=== PATIENT | male | born 1955 | race Caucasian/White ===

== ENCOUNTER → 2019-02-17 11:14 | Outpatient (POV) | payer MEDICARE, SELFPAY | PROVIDERS: Visit Provider Dermatology | DX: Z00.00 Encounter for general adult medical examination without abnormal findings (principal) ==

== ENCOUNTER → 2019-03-04 14:08 | Outpatient (POV) | payer MEDICARE, MEDICAID, SELFPAY | DX: Z00.00 Encounter for general adult medical examination without abnormal findings (principal) ==

== ENCOUNTER → 2019-03-24 12:57 | Outpatient (POV) | payer MEDICARE, MEDICAID, SELFPAY | PROVIDERS: Visit Provider Dermatology | DX: L08.9 Local infection of the skin and subcutaneous tissue, unspecified (principal) | CPT/HCPCS: 87070; 87077; 87186; 87205 ==

== ENCOUNTER → 2019-04-28 09:47 | Outpatient (POV) | payer MEDICARE, MEDICAID, SELFPAY | PROVIDERS: Visit Provider Dermatology | DX: Z00.00 Encounter for general adult medical examination without abnormal findings (principal) ==

== ENCOUNTER 2019-05-01 10:00 | Outpatient (RCR) | payer MEDICARE, MEDICAID, SELFPAY | END 2019-05-01 10:05 | disposition home or self-care (01) | LOC: PT 10:00 | PROVIDERS: Visit Provider Dermatology | DX: L03.116 Cellulitis of left lower limb (principal) | CPT/HCPCS: 97162; 97597; 97598 ==

== ENCOUNTER → 2019-05-01 10:18 | Outpatient (CLI) | payer MEDICARE, MEDICAID, SELFPAY ==
[2019-05-01 10:44] LABS: Basophils % 0.4 % (0.1-2.0); Eosinophils # 0.1 K/mm3 (0.0-0.4); Eosinophils % 1.1 % (0.1-12.0); Hematocrit 47.5 % (42.0-52.0); Lymphocytes # 1.3 K/mm3 (0.7-4.5); Mean Corpuscular HGB Conc 31.5 g/dL (31.8-35.4); Mean Corpuscular Hemoglobin 30.9 pg (27.0-31.2); Mean Corpuscular Volume 98.3 fl (80-94); Mean Platelet Volume 6.9 fl (7.4-10.4); Monocytes # 0.5 K/mm3 (0.1-1.0); Monocytes % 5.2 % (1.7-9.3); Neutrophils # 7.5 K/mm3 (1.8-7.8); Neutrophils % 79.3 % (37.0-80.0); Platelet Count 198 K/mm3 (142-424); Red Blood Count 4.83 M/mm3 (4.60-6.20); Red Cell Distribution Width 13.2 % (11.5-17.5); White Blood Count 9.5 K/mm3 (4.8-10.8)
[2019-05-01 12:41] LABS: Alanine Aminotransferase 33 U/L (12-78); Albumin/Globulin Ratio 1.4 (1.1-1.8); Alkaline Phosphatase 104 U/L (46-116); Anion Gap 12.5 mEq/L (5-15); Aspartate Amino Transferase 18 U/L (15-37); Bilirubin,Total 0.3 mg/dL (0.2-1.0); Blood Urea Nitrogen 8 mg/dL (7-18); Calcium 9.1 mg/dL (8.5-10.1); Carbon Dioxide 30 mmol/L (21.0-32.0); Chloride 97 mmol/L (98-107); Cholesterol 177 mg/dL (140-200); Creatinine,Serum 1.04 mg/dL (0.70-1.30); Estimated Glomerular Filt Rate 73 ml/min (>60); GFR (African American) 88 ML/MIN (>60); Globulin 2.9 gm/dl (1.3-3.2); Glucose 118 mg/dL (74-106); HDL Cholesterol 89 mg/dL (27-67); LDL Cholesterol 81 mg/dL (0-130); Potassium 5.5 mmoL/L (3.5-5.1); Sodium 134 mmol/L (136-145); Thyroid Stimulating Hormone 0.88 uIU/ml (0.358-3.740); Total Protein,Serum 6.9 gm/dL (6.4-8.2); Triglycerides 36 mg/dL (30-200); VLDL Cholesterol 7 mg/dL (0-40)
== END ==
PROVIDERS: Visit Provider Nurse Practitioner Family
DX: I10 Essential (primary) hypertension (principal); J44.9 Chronic obstructive pulmonary disease, unspecified
CPT/HCPCS: 36415; 80053; 80061; 84443; 85025

== ENCOUNTER → 2019-06-09 13:14 | Outpatient (POV) | payer MEDICARE, MEDICAID, SELFPAY | PROVIDERS: Visit Provider Dermatology | DX: Z00.00 Encounter for general adult medical examination without abnormal findings (principal) ==

== ENCOUNTER → 2019-07-21 10:58 | Outpatient (POV) | payer MEDICARE, MEDICAID, SELFPAY | PROVIDERS: Visit Provider Dermatology | DX: Z00.00 Encounter for general adult medical examination without abnormal findings (principal) ==

== ENCOUNTER → 2019-07-29 13:49 | Outpatient (POV) | payer MEDICARE, MEDICAID, SELFPAY | DX: Z00.00 Encounter for general adult medical examination without abnormal findings (principal) ==

== ENCOUNTER → 2020-04-22 08:42 | Outpatient (CLI) | payer MEDICARE, MEDICAID, SELFPAY ==
--- NOTE | 2020-04-22 08:47 | CT_ITS ---
PROCEDURE: CT LUNG SCREENING CLINICAL INDICATION: H/O TOBACCO USE Eighty pack-year smoking history, asymptomatic for lung cancer COMPARISON: No exams were available for comparison TECHNIQUE: The exam was performed on a GE Light Speed [address] scanner using 2.90 mGy CTDI. A low dose helical CT CHEST was performed on a multi-detector scanner. All CT scans at the facility use one or more dose reduction, viz: automated exposure control, ma/kV adjustment per patient size (including targeted exams where dose is matched to indication, i.e. head), or iterative reconstruction technique. The LDCT was performed in a facility that meets the criteria for the screening program. Data regarding this exam was submitted to ACR which is an approved registry. The order for this exam indicates that it came as a result of a lung cancer screening counseling shard decision-making visit that included all the elements required of such a visit including smoking cessation. The radiologist interpreting this exam meets the CMS criteria for the LDCT lung cancer screening program. The exam is reported using the Lung-RADS classification scale and reported to the ACR registry. NOTE: This study was performed for the specific purposes of lung cancer screening and is not an alternative to diagnostic chest CT. RADIATION DOSE: CTDI vol(CT dose Index-volume) = 2.90mG DLP (Dose Length Product) = 123.50 mGcm Lung Rads Category: FINDINGS: Three nodular opacities are present in the right apex which are subpleural measuring up to 1.1 x 0.7 cm. This may be due to areas of scarring. Short-term follow-up suggested. Centrilobular emphysema is noted. There is mild diffuse bronchial thickening There is a small hiatal hernia. There are old right-sided rib fractures IMPRESSION: Lung rads category 3 probably benign. Recommend [address] without and with contrast regarding right apical nodules Dictated by: Jaylen Reyes MD 05/09/2020 10:01 Electronically signed by Jaylen Reyes MD in [place] 05/09/2020 10:01
== END ==
PROVIDERS: PCP Podiatrist; Visit Provider Nurse Practitioner Family
DX: Z87.891 Personal history of nicotine dependence (principal); Z12.2 Encounter for screening for malignant neoplasm of respiratory organs

== ENCOUNTER → 2020-05-03 11:03 | Outpatient (POV) | payer MEDICARE, MEDICAID, SELFPAY | PROVIDERS: PCP Nurse Practitioner Family; Visit Provider Physician Assistant | DX: Z00.00 Encounter for general adult medical examination without abnormal findings (principal) ==

== ENCOUNTER → 2020-06-21 15:16 | Outpatient (POV) | payer MEDICARE, MEDICAID, SELFPAY | PROVIDERS: PCP Nurse Practitioner Family; Visit Provider Dermatology | DX: Z00.00 Encounter for general adult medical examination without abnormal findings (principal) ==

== ENCOUNTER → 2020-08-01 09:44 | Outpatient (CLI) | payer MEDICARE, MEDICAID, SELFPAY ==
--- NOTE | 2020-08-01 09:50 | XR_ITS ---
PROCEDURE: XR CERVICAL SPINE 5V CLINICAL INDICATION: NECK PAIN COMPARISON: No exams were available for comparison FINDINGS: There has been prior cervical spine surgery with fusion of C5-C6 and C6-C7. There is normal alignment of these vertebral bodies. There is minimal anterolisthesis of C3 on C4 and C4 on C5 of 2-3 mm each. There is also mild anterolisthesis of C7 on T1 of 4 mm. There is mild degenerative disc disease at C7-T1 and C4-C5 and C5-C6 The joint spaces are well-preserved. No significant degenerative/arthritic changes. No erosive changes evident. No fracture or dislocation evident. Facet and uncovertebral hypertrophy is present and is causing mild narrowing on the left at C4-C5 and on the right at C4-C5. Carotid artery calcification is present on the left. Other findings:None. IMPRESSION: Postsurgical changes with cervical spondylosis as described above. Dictated by: Jaylen Reyes MD 08/01/2020 11:49 Jaylen Reyes MD in [place] 08/01/2020 11:49
== END ==
PROVIDERS: PCP Nurse Practitioner Family; Visit Provider Nurse Practitioner Family
DX: M54.2 Cervicalgia (principal)
CPT/HCPCS: 72050

== ENCOUNTER → 2020-08-11 10:41 | Outpatient (CLI) | payer MEDICARE, MEDICAID, SELFPAY ==
--- NOTE | 2020-08-11 10:56 | CT_ITS ---
PROCEDURE: CT CHEST WO/W CON CLINCAL INDICATION: RT LUNG NODULE follow up, right lung nodule soa COMPARISON: CT CT LUNG SCREENING from 04/22/2020 TECHNIQUE: IV Contrast: 75ml Optiray 350 Axial images obtained with sagittal and coronal reformats. All CT scans at the facility use one or more dose reduction, viz: automated exposure control, ma/kV adjustment per patient size (including targeted exams where dose is matched to indication, i.e. head), or iterative reconstruction technique. FINDINGS: No mediastinal or hilar mass or adenopathy is evident. There is normal heart size. There is a small hiatal hernia with mild nonspecific thickening of the distal esophagus. Small right apical nodules are once again noted and are unchanged. There is centrilobular emphysema with COPD and mild bronchial thickening. There is parenchymal opacity in the right lung base posterior laterally which has developed since the previous exam. This may only be due to an area of parenchymal scarring or atelectasis however, developing nodule is an additional consideration. This measures approximately 1 cm. Continued follow-up is suggested. No effusions or infiltrates. Upper abdominal images show multiple unopacified bowel loops which could obscure or mimic pathology. There is a small focus of gas in the region of the pancreatic head and may be due to a duodenal diverticulum posterior to the common bile duct. IMPRESSION: 1. Centrilobular emphysema with COPD. 2. Right apical nodular opacities are stable. 3. New parenchymal opacity in the right lung base posterior laterally and may be due to an area of atelectasis or fibrosis. Cannot exclude developing nodule. Recommend continued six-month follow-up. Dictated by: Jaylen Reyes MD 08/13/2020 09:33 Jaylen Reyes MD in [place] 08/13/2020 09:33
[2020-08-11 11:05] LABS: Blood Urea Nitrogen 10 mg/dl (9-20); Estimated Glomerular Filt Rate 86 ml/min (>60); GFR (African American) 103 ML/MIN (>60)
== END ==
PROVIDERS: PCP Nurse Practitioner Family; Visit Provider Nurse Practitioner Family
DX: R91.1 Solitary pulmonary nodule (principal)
CPT/HCPCS: 36415; 71270; 82565; 84520; Q9967

== ENCOUNTER → 2020-08-31 13:17 | Outpatient (POV) | payer MEDICARE, MEDICAID, SELFPAY | DX: Z00.00 Encounter for general adult medical examination without abnormal findings (principal) ==

== ENCOUNTER → 2020-11-28 11:10 | Outpatient (CLI) | payer MEDICARE, MEDICAID, SELFPAY ==
[2020-11-28 11:38] LABS: Basophils % 0.3 % (0.1-2.0); Eosinophils % 0.4 % (0.1-12.0); Hematocrit 49.7 % (42.0-52.0); Hemoglobin 16.3 g/dL (14.1-18.0); Lymphocytes # 1.3 K/mm3 (0.7-4.5); Lymphocytes % 14.3 % (10-50); Mean Corpuscular HGB Conc 32.9 g/dL (31.8-35.4); Mean Corpuscular Hemoglobin 32.7 pg (27.0-31.2); Mean Corpuscular Volume 99.3 fl (80-94); Mean Platelet Volume 7.3 fl (7.4-10.4); Monocytes # 0.5 K/mm3 (0.1-1.0); Monocytes % 5.4 % (1.7-9.3); Neutrophils # 7.3 K/mm3 (1.8-7.8); Neutrophils % 79.6 % (37.0-80.0); Platelet Count 173 K/mm3 (142-424); Red Cell Distribution Width 13.5 % (11.5-17.5); White Blood Count 9.2 K/mm3 (4.8-10.8)
[2020-11-28 12:37] LABS: Chloride 95 mmol/L (98-107); Potassium 4.5 mmoL/L (3.5-5.1); Sodium 136 mmol/L (136-145)
[2020-11-28 12:40] LABS: Alanine Aminotransferase 17 U/L (12-78); Albumin Level 4.6 g/dl (3.5-5.0); Albumin/Globulin Ratio 1.6 (1.1-1.8); Alkaline Phosphatase 125 U/L (38-126); Anion Gap 11.5 mEq/L (5-15); Aspartate Amino Transferase 24 U/L (17-59); Bilirubin,Total 0.5 mg/dl (0.2-1.3); Blood Urea Nitrogen 16 mg/dl (9-20); Carbon Dioxide 34 mmol/L (22.0-30.0); Cholesterol 152 mg/dl (140-200); Estimated Glomerular Filt Rate 75 ml/min (>60); GFR (African American) 91 ML/MIN (>60); Globulin 2.8 g/dL (1.3-3.2); Total Protein,Serum 7.4 g/dl (6.3-8.2); Triglycerides 44 mg/dl (30-150); VLDL Cholesterol 9 mg/dL (0-40)
[2020-11-28 12:41] LABS: Calcium 9.7 mg/dl (8.4-10.2); Glucose 130 mg/dl (74-100); HDL Cholesterol 75 mg/dl (40-60)
[2020-11-28 12:51] LABS: Direct LDL Cholesterol 52.57 mg/dL (100-129)
[2020-11-28 13:10] LABS: Thyroid Stimulating Hormone 0.47 uIU/mL (0.465-4.68)
== END ==
PROVIDERS: Visit Provider Internal Medicine Adolescent Medicine
DX: I10 Essential (primary) hypertension (principal)
CPT/HCPCS: 36415; 80053; 80061; 84443; 85025

== ENCOUNTER → 2021-01-12 10:03 | Outpatient (CLI) | payer MEDICARE, MEDICAID, SELFPAY ==
[2021-01-12 11:17] LABS: Blood Urea Nitrogen 14 mg/dl (9-20); Estimated Glomerular Filt Rate 85 ml/min (>60); GFR (African American) 103 ML/MIN (>60)
== END ==
PROVIDERS: Visit Provider Nurse Practitioner Family
DX: Z01.818 Encounter for other preprocedural examination (principal); R91.1 Solitary pulmonary nodule
CPT/HCPCS: 36415; 82565; 84520

== ENCOUNTER → 2021-01-17 12:59 | Outpatient (CLI) | payer MEDICARE, MEDICAID, SELFPAY ==
--- NOTE | 2021-01-17 13:06 | CT_ITS ---
PROCEDURE: CT CHEST W CON CLINCAL INDICATION: NODULE OF RT LUNG, COPD W/ CHRONIC EMPHYSEMA Vats smoker COMPARISON: CT CT CHEST WO/W CON from 08/11/2020 TECHNIQUE: IV Contrast: 75ml Isovue 370 Axial images obtained with sagittal and coronal reformats. All CT scans at the facility use one or more dose reduction, viz: automated exposure control, ma/kV adjustment per patient size (including targeted exams where dose is matched to indication, i.e. head), or iterative reconstruction technique. FINDINGS: HEART AND MEDIASTINAL STRUCTURES: No mediastinal or hilar mass or adenopathy. No evidence of aortic aneurysm or dissection. No central pulmonary embolus apparent. There is a small precarinal and subcarinal nodes. These are less than 1 cm in short axis and may be slightly more prominent compared to the previous exam LUNGS AND PLEURAL SPACES: COPD with centrilobular emphysema and scattered areas of scarring. Biapical fibronodular changes are present probably unchanged. In the right upper lobe centrally there is a new irregular parenchymal opacity at approximately 10 mm. In the right upper lobe anteriorly there is a new nodule measuring 17 by 10 mm. In the superior segment of the right lower lobe a pulmonary mass has developed measuring 4.5 by 2.4 cm. There is some bronchial wall thickening leading to this region. This was not present on the previous exam. The margins are spiculated highly suspicious for neoplasm. This is contiguous with a superior segmental bronchus. There is a stable nodular opacity in the right posterior lateral costophrenic sulcus the BONY STRUCTURES: No acute bony abnormalities apparent. UPPER ABDOMEN: There is mild generalized gastric wall thickening. This is nonspecific and may be related to nondistention ADDITIONAL FINDINGS: No other significant abnormalities. IMPRESSION: There has been interval development of a 4.5 cm mass in the superior segment of the right lower lobe. This is suspicious for neoplasm in represent primary bronchogenic neoplasm. There is some bronchial wall thickening leading to this area. Masslike consolidation/pneumonia is included in the differential diagnosis. Pulmonology consult may be of further value. There are 2 new areas of irregular parenchymal opacity in the right upper lobe which may represent metastatic foci. Previously noted parenchymal opacity in the right lung base laterally is not significantly changed. Dictated by: Jaylen Reyes MD 01/18/2021 12:08 Jaylen Reyes MD in [place] 01/18/2021 12:08
== END ==
PROVIDERS: PCP Nurse Practitioner Family; Visit Provider Nurse Practitioner Family
DX: R91.1 Solitary pulmonary nodule (principal); J44.9 Chronic obstructive pulmonary disease, unspecified; Z87.891 Personal history of nicotine dependence
CPT/HCPCS: 71260; Q9967

== ENCOUNTER → 2021-02-13 11:55 | Outpatient (CLI) | payer MEDICARE, MEDICAID, SELFPAY | PROVIDERS: PCP Nurse Practitioner Family; Visit Provider Internal Medicine Pulmonary Disease | DX: Z20.822 Contact with and (suspected) exposure to COVID-19 (principal) | CPT/HCPCS: U0003 ==

== ENCOUNTER 2021-02-15 07:46 | Day surgery (SDC) | payer MEDICARE, MEDICAID, SELFPAY ==
[2021-02-15] VITALS (11 sets, daily range): BP systolic 109–155; BP diastolic 63–79; PULSE 72–105; RESP 12–18; TEMP 36.4–36.9; O2SAT 91–99; BMI 18.5
--- NOTE | 2021-02-15 13:08 | HMH.BRONCH ---
- Procedure: Date: 02/15/21 Patient Date of :: 1955 Procedure Performed:: Bronchoscopy with endobronchial ultrasound FNA Bronchoscopy with BAL and transbronchial biopsy Indications:: Lung mass and lymphadenopathy Performing Provider:: Maame Lazaro MD Referring Provider:: Dr: Linda Muñoz APRN Sedation:: General anesthesia Procedure:: Clean EBUS bronchoscopy was advanced to the ET tube and if no surveillance was performed, patient found to have lymphadenopathy in stations 10 R, 7 and 10 L. EBUS FNA was performed 6 passes in each of the lymph node stations. Pathology at bedside found to have adequate lymphoid tissue on stations 10 L, 7 and scant lymphoid tissue on stations 10 R. Reported to have adequate lymphocytes with reactive cells in the background. No obvious evidence of malignancy noted on the preliminary examination. EBUS samples were also sent for cytopathology awaiting the final diagnosis. EBUS bronchoscopy was retracted on clean diagnostic bronchoscopy transferred airways were examined up to subsegmental bronchi mucous plugging or active bleeding noted. Main greg, right upper middle lower lobe and left lingular carinas appeared sharp. Transbronchial biopsies was performed in the right lower lobe superior segment along with BAL. Biopsy samples were sent for cytopathology along with bacterial fungal and AFB staining and culture. Bronchoalveolar lavage was also performed in the right lower lobe superior segment with a total of 60 cc of saline instilled with a return of 20 cc that was sent for BAL differential, Gram stain, fungal and AFB culture staining along with cytopathology. We will follow with the results in the clinic in a week. We will also follow the PET scan. Findings:: Please see the procedure note Recommendations:: Please see the procedure note Complications:: none Estimated blood obtained (mL): 15
--- NOTE | 2021-02-15 13:14 | P.PN_ITS ---
[facility] Anesthesia Checklist - Structural Data Admitted From: Home Planned Operative Procedure/s: Transbroch wit lavage Consent for Planned Operative Procedure(s) Verified: Yes Verified Documents: Surgical Consent, History and Physical - Additional verifications Anesthesia Reactions: No - Airway Assessment C-Spine Mobility Assessed: Yes TMJ Mobility Assessed: Yes Dentition: Edentulous - Neurological Assessment Level of Consciousness: Awake, Alert - Anesthesia Plan Anesthesia Risk discussed: Yes Anesthesia Plan: Verified ASA Class: III Anesthesia Type: General [facility] History Medical History: Reports:: Cancer (skin), Chronic Obstructive Pulmonary Disease (COPD), Gastroesophageal Reflux Disease(GERD), Hepatitis, Hypertension, Lung Disease, Seizures Denies:: Diabetes Mellitus Type 1, Diabetes Mellitus Type 2, Internal Pacemaker, MRSA *Have you ever received a pneumonia vaccine?: Yes *Have you received a flu vaccine this season?: Yes Anesthesia experience/problems:: None Laterality Cases: Bilateral: Tonsillectomy Other Surgeries: Yes: Appendectomy, Cancer Surgery, Other. No: Pacemaker Amputation: No Fractures: No - *Social History Last grade of school completed: High school graduate Smoking Status: Current every day smoker Tobacco Type: cigarettes # Packs/Day (cigarettes): 2 Alcohol Intake: never Substance Use Type: former substance user *Occupational Status:: disabled Housing: house *Travel in the last 8 weeks: None Family Hx:: No significant family history, Adopted
--- NOTE | 2021-02-15 13:16 | P.PN_ITS ---
[facility] Anesthesia Record Part I Intake, IV Amount: 1,000 Estimated blood loss (mL): 2 Urine output (mL): 0 Blood Pressure: 155/79 SaO2: 95 Pulse Rate: 103 Respiratory Rate: 12 Temperature: 97.5 F Patient is:: Awake, Stable Stable to PACU at:: 12:50
--- NOTE | 2021-02-15 13:57 | XR_ITS ---
PROCEDURE: XR CHEST AP CLINICAL HISTORY: BRONCHOSCOPY IN OR COMPARISON: CT CT CHEST W CON from 01/17/2021 FINDINGS: Fluoroscopy time: 1.9 minutes. A single images submitted with the bronchus scope in place. This is in the right mid lung area. IMPRESSION: S/p C-arm assisted bronchoscopy Dictated by: Jaylen Reyes MD 03/10/2021 17:27 Jaylen Reyes MD in [place] 03/10/2021 17:27
--- NOTE | 2021-02-16 13:14 | P.PN_ITS ---
[facility] Anesthesia Record Part II Discharge Time: 13:10 Destination: [facility] PACU nurse assessment reviewed?: Yes Patient Condition:: Good Anesthesia Complications:: None Swallowing reflex intact?: Yes Cyanosis?: No Blood Pressure: 136/75 Pulse Rate: 105 Temperature: 97.8 F Mental Status: Alert & Oriented Pain level:: 0 Nausea and/or vomitting:: None Intake, IV Amount: 1,000
[2021-02-16 13:16] VITALS: BP 136/75; PULSE 105; TEMP 36.6
== END 2021-02-15 13:41 | disposition home or self-care (01) ==
LOC: OR 07:48
PROVIDERS: PCP Nurse Practitioner Family; Visit Provider Internal Medicine Pulmonary Disease
DX: R91.8 Other nonspecific abnormal finding of lung field (principal); R59.1 Generalized enlarged lymph nodes; J44.9 Chronic obstructive pulmonary disease, unspecified; Z72.0 Tobacco use; I10 Essential (primary) hypertension
CPT/HCPCS: 31624; 31628; 31653; 71045; 76000; 87070; 87077; 87102; 87116; 87186; 87205; 87206; 87220; 88112; 88172; 88173; 88305; 89051; 94640; J2405; J2710

== ENCOUNTER → 2021-04-03 12:44 | Outpatient (CLI) | payer MEDICARE, MEDICAID, SELFPAY ==
[2021-04-03 14:00] VITALS: PULSE 82
--- NOTE | 2021-04-03 14:25 | CT_ITS ---
PROCEDURE: CT CHEST WO CON CLINICAL INDICATION: Rt nodule followup In rt lower lung and upper rt area COMPARISON: CT CT CHEST W CON from 01/17/2021 TECHNIQUE: Axial images obtained with sagittal and coronal reformats. All CT scans at the facility use one or more dose reduction, viz: automated exposure control, ma/kV adjustment per patient size (including targeted exams where dose is matched to indication, i.e. head), or iterative reconstruction technique. FINDINGS: HEART AND MEDIASTINAL STRUCTURES: There are scattered small mediastinal lymph nodes once again noted. There is mild prominence of the supravalvular portion of the ascending aorta at 4.1 cm not significantly changed. LUNGS AND PLEURAL SPACES: Centrilobular emphysema. In the right upper lobe there has been interval development of an area of consolidation with air bronchograms which extends from the central aspect of the right upper lobe peripherally to the pleural surface. There are a few irregular satellite nodular opacities in the right upper lobe is well. This area of consolidation measures at least 6.3 cm transverse and 7 cm AP with a thickness measuring up to 2 cm. This encompasses the previously described opacities in the right upper lobe. There are also a fuse perihilar opacities which have developed in the right upper lobe as well. The previously noted masslike area of consolidation in the superior segment of the right lower lobe has decreased in size. A new 1 cm opacity is present in the right lower lobe laterally. A new subpleural opacity is present in the right lower lobe posteriorly and laterally as well as a few small nodular opacities in the right lower lobe. There is diffuse bronchial thickening. No pleural effusions. BONY STRUCTURES: No acute bony abnormalities apparent. UPPER ABDOMEN: Unremarkable. ADDITIONAL FINDINGS: No other significant abnormalities. IMPRESSION: There has been a mixed response with masslike consolidation in the right upper lobe with satellite opacities but improvement in the masslike area of consolidation in the right lower lobe. These findings may represent cryptogenic organizing pneumonia. COPD with centrilobular emphysema and mild diffuse bronchial thickening noted. One cannot exclude the possibility of neoplasm therefore, follow-up is recommended. Dictated by: Jaylen Reyes MD 04/04/2021 06:25 Jaylen Reyes MD in [place] 04/04/2021 06:25
== END ==
PROVIDERS: PCP Nurse Practitioner Family; Visit Provider Internal Medicine Pulmonary Disease
DX: R91.8 Other nonspecific abnormal finding of lung field
CPT/HCPCS: 71250; 94060; 94640; 94726; 94729

== ENCOUNTER → 2021-07-07 07:52 | Outpatient (CLI) | payer MEDICARE, MEDICAID, SELFPAY ==
--- NOTE | 2021-07-07 07:53 | CT_ITS ---
PROCEDURE: CT CHEST WO CON CLINICAL INDICATION: 3-month follow-up Shortness of air, smoker COMPARISON: CT CT CHEST WO CON from 04/03/2021 TECHNIQUE: Axial images obtained with sagittal and coronal reformats. All CT scans at the facility use one or more dose reduction, viz: automated exposure control, ma/kV adjustment per patient size (including targeted exams where dose is matched to indication, i.e. head), or iterative reconstruction technique. FINDINGS: COPD with centrilobular emphysematous change and scattered areas of scarring. There has been further improvement in the area of masslike consolidation within the right upper lobe with mild residual consolidation/scarring. There has been mild improvement in the area consolidation in the superior segment of the right lower lobe. Mild residual persist small peripheral opacity noted in the right lower lobe posterior laterally in the subpleural region not significantly changed 5 mm opacity is present in the right lower lobe laterally at 5 mm previously 8 mm. No new nodules apparent. No mediastinal or hilar adenopathy. No effusions. IMPRESSION: Further improvement in the areas of consolidation in the right upper and right lower lobe. No new nodules or areas of consolidation evident COPD with centrilobular emphysema Dictated by: Jaylen Reyes MD 07/07/2021 08:48 Jaylen Reyes MD in [place] 07/07/2021 08:48
== END ==
PROVIDERS: PCP Nurse Practitioner Family; Visit Provider Internal Medicine Pulmonary Disease
DX: R91.8 Other nonspecific abnormal finding of lung field (principal)
CPT/HCPCS: 71250

== ENCOUNTER → 2021-09-09 10:09 | Outpatient (CLI) | payer MEDICARE, MEDICAID, SELFPAY ==
[2021-09-09 11:21] LABS: Basophils % 0.6 % (0.1-2.0); Eosinophils # 0.2 K/mm3 (0.0-0.4); Eosinophils % 2.4 % (0.1-12.0); Hematocrit 51.5 % (42.0-52.0); Lymphocytes # 1.7 K/mm3 (0.7-4.5); Lymphocytes % 23.8 % (10-50); Mean Corpuscular HGB Conc 30.9 g/dL (31.8-35.4); Mean Corpuscular Hemoglobin 32.2 pg (27.0-31.2); Mean Corpuscular Volume 103.9 fl (80-94); Mean Platelet Volume 7.8 fl (7.4-10.4); Monocytes # 0.5 K/mm3 (0.1-1.0); Monocytes % 7.1 % (1.7-9.3); Neutrophils # 4.7 K/mm3 (1.8-7.8); Platelet Count 132 K/mm3 (142-424); Red Blood Count 4.96 M/mm3 (4.60-6.20); Red Cell Distribution Width 13.7 % (11.5-17.5); White Blood Count 7.2 K/mm3 (4.8-10.8)
[2021-09-09 12:09] LABS: Chloride 98 mmol/L (98-107); Potassium 4.5 mmoL/L (3.5-5.1); Sodium 140 mmol/L (136-145)
[2021-09-09 12:11] LABS: Blood Urea Nitrogen 14 mg/dl (9-20); Estimated Glomerular Filt Rate 85 ml/min (>60); GFR (African American) 103 ML/MIN (>60)
[2021-09-09 12:12] LABS: Alanine Aminotransferase 13 U/L (12-78); Albumin Level 3.9 g/dl (3.5-5.0); Albumin/Globulin Ratio 1.6 (1.1-1.8); Alkaline Phosphatase 109 U/L (38-126); Anion Gap 11.5 mEq/L (5-15); Aspartate Amino Transferase 21 U/L (17-59); Bilirubin,Total 0.3 mg/dl (0.2-1.3); Calcium 9.2 mg/dl (8.4-10.2); Carbon Dioxide 35 mmol/L (22.0-30.0); Chol/HDL Ratio 2.3 (1-3.5); Cholesterol 142 mg/dl (140-200); Globulin 2.5 g/dL (1.3-3.2); Glucose 105 mg/dl (74-100); HDL Cholesterol 63 mg/dl (40-60); Total Protein,Serum 6.4 g/dl (6.3-8.2); Triglycerides 73 mg/dl (30-150); VLDL Cholesterol 15 mg/dL (0-40)
[2021-09-09 12:24] LABS: Direct LDL Cholesterol 54.74 mg/dL (100-129)
== END ==
PROVIDERS: PCP Nurse Practitioner Family; Visit Provider Nurse Practitioner Family
DX: I10 Essential (primary) hypertension (principal); Z79.899 Other long term (current) drug therapy
CPT/HCPCS: 80053; 80061; 85025

== ENCOUNTER → 2021-09-25 10:17 | Outpatient (CLI) | payer MEDICARE, MEDICAID, SELFPAY ==
--- NOTE | 2021-09-25 10:22 | CA_ITS ---
APPROVED REPORT Bilateral Lower Extremity Venous Study for DVT. Lip Of Shank Cutter: MAXWELL GuevaraT Indications Lower Extremity Edema: Bilateral Current Smoker EDEMA BLE'S Risk Factors Current Smoker Vein Imaging CFV (R): compressive, spontaneous, phasic, augmentation FEM (R): compressive, spontaneous, phasic, augmentation POP (R): compressive, spontaneous, phasic, augmentation PTV (R): Compressible GSV (R): Compressible Peroneals (R):Compressible GAS (R): Compressible CFV (L): compressive, spontaneous, phasic, augmentation FEM (L): compressive, spontaneous, phasic, augmentation POP (L): compressive, spontaneous, phasic, augmentation PTV (L): Compressible GSV (L): Compressible Peroneals (L):Compressible GAS (L): Compressible Findings Study suggests no evidence of DVT or SVT of the bilateral lower extremities. There is a 5.3 X 2.9 cm lymph node in the right groin. There is a 5.0 X 3.3 cm lymph node left groin. Conclusion Study suggests no evidence of DVT or SVT of the bilateral lower extremities. There is a 5.3 X 2.9 cm lymph node in the right groin. There is a 5.0 X 3.3 cm lymph node left groin. Electronically signed by : Jaylen Reyes MD 09/25/2021 17:40:38
== END ==
PROVIDERS: PCP Nurse Practitioner Family; Visit Provider Nurse Practitioner Family
DX: R60.0 Localized edema (principal)
CPT/HCPCS: 93970

== ENCOUNTER → 2021-09-28 10:13 | Outpatient (CLI) | payer MEDICARE, MEDICAID, SELFPAY ==
[2021-09-28 12:38] LABS: Chloride 99 mmol/L (98-107); Potassium 5.1 mmoL/L (3.5-5.1); Sodium 139 mmol/L (136-145)
[2021-09-28 12:41] LABS: Anion Gap 8.1 mEq/L (5-15); Blood Urea Nitrogen 15 mg/dl (9-20); Carbon Dioxide 37 mmol/L (22.0-30.0); Estimated Glomerular Filt Rate 98 ml/min (>60); GFR (African American) 118 ML/MIN (>60)
[2021-09-28 12:42] LABS: Calcium 9.1 mg/dl (8.4-10.2); Glucose 101 mg/dl (74-100)
== END ==
PROVIDERS: Visit Provider Nurse Practitioner Family
DX: R59.0 Localized enlarged lymph nodes (principal)
CPT/HCPCS: 36415; 80048

== ENCOUNTER → 2021-10-05 09:52 | Outpatient (CLI) | payer MEDICARE, MEDICAID, SELFPAY ==
--- NOTE | 2021-10-05 09:54 | CT_ITS ---
PROCEDURE INFORMATION: Exam: CT Abdomen And Pelvis Without And With Contrast Exam date and time: 10/05/2021 9:54 AM Age: 65 years old Clinical indication: Abdominal pain; Generalized; Patient HX: Inguinal lymphadenopathy TECHNIQUE: Imaging protocol: Computed tomography of the abdomen and pelvis without and with contrast. Radiation optimization: All CT scans at this facility use at least one of these dose optimization techniques: automated exposure control; mA and/or kV adjustment per patient size (includes targeted exams where dose is matched to clinical indication); or iterative reconstruction. Contrast material: ISOVUE 370; Contrast volume: 75 ml; Contrast route: INTRAVENOUS (IV); COMPARISON: CT CHEST WO CON 07/07/2021 8:02 AM FINDINGS: Lungs: No mass/infiltrate at either lung base. No pleural effusion. Emphysematous changes are noted. There are small areas of scarring or atelectasis at the lung bases. Liver: The liver appears enlarged. There is no evidence of intra hepatic mass. No evidence of intrahepatic biliary dilatation. Gallbladder and bile ducts: Normal. No calcified stones. No ductal dilation. Gallbladder wall thickness is normal. Pancreas: Normal. No ductal dilation. Spleen: Normal. No splenomegaly. Adrenal glands: Normal. No mass. Kidneys and ureters: Normal. No hydronephrosis. Stomach and bowel: There is diverticulosis within portions of the colon without evidence of diverticulitis. There is prominent fecal retention noted throughout the colon. Prominent distention of the rectum with air and fecal material. The nondistended stomach has a diffusely thickened wall. This could be on the basis of simple nondistention although the possibility of gastritis cannot be excluded. No obstruction. No mucosal thickening. Small bowel mesentery is normal. Appendix: The appendix is poorly visualized on this examination. There is no evidence of acute inflammatory process within the right lower quadrant. Intraperitoneal space: Small amount of ascites within the pelvis. No free air. Vasculature: Arterial atheromatous calcifications are noted. No abdominal aortic aneurysm. There are calcified phleboliths within the pelvis. Lymph nodes: Visible bilateral inguinal lymph nodes which do not appear enlarged. No enlarged lymph nodes. Urinary bladder: Unremarkable as visualized. Reproductive: Mild prostatic enlargement. There is central prostatic calcification identified. Bones/joints: There are degenerative changes noted within the lumbar spine.No acute fracture. Soft tissues: Unremarkable. IMPRESSION: 1. Small amount of ascites within the pelvis. Etiology for this finding is uncertain. There is no evidence of free air. 2. Mild hepatomegaly. 3. Prominent fecal retention noted within the colon. 4. Thickened wall of a nondistended stomach. This could be on the basis of simple nondistention although gastritis cannot be excluded.
== END ==
PROVIDERS: PCP Nurse Practitioner Family; Visit Provider Nurse Practitioner Family
DX: R59.0 Localized enlarged lymph nodes (principal)
CPT/HCPCS: 74178; Q9967

== ENCOUNTER → 2022-02-13 11:07 | Outpatient (CLI) | payer MEDICARE, MEDICAID, SELFPAY ==
[2022-02-13 11:36] LABS: Blood Urea Nitrogen 20 mg/dl (9-20); Estimated Glomerular Filt Rate 67 ml/min (>60); GFR (African American) 82 ML/MIN (>60)
== END ==
PROVIDERS: PCP Nurse Practitioner Family; Visit Provider Nurse Practitioner Family
DX: Z01.818 Encounter for other preprocedural examination (principal)
CPT/HCPCS: 36415; 82565; 84520

== ENCOUNTER → 2022-02-17 07:51 | Outpatient (CLI) | payer MEDICARE, MEDICAID, SELFPAY ==
--- NOTE | 2022-02-17 07:56 | MR_ITS ---
FINAL REPORT CLINICAL HISTORY: DDD, CERVICAL, HX OF SPINAL FUSION, CERVICAL RADICULOPATHY FINDINGS: Multiplanar MR imaging of the cervical spine was performed without and with contrast. The saturation band obscures most of the detail on the sagittal post contrast images. There is motion on many of the images which significantly decreases the sensitivity of the exam. There has been fusion at C5, C6, and C7. On the sagittal T2-weighted images, disc degeneration is seen at multiple levels. There is mild anterolisthesis of C7 on T1. There is no evidence of fracture. No bony mass is identified. The cervical spinal cord has an unremarkable appearance without evidence of mass, edema or syrinx. There is no evidence of significant canal stenosis. C2-3: An annular bulge is present. No significant canal stenosis or neural foraminal narrowing is identified. C3-4: There is an annular bulge present. There are uncovertebral osteophytes. There is a small central disc protrusion. There is severe bilateral neural foraminal narrowing. C4-5: There is an annular bulge present. There are uncovertebral osteophytes. There is a small central disc protrusion. There is severe right moderate left neural foraminal narrowing. C5-6: Fusion. There is moderate right and mild left neural foraminal narrowing. There is no significant canal stenosis. C6-7: Fusion. There is severe right and moderate left neural foraminal narrowing. There is no significant canal stenosis. C7-T1: An annular bulge is present. There is moderate bilateral neural foraminal narrowing. There is no significant canal stenosis. No abnormal contrast enhancement is seen on the postcontrast images. IMPRESSION: Postoperative changes from fusion from C5 through C7. Multilevel degenerative disc disease as described. Disc protrusions at C3-4 and C4-5. Reviewed, Interpreted and Dictated by Javan Villarreal III, MD Transcribed by Kavya Sousa Authenticated by Javan Villarreal III, MD on 02/18/2022 07:38:30 AM [facility]
== END ==
PROVIDERS: PCP Nurse Practitioner Family; Visit Provider Nurse Practitioner Family
DX: M54.12 Radiculopathy, cervical region (principal); M50.30 Other cervical disc degeneration, unspecified cervical region; Z98.1 Arthrodesis status
CPT/HCPCS: 72156; 76376; A9576

== ENCOUNTER → 2022-03-27 08:29 | Outpatient (POV) | payer MEDICARE, MEDICAID, SELFPAY | PROVIDERS: Visit Provider Dermatology | DX: Z00.00 Encounter for general adult medical examination without abnormal findings (principal) ==

== ENCOUNTER → 2022-04-17 12:55 | Outpatient (POV) | payer MEDICARE, MEDICAID, SELFPAY | PROVIDERS: Visit Provider Dermatology | DX: Z00.00 Encounter for general adult medical examination without abnormal findings (principal) ==

== ENCOUNTER → 2022-09-12 07:26 | Outpatient (CLI) | payer MEDICARE, MEDICAID, SELFPAY ==
--- NOTE | 2022-09-12 07:29 | CT_ITS ---
FINAL REPORT CLINICAL HISTORY: H/O NICOTINE DEPENDENCE CURRENT SMOKER 2.5PPD X40 YEARS COMPARISON: 01/17/2021 and 07/07/2021 FINDINGS: Low-Dose Chest CT Axial images were obtained from the lung apex to the mid abdomen by computed tomography. Low-dose protocol was utilized. CTDI vol (mGy): 2.90 DLP (mGy-cm): 121.42 There is no axillary adenopathy. There is no hilar adenopathy. There are small mediastinal lymph nodes. The heart is proper size. There is no pericardial or pleural effusion. Lung window images demonstrate moderate changes of emphysema with mild pulmonary scarring including stable small nodular opacities at the right lung apex favored to represent scar. There has been further interval improvement in the focal opacities involving the right upper lobe and superior segment of the right lower lobe which which were most likely inflammatory. There has been interval improvement in a nodular opacity in the right lateral costophrenic angle. No new mass or nodule is identified. There is diffuse bronchial wall thickening consistent with bronchitis. Limited images of the upper abdomen are unremarkable. IMPRESSION: Lung RADS category 2. Recommend 12 month follow-up low-dose chest CT. Reviewed, Interpreted and Dictated by Javan Villarreal III, MD Transcribed by Naomi Guerin Authenticated and [facility]
== END ==
PROVIDERS: PCP Nurse Practitioner Family; Visit Provider Internal Medicine Adolescent Medicine
DX: Z87.891 Personal history of nicotine dependence (principal); Z12.2 Encounter for screening for malignant neoplasm of respiratory organs
CPT/HCPCS: 71271

== ENCOUNTER → 2022-11-21 20:17 | Outpatient (CLI) | payer MEDICARE, MEDICAID, SELFPAY | PROVIDERS: PCP Nurse Practitioner Family; Visit Provider Nurse Practitioner Family | DX: B35.1 Tinea unguium (principal); L60.0 Ingrowing nail | CPT/HCPCS: 87102; 87206; 87220 ==

== ENCOUNTER 2024-01-24 14:22 | Outpatient (CLI) | payer MEDICARE, MEDICAID, SELFPAY ==
--- NOTE | 2024-01-24 14:27 | CT_ITS ---
FINAL REPORT CLINICAL HISTORY: H/O TOBACCO USE current smoker 2.5 ppd x 40 years COMPARISON: 09/12/2022 FINDINGS: Axial images were obtained from the lung apex to the mid abdomen by computed tomography. Low-dose protocol was utilized. CTDl vol(mGy): 2.90 DLP (mGy-cm): 120.63 FINDINGS: There is no axillary adenopathy. There is no hilar or mediastinal adenopathy. The heart size is normal. There is no pericardial effusion. There is mild emphysema. Mild biapical scarring is noted. There are multifocal right lung opacities, many of which are stable and favored to represent areas of scarring. There are new, anterior right upper lobe opacities favored to represent atelectasis or pneumonia. There is a new, lobular pleural-based nodule in the medial left lower lobe measuring 10 mm on image 82. Just superior to this, there is another nodule measuring 5 mm. There is a new, small left pleural effusion versus pleural thickening. Limited images of the upper abdomen are unremarkable. IMPRESSION: Lung RADS category 4B. PET/CT is recommended for initial further evaluation. Reviewed, Interpreted and Dictated by Javan Villarreal III, MD Transcribed by Kayva Sousa Authenticated and [facility]
== END 2024-01-24 23:59 ==
LOC: RAD 14:23
PROVIDERS: PCP Nurse Practitioner Family; Visit Provider Nurse Practitioner Family
DX: Z87.891 Personal history of nicotine dependence (principal)
CPT/HCPCS: 71271

== ENCOUNTER 2024-03-16 06:48 | Outpatient (CLI) | payer MEDICARE, MEDICAID, SELFPAY ==
--- NOTE | 2024-03-16 06:55 | CT_ITS ---
FINAL REPORT CLINICAL HISTORY: .RT ILIAC LESION BIOPSY FINDINGS: CT GUIDED BONE CORE BIOPSY. HISTORY: Hypermetabolic right iliac bone lesion ATTENDING PHYSICIAN: Dr. Maya PHYSICIAN BARMAN: Robe Pedersen PA-C PROCEDURE: After informed consent was obtained and a timeout was performed, the patient was prepped and draped in usual sterile fashion over the right iliac bone. Utilizing local anesthesia and sterile technique with a coaxial system, access to lesion was obtained under direct CT guidance. A large core was obtained with a drill core system. The patient received no procedural sedation. The patient tolerated the procedure well and left the department in good condition. IMPRESSION: Status post CT guided core biopsy of right iliac bone without immediate complication. Films reviewed , interpreted and dictated by Dr. Maya. Transcribed by Robe Pedersen PA-C. Reviewed, Interpreted and Dictated by Jamila Maya MD Transcribed by ROCKY Romano Authenticated and [facility]
[2024-03-16 07:12] VITALS: BP 122/81; PULSE 93; RESP 18; TEMP 36.2; O2SAT 94; BMI 21.2
[2024-03-16] MEDS: LIDOCAINE 1% 20ML MDV 20 ML (09:52)
== END 2024-03-16 23:59 | disposition home or self-care (01) ==
LOC: RAD 06:49
PROVIDERS: PCP Nurse Practitioner Family; Visit Provider Internal Medicine Pulmonary Disease
DX: R94.8 Abnormal results of function studies of other organs and systems (principal)
CPT/HCPCS: 38221; 77012; 88307; 88311; 88341; 88342; 88360; J1642

== ENCOUNTER 2024-04-02 11:13 | Outpatient (CLI) | payer MEDICARE, MEDICAID, SELFPAY ==
[2024-04-02 11:22] VITALS: BMI 20.6
[2024-04-02 11:44] LABS: Basophils # 0.1 K/mm3 (0-0.2); Basophils % 0.9 % (0.1-2.0); Eosinophils # 0.1 K/mm3 (0.0-0.4); Eosinophils % 1.1 % (0.1-12.0); Hematocrit 49.3 % (42.0-52.0); Hemoglobin 15.8 g/dL (14.1-18.0); Lymphocytes # 1.4 K/mm3 (0.7-4.5); Lymphocytes % 19.1 % (10-50); Mean Corpuscular Hemoglobin 31.9 pg (27.0-31.2); Mean Corpuscular Volume 99.7 fl (80-94); Mean Platelet Volume 7.5 fl (7.4-10.4); Monocytes # 0.5 K/mm3 (0.1-1.0); Monocytes % 7.2 % (1.7-9.3); Neutrophils # 5.2 K/mm3 (1.8-7.8); Neutrophils % 71.7 % (37.0-80.0); Platelet Count 176 K/mm3 (142-424); Red Blood Count 4.95 M/mm3 (4.60-6.20); White Blood Count 7.2 K/mm3 (4.8-10.8)
[2024-04-02 11:49] LABS: Chloride 104 mmol/L (98-107); Potassium 5.2 mmoL/L (3.5-5.1); Sodium 141 mmol/L (136-145)
[2024-04-02 11:51] LABS: Blood Urea Nitrogen 16 mg/dl (9-20); Creatinine Clearance Estimated 64 mL/min (50-200); Estimated Glomerular Filt Rate 61 ml/min (>60); GFR (African American) 73 ML/MIN (>60)
[2024-04-02 11:52] LABS: Alanine Aminotransferase 23 U/L (12-78); Albumin Level 4.4 g/dl (3.5-5.0); Albumin/Globulin Ratio 1.6 (1.1-1.8); Alkaline Phosphatase 110 U/L (38-126); Anion Gap 11.2 mEq/L (5-15); Aspartate Amino Transferase 29 U/L (17-59); Bilirubin,Total 0.5 mg/dl (0.2-1.3); Calcium 10.2 mg/dl (8.4-10.2); Carbon Dioxide 31 mmol/L (22.0-30.0); Globulin 2.8 g/dL (1.3-3.2); Glucose 121 mg/dl (74-100); Total Protein,Serum 7.2 g/dl (6.3-8.2)
--- NOTE | 2024-04-02 15:01 | PC.NURSE ---
04/02/2024 1140 pt presents today for venipuncture for labs/guardant as ordered per md. Venipuncture performed to pt's lt ac x 1 stick using a butterfly access needle. Blood drawn for labs and needle withdrawn, site secured with 2x2 gauze and coban.
== END 2024-04-02 11:45 | disposition home or self-care (01) ==
PROVIDERS: PCP Nurse Practitioner Family; Visit Provider Internal Medicine Medical Oncology
DX: C34.90 Malignant neoplasm of unspecified part of unspecified bronchus or lung (principal)
CPT/HCPCS: 36415; 80053; 85025; 88360

== ENCOUNTER 2024-04-11 11:34 | Outpatient (CLI) | payer MEDICARE, MEDICAID, SELFPAY ==
--- NOTE | 2024-04-11 11:39 | MR_ITS ---
FINAL REPORT TECHNIQUE: Multiplanar MR, without and with contrast administration CLINICAL HISTORY: LUNG CANCER FINDINGS: Diffusion sequences show no signal abnormalities to indicate acute infarct. There are lacunar infarcts in the basal ganglia bilaterally. There is mild age-appropriate atrophy and minimal small vessel ischemic disease. The brain parenchyma is homogeneous with normal signal pattern. Ventricles are normal. No edema or hemorrhage is seen. Major vessel flow-voids are intact. Following contrast administration, there is no mass or abnormal parenchymal enhancement. IMPRESSION: No acute intracranial abnormality. Chronic findings as above. Reviewed, Interpreted and Dictated by Sayra Espino MD Transcribed by Luiza Sanders Authenticated and [facility]
[2024-04-11] MEDS: GADOTERIDOL INJ 20ML SYRINGE 14 ML IV (13:02)
[2024-04-11] MEDS: SODIUM CHLORIDE 0.9% 10ML SYR (RAD ONLY) 10 ML IV (13:03)
== END 2024-04-11 23:59 | disposition home or self-care (01) ==
LOC: RAD 11:35
PROVIDERS: PCP Nurse Practitioner Family; Visit Provider Internal Medicine Medical Oncology
DX: C34.90 Malignant neoplasm of unspecified part of unspecified bronchus or lung (principal)
CPT/HCPCS: 70553; A9576

== ENCOUNTER 2024-04-23 11:45 | Outpatient (CLI) | payer MEDICARE, MEDICAID, SELFPAY ==
[2024-04-23 11:51] VITALS: BMI 20.5
[2024-04-23 12:11] LABS: Basophils # 0.1 K/mm3 (0-0.2); Eosinophils # 0.1 K/mm3 (0.0-0.4); Eosinophils % 0.9 % (0.1-12.0); Hematocrit 49.7 % (42.0-52.0); Hemoglobin 15.9 g/dL (14.1-18.0); Lymphocytes # 1.5 K/mm3 (0.7-4.5); Lymphocytes % 24.2 % (10-50); Mean Corpuscular HGB Conc 31.9 g/dL (31.8-35.4); Mean Corpuscular Hemoglobin 32.3 pg (27.0-31.2); Mean Corpuscular Volume 101.2 fl (80-94); Mean Platelet Volume 7.9 fl (7.4-10.4); Monocytes # 0.4 K/mm3 (0.1-1.0); Monocytes % 6.9 % (1.7-9.3); Neutrophils # 4.2 K/mm3 (1.8-7.8); Platelet Count 144 K/mm3 (142-424); Red Blood Count 4.91 M/mm3 (4.60-6.20); White Blood Count 6.3 K/mm3 (4.8-10.8)
[2024-04-23 12:20] LABS: Chloride 101 mmol/L (98-107); Potassium 5.1 mmoL/L (3.5-5.1); Sodium 140 mmol/L (136-145)
[2024-04-23 12:23] LABS: Alanine Aminotransferase 18 U/L (12-78); Albumin Level 4.4 g/dl (3.5-5.0); Albumin/Globulin Ratio 1.8 (1.1-1.8); Alkaline Phosphatase 93 U/L (38-126); Anion Gap 13.1 mEq/L (5-15); Aspartate Amino Transferase 24 U/L (17-59); Bilirubin,Total 0.4 mg/dl (0.2-1.3); Blood Urea Nitrogen 14 mg/dl (9-20); Calcium 9.7 mg/dl (8.4-10.2); Carbon Dioxide 31 mmol/L (22.0-30.0); Creatinine Clearance Estimated 70 mL/min (50-200); Estimated Glomerular Filt Rate 67 ml/min (>60); GFR (African American) 81 ML/MIN (>60); Globulin 2.5 g/dL (1.3-3.2); Glucose 114 mg/dl (74-100); Total Protein,Serum 6.9 g/dl (6.3-8.2)
--- NOTE | 2024-04-23 12:35 | PC.NURSE ---
04/23/24 1205 pt presents for labs as ordered per md post appt. Venipuncture performed to pt's lt ac x 1 stick using a butterfly access needle. Blood drawn for labs, needle withdrawn and site secured with 2x2 gauze and coban.
[2024-04-23 12:41] LABS: T4 (Thyroxine) 9.2 ug/dl (5.53-11.0)
[2024-04-23 12:55] LABS: Thyroid Stimulating Hormone 0.71 uIU/mL (0.465-4.68)
== END 2024-04-23 12:15 | disposition home or self-care (01) ==
LOC: INF 11:46
PROVIDERS: Visit Provider Internal Medicine Medical Oncology
DX: C34.90 Malignant neoplasm of unspecified part of unspecified bronchus or lung (principal); C79.51 Secondary malignant neoplasm of bone; Z79.899 Other long term (current) drug therapy; F17.210 Nicotine dependence, cigarettes, uncomplicated
CPT/HCPCS: 36415; 80050; 80053; 84436; 84443; 85025

== ENCOUNTER 2024-04-29 08:55 | Outpatient (CLI) | payer MEDICARE, MEDICAID, SELFPAY ==
--- NOTE | 2024-04-29 09:00 | NM_ITS ---
FINAL REPORT CLINICAL HISTORY: LUNG CANCER COMPARISON: None FINDINGS: EXISTING RELEVANT IMAGING STUDIES: AP view of the pelvis, 2 views lumbar spine TECHNIQUE: The patient was injected with 26.6 mCi of technetium 99-MDP. 3 hour delayed images were obtained. FINDINGS: There is increased tracer activity involving the right iliac crest, which corresponds to bony erosions seen on plain films from the same date, consistent with metastatic disease. Would correlate with CT or MRI for further evaluation. There is increased tracer uptake at the L4-5 level on the left side, and degenerative change at that level likely accounts for this uptake. There is increased uptake in the shoulders, knees, ankles, and feet, also likely degenerative. There is nonspecific increased activity in the lower cervical spine, also likely degenerative. No other abnormal tracer activity is identified to suggest occult fracture or metastatic disease. IMPRESSION: Increased tracer activity in the right iliac crest corresponds to a focus of bony erosion seen on plain film exam, consistent with metastatic disease. Would suggest CT or MRI for further evaluation of this area. Other focal areas of uptake identified correlate with areas of degenerative change in this patient. Reviewed, Interpreted and Dictated by Javan Villarreal III, MD Transcribed by Jeannette Olivares Authenticated and [facility]
[2024-04-29] MEDS: SODIUM CHLORIDE 0.9% 10ML SYR (RAD ONLY) 10 ML IV (09:05)
[2024-04-29] MEDS: ISOTOPE MDP (BONE);1 DOSE VIAL IV (11:19)
[2024-04-29 12:24] LABS: Microscopic, Urine URINE MICROSCOPIC (MICROSCOPIC)
[2024-04-29 13:21] LABS: Appearance,Urine CLEAR (Clear); Bilirubin,Urine Negative (Negative); Blood, Urine Negative (Negative); Color,Urine YELLOW (Yellow); Glucose,Urine (UA) Negative (Negative); Ketones,Urine Negative (Negative); Leukocyte Esterase,Urine Negative (Negative); Nitrate,Urine Negative (Negative); Protein,Urine Negative (Negative); Urobilinogen,Urine 0.2 EU/dl (0.2)
--- NOTE | 2024-04-29 13:24 | XR_ITS ---
FINAL REPORT CLINICAL HISTORY: POST BONE SCAN, LUNG CANCER COMPARISON: None FINDINGS: SINGLE VIEW PELVIS: A single view of the pelvis was obtained. There is no acute fracture or dislocation. There is erosion of the right iliac crest. Mild degenerative change is present in the hips and lower lumbar spine. Soft tissues are unremarkable. IMPRESSION: Erosion of the right iliac crest, also seen as increased uptake on the bone scan in this patient with a known history of lung carcinoma. Reviewed, Interpreted and Dictated by Javan Villarreal III, MD Transcribed by Jeannette Olivares Authenticated and [facility]
--- NOTE | 2024-04-29 13:26 | XR_ITS ---
FINAL REPORT CLINICAL HISTORY: post bone scan , of lung and bone cancer COMPARISON: None FINDINGS: AP and lateral views of the lumbar spine were obtained. There is no prior exam for comparison. There is no acute fracture or malalignment. Vertebral body height is preserved. Mild and moderate degenerative changes present, greater on the left than on the right particularly at the L4-5 level. Vascular calcifications are noted. IMPRESSION: Mild and moderate degenerative change greater on the left than on the right, particularly at the L4-5 level. No acute bony abnormality identified. Reviewed, Interpreted and Dictated by Javan Villarreal III, MD Transcribed by Jeannette Olivares Authenticated and [facility]
[2024-04-29 13:32] LABS: Bacteria,Urine Trace /lpf; Squamous Epithelial Cell,Urine Occasional #/hpf (0-5); WBC,Urine Occasional #/hpf (0-3)
== END 2024-04-29 23:59 | disposition home or self-care (01) ==
LOC: RAD 08:56
PROVIDERS: Surgery; PCP Nurse Practitioner Family; Visit Provider Internal Medicine Medical Oncology
DX: C34.90 Malignant neoplasm of unspecified part of unspecified bronchus or lung (principal); F17.210 Nicotine dependence, cigarettes, uncomplicated
CPT/HCPCS: 72100; 72170; 78306; 81001; A9503

== ENCOUNTER 2024-04-30 09:02 | Day surgery (SDC) | payer MEDICARE, MEDICAID, SELFPAY ==
[2024-04-30] VITALS (11 sets, daily range): BP systolic 106–155; BP diastolic 71–99; PULSE 80–99; RESP 14–18; TEMP 36.1–36.4; O2SAT 91–100; BMI 18.1; BMI 20.6
--- NOTE | 2024-04-30 | XR_ITS ---
FINAL REPORT CLINICAL HISTORY: PORT A CATH IN OR 0.8 MIN 5.46 MGY FINDINGS: FLUOROSCOPY LESS THAN 1 HOUR HISTORY: Fluoroscopy guidance. Fluoroscopic guidance was provided for Port-A-Cath placement. A single spot film was obtained. A total of 0.8 minutes of fluoroscopy time were used. Total DAP: 5.46 mGy IMPRESSION: As above. Reviewed, Interpreted and Dictated by Javan Villarreal III, MD Transcribed by Joana Rubio Authenticated and [facility]
[2024-04-30] MEDS: LACTATED RINGERS 1000ML 1,000 ML 25 ML IV (09:16)
--- NOTE | 2024-04-30 09:37 | EXP.ANES.CKL ---
[facility] Disclaimer: The information contained in this section may have been updated after the patient was seen, as this information can be updated by other users. Medical History Procedure indicated History of smoking 30 or more pack years Lung nodule seen on imaging study COPD mixed type Total avulsion of nail plate Onychomycosis Surgical History History of appendectomy Family History Other No significant family history Social History Smoking Status: Current every day smoker tobacco type: cigarettes packs per day: 2 alcohol intake: never substance use type: former substance user current occupational status: retired and disabled Travel in the last 8 weeks: None housing: house current occupational exposures/hazards: No caffeine: Yes [facility] Anesthesia Checklist Patient Identification Patient Identification: Arm Band and Verbal (Name & ) Structural Data Admitted From: Home Planned Operative Procedure/s: PAC placement Consent for Planned Operative Procedure(s) Verified: Yes Verified Documents: Surgical Consent and History and Physical NPO Status Verified Time NPO: 00:00 Additional verifications Anesthesia Reactions: No Hx Blood Transfusions: No Blood Transfusion Reaction: No Airway Assessment Mallampati Score:: Class III C-Spine Mobility Assessed: Yes TMJ Mobility Assessed: Yes Dentition: Dentures-good fit (Removed) Neurological Assessment Level of Consciousness: Awake Hx Seizures: Yes (5 years ago) Numbness or tingling in extremities: No Anesthesia Plan Anesthesia Risk discussed: Yes Anesthesia Plan: Verified ASA Class: III Anesthesia Type: General
[2024-04-30] MEDS: CEFAZOLIN SODIUM 1GM ADV 1 GM IV (10:11)
[2024-04-30] MEDS: SODIUM CHLORIDE 0.9% 20ML VIAL 40 ML IV (10:11)
--- NOTE | 2024-04-30 10:50 | XR_ITS ---
FINAL REPORT CLINICAL HISTORY: port placement FINDINGS: SINGLE-VIEW CHEST The heart size is normal. The mediastinum is normal. Right subclavian port terminates in the lower SVC. There is mild linear atelectasis or scar in the right upper lobe. There is no pneumothorax. IMPRESSION: Right subclavian port in the lower SVC. Right upper lobe atelectasis versus scar. Reviewed, Interpreted and Dictated by Javan Villarreal III, MD Transcribed by Tammy De La O Authenticated and [facility]
--- NOTE | 2024-04-30 10:51 | P.OP_ITS ---
Date of procedure: 04/30/24 Pre-op Diagnosis:: Lung cancer Post-op Diagnosis:: Same Procedure performed:: Port-A-Cath placement Surgeon:: Ramakrishna Vo MD PET COUNSELOR:: Yazan Ly Anesthesia: LMA Estimated blood loss (mL): 10 Operative findings:: Port flushed with heparinized saline Operative note:: After informed consent was obtained the patient was taken to the operating room and placed in the supine position. General anesthesia with laryngeal mask airway was achieved. His right chest was prepped and draped in a sterile fashion. After infiltration with local anesthetic a large bore needle was utilized to access the right subclavian vein. A guidewire was placed in position and confirmed fluoroscopically. A transverse incision was made at the guidewire exit site. The deep subcutaneous tissue was dissected with electrocautery in order to create a pocket for the port hub. Utilizing a modified Seldinger technique the port catheter was placed in position and confirmed fluoroscopically. The catheter was secured to the hub and the hub was then secured to the underlying fascia with interrupted Prolene. The deep subcutaneous tissue was reapproximated with interrupted Vicryl suture. Skin was then closed with 3-0 Monocryl STRATAFIX. The port was flushed with heparinized saline. Dressings were applied and the patient was transferred to recovery in stable condition after removal of his laryngeal mask airway. Condition: stable Disposition: PACU Specimens:: None Complications:: No immediate. Chest x-ray pending.
--- NOTE | 2024-04-30 10:55 | EXP.ANES.I ---
[facility] Anesthesia Record Part I Anesthesia Record I Intake, IV Amount: 300 Hydration: Adequate Estimated blood loss (mL): 5 Urine output (mL): 0 Blood Pressure: 113/76 SaO2: 100 Pulse Rate: 80 Airway Patency: Patent Respiratory Rate: 14 Temperature: 97 F Patient is:: Drowsy Stable to PACU at:: 10:54
--- NOTE | 2024-05-01 13:13 | EXP.ANES.II ---
[facility] Anesthesia Record Part II Anesthesia Record Part II Discharge Time: 11:20 Destination: Surgical Day Care (OP Surgery) PACU nurse assessment reviewed?: Yes Patient Condition:: Good Anesthesia Complications:: None Swallowing reflex intact?: Yes Airway Patency: Patent Cyanosis?: No Blood Pressure: 119/73 SaO2: 94 Respiratory Rate: 14 Pulse Rate: 85 Temperature: 97.5 F Mental Status: Alert & Oriented Pain level:: 0 Nausea and/or vomitting:: None Intake, IV Amount: 0 Hydration: Adequate
[2024-05-01 13:14] VITALS: BP 119/73; PULSE 85; RESP 14; TEMP 36.4; O2SAT 94
== END 2024-04-30 12:55 | disposition home or self-care (01) ==
PROVIDERS: PCP Nurse Practitioner Family; Visit Provider Surgery
PROC: (CPT 36561; principal; 2024-04-30 10:00)
DX: C34.92 Malignant neoplasm of unspecified part of left bronchus or lung (principal)
CPT/HCPCS: 36561; 71045; 76000; 96374; C1788; J0690; J1100; J1642; J2250; J2405; J3010; J7120

== ENCOUNTER 2024-05-05 09:45 | Outpatient (CLI) | payer MEDICARE, MEDICAID, SELFPAY ==
[2024-05-05] VITALS (12 sets, daily range): BP systolic 113–151; BP diastolic 71–84; PULSE 64–81; RESP 18; TEMP 36.6; O2SAT 97–98; BMI 20.5
[2024-05-05] MEDS: FAMOTIDINE 20MG TABLET 20 MG PO (10:24)
[2024-05-05] MEDS: SODIUM CHLORIDE 0.9% 100ML BAG 100 ML IV (10:24)
[2024-05-05] MEDS: SODIUM CHLORIDE 0.9% 10ML FLUSH SYRINGE 10 ML IV (10:24)
[2024-05-05] MEDS: ONDANSETRON 4MG ODT 16 MG SL (10:24)
[2024-05-05] MEDS: DEXAMETHASONE 4MG TABLET 12 MG PO (10:24)
[2024-05-05] MEDS: LORATADINE 10MG TABLET 10 MG PO (10:24)
[2024-05-05] MEDS: WATER IV (11:00)
[2024-05-05] MEDS: PACLITAXEL IV (11:00)
[2024-05-05] MEDS: DEXTROSE 5% IV (11:00)
[2024-05-05] MEDS: CARBOPLATIN IV (14:13)
[2024-05-05] MEDS: SODIUM CHLORIDE 0.9% IV (14:13)
[2024-05-05] MEDS: PEMBROLIZUMAB 200 MG in 0.9 % SODIUM CHLORIDE 50 ML 116 MG IV (14:48)
[2024-05-06 14:38] LABS: Adrenocorticotropic Hormone 16.5 pg/mL (7.2-63.3)
== END 2024-05-05 15:30 | disposition home or self-care (01) ==
PROVIDERS: PCP Nurse Practitioner Family; Visit Provider Internal Medicine Medical Oncology
DX: C34.92 Malignant neoplasm of unspecified part of left bronchus or lung (principal); Z79.899 Other long term (current) drug therapy; C79.51 Secondary malignant neoplasm of bone
CPT/HCPCS: 82024; 82533; 96413; 96415; 96417; J7060; J9045; J9267; J9271

== ENCOUNTER 2024-05-26 08:49 | Outpatient (CLI) | payer MEDICARE, MEDICAID, SELFPAY ==
[2024-05-26] VITALS (11 sets, daily range): BP systolic 133–164; BP diastolic 77–99; PULSE 61–87; RESP 18; TEMP 36.9; O2SAT 95; BMI 20.6
[2024-05-26 09:18] LABS: Basophils # 0.1 K/mm3 (0-0.2); Eosinophils # 0.1 K/mm3 (0.0-0.4); Eosinophils % 1.4 % (0.1-12.0); Hematocrit 43.5 % (42.0-52.0); Hemoglobin 14.3 g/dL (14.1-18.0); Lymphocytes # 1.7 K/mm3 (0.7-4.5); Lymphocytes % 30.2 % (10-50); Mean Corpuscular HGB Conc 32.8 g/dL (31.8-35.4); Mean Corpuscular Hemoglobin 32.7 pg (27.0-31.2); Mean Corpuscular Volume 99.8 fl (80-94); Monocytes # 0.4 K/mm3 (0.1-1.0); Monocytes % 6.9 % (1.7-9.3); Neutrophils # 3.4 K/mm3 (1.8-7.8); Neutrophils % 60.5 % (37.0-80.0); Platelet Count 128 K/mm3 (142-424); Red Blood Count 4.36 M/mm3 (4.60-6.20); Red Cell Distribution Width 13.3 % (11.5-17.5); White Blood Count 5.7 K/mm3 (4.8-10.8)
[2024-05-26 09:21] LABS: Chloride 104 mmol/L (98-107); Potassium 4.3 mmoL/L (3.5-5.1); Sodium 136 mmol/L (136-145)
[2024-05-26 09:24] LABS: Alanine Aminotransferase 17 U/L (12-78); Albumin Level 3.7 g/dl (3.5-5.0); Albumin/Globulin Ratio 1.4 (1.1-1.8); Alkaline Phosphatase 111 U/L (38-126); Anion Gap 4.3 mEq/L (5-15); Aspartate Amino Transferase 24 U/L (17-59); Blood Urea Nitrogen 24 mg/dl (9-20); Calcium 8.7 mg/dl (8.4-10.2); Carbon Dioxide 32 mmol/L (22.0-30.0); Creatinine Clearance Estimated 77 mL/min (50-200); Estimated Glomerular Filt Rate 75 ml/min (>60); GFR (African American) 90 ML/MIN (>60); Globulin 2.7 g/dL (1.3-3.2); Glucose 115 mg/dl (74-100); Total Protein,Serum 6.4 g/dl (6.3-8.2)
[2024-05-26 09:27] LABS: Bilirubin,Total < 0.1 mg/dl (0.2-1.3)
[2024-05-26 09:55] LABS: Thyroid Stimulating Hormone 0.91 uIU/mL (0.465-4.68)
[2024-05-26] MEDS: 0.9 % SODIUM CHLORIDE 100 ML IV (10:20)
[2024-05-26] MEDS: LORATADINE 10MG TABLET 10 MG PO (10:21)
[2024-05-26] MEDS: FAMOTIDINE 20MG TABLET 20 MG (10:21)
[2024-05-26] MEDS: ONDANSETRON 4MG ODT 16 MG (10:21)
[2024-05-26] MEDS: DEXAMETHASONE 4MG TABLET 12 MG (10:21)
[2024-05-26] MEDS: WATER IV (10:51)
[2024-05-26] MEDS: DEXTROSE 5% IV (10:51)
[2024-05-26] MEDS: PACLITAXEL IV (10:51)
[2024-05-26] MEDS: CARBOPLATIN IV (14:00)
[2024-05-26] MEDS: SODIUM CHLORIDE 0.9% IV (14:00)
[2024-05-26] MEDS: PEMBROLIZUMAB 200 MG in 0.9 % SODIUM CHLORIDE 50 ML 116 MG IV (14:37)
[2024-05-26] MEDS: SODIUM CHLORIDE 0.9% 10ML FLUSH SYRINGE 10 ML IV (15:16)
[2024-05-27 19:13] LABS: Adrenocorticotropic Hormone 23.7 pg/mL (7.2-63.3)
== END 2024-05-26 15:19 | disposition home or self-care (01) ==
LOC: INF 08:51
PROVIDERS: PCP Nurse Practitioner Family; Visit Provider Internal Medicine Medical Oncology
DX: C34.90 Malignant neoplasm of unspecified part of unspecified bronchus or lung (principal); Z79.899 Other long term (current) drug therapy; Z51.11 Encounter for antineoplastic chemotherapy; C79.51 Secondary malignant neoplasm of bone; F17.210 Nicotine dependence, cigarettes, uncomplicated
CPT/HCPCS: 80053; 82024; 82533; 84443; 85025; 96413; 96415; 96417; J1642; J7060; J9045; J9267; J9271

== ENCOUNTER 2024-06-15 16:02 | Outpatient (CLI) | payer MEDICARE, MEDICAID, SELFPAY | END 2024-06-15 23:59 | disposition home or self-care (01) | LOC: LAB.DROPOF 06-16 16:02 | PROVIDERS: PCP Nurse Practitioner; Visit Provider Nurse Practitioner | DX: B35.1 Tinea unguium (principal) | CPT/HCPCS: 87102; 87206; 87220 ==

== ENCOUNTER 2024-06-16 08:51 | Outpatient (CLI) | payer MEDICARE, MEDICAID, SELFPAY ==
[2024-06-16] VITALS (12 sets, daily range): BP systolic 133–178; BP diastolic 78–102; PULSE 68–89; RESP 18; TEMP 36.6–36.8; O2SAT 95–96; BMI 20.6
[2024-06-16 09:18] LABS: Basophils # 0.1 K/mm3 (0-0.2); Basophils % 0.9 % (0.1-2.0); Eosinophils # 0.1 K/mm3 (0.0-0.4); Eosinophils % 1.1 % (0.1-12.0); Hematocrit 37.2 % (42.0-52.0); Hemoglobin 13.8 g/dL (14.1-18.0); Lymphocytes # 1.6 K/mm3 (0.7-4.5); Lymphocytes % 24.7 % (10-50); Mean Corpuscular HGB Conc 37.1 g/dL (31.8-35.4); Mean Corpuscular Hemoglobin 36.1 pg (27.0-31.2); Mean Corpuscular Volume 97.4 fl (80-94); Monocytes # 0.5 K/mm3 (0.1-1.0); Monocytes % 8.1 % (1.7-9.3); Neutrophils # 4.2 K/mm3 (1.8-7.8); Neutrophils % 65.1 % (37.0-80.0); Platelet Count 126 K/mm3 (142-424); Red Blood Count 3.82 M/mm3 (4.60-6.20); Red Cell Distribution Width 13.7 % (11.5-17.5); White Blood Count 6.5 K/mm3 (4.8-10.8)
[2024-06-16 09:24] LABS: Alanine Aminotransferase 17 U/L (12-78); Albumin Level 3.6 g/dl (3.5-5.0); Albumin/Globulin Ratio 1.2 (1.1-1.8); Alkaline Phosphatase 121 U/L (38-126); Anion Gap 6.1 mEq/L (5-15); Aspartate Amino Transferase 23 U/L (17-59); Bilirubin,Total 0.2 mg/dl (0.2-1.3); Blood Urea Nitrogen 16 mg/dl (9-20); Calcium 9.2 mg/dl (8.4-10.2); Carbon Dioxide 32 mmol/L (22.0-30.0); Chloride 104 mmol/L (98-107); Creatinine Clearance Estimated 77 mL/min (50-200); Estimated Glomerular Filt Rate 84 ml/min (>60); GFR (African American) 102 ML/MIN (>60); Globulin 2.9 g/dL (1.3-3.2); Glucose 115 mg/dl (74-100); Potassium 4.1 mmoL/L (3.5-5.1); Sodium 138 mmol/L (136-145); Total Protein,Serum 6.5 g/dl (6.3-8.2)
[2024-06-16 09:41] LABS: T4 (Thyroxine) 10.1 ug/dl (5.53-11.0)
[2024-06-16 09:55] LABS: Thyroid Stimulating Hormone 1.16 uIU/mL (0.465-4.68)
== END 2024-06-16 15:20 | disposition home or self-care (01) ==
LOC: INF 08:52
PROVIDERS: PCP Nurse Practitioner Family; Visit Provider Internal Medicine Medical Oncology
DX: Z51.11 Encounter for antineoplastic chemotherapy; C34.92 Malignant neoplasm of unspecified part of left bronchus or lung; C79.51 Secondary malignant neoplasm of bone; F17.210 Nicotine dependence, cigarettes, uncomplicated; Z79.633 Long term (current) use of mitotic inhibitor; Z79.620 Long term (current) use of immunosuppressive biologic; Z79.899 Other long term (current) drug therapy
CPT/HCPCS: 36591; 80050; 80053; 84436; 84443; 85025; 96413; 96415; 96417; J1642; J7060; J8540; J9045; J9267; J9271; Q0162

== ENCOUNTER 2024-07-07 08:29 | Outpatient (CLI) | payer MEDICARE, MEDICAID, SELFPAY ==
[2024-07-07] VITALS (16 sets, daily range): BP systolic 148–184; BP diastolic 61–109; PULSE 75–91; BMI 20.3
[2024-07-07 08:55] LABS: Basophils # 0.1 K/mm3 (0-0.2); Basophils % 1.2 % (0.1-2.0); Eosinophils # 0.1 K/mm3 (0.0-0.4); Eosinophils % 1.6 % (0.1-12.0); Hematocrit 42.1 % (42.0-52.0); Hemoglobin 13.7 g/dL (14.1-18.0); Lymphocytes # 1.8 K/mm3 (0.7-4.5); Lymphocytes % 28.5 % (10-50); Mean Corpuscular HGB Conc 32.4 g/dL (31.8-35.4); Mean Corpuscular Hemoglobin 31.8 pg (27.0-31.2); Mean Corpuscular Volume 97.9 fl (80-94); Mean Platelet Volume 8.1 fl (7.4-10.4); Monocytes # 0.5 K/mm3 (0.1-1.0); Monocytes % 8.6 % (1.7-9.3); Neutrophils # 3.7 K/mm3 (1.8-7.8); Neutrophils % 60.1 % (37.0-80.0); Platelet Count 142 K/mm3 (142-424); Red Cell Distribution Width 14.3 % (11.5-17.5); White Blood Count 6.2 K/mm3 (4.8-10.8)
[2024-07-07 09:04] LABS: Albumin Level 3.8 g/dl (3.5-5.0); Chloride 104 mmol/L (98-107)
[2024-07-07 09:05] LABS: Potassium 4.1 mmoL/L (3.5-5.1); Sodium 137 mmol/L (136-145)
[2024-07-07 09:07] LABS: Alanine Aminotransferase 17 U/L (12-78); Anion Gap 6.1 mEq/L (5-15); Aspartate Amino Transferase 22 U/L (17-59); Blood Urea Nitrogen 17 mg/dl (9-20); Carbon Dioxide 31 mmol/L (22.0-30.0); Creatinine Clearance Estimated 76 mL/min (50-200); Estimated Glomerular Filt Rate 75 ml/min (>60); GFR (African American) 90 ML/MIN (>60)
[2024-07-07 09:08] LABS: Albumin/Globulin Ratio 1.4 (1.1-1.8); Alkaline Phosphatase 140 U/L (38-126); Bilirubin,Total 0.4 mg/dl (0.2-1.3); Globulin 2.7 g/dL (1.3-3.2); Glucose 119 mg/dl (74-100); Total Protein,Serum 6.5 g/dl (6.3-8.2)
== END 2024-07-07 16:34 | disposition home or self-care (01) ==
LOC: INF 08:29
PROVIDERS: PCP Nurse Practitioner Family; Visit Provider Internal Medicine Medical Oncology
DX: Z51.11 Encounter for antineoplastic chemotherapy (principal); C34.92 Malignant neoplasm of unspecified part of left bronchus or lung; C79.51 Secondary malignant neoplasm of bone; F17.210 Nicotine dependence, cigarettes, uncomplicated; Z79.633 Long term (current) use of mitotic inhibitor; Z79.620 Long term (current) use of immunosuppressive biologic; Z79.899 Other long term (current) drug therapy
CPT/HCPCS: 80053; 85025; 96413; 96415; 96417; J1642; J7060; J8540; J9045; J9267; J9271; Q0162

== ENCOUNTER 2024-07-31 09:07 | Outpatient (CLI) | payer MEDICARE, MEDICAID, SELFPAY ==
--- NOTE | 2024-07-31 09:15 | NM_ITS ---
FINAL REPORT CLINICAL HISTORY: LUNG CANCER COMPARISON: 04/29/2024 FINDINGS: EXISTING RELEVANT IMAGING STUDIES: AP pelvis, left ribs TECHNIQUE: The patient was injected with 23.8 mCi of technetium 99-MDP. 3 hour delayed images were obtained. FINDINGS: There is worsening tracer activity in the left second posterior rib and in the right iliac wing. There is also worsening tracer activity in the upper thoracic spine at approximately the T2-3 level. These likely are consistent with worsening metastatic disease in this patient with known lung cancer. There is increased activity in the lower lumbar spine as well, that may be degenerative or neoplastic. There is worsening tracer activity in the lateral malleolus of the left ankle, which would be an unusual location for metastatic disease. This may represent posttraumatic change. There is mild worsening activity in the bilateral shoulders and bilateral knees, that may also represent degenerative change. IMPRESSION: Worsening tracer activity in multiple sites as described above, consistent with worsening metastatic disease. Reviewed, Interpreted and Dictated by Javan Villarreal III, MD Transcribed by Jeannette Olivares Authenticated and . [facility]
[2024-07-31] MEDS: SODIUM CHLORIDE 0.9% 10ML SYR (RAD ONLY) 10 ML IV (10:59)
[2024-07-31] MEDS: ISOTOPE TC MAA;1 DOE (UP TO 45 MCI) 1 DOSE IV (10:59)
--- NOTE | 2024-07-31 13:30 | XR_ITS ---
FINAL REPORT CLINICAL HISTORY: POST BONE SCAN COMPARISON: None FINDINGS: A single view of the chest with 4 views of the left ribs were obtained. There is no acute cardiopulmonary process. No pneumothorax is identified. No displaced rib fracture identified. There is an expansile lesion in the proximal left second rib, worrisome for a mass. A right subclavian chest port is present. Mild scarring is present in the left lung. IMPRESSION: Expansile lesion in the proximal left second rib, worrisome for an underlying mass in this patient with known lung carcinoma. No fracture or pneumothorax is identified. Reviewed, Interpreted and Dictated by Javan Villarreal III, MD Transcribed by Jeannette Olivares Authenticated and [facility]
--- NOTE | 2024-07-31 13:30 | XR_ITS ---
FINAL REPORT CLINICAL HISTORY: POST BONE SCAN COMPARISON: None FINDINGS: LEFT HIP: 4 views of the left hip including the pelvis demonstrate no acute fracture or dislocation. There is erosion of the superior right iliac wing with a mixed lytic and sclerotic area, not significantly changed since the prior exam of 04/29/2024. The joint spaces appear normal. The visualized bony structures are well aligned. No soft tissue abnormality is seen. IMPRESSION: Erosion of the superior right iliac wing with mixed lytic and sclerotic areas, not significantly changed since the prior exam. Reviewed, Interpreted and Dictated by Javan Villarreal III, MD Transcribed by Jeannette Olivares Authenticated and [facility]
== END 2024-07-31 23:59 | disposition home or self-care (01) ==
LOC: RAD 09:09
PROVIDERS: PCP Nurse Practitioner Family; Visit Provider Internal Medicine Medical Oncology
DX: C34.90 Malignant neoplasm of unspecified part of unspecified bronchus or lung (principal)
CPT/HCPCS: 71101; 73502; 78306; A9540

== ENCOUNTER 2024-08-05 06:46 | Outpatient (CLI) | payer MEDICARE, MEDICAID, SELFPAY ==
--- NOTE | 2024-08-05 06:51 | CT_ITS ---
FINAL REPORT TECHNIQUE: After the administration of oral and intravenous contrast, axial images were obtained through the abdomen and pelvis by computed tomography. The study was performed with techniques to keep radiation dose as low as reasonably achievable, (ALARA). Individual dose reduction techniques using automated exposure control or adjustment of mA and/or kV according to the patient's size were employed. CLINICAL HISTORY: LUNG CA COMPARISON: 10/05/2021 FINDINGS: Abdomen: The lung bases are clear. A small hiatal hernia is once again identified. The liver parenchyma is homogeneous. The gallbladder is present. The spleen, pancreas, adrenals and kidneys appear unremarkable. The aorta is normal in caliber. There is no free fluid or adenopathy. Pelvis: The appendix is not identified. A moderate amount of stool is seen throughout the colon. The bladder is incompletely distended, but has a thickened wall measuring up to 11 mm in size, likely inflammatory. Moderate advanced degenerative change of degenerative disc disease is present at the L4-5 and L5-S1 levels. There is irregularity and heterogeneous appearance of the right iliac wing, worrisome for osseous metastases. There is no free fluid or adenopathy. IMPRESSION: The bladder is incompletely distended with a thickened wall, likely inflammatory. Heterogeneous and irregular appearance of the right iliac wing, osseous metastases are not excluded. PET scan might be helpful for further evaluation. Reviewed, Interpreted and Dictated by Demian Coello MD Transcribed by Jeannette Olivares Authenticated and [facility]
--- NOTE | 2024-08-05 06:52 | CT_ITS ---
FINAL REPORT TECHNIQUE: After the administration of intravenous contrast, axial images through the chest were performed by computed tomography. This study was performed with techniques to keep radiation doses as low as reasonably achievable, (ALARA). Individualized dose reduction techniques using automated exposure control or adjustment of mA and/or kV according to the patient's size were employed. CLINICAL HISTORY: LUNG CA COMPARISON: 01/24/2024 FINDINGS: There is no axillary adenopathy. There is no hilar or mediastinal adenopathy. The heart size is normal. Moderate changes of centrilobular emphysema are present. There is linear scarring in the right upper lobe unchanged since the prior CT of January. There is no pericardial or pleural effusion. A small hiatal hernia is once again identified. The previously noted pleural-based nodule in the medial left lower lobe is no longer seen. IMPRESSION: Previously noted pleural-based nodule in the medial left lower lobe is no longer visualized. Moderate centrilobular emphysema and linear scarring in the right upper lobe are stable since the prior CT. Small hiatal hernia once again identified. Reviewed, Interpreted and Dictated by Demian Coello MD Transcribed by Jeannette Olivares Authenticated and [facility]
[2024-08-05] MEDS: SODIUM CHLORIDE 0.9% 10ML SYR (RAD ONLY) 10 ML IV (07:13)
[2024-08-05] MEDS: IOPAMIDOL-370 (76%);100ML BOTTLE 75 ML IV (07:14)
[2024-08-05 09:49] VITALS: BMI 19.3
[2024-08-05 10:13] LABS: Basophils % 0.6 % (0.1-2.0); Eosinophils # 0.2 K/mm3 (0.0-0.4); Eosinophils % 3.5 % (0.1-12.0); Hematocrit 39.5 % (42.0-52.0); Hemoglobin 12.7 g/dL (14.1-18.0); Lymphocytes # 1.5 K/mm3 (0.7-4.5); Lymphocytes % 25.7 % (10-50); Mean Corpuscular HGB Conc 32.1 g/dL (31.8-35.4); Mean Corpuscular Hemoglobin 33.1 pg (27.0-31.2); Mean Corpuscular Volume 103.4 fl (80-94); Mean Platelet Volume 7.7 fl (7.4-10.4); Monocytes # 0.4 K/mm3 (0.1-1.0); Monocytes % 6.3 % (1.7-9.3); Neutrophils # 3.8 K/mm3 (1.8-7.8); Platelet Count 154 K/mm3 (142-424); Red Blood Count 3.82 M/mm3 (4.60-6.20); Red Cell Distribution Width 15.3 % (11.5-17.5); White Blood Count 5.9 K/mm3 (4.8-10.8)
[2024-08-05 10:16] LABS: Chloride 102 mmol/L (98-107)
[2024-08-05 10:17] LABS: Albumin Level 4.1 g/dl (3.5-5.0); Potassium 3.7 mmoL/L (3.5-5.1); Sodium 134 mmol/L (136-145)
[2024-08-05 10:20] LABS: Alanine Aminotransferase 23 U/L (12-78); Albumin/Globulin Ratio 1.6 (1.1-1.8); Alkaline Phosphatase 104 U/L (38-126); Aspartate Amino Transferase 30 U/L (17-59); Bilirubin,Total 0.5 mg/dl (0.2-1.3); Blood Urea Nitrogen 8 mg/dl (9-20); Calcium 8.9 mg/dl (8.4-10.2); Creatinine Clearance Estimated 72 mL/min (50-200); Estimated Glomerular Filt Rate 84 ml/min (>60); GFR (African American) 102 ML/MIN (>60); Globulin 2.5 g/dL (1.3-3.2); Glucose 138 mg/dl (74-100); Total Protein,Serum 6.6 g/dl (6.3-8.2)
[2024-08-05 10:37] LABS: T4 (Thyroxine) 10.6 ug/dl (5.53-11.0)
[2024-08-05 10:51] LABS: Thyroid Stimulating Hormone 0.49 uIU/mL (0.465-4.68)
[2024-08-05 11:58] LABS: Anion Gap 6.7 mEq/L (5-15); Carbon Dioxide 29 mmol/L (22.0-30.0)
== END 2024-08-05 10:03 | disposition home or self-care (01) ==
PROVIDERS: PCP Nurse Practitioner Family; Visit Provider Internal Medicine Medical Oncology
DX: C34.90 Malignant neoplasm of unspecified part of unspecified bronchus or lung (principal); Z79.899 Other long term (current) drug therapy
CPT/HCPCS: 36591; 71260; 74177; 80053; 84436; 84443; 85025; J1642; Q9967

== ENCOUNTER 2024-08-12 10:05 | Outpatient (CLI) | payer MEDICARE, MEDICAID, SELFPAY ==
[2024-08-12] MEDS: LORATADINE 10MG TABLET 10 MG PO (10:22)
[2024-08-12] MEDS: DEXAMETHASONE 4MG TABLET 12 MG (10:22)
[2024-08-12] MEDS: SODIUM CHLORIDE 0.9% 50ML BAG 50 ML IV (10:30)
[2024-08-12 10:33] VITALS: BP 150/89; PULSE 85; RESP 18; TEMP 36.7; O2SAT 100
[2024-08-12] MEDS: ZOLEDRONIC ACID 4 MG in 0.9 % SODIUM CHLORIDE 100 ML 420 MG IV (10:33)
[2024-08-12] MEDS: DEXTROSE 5% IV (11:00)
[2024-08-12] MEDS: DOCETAXEL IV (11:00)
[2024-08-12] MEDS: WATER IV (11:00)
[2024-08-12 11:07] VITALS: BP 164/95; PULSE 84; RESP 18; O2SAT 98
[2024-08-12 11:25] VITALS: BP 171/70; PULSE 96; RESP 18; O2SAT 98
[2024-08-12 11:45] VITALS: BP 169/87; PULSE 96; RESP 18; O2SAT 98
[2024-08-12 12:15] VITALS: BP 145/96; PULSE 98; RESP 18; TEMP 36.7; O2SAT 98
[2024-08-12] MEDS: SODIUM CHLORIDE 0.9% 10ML FLUSH SYRINGE 10 ML IV (12:15)
== END 2024-08-12 12:15 | disposition home or self-care (01) ==
LOC: INF 10:06
PROVIDERS: PCP Nurse Practitioner Family; Visit Provider Internal Medicine Medical Oncology
DX: C34.00 Malignant neoplasm of unspecified main bronchus (principal)
CPT/HCPCS: 96374; 96375; 96413; 96417; J1642; J3489; J7060; J8540; J9171

== ENCOUNTER 2024-08-18 18:26 | Inpatient (IN) | payer MEDICARE, OTHER, MEDICAID, SELFPAY ==
[2024-08-18] VITALS (18 sets, daily range): BP systolic 70–112; BP diastolic 36–70; PULSE 72–175; RESP 24–30; TEMP 36.5–39.4; O2SAT 90–97; BMI 18.6; BMI 19.8
--- NOTE | 2024-08-18 18:05 | ECG_ITS ---
APPROVED REPORT Exam: Resting ECG HR:171 bpm ECG Measurements Heart Rate 171 AXES QRSd 134 QRS 81 QT 226 T 0 QTc 319 Conclusion Supraventricular tachycardia. P waves present. ST depressions lateral and inferior leads Electronically signed by : ROLLY MYLES, 08/18/2024 21:37:46
--- NOTE | 2024-08-18 18:08 | XR_ITS ---
PROCEDURE INFORMATION: Exam: XR Chest Exam date and time: 08/18/2024 8:35 PM Age: 68 years old Clinical indication: Condition or disease; Lung condition and disease; Cancer of the lung and other: Hypotension, weakness; Right; Unspecified; Additional info: Syncope, hypotension and weakness TECHNIQUE: Imaging protocol: Radiologic exam of the chest. Views: 1 view. COMPARISON: CT CHEST W CON 08/05/2024 6:58 AM FINDINGS: Tubes, catheters and devices: Right IJ approach chest port is in appropriate position. Lungs: Persistent hyperexpansion of the lungs without infiltrate Pleural spaces: No pleural effusions or pneumothorax identified Heart/Mediastinum: Unremarkable. No cardiomegaly. Bones/joints: Unremarkable. IMPRESSION: Chronic lung disease. No visible acute abnormality.
[2024-08-18] MEDS: ASPIRIN 81MG CHEWABLE TABLET 324 MG PO (18:34)
[2024-08-18] MEDS: SODIUM CHLORIDE 1020 ML IV (18:35)
[2024-08-18] MEDS: METHYLPREDNISOLONE SOD SUCC 125MG VIAL 125 MG IV (18:35)
[2024-08-18] MEDS: METRONIDAZ/SOD CHL 500 MG/100 ML PIGGYBACK 100 MG IV (18:35)
[2024-08-18] MEDS: MAGNESIUM SULFATE IN WATER 2 GM/50 ML PIGGYBACK IV (18:37)
--- NOTE | 2024-08-18 18:37 | HMH.EDCP ---
Discharge Plan Disposition Patient Disposition: Admitted Clinical Impressions Clinical Impression: Acute on chronic respiratory failure with hypoxemia, Acute renal failure, Syncope, Atrial flutter Discharge ED Provider: Juan Rosas HPI General Chief Complaint: Syncope Stated Complaint: AMS Time Seen by Provider: 08/18/24 18:36 History of Present Illness HPI narrative: Please note that above description of symptoms, in this electronic medical record under categorization of recalled from ER triage doctor by RN are reflective of an initial nursing assessment, however, is not reflective of my full history and physical exam that was personally taken and clarified. Consequentially, this preceding description of symptoms, which may include the patient's categorized chief complaint in the EMR, do not reflect my personal clinical impression, and the ultimate description of history of present illness and patient stated complaints should be deferred to this section of the note. Unless stated otherwise or congruent with this section of the note, additional signs, symptoms, or incongruence should be interpreted as inaccurate with my clinical impression. Related Data Home Medications ?Medication ?Instructions ?Recorded ?Confirmed budesonide-formoterol HFA 160 1 inh inhalation DAILY 08/18/24 08/18/24 mcg-4.5 mcg/actuation aerosol inhaler (Symbicort) fluvoxamine 100 mg tablet 100 mg PO BID 08/18/24 08/18/24 loperamide 2 mg capsule 2 mg PO DAILYP PRN Diarrhea 08/18/24 08/18/24 lorazepam 0.5 mg tablet 0.5 mg PO BIDP PRN Anxiety 08/18/24 08/18/24 omeprazole 20 mg capsule,delayed 20 mg PO DAILY 08/18/24 08/18/24 release trazodone 150 mg tablet 150 mg PO HS 08/18/24 08/18/24 valsartan 40 mg tablet 40 mg PO DAILY 08/18/24 08/18/24 Allergies Allergy/AdvReac Type Severity Reaction Status Date / Time No Known Allergies Allergy Verified 08/05/24 09:34 [facility] Disclaimer: The information contained in this section may have been updated after the patient was seen, as this information can be updated by other users. Medical History Port-A-Cath in place Lung cancer Procedure indicated History of smoking 30 or more pack years Lung nodule seen on imaging study COPD mixed type Total avulsion of nail plate Onychomycosis Surgical History History of appendectomy Family History Other Alcoholism and drug addiction in family Social History Smoking Status: Former smoker tobacco type: cigarettes packs per day: 2 alcohol intake: former substance use type: former substance user current occupational status: retired and disabled Travel in the last 8 weeks: None housing: house current occupational exposures/hazards: No caffeine: Yes Other Medical History Have you received the Flu Vaccine for this season: No Have you received the Pneumonia Vaccine: No ROS Obtained: Yes All systems reviewed & no additional complaints except as documented Physical Exam General General appearance: alert and in distress (Respiratory distress, pale, listless) Eye Eye exam: Present PERRL, EOMI and other (Conjunctival pallor) ENT ENT exam: Present mucous membranes dry Neck Neck exam: Present normal inspection and trachea midline Chest Chest inspection: Present normal inspection and symmetric chest wall rise Respiratory Respiratory exam: Present respiratory distress (Tachypneic), wheezes and prolonged expiratory phase; Absent stridor or accessory muscle use Cardiovascular Cardiovascular exam: Present normal rhythm, tachycardia and other (Pulses equal and symmetric in upper and lower extremities); Absent systolic murmur Extremities Exam Extremities exam: Absent edema Neurological Exam Neurological exam: Present alert, oriented X3 and CN II-XII intact; Absent motor sensory deficit Skin Skin exam: Present dry and pallor; Absent warm (Cool), cyanosis or diaphoresis HEART Score HEART Score HEART Score assessment performed?: Yes HEART Score: 9 Critical Care Critical Care Time Critical Care Time: Yes (cardiovascular, renal) Attestation: On 08/18/24, the high probability of a clinically significant, sudden or life threatening deterioration of the following system(s) required my full and direct attention, intervention and personal management. The time I documented below is in addition to time spent performing reported procedures but includes the following listed in this critical care notation. Total Time Total Critical Care Time: 120 Medical Decision Making Medical Records Medical records reviewed: Yes I reviewed the patient's medical records. Aniceto Inquiry Pt receiving controlled substance: No Aniceto was queried for this patient: No Vital Signs Vital Signs: 08/18/24 18:21 08/18/24 18:26 08/18/24 18:31 Temperature 102.9 F H Temperature Source Rectal Pulse Rate 72 Pulse Rate [Right Radial] 175 H Respiratory Rate 30 H 26 H Blood Pressure 85/68 L 99/63 L Blood Pressure [Right Arm] 85/50 L Blood Pressure Mean 72 Blood Pressure Mean [Right Arm] 61 02 Sat by Pulse Oximetry 93 L Oxygen Delivery Method Nasal Cannula Oxygen Flow Rate (LPM) 2 08/18/24 21:03 08/18/24 21:06 08/18/24 21:06 Temperature 97.7 F Temperature Source Oral Pulse Rate 130 H 150 H Pulse Rate [Right Radial] Respiratory Rate 24 Blood Pressure 105/70 L Blood Pressure [Right Arm] Blood Pressure Mean Blood Pressure Mean [Right Arm] 02 Sat by Pulse Oximetry 94 L Oxygen Delivery Method Room Air Room Air Oxygen Flow Rate (LPM) 08/18/24 21:06 Temperature Temperature Source Pulse Rate 145 H Pulse Rate [Right Radial] Respiratory Rate Blood Pressure Blood Pressure [Right Arm] Blood Pressure Mean Blood Pressure Mean [Right Arm] 02 Sat by Pulse Oximetry Oxygen Delivery Method Oxygen Flow Rate (LPM) Lab Data Labs: Lab Results 08/18/24 18:08: WBC 1.2 L*, RBC 3.82 L, Hgb 13.2 L, Hct 39.1 L, MCV 102.3 H, MCH 34.6 H, MCHC 33.8, RDW 15.0, Plt Count 88 L, MPV 9.4, Neut % (Auto) 49.4, Lymph % (Auto) 30.8, Camp % (Auto) 18.7 H, Eos % (Auto) 0.0 L, Baso % (Auto) 1.2, Neut # (Auto) 0.6 L*, Lymph # (Auto) 0.4 L, Camp # (Auto) 0.2, Eos # (Auto) 0.0, Baso # (Auto) 0.0, PT 11.9, INR 1.07, APTT 39.5 H 08/18/24 18:08: APTT 39.2 L, Sodium 116 L, Potassium 5.1, Chloride 83 L, Carbon Dioxide 21 L, Anion Gap 17.1 H, BUN 59 H, Creatinine 3.80 H, Estimated Creat Clear 18, Estimated GFR 16 L*, Est GFR ( Amer) 19 L*, Glucose 128 H, Hemoglobin A1c 5.5, Lactate 2.9 H, Calcium 7.9 L, Magnesium 1.6, Total Bilirubin 2.4 H, AST 31, ALT 30, Alkaline Phosphatase 66, Troponin I 0.07 H, NT-Pro-B Natriuret Pep 3450 H, Total Protein 6.6, Albumin 3.7, Globulin 2.9, Albumin/Globulin Ratio 1.3, Lipase 16 L, Procalcitonin 28.6 H, TSH 1.03, Thyroxine (T4) 9.1 08/18/24 18:09: VBG pH 7.41, VBG pCO2 34.6 L, VBG pO2 22.3 L, VBG HCO3 21.2 L, VBG Total CO2 22.3 L, VBG O2 Saturation 36.6 L, VBG Base Excess -3.5 L, VBG Lactic Acid 4.1 H 08/18/24 18:38: Blood Type O Negative, Antibody Screen Negative 08/18/24 18:08 08/18/24 18:08 Response Orders (Tests/Meds): ED MEDICATIONS Generic Name Dose Route Start Last Admin Trade Name Freq PRN Reason Stop Dose Admin Hydrocodone Bitart/Acetaminophen 1 tab 08/18/24 20:43 Hydrocodone/Apap 5/325 Mg Tablet PO 09/17/24 20:42 Q4HP PRN Mild to Moderate Pain (1-6) Heparin Sodium (Porcine) 5,000 unit 08/18/24 20:35 08/18/24 21:29 Heparin Sodium 5,000 Unit/Ml Vial IV 08/18/24 20:36 5,000 unit ONCE ONE Administration Diltiazem HCl 100 mg/ Sodium 100 mls @ 5 mls/hr 08/18/24 19:07 08/18/24 20:00 Chloride IV 09/17/24 19:06 15 mg/hr .Q20H LITZY 15 mls/hr Titration Protocol 5 MG/HR Norepinephrine/Dextrose 8 mg in 250 mls @ 15 mls/hr 08/18/24 19:42 08/18/24 19:47 Norepinephrine 8mg/250ml-D5w Premix IV 09/17/24 19:41 8 mcg/min .[id number] LITZY 15 mls/hr Administration Protocol 8 MCG/MIN Sodium Chloride 1,000 mls @ 50 mls/hr 08/18/24 20:45 08/18/24 21:16 Sod Chlor 0.9% 1000ml Bag IV 09/17/24 20:44 50 mls/hr .Q20H LITZY Administration Heparin Sodium/Dextrose 500 mls @ 20 mls/hr 08/18/24 22:30 Heparin 25,000 Units In D5w 500ml Premix IV 09/17/24 22:29 .Q25H LITZY 1,000 UNITS/HR Levalbuterol HCl 3.75 mg 08/18/24 21:12 08/18/24 21:15 Levalbuterol 1.25mg/3ml Neb IH 08/18/24 21:13 3.75 mg ONCE ONE Administration Miscellaneous 1 each 08/18/24 18:15 08/18/24 19:16 Vancomycin Consult Request NOTAPPLIC 09/17/24 18:14 1 each [facility]ULT [facility] Administration Miscellaneous 1 each 08/18/24 22:30 Heparin Drip Consult NOTAPPLIC 09/17/24 22:29 CONSULT [facility]Y [facility] Morphine Sulfate 2 mg 08/18/24 20:43 Morphine 2mg/Ml Syringe IV 09/17/24 20:42 Q2HP PRN Severe Pain (7-10) Ondansetron HCl 4 mg 08/18/24 20:43 Ondansetron 4mg/2ml Vial IV 09/17/24 20:42 Q8HP PRN Nausea Pantoprazole Sodium 40 mg 08/18/24 21:00 08/18/24 21:16 Pantoprazole 40mg Tablet PO 09/17/24 20:59 Not Given HS [facility] Trazodone HCl 300 mg 08/18/24 21:00 08/18/24 21:48 Trazodone 50mg Tablet PO 09/17/24 20:59 300 mg HS [facility] Administration Discontinued Medications Generic Name Dose Route Start Last Admin Trade Name Freq PRN Reason Stop Dose Admin Acetaminophen 1,000 mg 08/18/24 18:46 08/18/24 18:47 Acetaminophen 1,000mg/100ml Vial IV 08/18/24 18:47 1,000 mg ONCE ONE Administration Albuterol/Ipratropium 9 ml 08/18/24 18:10 08/18/24 21:11 Ipratropium/Albuterol 3 Ml Neb IH 08/18/24 18:11 Not Given ONCE ONE Aspirin 324 mg 08/18/24 18:10 08/18/24 18:34 Aspirin 81mg Chewable Tablet PO 08/18/24 18:11 324 mg ONCE ONE Administration Diltiazem HCl 15 mg 08/18/24 19:25 08/18/24 19:26 Diltiazem 25mg/5ml Vial IV 08/18/24 19:26 15 mg ONCE ONE Administration Cefepime HCl 2 gm/ Sodium 100 mls @ 200 mls/hr 08/18/24 18:07 08/18/24 19:19 Chloride IV 08/18/24 18:36 200 mls/hr ONCE ONE Administration Metronidazole 500 mg in 100 mls @ 100 mls/hr 08/18/24 18:07 08/18/24 18:35 Flagyl 500mg/100ml Ivpb IV 08/18/24 19:06 100 mls/hr ONCE ONE Administration Magnesium Sulfate 2 gm in 50 mls @ 50 mls/hr 08/18/24 18:10 08/18/24 18:37 Magnesium Sulfate 2gm/50ml Premix IV 08/18/24 19:09 50 mls/hr ONCE ONE Administration Sodium Chloride 2,040 mls @ 1,020 mls/hr 08/18/24 18:11 08/18/24 18:35 Sod Chlor 0.9% 1000ml Bag 30 ml/kg infuse over 2 hr (2040 ml) 08/18/24 20:10 1,020 mls/hr IV Administration .Q2H ONE Vancomycin/PEG/NADA/Lysine/Water 1.5 gm in 300 mls @ 150 mls/hr 08/18/24 19:15 08/18/24 21:16 Vancomycin 1.5gm/300ml (Peg) Premix IV 08/18/24 21:14 150 mls/hr ONCE ONE Administration Methylprednisolone Sodium Succinate 125 mg 08/18/24 18:10 08/18/24 18:35 Methylprednisolone Sod Succ 125mg Vial IV 08/18/24 18:11 125 mg ONCE ONE Administration Miscellaneous 1 each 08/18/24 18:15 08/18/24 18:48 Pha To Nursing Instruction NOTAPPLIC 08/18/24 18:16 1 each ONCE ONE Administration ORDERS Category Date Time Status Type and Screen Stat BBK 08/18/24 18:38 Completed Consult to Cardiology [CONS] Routine Cons 08/18/24 20:47 Active Consult to Oncology [CONS] Routine Cons 08/18/24 20:47 Active POCUS Point of Care (ER Only) Stat Exams 08/18/24 19:31 Completed XR chest portable Stat Exams 08/18/24 18:08 Completed Basic Metabolic Panel AMLAB Lab 08/19/24 06:00 Ordered Complete Blood Count Auto Diff AMLAB Lab 08/19/24 06:00 Ordered Complete Blood Count Auto Diff AMLAB Lab 08/20/24 06:00 Ordered Complete Blood Count Auto Diff AMLAB Lab 08/21/24 06:00 Ordered Complete Blood Count Auto Diff Stat Lab 08/18/24 18:08 Completed Comprehensive Metabolic Panel AMLAB Lab 08/19/24 06:00 Ordered Comprehensive Metabolic Panel AMLAB Lab 08/20/24 06:00 Ordered Comprehensive Metabolic Panel AMLAB Lab 08/21/24 06:00 Ordered Comprehensive Metabolic Panel Stat Lab 08/18/24 18:08 Completed Drug Screen,Urine Stat Lab 08/18/24 18:08 Ordered Hemoglobin A1C Stat Lab 08/18/24 18:08 Completed Heparin drip PTT [PTT Heparin (inpatient only)] Stat Lab 08/18/24 18:08 Completed Lactic Acid Stat Lab 08/18/24 18:08 Completed Lipase Stat Lab 08/18/24 18:08 Completed Magnesium AMLAB Lab 08/19/24 06:00 Ordered Magnesium AMLAB Lab 08/20/24 06:00 Ordered Magnesium AMLAB Lab 08/21/24 06:00 Ordered Magnesium Stat Lab 08/18/24 18:08 Completed NT Pro Brain Natriuretic Pep. Stat Lab 08/18/24 18:08 Completed PT INR [Prothrombin Time INR] Stat Lab 08/18/24 18:08 Completed PTT [Activated Partial Thrombo Time] Stat Lab 08/18/24 18:08 Completed Procalcitonin Stat Lab 08/18/24 18:08 Completed T4 (Thyroxine) Stat Lab 08/18/24 18:08 Completed TSH [Thyroid Stimulating Hormone] Stat Lab 08/18/24 18:08 Completed Troponin I Q3H Lab 08/18/24 21:30 Completed Troponin I Q3H Lab 08/19/24 00:15 Ordered Troponin I Stat Lab 08/18/24 18:08 Completed Urinalysis and Microscopic Stat Lab 08/18/24 18:08 Ordered Blood Culture Stat Micro 08/18/24 18:08 Ordered Venous Blood Gas Stat RT 08/18/24 18:09 Completed MDM Narrative Medical Decision Narrative: This is a 68-year-old male with widely 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 Patient was seen by his apartment complex about 20 minutes prior to being found down. Was found down in his apartment minimally responsive. EMS was contacted. On arrival, patient tachycardic, hypotensive, glucose 140. Patient brought to the emergency department. Patient states that before passing out, he had tunnel vision, palpitations, but no chest pain. Not currently having any complaints other than shortness of breath. He appears acutely ill. Tachycardic, hypotensive 80s over 40s, febrile, tachypneic and hypoxemic. Patient placed on 4 L nasal cannula. Initial EKG appears to be SVT versus sinus tachycardia around [address] depressions in lateral and inferior leads. No reciprocal elevations. QRS 134, QTc 319. Normal axis. 1 L normal saline was initiated. On physical exam, patient pale. Skin is cool and dry. Patient is covered in stool. Dry mucous membranes nearly preventing patient from speaking. Cardiac exam with significant tachycardia, no obvious murmurs gallops or rubs. No lower extremity edema. Pulses equal and symmetric in upper and lower extremities. Patient's lungs with diffuse expiratory wheezes through out expiratory phase. No focal breath sounds. He is tachypneic around 30 breaths/min and prolonged expiratory phase, no evidence of retractions. Abdomen is soft, nontender, nondistended. History obtained with patient and EMS. Differential includes ACS, IL, cardiogenic shock, sepsis, distributive shock, obstructive shock, metabolic abnormality, endocrinologic abnormality, among others. Patient was given empiric sepsis bolus, cefepime, metronidazole, vancomycin. With sepsis bolus, patient's blood pressure improved to systolic 1 30-140. Heart rate 1 20-1 30. Shortly thereafter, patient's pressure began to drop with systolic in the 80s to 90s as heart rate increased 170s to 180s. Patient was started on diltiazem after diltiazem bolus x 2. After second bolus, atrial flutter on the monitor. Interval improvement in rate and blood pressure, however patient rate 170s to 180s, so diltiazem drip was started. Hemodynamic compromise with this, patient started on norepinephrine for blood pressure. Independent interpretation of workup demonstrates pancytopenia with leukopenia and relative neutropenia, ANC 600. Patient's platelets around 80,000. Chemistry concerning for acute hyponatremia 116, acute renal failure. Lactate elevated and BNP/troponin elevated as well. Heart score 9. given multisystem organ failure in the setting of sepsis and neutropenia, [facility] was contacted and case was discussed at length, recommended first having discussion with patient regarding goals of care. I contacted patient's oncologist who stated that patient's prognosis is grim, especially given his current clinical status. Conversation had with patient regarding goals of care, patient opting for nonescalation of care. States he wants to be DNR, DNI, does not want dialysis if his kidneys fail. Agreeable to current management with blood pressure support, antibiotics, aggressive medical care, does not want escalation. We also started patient on heparin bolus and drip given new atrial flutter and risk of cancer, high risk for DVT and PE. This was clarified with witnesses in the room. Patient states that he wants to pursue hospice and comfort care should his clinical situation worsen. This decision was made after a thorough discussion of the risks of doing so, including a discussion of potential alternative plans. 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 The patient appears capable of making this decision. contacted again. [facility] medicine here at [facility] contacted and case was discussed at length, graciously accepted admission. Because patient high risk for clinical decompensation, deemed appropriate for inpatient admission. Results were relayed to patient who voiced understanding and patient was agreeable to inpatient admission and management. Patient was admitted to the hospital for further definitive management. Environmental Intern disclaimer Much of this encounter note is an electronic manager of merchandising spoken language to printed text. Electronic manager of merchandising of the spoken language may permit errors. Although I have reviewed the note, some errors may still exist.
[2024-08-18 18:43] LABS: Basophils % 1.2 % (0.1-2.0); Hematocrit 39.1 % (42.0-52.0); Hemoglobin 13.2 g/dL (14.1-18.0); Lymphocytes # 0.4 K/mm3 (0.7-4.5); Lymphocytes % 30.8 % (10-50); Mean Corpuscular HGB Conc 33.8 g/dL (31.8-35.4); Mean Corpuscular Hemoglobin 34.6 pg (27.0-31.2); Mean Corpuscular Volume 102.3 fl (80-94); Mean Platelet Volume 9.4 fl (7.4-10.4); Monocytes # 0.2 K/mm3 (0.1-1.0); Monocytes % 18.7 % (1.7-9.3); Neutrophils # 0.6 K/mm3 (1.8-7.8); Neutrophils % 49.4 % (37.0-80.0); Platelet Count 88 K/mm3 (142-424); Red Blood Count 3.82 M/mm3 (4.60-6.20); White Blood Count 1.2 K/mm3 (4.8-10.8)
[2024-08-18 18:46] LABS: Albumin Level 3.7 g/dl (3.5-5.0); Chloride 83 mmol/L (98-107); Sodium 116 mmol/L (136-145)
[2024-08-18 18:47] LABS: Potassium 5.1 mmoL/L (3.5-5.1)
[2024-08-18] MEDS: ACETAMINOPHEN 1,000MG/100ML VIAL 1000 MG IV (18:47)
[2024-08-18] MEDS: PHA TO NURSING INSTRUCTION 1 EACH NOTAPPLIC (18:48)
[2024-08-18 18:49] LABS: Alanine Aminotransferase 30 U/L (12-78); Albumin/Globulin Ratio 1.3 (1.1-1.8); Alkaline Phosphatase 66 U/L (38-126); Anion Gap 17.1 mEq/L (5-15); Aspartate Amino Transferase 31 U/L (17-59); Bilirubin,Total 2.4 mg/dl (0.2-1.3); Blood Urea Nitrogen 59 mg/dl (9-20); Calcium 7.9 mg/dl (8.4-10.2); Carbon Dioxide 21 mmol/L (22.0-30.0); Creatinine Clearance Estimated 18 mL/min (50-200); Estimated Glomerular Filt Rate 16 ml/min (>60); GFR (African American) 19 ML/MIN (>60); Globulin 2.9 g/dL (1.3-3.2); Glucose 128 mg/dl (74-100); Lipase 16 U/L (23-300); Total Protein,Serum 6.6 g/dl (6.3-8.2)
[2024-08-18 18:50] LABS: Magnesium 1.6 mg/dl (1.6-2.3)
[2024-08-18 18:51] LABS: Activated Partial Thrombo Time 39.5 seconds (22.8-30.6); INR 1.07 (0.9-1.1); Prothrombin Time 11.9 seconds (10.1-12.5)
--- NOTE | 2024-08-18 18:53 | HMH.ITSTN ---
ER to call when pt is ready for scans
[2024-08-18 18:59] LABS: NT Pro Brain Natriuretic Pep. 3450 pg/mL (0-125)
[2024-08-18 19:02] LABS: Troponin I 0.07 ng/ml (0.00-0.034)
[2024-08-18 19:06] LABS: Lactate Venous 4.1 mmol/L (0.4-2.0); VBG Base Excess -3.5 mmol/L (-2.4-2.3); VBG HCO3 21.2 mmol/L (23-30); VBG Oxygen Saturation 36.6 % (50-70); VBG PCO2 34.6 mmol/L (35-51); VBG PH 7.41 mmol/L (7.31-7.41); VBG PO2 22.3 mmol/L (28-40); VBG Total CO2 22.3 mmol/L (23-27)
[2024-08-18 19:07] LABS: T4 (Thyroxine) 9.1 ug/dl (5.53-11.0)
[2024-08-18 19:12] LABS: Lactic Acid 2.9 mmol/L (0.7-2.1)
[2024-08-18] MEDS: dilTIAZem HCL 100 MG in 0.9 % SODIUM CHLORIDE 100 ML IV (19:14)
[2024-08-18] MEDS: VANCOMYCIN CONSULT REQUEST 1 EACH NOTAPPLIC (19:16)
[2024-08-18] MEDS: CEFEPIME HCL 2 GM in 0.9 % SODIUM CHLORIDE 100 ML IV (19:19)
[2024-08-18] MEDS: dilTIAZem 25MG/5ML VIAL 15 MG IV (19:26)
[2024-08-18 19:33] LABS: Hemoglobin A1C 5.5 % (4.0-6.0)
--- NOTE | 2024-08-18 19:46 | PC.NURSE ---
[facility] may notified for re transfer
[2024-08-18] MEDS: NOREPINEPHRINE BITARTRATE/D5W 8 MG/250 ML PLAST..BAG 15 MG IV (19:47)
--- NOTE | 2024-08-18 19:52 | HMH.ITSTN ---
scans still on hold per md
[2024-08-18 19:54] LABS: Procalcitonin 28.6 ng/mL (0.0-2.0)
[2024-08-18 20:15] LABS: Thyroid Stimulating Hormone 1.03 uIU/mL (0.465-4.68)
--- NOTE | 2024-08-18 20:39 | PC.NURSE ---
[facility] called for pt being kept at [facility]
[2024-08-18 20:56] LABS: PTT Heparin (inpatient only) 39.2 Seconds (50-75)
--- NOTE | 2024-08-18 21:02 | PC.NURSE ---
Patient arrived to floor via stretcher from ED at 20:59.
[2024-08-18] MEDS: LEVALBUTEROL 1.25MG/3ML NEB 3.75 MG IH (21:15)
[2024-08-18] MEDS: 0.9 % SODIUM CHLORIDE 1000ML 1,000 ML 50 ML IV (21:16)
[2024-08-18] MEDS: VANCOMYCIN/WATER FOR INJ (PEG) 1.5 GM/300 ML PIGGYBACK IV (21:16)
[2024-08-18] MEDS: HEPARIN SODIUM 5,000 UNIT/ML VIAL 5000 UNIT IV (21:29)
[2024-08-18] MEDS: TRAZODONE 50MG TABLET 300 MG PO (21:48)
--- NOTE | 2024-08-18 21:49 | PC.NURSE ---
Spoke to Dr. Verdin to get verbal order to give patient his nighttime Trazodone
--- NOTE | 2024-08-18 22:04 | EXP.HP ---
History of Present Illness *Admission Date: 08/19/24 *Reason for visit:: Syncope *History of present illness: Patient is a 68-year-old male with past medical history of COPD CAD, cancer metastasis with unknown primary who presents to the hospital due to an episode of loss of consciousness. Patient does not remember very well at exactly, reportedly he was down on the ground for about 20 minutes. Patient was noted to be hypotensive in the emergency department and was started on IV pressors, patient also found to have NO, patient was recommended to be transferred to however patient does not want to be transferred. He wishes to be DNR and do not intubated. Patient otherwise denied fevers. On further evaluation he was found to have new onset atrial flutter/fibrillation. [facility] Disclaimer: The information contained in this section may have been updated after the patient was seen, as this information can be updated by other users. Medical History Port-A-Cath in place Lung cancer Procedure indicated History of smoking 30 or more pack years Lung nodule seen on imaging study COPD mixed type Total avulsion of nail plate Onychomycosis Surgical History History of appendectomy Family History Other Alcoholism and drug addiction in family Social History Smoking Status: Former smoker tobacco type: cigarettes packs per day: 2 alcohol intake: former substance use type: former substance user current occupational status: retired and disabled Travel in the last 8 weeks: None housing: house current occupational exposures/hazards: No caffeine: Yes Other Medical History Have you received the Flu Vaccine for this season: No Have you received the Pneumonia Vaccine: No Review of Systems Review of Systems Review of systems (narrative): as per HPI Meds Home Medications and Allergies Home Medications ?Medication ?Instructions ?Recorded ?Confirmed ?Type budesonide-formoterol HFA 160 1 inh inhalation DAILY 08/18/24 08/18/24 History mcg-4.5 mcg/actuation aerosol inhaler (Symbicort) fluvoxamine 100 mg tablet 100 mg PO BID 08/18/24 08/18/24 History loperamide 2 mg capsule 2 mg PO DAILYP PRN Diarrhea 08/18/24 08/18/24 History lorazepam 0.5 mg tablet 0.5 mg PO BIDP PRN Anxiety 08/18/24 08/18/24 History omeprazole 20 mg capsule,delayed 20 mg PO DAILY 08/18/24 08/18/24 History release trazodone 150 mg tablet 150 mg PO HS 08/18/24 08/18/24 History valsartan 40 mg tablet 40 mg PO DAILY 08/18/24 08/18/24 History New Prescriptions to Start Prescriptions: Allergies Allergy/AdvReac Type Severity Reaction Status Date / Time No Known Allergies Allergy Verified 08/05/24 09:34 Exam Data for Last 24 hours Vital signs and Labs for Last 24 Hours: Temp Pulse Resp BP Pulse Ox O2 Del Method O2 Flow Rate 97.7 F 145 H 24 105/70 L 94 L Room Air 2 08/18/24 21:03 08/18/24 21:06 08/18/24 21:03 08/18/24 21:03 08/18/24 21:06 08/18/24 21:06 08/18/24 18:26 Laboratory Results - last 24 hr 08/18/24 18:08: WBC 1.2 L*, RBC 3.82 L, Hgb 13.2 L, Hct 39.1 L, MCV 102.3 H, MCH 34.6 H, MCHC 33.8, RDW 15.0, Plt Count 88 L, MPV 9.4, Neut % (Auto) 49.4, Lymph % (Auto) 30.8, [place] % (Auto) 18.7 H, Eos % (Auto) 0.0 L, Baso % (Auto) 1.2, Neut # (Auto) 0.6 L*, Lymph # (Auto) 0.4 L, [place] # (Auto) 0.2, Eos # (Auto) 0.0, Baso # (Auto) 0.0, PT 11.9, INR 1.07, APTT 39.5 H 08/18/24 18:08: APTT 39.2 L, Sodium 116 L, Potassium 5.1, Chloride 83 L, Carbon Dioxide 21 L, Anion Gap 17.1 H, BUN 59 H, Creatinine 3.80 H, Estimated Creat Clear 18, Estimated GFR 16 L*, Est GFR ( Amer) 19 L*, Glucose 128 H, Hemoglobin A1c 5.5, Lactate 2.9 H, Calcium 7.9 L, Magnesium 1.6, Total Bilirubin 2.4 H, AST 31, ALT 30, Alkaline Phosphatase 66, Troponin I 0.07 H, NT-Pro-B Natriuret Pep 3450 H, Total Protein 6.6, Albumin 3.7, Globulin 2.9, Albumin/Globulin Ratio 1.3, Lipase 16 L, Procalcitonin 28.6 H, TSH 1.03, Thyroxine (T4) 9.1 08/18/24 18:09: VBG pH 7.41, VBG pCO2 34.6 L, VBG pO2 22.3 L, VBG HCO3 21.2 L, VBG Total CO2 22.3 L, VBG O2 Saturation 36.6 L, VBG Base Excess -3.5 L, VBG Lactic Acid 4.1 H 08/18/24 18:38: Blood Type O Negative, Antibody Screen Negative I & O for Last 24 hours: Intake & Output 08/15/24 08/16/24 08/17/24 08/18/24 23:59 23:59 23:59 23:59 Intake Total 5.500 / 5.500 Balance 5.500 / 5.500 Weight 65.771 kg Constitutional Constitutional: no acute distress Comments: Dry mucous membranes *Routine HEENT Exam Head: Present normocephalic Eye: Present EOMI and PERRL ENT: Present mucous membranes moist *Routine Neck Exam Neck: Present supple; Absent lymphadenopathy *Routine Respiratory Exam Respiratory: Present CTA bilaterally *Routine Cardiovascular Exam Cardiovascular: Present RRR *Routine Abdominal Exam Abdominal: Present soft and normoactive bowel sounds; Absent tenderness *Routine Rectal Exam Rectal:: deferred *Routine Genitalia Exam Genitalia:: deferred *Routine Extremities Exam Extremities: Absent cyanosis, clubbing or edema *Routine Skin Exam Skin: Present warm; Absent rash *Routine Neurological Exam Neurological: Present alert and oriented X3 Assessment and Plan *Assessment and plan (1) Atrial flutter: Status: Acute Category: Medical Code(s): I48.92 - Unspecified atrial flutter (2) Syncope: Status: Acute Category: Medical Code(s): R55 - Syncope and collapse (3) Acute renal failure: Status: Acute Category: Medical Code(s): N17.9 - Acute kidney failure, unspecified (4) Acute on chronic respiratory failure with hypoxemia: Status: Acute Category: Medical Code(s): J96.21 - Acute and chronic respiratory failure with hypoxia (5) Lung cancer: Status: Acute Qualifiers: Laterality: left Lung location: unspecified part of lung Qualified Code(s): C34.92 - Malignant neoplasm of unspecified part of left bronchus or lung Category: Medical Code(s): C34.90 - Malignant neoplasm of unspecified part of unspecified bronchus or lung Plan Patient is a 68-year-old male with past medical history of COPD CAD, cancer metastasis with unknown primary but likely lung care who presents to the hospital due to an episode of loss of consciousness. Patient does not remember very well at exactly, reportedly he was down on the ground for about 20 minutes. Patient was noted to be hypotensive in the emergency department and was started on IV pressors, patient also found to have NO, patient was recommended to be transferred to however patient does not want to be transferred. He wishes to be DNR and do not intubated. Patient otherwise denied fevers. On further evaluation he was found to have new onset atrial flutter/fibrillation. Assessment and plan Shock suspect septic shock, in the setting of leukopenia Start IV vancomycin, Zosyn IV fluids Patient is requiring vasopressor, currently is on Levophed Check blood cultures, UA, check lactic acid Check echocardiogram New onset atrial flutter/fibrillation Started on IV heparin IV Cardizem, in case of hypotension we will switch to amiodarone Cardiology has been consulted Hyponatremia suspect SIADH related to possible lung cancer Monitor sodium level Check plasma osmolality Check urine sodium Acute kidney injury Continue IV fluids Continue to monitor creatinine Pancytopenia likely secondary to chemotherapy induced Consult oncology Monitor CBC DVT prophylaxis-on IV heparin
[2024-08-18 22:19] LABS: Troponin I 0.11 ng/ml (0.00-0.034)
[2024-08-18] MEDS: HEPARIN DRIP CONSULT 1 EACH NOTAPPLIC (22:50)
[2024-08-18] MEDS: HEPARIN SODIUM,PORCINE/D5W 500 ML 21 UNIT IV (22:51)
[2024-08-18 23:06] LABS: Reflex Lactic Add Lactic Reflex
[2024-08-18] MEDS: dilTIAZem HCL 100 MG in 0.9 % SODIUM CHLORIDE 100 ML 15 MG IV (23:10)
[2024-08-18 23:37] LABS: Lactic Acid Follow Up (RFLX 1) 2.1 mmol/L (0.7-2.1)
[2024-08-19] VITALS (65 sets, daily range): BP systolic 52–179; BP diastolic 27–87; PULSE 90–160; RESP 18–28; TEMP 36.7–37.2; O2SAT 87–100; BMI 19.8
--- NOTE | 2024-08-19 00:12 | PC.NURSE ---
Dr. Verdin made aware of current trending vitals critical and non-critical. No new orders. ICU care continued
[2024-08-19] MEDS: PIPERACILLIN/TAZO 3.375 GM in 0.9 % SODIUM CHLORIDE 50 ML IV ×5 (00:26→23:18)
[2024-08-19 01:02] LABS: Troponin I 0.09 ng/ml (0.00-0.034)
--- NOTE | 2024-08-19 01:14 | PC.NURSE ---
Dr. Verdin made aware of critically low BP's after verbal order to place Norepi on max dose per order. 500mL NS bolus ordered for now. Will reassess patient after and may need to begin 2nd line pressor.
[2024-08-19] MEDS: SODIUM CHLORIDE 0.9% 500ML BAG 500 ML IV (01:16)
[2024-08-19 01:20] LABS: Reflex Lactic (2 hrs) Add Lactic Reflex
[2024-08-19 01:24] LABS: Microscopic, Urine URINE MICROSCOPIC (MICROSCOPIC)
[2024-08-19 01:25] LABS: Appearance,Urine CLEAR (Clear); Blood, Urine 2+ (Negative); Color,Urine YELLOW (Yellow); Glucose,Urine (UA) Negative (Negative); Ketones,Urine TRACE (Negative); Leukocyte Esterase,Urine Negative (Negative); Nitrate,Urine Negative (Negative); PH,Urine 5.5 (5.0-8.5); Protein,Urine 1+ (Negative); Specific Gravity, Urine 1.025 (1.005-1.030); Urobilinogen,Urine 0.2 EU/dl (0.2)
[2024-08-19 01:38] LABS: Bilirubin,Urine 1+ (Negative)
[2024-08-19 01:44] LABS: Bacteria,Urine 3+ /lpf; Squamous Epithelial Cell,Urine 20-50 #/hpf (0-5)
--- NOTE | 2024-08-19 02:10 | PC.NURSE ---
Patient continues to be hypotensive, but systolic is <90/MAP<65. Per MD will hold 2nd line pressor at this time unless patient begins to drop again. Patient has remained hypoxic with saturations atleast <88%. Patient declines wanting to wear O2
[2024-08-19 02:13] LABS: Lactic Acid Follow up (RFLX 2) 2.8 mmol/L (0.7-2.1)
[2024-08-19] MEDS: VASOPRESSIN 40 UNIT in 0.9 % SODIUM CHLORIDE 100 ML IV (02:40)
[2024-08-19] MEDS: NOREPINEPHRINE BITARTRATE/D5W 8 MG/250 ML PLAST..BAG 56.25 MG IV ×2 (03:26→08:10)
[2024-08-19] MEDS: AMIODARONE HCL 150 MG in DEXTROSE 5 % IN WATER 100 ML 618 MG IV (03:48)
[2024-08-19] MEDS: AMIODARONE HCL 900 MG in DEXTROSE 5 % IN WATER 500 ML 34.53 MG IV (03:58)
--- NOTE | 2024-08-19 04:41 | PC.NURSE ---
Patient agreeable to wear NC. Placing on 3L/NC. Resp notified
--- NOTE | 2024-08-19 04:46 | PC.NURSE ---
Patient was admitted from ER on Cardizem and Norepi gtt. Patient's BP became hypotensive despite titration of Norepi per JAN. Vaso gtt added per Dr Verdin. Patient is now on Cardizem, Norep, Vaso, NS 0.9%, Heparin gtt, and scheduled antibiotic therapy per JAN. GCS 15. Lung matos are diminished in the bases, +rhonchi that is cleared with coughing, and hypoxia on room air. Placed patient on 3L/NC. Below average urinary output noted at <30mL/hr-- Patient has <50mL in bladder with bladder scanner, and he does not feel the need to urinate currently. No bladder distention or discomfort. Otherwise, patient has rested well without distress. He has voiced he is tired and just ready to go to sleep and not wake up. Comfort provided. NAD, ICU care continued.
[2024-08-19 04:51] LABS: Basophils % 0.8 % (0.1-2.0); Eosinophils % 0.7 % (0.1-12.0); Hematocrit 34.7 % (42.0-52.0); Lymphocytes # 0.2 K/mm3 (0.7-4.5); Lymphocytes % 13.7 % (10-50); Mean Corpuscular HGB Conc 33.8 g/dL (31.8-35.4); Mean Corpuscular Hemoglobin 34.1 pg (27.0-31.2); Mean Platelet Volume 10.1 fl (7.4-10.4); Monocytes # 0.1 K/mm3 (0.1-1.0); Neutrophils % 74.8 % (37.0-80.0); Platelet Count 56 K/mm3 (142-424); Red Blood Count 3.44 M/mm3 (4.60-6.20); Red Cell Distribution Width 15.3 % (11.5-17.5); White Blood Count 1.3 K/mm3 (4.8-10.8)
[2024-08-19 04:52] LABS: Hemoglobin 11.7 g/dL (14.1-18.0)
[2024-08-19 04:59] LABS: Alanine Aminotransferase 28 U/L (12-78); Albumin Level 2.8 g/dl (3.5-5.0); Albumin/Globulin Ratio 1.1 (1.1-1.8); Alkaline Phosphatase 46 U/L (38-126); Anion Gap 11.9 mEq/L (5-15); Aspartate Amino Transferase 30 U/L (17-59); Blood Urea Nitrogen 59 mg/dl (9-20); Calcium 6.5 mg/dl (8.4-10.2); Carbon Dioxide 18 mmol/L (22.0-30.0); Chloride 89 mmol/L (98-107); Creatinine Clearance Estimated 21 mL/min (50-200); Estimated Glomerular Filt Rate 18 ml/min (>60); GFR (African American) 21 ML/MIN (>60); Globulin 2.5 g/dL (1.3-3.2); Glucose 200 mg/dl (74-100); Magnesium 2.1 mg/dl (1.6-2.3); Potassium 3.9 mmoL/L (3.5-5.1); Total Protein,Serum 5.3 g/dl (6.3-8.2)
[2024-08-19 05:03] LABS: PTT Heparin (inpatient only) 48.5 Seconds (50-75)
[2024-08-19 05:05] LABS: Sodium 115 mmol/L (136-145)
--- NOTE | 2024-08-19 05:17 | PC.NURSE ---
Attending notified of Na 115-- no new orders
--- NOTE | 2024-08-19 05:18 | PC.NURSE ---
Spoke to Ad[facility] with [facility]-- Heparin gtt increased to 1200u/hr and repeat at 6 hour gina
[2024-08-19] MEDS: HEPARIN SODIUM,PORCINE/D5W 500 ML 24 UNIT IV (05:21)
--- NOTE | 2024-08-19 05:33 | PC.NURSE ---
Dr. Verdin notified of HR staying >130 A.flutter
[2024-08-19 06:19] LABS: Amphetamine/Metha Screen,Urine Negative ng/ml (<1000)
[2024-08-19 06:20] LABS: Barbiturates Screen,Urine Negative ng/ml (<200); Benzodiazepines Screen,Urine Negative ng/ml (<200)
[2024-08-19 06:21] LABS: Cannabinoid Screen,Urine Negative ng/ml (<50)
[2024-08-19 06:22] LABS: Cocaine Screen,Urine Negative ng/ml (<300); Methadone Screen,Urine Negative ng/ml (<300)
[2024-08-19 06:23] LABS: Opiate Screen,Urine Negative ng/ml (<300)
[2024-08-19 06:24] LABS: Phencyclidine Screen,Urine Negative ng/ml (<25)
[2024-08-19] MEDS: LEVALBUTEROL 1.25MG/3ML NEB 1.25 MG IH (06:49)
[2024-08-19] MEDS: IPRATROPIUM BROMIDE 0.5 MG/2.5ML SOLUTION IH (06:49)
--- NOTE | 2024-08-19 08:57 | HMH.PHAINT1 ---
Pharmacy Intervention Comments: Home medications verified using list from pharmacy.
[2024-08-19] MEDS: SODIUM CHLORIDE 3 % 500 ML 40 ML IV (09:32)
--- NOTE | 2024-08-19 11:50 | SW/DCPLANNER ---
Addendum entered by [facility] 08/26/24 14:46: Patient will discharge to [facility] today w/ Hospice services. I have updated Radha dinero/ [facility], Dr Finn and Berna w/ Hospice is at bedside. Addendum entered by [facility] 08/25/24 12:43: Patient admitted inpatient Hospice as of 12PM 08/25/24. I have updated Radha w/ [facility]. Addendum entered by [facility] 08/21/24 12:26: Per Payal dinero/ [facility] since being a new admit [facility] can not accept over the weekend. I have updated MD and Hospice. Addendum entered by [facility] 08/20/24 11:19: Per Payal dinero/ [facility] patient is accepted once medically stable for discharge. I will continue to update patient, [facility] and Hospice regarding discharge date. Patient is not medically stable for discharge today. Addendum entered by [facility] 08/20/24 09:20: Ashley [facility]/ [facility] stated she does not currently have any LTC beds available at this time. Patient is agreeable for information to be faxed to [facility] for LTC. Ramona dinero/ [facility] did evaluate patient at bedside yesterday and stated that patient is appropriate for their services once medically stable for discharge. Addendum entered by [facility] 08/19/24 13:49: I spoke w/ patient again this afternoon and he has requested that information be faxed to [facility]. Patient stated that he is not interested in pursuing any further treatment at this time. I will speak w/ Ashley at [facility] regarding bed availability for LTC (currently resides in apartments downstairs). I did offer to contact family members/friends for the patient and he refused at this time. I will continue to follow up w/ gaby, [facility] and Hospice. Original Note: and I spoke w/ patient this AM regarding goals of care. Patient stated that at this time he would like to continue treatment. I will follow up w/ patient again this afternoon.
--- NOTE | 2024-08-19 12:29 | EXP.CARD.CON ---
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 Patient was reportedly found down in his apartment complex minimally responsive covered in stool and very dehydrated. In the emergency room he was hypotensive and NO with transaminitis, lactic acidosis and cyst, severe hyponatremia at 116, A-fib RVR heart rate 170s, renal failure with creatinine 3.5. Patient was started on pressors. Attempts were made to transfer the patient to for advanced level of care but patient declined and states he wanted comfort measures only. He is DNR/DNI. He was admitted overnight here for medical management, we are consulted for A-fib. Patient was started on amiodarone and heparin drip overnight. This morning his platelets are down from 80,000-50,000. He remains in A-fib with rate of 130s. On exam patient appears chronically ill and weak. His mucous membranes are very dry. Patient is currently being rehydrated. [facility] Disclaimer: The information contained in this section may have been updated after the patient was seen, as this information can be updated by other users. Medical History Port-A-Cath in place Lung cancer Procedure indicated History of smoking 30 or more pack years Lung nodule seen on imaging study COPD mixed type Total avulsion of nail plate Onychomycosis Surgical History History of appendectomy Family History Other Alcoholism and drug addiction in family Social History Smoking Status: Former smoker tobacco type: cigarettes packs per day: 2 alcohol intake: former substance use type: former substance user current occupational status: retired and disabled Travel in the last 8 weeks: None housing: house current occupational exposures/hazards: No caffeine: Yes Review of Systems Review of Systems Review of systems:: unable to obtain Exam Data for Last 24 hours Vital signs and Labs for Last 24 Hours: Temp Pulse Resp BP Pulse Ox O2 Del Method O2 Flow Rate 98.1 F 133 H 24 120/78 98 Nasal Cannula 3 08/19/24 08:00 08/19/24 11:00 08/19/24 11:00 08/19/24 11:00 08/19/24 11:00 08/19/24 11:00 08/19/24 11:00 FiO2 3 08/19/24 07:30 Laboratory Results - last 24 hr 08/18/24 18:08: WBC 1.2 L*, RBC 3.82 L, Hgb 13.2 L, Hct 39.1 L, MCV 102.3 H, MCH 34.6 H, MCHC 33.8, RDW 15.0, Plt Count 88 L, MPV 9.4, Neut % (Auto) 49.4, Lymph % (Auto) 30.8, [place] % (Auto) 18.7 H, Eos % (Auto) 0.0 L, Baso % (Auto) 1.2, Neut # (Auto) 0.6 L*, Lymph # (Auto) 0.4 L, [place] # (Auto) 0.2, Eos # (Auto) 0.0, Baso # (Auto) 0.0, PT 11.9, INR 1.07, APTT 39.5 H 08/18/24 18:08: APTT 39.2 L, Sodium 116 L, Potassium 5.1, Chloride 83 L, Carbon Dioxide 21 L, Anion Gap 17.1 H, BUN 59 H, Creatinine 3.80 H, Estimated Creat Clear 18, Estimated GFR 16 L*, Est GFR ( Amer) 19 L*, Glucose 128 H, Hemoglobin A1c 5.5, Lactate 2.9 H, Calcium 7.9 L, Magnesium 1.6, Total Bilirubin 2.4 H, AST 31, ALT 30, Alkaline Phosphatase 66, Troponin I 0.07 H, NT-Pro-B Natriuret Pep 3450 H, Total Protein 6.6, Albumin 3.7, Globulin 2.9, Albumin/Globulin Ratio 1.3, Lipase 16 L, Procalcitonin 28.6 H, TSH 1.03, Thyroxine (T4) 9.1 08/18/24 18:09: VBG pH 7.41, VBG pCO2 34.6 L, VBG pO2 22.3 L, VBG HCO3 21.2 L, VBG Total CO2 22.3 L, VBG O2 Saturation 36.6 L, VBG Base Excess -3.5 L, VBG Lactic Acid 4.1 H 08/18/24 18:38: Blood Type O Negative, Antibody Screen Negative 08/18/24 21:30: Lactate 2.1, Troponin I 0.11 H 08/19/24 00:20: Troponin I 0.09 H 08/19/24 01:17: Urine Color Yellow, Urine Appearance Clear, Urine pH 5.5, Ur Specific [place] 1.025, Urine Protein 1+ A, Urine Glucose (UA) Negative, Urine Ketones Trace, Urine Blood 2+ A, Urine Nitrate Negative, Urine Bilirubin 1+ A, Urine Urobilinogen 0.2, Ur Leukocyte Esterase Negative, Urine RBC 3-5, Urine WBC 10-20, Ur Squamous Epith Cells 20-50, Urine Bacteria 3+, Urine Opiates Screen Negative, Urine Methadone Screen Negative, Ur Barbituates Screen Negative, Ur Phencyclidine Scrn Negative, Ur Amphetamines Screen Negative, U Benzodiazepines Scrn Negative, Urine Cocaine Screen Negative, U Marijuana (THC) Screen Negative 08/19/24 01:20: Lactate 2.8 H 08/19/24 04:40: WBC 1.3 L*, RBC 3.44 L, Hgb 11.7 L D, Hct 34.7 L, MCV 101.0 H, MCH 34.1 H, MCHC 33.8, RDW 15.3, Plt Count 56 L D, MPV 10.1, Neut % (Auto) 74.8, Lymph % (Auto) 13.7, [place] % (Auto) 10.0 H, Eos % (Auto) 0.7, Baso % (Auto) 0.8, Neut # (Auto) 1.0 L, Lymph # (Auto) 0.2 L, [place] # (Auto) 0.1, Eos # (Auto) 0.0, Baso # (Auto) 0.0, APTT 48.5 L, Sodium 115 L, Potassium 3.9 D, Chloride 89 L, Carbon Dioxide 18 L, Anion Gap 11.9, BUN 59 H, Creatinine 3.50 H, Estimated Creat Clear 21, Estimated GFR 18 L*, Est GFR ( Amer) 21 L, Glucose 200 H D, Calcium 6.5 L, Magnesium 2.1 D, Total Bilirubin 2.0 H, AST 30, ALT 28, Alkaline Phosphatase 46, Total Protein 5.3 L, Albumin 2.8 L D, Globulin 2.5, Albumin/Globulin Ratio 1.1 I & O for Last 24 hours: Intake & Output 08/16/24 08/17/24 08/18/24 08/19/24 23:59 23:59 23:59 23:59 Intake Total 3089.407 / 3160.407 3770.478 / 3770.478 Output Total 0 / 0 50 / 50 Balance 3089.407 / 3160.407 3720.478 / 3720.478 Weight 154 lb 12.232 oz 154 lb 12.232 oz Constitutional Constitutional: no acute distress, thin, cachectic, chronically ill appearing and cooperative *Routine HEENT Exam Eye: Present PERRL *Routine Respiratory Exam Respiratory: Present CTA bilaterally; Absent accessory muscle use, wheezes or crackles *Routine Cardiovascular Exam Cardiovascular: Present murmur, tachycardia and irregularly irregular; Absent gallop or rubs *Routine Abdominal Exam Abdominal: Present soft; Absent tenderness *Routine Extremities Exam Extremities: Present pulses intact; Absent cyanosis or edema *Routine Skin Exam Skin: Present intact and dry; Absent erythema or wounds *Routine Neurological Exam Neurological: Present alert and oriented X3 Routine Psychiatric Exam Psychiatric: Present cooperative Meds Home Medications and Allergies Home Medications ?Medication ?Instructions ?Recorded ?Confirmed ?Type budesonide-formoterol HFA 160 1 inh inhalation DAILY 08/18/24 08/18/24 History mcg-4.5 mcg/actuation aerosol inhaler (Symbicort) fluvoxamine 100 mg tablet 100 mg PO BID 08/18/24 08/18/24 History loperamide 2 mg capsule 2 mg PO DAILYP PRN Diarrhea 08/18/24 08/18/24 History lorazepam 0.5 mg tablet 0.5 mg PO BIDP PRN Anxiety 08/18/24 08/18/24 History omeprazole 20 mg capsule,delayed 20 mg PO DAILY 08/18/24 08/18/24 History release trazodone 150 mg tablet 150 mg PO HS 08/18/24 08/18/24 History valsartan 40 mg tablet 40 mg PO DAILY 08/18/24 08/18/24 History New Prescriptions to Start Prescriptions: Allergies Allergy/AdvReac Type Severity Reaction Status Date / Time No Known Allergies Allergy Verified 08/05/24 09:34 Assessment and Plan *Assessment and plan (1) Atrial flutter: Status: Acute Category: Medical Code(s): I48.92 - Unspecified atrial flutter (2) Acute renal failure: Status: Acute Category: Medical Code(s): N17.9 - Acute kidney failure, unspecified (3) Acute on chronic respiratory failure with hypoxemia: Status: Acute Category: Medical Code(s): J96.21 - Acute and chronic respiratory failure with hypoxia (4) Lung cancer: Status: Acute Qualifiers: Laterality: left Lung location: unspecified part of lung Qualified Code(s): C34.92 - Malignant neoplasm of unspecified part of left bronchus or lung Category: Medical Code(s): C34.90 - Malignant neoplasm of unspecified part of unspecified bronchus or lung (5) Multiorgan failure: Status: Acute Category: Medical (6) Hyponatremia: Status: Acute Category: Medical Code(s): E87.1 - Hypo-osmolality and hyponatremia (7) Thrombocytopenia: Status: Acute Category: Medical Code(s): D69.6 - Thrombocytopenia, unspecified Plan A-fib RVR - new dx in setting of MOF - pt expresses desire for DNR/DNI/Comfort care - Cont Amio for rate control due to hypotension on pressors - DC Heparin due to severe thrombocytopenia - Cont hydration efforts - ECHO - cannot obtain currently due to HR >130 Hypovolemic Shock - MOF in setting of severely dry mucous memranes and diarrhea - continue hydration and pressors support Hypovolemic Hyonatremia - NS in process Hx of CAD? - history unclear - CCS = 0 - EKG A-fib - Cannot obtain ECHO yet due to tachycardia - No DAPT due to Plt 56 - No BB, ARB due to hypotension - No statin due to transaminitis Acute Renal Failure - Baseline Cr 0.9, now 3.5 - Hydrate - Pressor support Thrombocytopenia - plt 154 2 weeks on, 88 on arrival, 56 today - DC Heparin, monitor for bleeding and clotting Severe metastatic lung dz with mets to hips, spine, ribs - pt of Dr. Buckley - on chemo Severe Leukopenia - WBC 1.2 - pt is afebrile but high risk of infection - on broad spectrum antibiotics Complex case. Goals of care discussion pending with Hospitalist.
[2024-08-19 12:32] LABS: Chloride 87 mmol/L (98-107)
[2024-08-19 12:33] LABS: Potassium 3.9 mmoL/L (3.5-5.1); Sodium 115 mmol/L (136-145)
[2024-08-19 12:36] LABS: Anion Gap 13.9 mEq/L (5-15); Blood Urea Nitrogen 61 mg/dl (9-20); Calcium 6.2 mg/dl (8.4-10.2); Carbon Dioxide 18 mmol/L (22.0-30.0); Creatinine Clearance Estimated 24 mL/min (50-200); Estimated Glomerular Filt Rate 21 ml/min (>60); GFR (African American) 25 ML/MIN (>60); Glucose 203 mg/dl (74-100)
[2024-08-19] MEDS: NOREPINEPHRINE BITARTRATE/D5W 8 MG/250 ML PLAST..BAG 52.5 MG IV (12:42)
[2024-08-19] MEDS: 0.9 % SODIUM CHLORIDE 1000ML 500 ML IV (12:46)
--- NOTE | 2024-08-19 13:02 | P.CONPHA_ITS ---
[facility] Heparin Dosing Demographic Data Admission date:: 08/19/24 Date: 08/19/24 Time: 13:02 Allergies Allergy/AdvReac Type Severity Reaction Status Date / Time No Known Allergies Allergy Verified 08/05/24 09:34 Height: 1.88 m Weight: 70.2 kg Indication Medication therapy:: Heparin Current Active Problems (Updated 08/19/24 @ 12:35 by ROCKY Robledo) Multiorgan failure (Acute) Atrial flutter (Acute) Syncope (Acute) Acute renal failure (Acute) Acute on chronic respiratory failure with hypoxemia (Acute) Lung cancer (Acute) CVA?: No Bleeding problem?: No Kidney disease?: No [place]?: No Additional History:: AFIB Desired PTT range:: 50-75 seconds Labs Anticoagulation Lab Results:: 08/18/24 08/19/24 18:08 04:40 Hgb 13.2 L 11.7 L D Hct 39.1 L 34.7 L Plt Count 88 L 56 L D Monitoring Dose Monitor 1: Date: 08/18/24 Time: 20:35 PTT Result:: 39.5 Infusion Rate:: 5000 unit bolus, then 21 ml/hr Dose Monitor 2: Date: 08/19/24 Time: 04:40 PTT Result:: 48.5 Infusion Rate:: HEPARIN INCREASED TO 24 ML/HR Comment:: HEPARIN STOPPED BY MD Core Measures Is INR > or = 2 at discharge?: No Most Recent Labs:: Laboratory Results - last 24 hr 08/18/24 18:08: WBC 1.2 L*, RBC 3.82 L, Hgb 13.2 L, Hct 39.1 L, MCV 102.3 H, MCH 34.6 H, MCHC 33.8, RDW 15.0, Plt Count 88 L, MPV 9.4, Neut % (Auto) 49.4, Lymph % (Auto) 30.8, [place] % (Auto) 18.7 H, Eos % (Auto) 0.0 L, Baso % (Auto) 1.2, Neut # (Auto) 0.6 L*, Lymph # (Auto) 0.4 L, [place] # (Auto) 0.2, Eos # (Auto) 0.0, Baso # (Auto) 0.0, PT 11.9, INR 1.07, APTT 39.5 H 08/18/24 18:08: APTT 39.2 L, Sodium 116 L, Potassium 5.1, Chloride 83 L, Carbon Dioxide 21 L, Anion Gap 17.1 H, BUN 59 H, Creatinine 3.80 H, Estimated Creat Clear 18, Estimated GFR 16 L*, Est GFR ( Amer) 19 L*, Glucose 128 H, Hemoglobin A1c 5.5, Lactate 2.9 H, Calcium 7.9 L, Magnesium 1.6, Total Bilirubin 2.4 H, AST 31, ALT 30, Alkaline Phosphatase 66, Troponin I 0.07 H, NT-Pro-B Natriuret Pep 3450 H, Total Protein 6.6, Albumin 3.7, Globulin 2.9, Albumin/Globulin Ratio 1.3, Lipase 16 L, Procalcitonin 28.6 H, TSH 1.03, Thyroxine (T4) 9.1 08/18/24 18:09: VBG pH 7.41, VBG pCO2 34.6 L, VBG pO2 22.3 L, VBG HCO3 21.2 L, VBG Total CO2 22.3 L, VBG O2 Saturation 36.6 L, VBG Base Excess -3.5 L, VBG Lactic Acid 4.1 H 08/18/24 18:38: Blood Type O Negative, Antibody Screen Negative 08/18/24 21:30: Lactate 2.1, Troponin I 0.11 H 08/19/24 00:20: Troponin I 0.09 H 08/19/24 01:17: Urine Color Yellow, Urine Appearance Clear, Urine pH 5.5, Ur Specific [place] 1.025, Urine Protein 1+ A, Urine Glucose (UA) Negative, Urine Ketones Trace, Urine Blood 2+ A, Urine Nitrate Negative, Urine Bilirubin 1+ A, Urine Urobilinogen 0.2, Ur Leukocyte Esterase Negative, Urine RBC 3-5, Urine WBC 10-20, Ur Squamous Epith Cells 20-50, Urine Bacteria 3+, Urine Opiates Screen Negative, Urine Methadone Screen Negative, Ur Barbituates Screen Negative, Ur Phencyclidine Scrn Negative, Ur Amphetamines Screen Negative, U Benzodiazepines Scrn Negative, Urine Cocaine Screen Negative, U Marijuana (THC) Screen Negative 08/19/24 01:20: Lactate 2.8 H 08/19/24 04:40: WBC 1.3 L*, RBC 3.44 L, Hgb 11.7 L D, Hct 34.7 L, MCV 101.0 H, MCH 34.1 H, MCHC 33.8, RDW 15.3, Plt Count 56 L D, MPV 10.1, Neut % (Auto) 74.8, Lymph % (Auto) 13.7, [place] % (Auto) 10.0 H, Eos % (Auto) 0.7, Baso % (Auto) 0.8, Neut # (Auto) 1.0 L, Lymph # (Auto) 0.2 L, [place] # (Auto) 0.1, Eos # (Auto) 0.0, Baso # (Auto) 0.0, APTT 48.5 L, Sodium 115 L, Potassium 3.9 D, Chloride 89 L, Carbon Dioxide 18 L, Anion Gap 11.9, BUN 59 H, Creatinine 3.50 H, Estimated Creat Clear 21, Estimated GFR 18 L*, Est GFR ( Amer) 21 L, Glucose 200 H D, Calcium 6.5 L, Magnesium 2.1 D, Total Bilirubin 2.0 H, AST 30, ALT 28, Alkaline Phosphatase 46, Total Protein 5.3 L, Albumin 2.8 L D, Globulin 2.5, Albumin/Globulin Ratio 1.1 08/19/24 12:21: Sodium 115 L, Potassium 3.9, Chloride 87 L, Carbon Dioxide 18 L, Anion Gap 13.9, BUN 61 H, Creatinine 3.00 H, Estimated Creat Clear 24, Estimated GFR 21 L, Est GFR ( Amer) 25 L, Glucose 203 H, Calcium 6.2 L If INR was < than 2.0 why was therapy stopped?: HEPARIN STOPPED Were Heparin and Warfarin started on the same day?: No If not, why?: HEPARIN STOPPED
[2024-08-19] MEDS: MORPHINE 2MG/ML SYRINGE 2 MG IV (13:22)
[2024-08-19 13:35] LABS: PTT Heparin (inpatient only) 35.9 Seconds (50-75)
--- NOTE | 2024-08-19 15:54 | PC.NURSE ---
[address] Rodney face to face that pt has bladder scanned for urinary retention. bladder noted to have between 599-620 ml of urine. pt attempted to void per urinal. only able to have 100ml out. also notified md that pt was beginning to have audible crackles, and pt has just had ordered entered for ivf @ 75ml/hr. Per MD perform i/o for uop. also per md hold off on admin of ivf at this time r/t crackles.
[2024-08-19] MEDS: FAMOTIDINE 20MG TABLET 40 MG PO (16:18)
[2024-08-19] MEDS: BELLADONNA ALKALOIDS 60 ML ML PO (16:22)
--- NOTE | 2024-08-19 17:10 | EXP.PN ---
Subjective *Date: 08/19/24 *Time: 17:10 Interval history: Patient is more conversational later this morning, responding to all questions appropriately. Denies chest pain, shortness of breath. States he has been having diarrhea for the past week, not eating well. Exam Data for Last 24 hours Vital signs and Labs for Last 24 Hours: Temp Pulse Resp BP Pulse Ox O2 Del Method O2 Flow Rate 98.1 F 130 H 22 142/75 H 93 L Nasal Cannula 3 08/19/24 08:00 08/19/24 17:00 08/19/24 17:00 08/19/24 17:00 08/19/24 17:00 08/19/24 17:00 08/19/24 17:00 FiO2 3 08/19/24 07:30 Laboratory Results - last 24 hr 08/18/24 18:08: WBC 1.2 L*, RBC 3.82 L, Hgb 13.2 L, Hct 39.1 L, MCV 102.3 H, MCH 34.6 H, MCHC 33.8, RDW 15.0, Plt Count 88 L, MPV 9.4, Neut % (Auto) 49.4, Lymph % (Auto) 30.8, [place] % (Auto) 18.7 H, Eos % (Auto) 0.0 L, Baso % (Auto) 1.2, Neut # (Auto) 0.6 L*, Lymph # (Auto) 0.4 L, [place] # (Auto) 0.2, Eos # (Auto) 0.0, Baso # (Auto) 0.0, PT 11.9, INR 1.07, APTT 39.5 H 08/18/24 18:08: APTT 39.2 L, Sodium 116 L, Potassium 5.1, Chloride 83 L, Carbon Dioxide 21 L, Anion Gap 17.1 H, BUN 59 H, Creatinine 3.80 H, Estimated Creat Clear 18, Estimated GFR 16 L*, Est GFR ( Amer) 19 L*, Glucose 128 H, Hemoglobin A1c 5.5, Lactate 2.9 H, Calcium 7.9 L, Magnesium 1.6, Total Bilirubin 2.4 H, AST 31, ALT 30, Alkaline Phosphatase 66, Troponin I 0.07 H, NT-Pro-B Natriuret Pep 3450 H, Total Protein 6.6, Albumin 3.7, Globulin 2.9, Albumin/Globulin Ratio 1.3, Lipase 16 L, Procalcitonin 28.6 H, TSH 1.03, Thyroxine (T4) 9.1 08/18/24 18:09: VBG pH 7.41, VBG pCO2 34.6 L, VBG pO2 22.3 L, VBG HCO3 21.2 L, VBG Total CO2 22.3 L, VBG O2 Saturation 36.6 L, VBG Base Excess -3.5 L, VBG Lactic Acid 4.1 H 08/18/24 18:38: Blood Type O Negative, Antibody Screen Negative 08/18/24 21:30: Lactate 2.1, Troponin I 0.11 H 08/19/24 00:20: Troponin I 0.09 H 08/19/24 01:17: Urine Color Yellow, Urine Appearance Clear, Urine pH 5.5, Ur Specific [place] 1.025, Urine Protein 1+ A, Urine Glucose (UA) Negative, Urine Ketones Trace, Urine Blood 2+ A, Urine Nitrate Negative, Urine Bilirubin 1+ A, Urine Urobilinogen 0.2, Ur Leukocyte Esterase Negative, Urine RBC 3-5, Urine WBC 10-20, Ur Squamous Epith Cells 20-50, Urine Bacteria 3+, Urine Opiates Screen Negative, Urine Methadone Screen Negative, Ur Barbituates Screen Negative, Ur Phencyclidine Scrn Negative, Ur Amphetamines Screen Negative, U Benzodiazepines Scrn Negative, Urine Cocaine Screen Negative, U Marijuana (THC) Screen Negative 08/19/24 01:20: Lactate 2.8 H 08/19/24 04:40: WBC 1.3 L*, RBC 3.44 L, Hgb 11.7 L D, Hct 34.7 L, MCV 101.0 H, MCH 34.1 H, MCHC 33.8, RDW 15.3, Plt Count 56 L D, MPV 10.1, Neut % (Auto) 74.8, Lymph % (Auto) 13.7, [place] % (Auto) 10.0 H, Eos % (Auto) 0.7, Baso % (Auto) 0.8, Neut # (Auto) 1.0 L, Lymph # (Auto) 0.2 L, [place] # (Auto) 0.1, Eos # (Auto) 0.0, Baso # (Auto) 0.0, APTT 48.5 L, Sodium 115 L, Potassium 3.9 D, Chloride 89 L, Carbon Dioxide 18 L, Anion Gap 11.9, BUN 59 H, Creatinine 3.50 H, Estimated Creat Clear 21, Estimated GFR 18 L*, Est GFR ( Amer) 21 L, Glucose 200 H D, Calcium 6.5 L, Magnesium 2.1 D, Total Bilirubin 2.0 H, AST 30, ALT 28, Alkaline Phosphatase 46, Total Protein 5.3 L, Albumin 2.8 L D, Globulin 2.5, Albumin/Globulin Ratio 1.1 08/19/24 11:11: APTT 35.9 L 08/19/24 12:21: Sodium 115 L, Potassium 3.9, Chloride 87 L, Carbon Dioxide 18 L, Anion Gap 13.9, BUN 61 H, Creatinine 3.00 H, Estimated Creat Clear 24, Estimated GFR 21 L, Est GFR ( Amer) 25 L, Glucose 203 H, Calcium 6.2 L I & O for Last 24 hours: Intake & Output 08/16/24 08/17/24 08/18/24 08/19/24 23:59 23:59 23:59 23:59 Intake Total 3089.407 / 3160.407 4803.639 / 4803.639 Output Total 0 / 0 725 / 725 Balance 3089.407 / 3160.407 4078.639 / 4078.639 Weight 70.2 kg 70.2 kg Assessment and Plan *Assessment and plan (1) Multiorgan failure: Status: Acute Category: Medical (2) Acute renal failure: Status: Acute Category: Medical Code(s): N17.9 - Acute kidney failure, unspecified Plan Patient is a 68-year-old male with past medical history of COPD CAD, cancer metastasis with unknown primary but likely lung care who presents to the hospital due to an episode of loss of consciousness. Patient does not remember very well at exactly, reportedly he was down on the ground for about 20 minutes. Patient was noted to be hypotensive in the emergency department and was started on IV pressors, patient also found to have NO, patient was recommended to be transferred to however patient does not want to be transferred. He wishes to be DNR and do not intubated. Patient otherwise denied fevers. On further evaluation he was found to have new onset atrial flutter/fibrillation. Assessment and plan #Septic versus hypovolemic shock #? Gastroenteritis #Hyponatremia ? Patient reports significant diarrhea for more than a week, minimal oral intake in the setting of this. ? WBC initially 1.2?1.3 today. Possibly from viral gastroenteritis versus current lung cancer to bones. ? UA mildly suggestive UTI. CXR unremarkable. ? Patient is improving with IV fluids and antibiotics today. Continues to require Levophed, vasopressin. ? Continue IV vancomycin, Zosyn. ? Continue IV normal saline, being mindful of hyponatremia not over correcting. Sodium currently 115. ? Follow-up BMP at 530p. ? Follow-up blood, urine cultures, lactic acid. #New onset A-fib with RVR ? IV amiodarone drip, Cardizem discontinued given hypotension. ? [id number] score 2. ? Eliquis 5 mg twice daily, discontinued heparin. ? Cardiology consulted, appreciate recommendations. Discontinued heparin in the setting of thrombocytopenia. ? 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 Patient recently stopped chemo himself given side effects. Today, patient told us he is think about hospice care for his cancer. ? Case management following, hospice care nurse recommends home with hospice if patient improves. #NO ? Creatinine improving to 3.0 today, 3.5 yesterday. ? Continue IV fluids. DVT prophylaxis-on IV heparin
--- NOTE | 2024-08-19 17:12 | CT_ITS ---
PROCEDURE INFORMATION: Exam: CT Abdomen And Pelvis Without Contrast Exam date and time: 08/19/2024 6:50 PM Age: 68 years old Clinical indication: Abdominal pain; Additional info: Diarrhea, abdominal pain, sepsis TECHNIQUE: Imaging protocol: Computed tomography of the abdomen and pelvis without contrast. Radiation optimization: All CT scans at this facility use at least one of these dose optimization techniques: automated exposure control; mA and/or kV adjustment per patient size (includes targeted exams where dose is matched to clinical indication); or iterative reconstruction. COMPARISON: 1. CT ABDOMEN PELVIS W CON 08/05/2024 6:[address] ABDOMEN PELVIS WO/W CON 10/05/2021 10:09 AM FINDINGS: Lungs: Interval development of small to moderate-sized area of airspace opacification suggesting pneumonia in the posteroinferior lingula incompletely included in the field of view. Esophagus: Small to moderate-sized hiatal hernia with fluid distended distal esophagus compatible with reflux or dysmotility. Liver: Normal. No mass. Gallbladder and biliary ducts: Normal. No calcified stones. No ductal dilation. Pancreas: Normal. No ductal dilation. Spleen: Normal. No splenomegaly. Adrenal glands: Normal. No mass. Kidneys and ureters: Normal. No hydronephrosis. Stomach and bowel: Interval development of diffuse mild colonic wall thickening throughout the colon with associated fluid and air distension suggesting colitis with associated diarrhea. Interval development of diffuse fluid distended small bowel loops throughout the abdomen and pelvis and associated [id number] fluid distended stomach. Appendix: No evidence of appendicitis. Intraperitoneal space: Unremarkable. No free air. No significant fluid collection. Vasculature: Unremarkable. No abdominal aortic aneurysm. Lymph nodes: Developing left para-aortic adenopathy measuring up to 15 mm in short axis centered on axial image 39. Urinary bladder: Unremarkable as visualized. Reproductive: Unremarkable as visualized. Bones/joints: Heterogeneous appearance of the right iliac bone redemonstrated suggesting possible developing bone Mets in this patient with history of lung cancer. Soft tissues: Unremarkable. IMPRESSION: 1. Fluid distended stomach and small bowel suggesting ileus related to enteritis. Diffuse fluid distended colon with mild wall thickening suggesting a pancolitis with associated diarrhea. 2. Interval development of small to moderate-sized area of airspace opacification suggesting pneumonia in the posteroinferior lingula incompletely included in the field of view. 3. Hiatal hernia with fluid distended esophagus suggesting reflux or dysmotility. 4. Heterogeneous appearance of the right iliac bone redemonstrated suggesting possible developing bone Mets in this patient with history of lung cancer. 5. Developing left para-aortic adenopathy may be reactive but developing metastatic disease not excluded.
[2024-08-19 18:04] LABS: Chloride 88 mmol/L (98-107); Sodium 116 mmol/L (136-145)
[2024-08-19 18:05] LABS: Potassium 3.6 mmoL/L (3.5-5.1)
[2024-08-19 18:07] LABS: Blood Urea Nitrogen 62 mg/dl (9-20); Creatinine Clearance Estimated 26 mL/min (50-200); Estimated Glomerular Filt Rate 23 ml/min (>60); GFR (African American) 28 ML/MIN (>60)
[2024-08-19 18:08] LABS: Anion Gap 14.6 mEq/L (5-15); Carbon Dioxide 17 mmol/L (22.0-30.0); Glucose 182 mg/dl (74-100)
[2024-08-19] MEDS: NOREPINEPHRINE BITARTRATE/D5W 8 MG/250 ML PLAST..BAG 20 MG IV (18:30)
[2024-08-19 19:14] LABS: Adenovirus F 40/41, stool Not Detected (NotDetected); Astrovirus Not Detected (NotDetected); Clostridium Difficile A/B, PCR Not Detected (NotDetected); Cryptosporidium Not Detected (NotDetected); Cyclospora Cayetanesis Not Detected (NotDetected); Entamoeba histolytica Not Detected (NotDetected); Enteroaggregative E coli Not Detected (NotDetected); Enteropathogenic E coli Not Detected (NotDetected); Enterotoxigenic E coli Not Detected (NotDetected); Giardia lamblia Not Detected (NotDetected); Norovirus Not Detected (NotDetected); Plesimonas Shigalloides, PCR Not Detected (NotDetected); Rotavirus A Not Detected (NotDetected); Salmonella, PCR Not Detected (NotDetected); Sapovirus Not Detected (NotDetected); Shiga-like toxin E coli Not Detected (NotDetected); Shigella Enterovasive E coli Not Detected (NotDetected); Vibrio Cholerae Not Detected (NotDetected); Vibrio, PCR Not Detected (NotDetected); Yersinia Entercolitica, PCR Not Detected (NotDetected)
--- NOTE | 2024-08-19 19:20 | PC.NURSE ---
1820 called and spoke with shannan in [facility] pharmacy once labs were completed. shannan ordered vanc trough to be completed at 2100 then she will assess ordering dose of vanc.
[2024-08-19] MEDS: PANTOPRAZOLE 40MG TABLET 40 MG PO (21:23)
[2024-08-19] MEDS: TRAZODONE 50MG TABLET 300 MG PO (21:23)
[2024-08-19] MEDS: VANCOMYCIN CONSULT REQUEST 1 EACH NOTAPPLIC (21:24)
[2024-08-19] MEDS: 0.9 % SODIUM CHLORIDE 1000ML 1,000 ML 100 ML IV (21:24)
[2024-08-19 21:46] LABS: Chloride 89 mmol/L (98-107); Sodium 116 mmol/L (136-145)
[2024-08-19 21:47] LABS: Potassium 3.6 mmoL/L (3.5-5.1)
[2024-08-19 21:49] LABS: Blood Urea Nitrogen 60 mg/dl (9-20); Creatinine Clearance Estimated 25 mL/min (50-200); Estimated Glomerular Filt Rate 22 ml/min (>60); GFR (African American) 26 ML/MIN (>60)
[2024-08-19 21:50] LABS: Anion Gap 13.6 mEq/L (5-15); Calcium 5.8 mg/dl (8.4-10.2); Carbon Dioxide 17 mmol/L (22.0-30.0); Glucose 164 mg/dl (74-100)
[2024-08-19 22:51] LABS: Vancomycin,Trough 10.6 ug/mL (5.0-10.0)
--- NOTE | 2024-08-19 23:14 | PC.NURSE ---
Spoke to Adelso with [facility] to report Vanc trough results. Adelso will be placing a 1g dose of Vanc to be given now
[2024-08-19 23:16] LABS: Campylobacter Detected (NotDetected)
[2024-08-20] VITALS (51 sets, daily range): BP systolic 45–151; BP diastolic 27–63; PULSE 79–112; RESP 15–26; TEMP 36.5–37; O2SAT 91–100; BMI 19.5
--- NOTE | 2024-08-20 00:11 | PC.NURSE ---
Patient changed of stool incontinence. He attempted to void, but without success. Bladder scan shows <90mL in bladder.
[2024-08-20] MEDS: VANCOMYCIN HCL 1,000 MG in 0.9 % SODIUM CHLORIDE 250 ML 125 MG IV (00:28)
[2024-08-20] MEDS: NOREPINEPHRINE BITARTRATE/D5W 8 MG/250 ML PLAST..BAG IV (03:00)
--- NOTE | 2024-08-20 03:49 | PC.NURSE ---
Checked patient for incontinence. Noted to be clean. Asked patient to try to urinate since he had not urinated this shift. He attempted, but was unable. Bladder scan complete which shows >500mL present in bladder. Patient reports feeling like he has to urinate, but is unable to void on his own. Will place urinary catheter per policy and notify present Attending.
[2024-08-20 04:32] LABS: Microscopic, Urine URINE MICROSCOPIC (MICROSCOPIC)
[2024-08-20 04:33] LABS: Appearance,Urine CLEAR (Clear); Blood, Urine 1+ (Negative); Color,Urine YELLOW (Yellow); Glucose,Urine (UA) Negative (Negative); Ketones,Urine Negative (Negative); Leukocyte Esterase,Urine Negative (Negative); Nitrate,Urine Negative (Negative); PH,Urine 5.5 (5.0-8.5); Protein,Urine 1+ (Negative); Urobilinogen,Urine 0.2 EU/dl (0.2)
[2024-08-20 04:37] LABS: Bilirubin,Urine 1+ (Negative)
[2024-08-20 04:37] LABS: Sodium,Urine Random < 5.0 mmol/L (30-90)
[2024-08-20 04:45] LABS: Bacteria,Urine Trace /lpf
[2024-08-20 05:36] LABS: Basophils % 0.3 % (0.1-2.0); Hematocrit 29.7 % (42.0-52.0); Hemoglobin 10.1 g/dL (14.1-18.0); Lymphocytes # 0.3 K/mm3 (0.7-4.5); Mean Corpuscular HGB Conc 33.9 g/dL (31.8-35.4); Mean Corpuscular Hemoglobin 32.1 pg (27.0-31.2); Mean Corpuscular Volume 94.7 fl (80-94); Mean Platelet Volume 11.5 fl (7.4-10.4); Monocytes # 0.4 K/mm3 (0.1-1.0); Monocytes % 5.6 % (1.7-9.3); Neutrophils # 6.1 K/mm3 (1.8-7.8); Neutrophils % 90.2 % (37.0-80.0); Red Blood Count 3.14 M/mm3 (4.60-6.20); Red Cell Distribution Width 15.4 % (11.5-17.5); White Blood Count 6.7 K/mm3 (4.8-10.8)
[2024-08-20 05:40] LABS: Albumin Level 2.5 g/dl (3.5-5.0); Chloride 91 mmol/L (98-107); MANUAL DIFFERENTIAL MANUAL DIFFERENTIAL (MANUAL DIFF); Platelet Count 31 K/mm3 (142-424); Sodium 117 mmol/L (136-145)
--- NOTE | 2024-08-20 05:40 | PC.NURSE ---
Dr. Verdin notified of critical platelets. No new orders
[2024-08-20 05:41] LABS: Potassium 3.8 mmoL/L (3.5-5.1)
[2024-08-20 05:42] LABS: Lactic Acid 0.9 mmol/L (0.7-2.1)
[2024-08-20 05:43] LABS: Alanine Aminotransferase 18 U/L (12-78); Albumin/Globulin Ratio 1.1 (1.1-1.8); Alkaline Phosphatase 41 U/L (38-126); Anion Gap 12.8 mEq/L (5-15); Aspartate Amino Transferase 26 U/L (17-59); Bilirubin,Total 1.6 mg/dl (0.2-1.3); Blood Urea Nitrogen 63 mg/dl (9-20); Carbon Dioxide 17 mmol/L (22.0-30.0); Creatinine Clearance Estimated 25 mL/min (50-200); Estimated Glomerular Filt Rate 23 ml/min (>60); GFR (African American) 28 ML/MIN (>60); Globulin 2.3 g/dL (1.3-3.2); Total Protein,Serum 4.8 g/dl (6.3-8.2)
[2024-08-20 05:44] LABS: Glucose 115 mg/dl (74-100); Magnesium 2.6 mg/dl (1.6-2.3)
[2024-08-20 05:50] LABS: Calcium 5.4 mg/dl (8.4-10.2)
--- NOTE | 2024-08-20 05:53 | PC.NURSE ---
Dr. Verdin notified of critical Ca 5.4-- Awaiting new orders
[2024-08-20] MEDS: PIPERACILLIN/TAZO 3.375 GM in 0.9 % SODIUM CHLORIDE 50 ML IV (05:56)
--- NOTE | 2024-08-20 06:07 | PC.NURSE ---
Patient did fairly well throughout the night. He was able to wean from Vasopressin and titrate down on his Norepi per JAN. Patient had been requiring 3L/NC, but is now tolerating 2L/NC. Patient noted to have acute urinary retention with inability to void, but bermudez catheter placed and is now draining adequate hourly urine >30mL/hr of dark alverto urine. Tele rhythm has gone from Afib to Sinus/Sinus Tach with occasional PVCs seen. Otherwise, patient is stable. All critical values have been reported to Dr. Verdin this AM-- awaiting new orders
[2024-08-20] MEDS: CALCIUM GLUC IN NACL, ISO-OSM 2 GM/100 ML BAG IV (06:15)
[2024-08-20 06:23] LABS: Lymphocytes % 10 % (10-50); Monocytes % 2 % (2-9); Neutrophils % 88 % (42-76); Total Cells Counted 50
[2024-08-20 06:24] LABS: Anisocytosis 2+; Burr Cells 1+; RBC Morphology Normal
--- NOTE | 2024-08-20 07:46 | P.CONPHA_ITS ---
Pharmacy Consult Date: 08/20/24 Time: 07:46 Referring provider: DR. CUEVAS Reason for Consult:: VANCOMYCIN DOSING Allergies Allergy/AdvReac Type Severity Reaction Status Date / Time No Known Allergies Allergy Verified 08/05/24 09:34 Home Medications ?Medication ?Instructions ?Recorded ?Confirmed ?Type budesonide-formoterol HFA 160 1 inh inhalation DAILY 08/18/24 08/18/24 History mcg-4.5 mcg/actuation aerosol inhaler (Symbicort) fluvoxamine 100 mg tablet 100 mg PO BID 08/18/24 08/18/24 History loperamide 2 mg capsule 2 mg PO DAILYP PRN Diarrhea 08/18/24 08/18/24 History lorazepam 0.5 mg tablet 0.5 mg PO BIDP PRN Anxiety 08/18/24 08/18/24 History omeprazole 20 mg capsule,delayed 20 mg PO DAILY 08/18/24 08/18/24 History release trazodone 150 mg tablet 150 mg PO HS 08/18/24 08/18/24 History valsartan 40 mg tablet 40 mg PO DAILY 08/18/24 08/18/24 History New Prescriptions to Start Prescriptions: Height: 1.88 m Weight: 68.9 kg Laboratory Results:: Laboratory Results - last 24 hr 08/19/24 11:11: APTT 35.9 L 08/19/24 12:21: Sodium 115 L, Potassium 3.9, Chloride 87 L, Carbon Dioxide 18 L, Anion Gap 13.9, BUN 61 H, Creatinine 3.00 H, Estimated Creat Clear 24, Estimated GFR 21 L, Est GFR ( Amer) 25 L, Glucose 203 H, Calcium 6.2 L 08/19/24 17:34: Sodium 116 L, Potassium 3.6, Chloride 88 L, Carbon Dioxide 17 L, Anion Gap 14.6, BUN 62 H, Creatinine 2.80 H, Estimated Creat Clear 26, Estimated GFR 23 L, Est GFR ( Amer) 28 L, Glucose 182 H, Calcium 6.0 L 08/19/24 19:06: Stl Aeromonas (PCR) Not detected, Stl C. cayetanensis PCR Not detected, Stool Rotavirus (PCR) Not detected, Stl Adenov F 40/41 PCR Not detected, Stool Astrovirus (PCR) Not detected, Stool Campylobacter PCR Detected A, Stl C.difficile Tox PCR Not detected, Stool Cryptosporidium PCR Not detected, Stl E.coli Shiga Tox PCR Not detected, Stool E coli O157 PCR Not detected, Stl Enterotoxigenic E PCR Not detected, Stool EPEC (PCR) Not detected, Stool EAEC (PCR) Not detected, Stl E. histolytica PCR Not detected, Stool Giardia Lamblia PCR Not detected, Stool Salmonella PCR Not detected, Stool Sapovirus (PCR) Not detected, Stl P. shigelloides PCR Not detected, Stl Shigella/EIEC PCR Not detected, St Y.enterocolitica PCR Not detected, Stool Vibrio (PCR) Not detected, Stl Vibrio cholerae PCR Not detected, Stl Norovirus GI/GII PCR Not detected 08/19/24 21:26: Sodium 116 L, Potassium 3.6, Chloride 89 L, Carbon Dioxide 17 L, Anion Gap 13.6, BUN 60 H, Creatinine 2.90 H, Estimated Creat Clear 25, Estimated GFR 22 L, Est GFR ( Amer) 26 L, Glucose 164 H, Calcium 5.8 L, Vancomycin Trough 10.6 H 08/20/24 04:20: Urine Sodium < 5.0 L 08/20/24 04:22: Urine Color Yellow, Urine Appearance Clear, Urine pH 5.5, Ur Specific [place] 1.020, Urine Protein 1+ A, Urine Glucose (UA) Negative, Urine Ketones Negative, Urine Blood 1+ A, Urine Nitrate Negative, Urine Bilirubin 1+ A , Urine Urobilinogen 0.2, Ur Leukocyte Esterase Negative, Urine RBC 3-5, Urine WBC None, Ur Squamous Epith Cells None, Urine Bacteria Trace 08/20/24 05:25: WBC 6.7 D, RBC 3.14 L, Hgb 10.1 L, Hct 29.7 L, MCV 94.7 H, MCH 32.1 H, MCHC 33.9, RDW 15.4, Plt Count 31 L* D, MPV 11.5 H, Neut % (Auto) 90.2 H , Lymph % (Auto) 4.0 L, [place] % (Auto) 5.6, Eos % (Auto) 0.0 L, Baso % (Auto) 0.3, Neut # (Auto) 6.1, Lymph # (Auto) 0.3 L, [place] # (Auto) 0.4, Eos # (Auto) 0.0, Baso # (Auto) 0.0, Total Counted 50, Neutrophils % (Manual) 88 H, Lymphocytes % (Manual) 10, Monocytes % (Manual) 2, RBC Morphology Normal, Anisocytosis 2+, Brent Cells 1+, Sodium 117 L, Potassium 3.8, Chloride 91 L, Carbon Dioxide 17 L, Anion Gap 12.8, BUN 63 H, Creatinine 2.80 H, Estimated Creat Clear 25, Estimated GFR 23 L, Est GFR ( Amer) 28 L, Glucose 115 H D , Lactate 0.9, Calcium 5.4 L, Magnesium 2.6 H D, Total Bilirubin 1.6 H, AST 26, ALT 18 D, Alkaline Phosphatase 41, Total Protein 4.8 L, Albumin 2.5 L D, Globulin 2.3, Albumin/Globulin Ratio 1.1 Medical History: Medical History (Updated 08/19/24 @ 12:35 by ROCKY Robledo) Port-A-Cath in place Lung cancer Procedure indicated History of smoking 30 or more pack years Lung nodule seen on imaging study COPD mixed type Total avulsion of nail plate Onychomycosis Assessment and Plan Assessment and plan all Dx Assessment and Plan for all problems:: Pharmacokinetic dosing service Objective: Patient: Floor: Age: 68 yo Serum creatinine: 2.80 mg/dL Height: 74.0 Inches Weight (kg): 69 Assessment: IBW (kg): 82.20 Dosing wt(kg): 69 Estimated Creatinine clearance (ml/min): 25.3 CRCL method: Cockcroft and Gault using ibw(default). Drug selected: Vancomycin Loading dose (mg): Vd (liters): 55.2 (factor used: 0.8 L/kg) Christiano (hr-1): 0.025 Half life (hrs): 27.73 CLvanco=?? 1.380 L/hr Recommended dose: 1000 mg Interval: 36 hrs Infusion time (hrs): 2.0 Predicted peak (mcg/mL): 29.8 Predicted trough (mcg/mL): 12.74 Total body weight is being used for vancomycin dosing. Recommendations: Give Vancomycin 1000 mg q 36 hrs with an expected Cpeak of 29.8 mcg/ml and an expected Ctrough of 12.74 mcg/ml AUC 0-24 /BLAKE Data: BLAKE 0.5 mcg/mL:?? AUC/BLAKE:? 966.2 BLAKE 1.0 mcg/mL:?? AUC/BLAKE:? 483.1 --------- BLAKE 1.5 mcg/mL:?? AUC/BLAKE:? 322.1 BLAKE 2.0 mcg/mL:?? AUC/BLAKE:? 241.5 Thank you for the consult, will continue to follow. -STEPHANIE FLORES, CHARLOTTED
--- NOTE | 2024-08-20 08:00 | CA_ITS ---
APPROVED REPORT EXAM: Comprehensive 2D, Doppler, and color-flow Echocardiogram Spud Sorter: Paige Nunn CRT Ht: 6 ft 2 in Wt: 154lbs BSA: 1.95 BP: 105/70 mmHg Indications: COPD, Atrial Fibrillation, Syncope, CAD, smoker, sepsis, NO, AFIB, Cancer mets lung, DNR/DNI 2D Dimensions LA Volume 33.20 mL LA Volume Index 16.70 mL/m2 (M/F) 16-34 M-Mode Dimensions RVDd 2.75 cm (0.9-2.6) LA Diam 2.55 cm (1.9-4.0) LVDd 4.69 cm (3.5-5.7) LVDs 2.78 cm (3.5-5.7) IVSd 1.09 cm (0.6-1.1) PWd 0.91 cm (0.6-1.1) EF (Teich) 71.50% FS 40.70% EDV (Teich) 101.90 mL TAPSE 2.68 (<1.7) ESV (Teich) 29.00 mL LV Diastology E Decel Time 280 (160-240 msec) E/A Ratio 0.95 MED A' 14.40 cm/s LAT A' 9.40 cm/s Aortic Valve AO Peak GR. 7.00 mmHg Mitral Valve MV E Max Jer. 65.0 (40-130 cm/s) MV A Velocity 68.0 (40-130 cm/s) E/A Ratio 0.95 MV PHT 82.0 ms Tricuspid Valve TR P. Velocity 252.00 cm/s RAP Estimate 10.00 mmHg RVSP 35.40 mmHg Left Ventricle The left ventricle is normal size. The left ventricular systolic function is normal. The left ventricular ejection fraction is within the normal range. There is increased LV wall thickness. There is normal LV segmental wall motion. Transmitral Doppler flow pattern suggests impaired LV relaxation. LVEF is 60%. Right Ventricle The right ventricle is normal size. The right ventricular systolic function is normal. Atria The left atrium size is normal. The right atrium size is normal. There is no Doppler evidence of interatrial shunt. Aortic Valve The aortic valve is mildly thickened. There is no aortic valvular stenosis. No aortic regurgitation is present. Mitral Valve The mitral valve is normal in structure. No evidence of mitral valve stenosis. Trace mitral valve regurgitation noted. Tricuspid Valve Tricuspid valve is grossly normal in structure and function. Trace tricuspid regurgitation. There is insufficient TR jet to estimate RVSP. Pulmonic Valve The pulmonary valve is normal in structure. Trace pulmonic regurgitation. Great Vessels The aortic root is normal in size. The ascending aorta is not well visualized. IVC is normal in size and collapses >50% with inspiration. Pericardium There is a small-sized, anterior pericardial effusion present. The largest pocket measures up to 0.4 cm in diastole. No echo indications of tamponade. Other Information Study Quality: Fair Conclusion Normal biventricular systolic function. No significant valvular stenosis or regurgitation. Small-sized, anterior pericardial effusion present. The largest pocket measures up to 0.4 cm in diastole. No echo indications of tamponade. Electronically signed by : Sofi Han MD 08/21/2024 17:03:13
[2024-08-20] MEDS: 0.9 % SODIUM CHLORIDE 1000ML 1,000 ML 100 ML IV (08:04)
[2024-08-20] MEDS: AZITHROMYCIN 500 MG in 0.9 % SODIUM CHLORIDE 250 ML 250 MG IV (08:47)
[2024-08-20] MEDS: BUDESONIDE 0.5MG/2ML NEB 0.5 MG IH ×2 (09:18→18:12)
[2024-08-20] MEDS: 0.9 % SODIUM CHLORIDE 1000ML 500 ML IV (10:15)
[2024-08-20] MEDS: LEVALBUTEROL 1.25MG/3ML NEB 1.25 MG IH ×3 (11:10→23:23)
[2024-08-20] MEDS: IPRATROPIUM BROMIDE 0.5 MG/2.5ML SOLUTION IH ×3 (11:10→23:23)
--- NOTE | 2024-08-20 11:56 | P.PN_ITS ---
Subjective Subjective Date: 08/20/24 Time: 10:00 Interval history: Improving overnight with hydration. Back in SR. Off pressors and Amio drip but platelets down to 31k. Pt able to speak to me today. Denies any prior cardiac history. Exam Data for Last 24 hours Vital signs and Labs for Last 24 Hours: Temp Pulse Resp BP Pulse Ox O2 Del Method O2 Flow Rate 97.7 F 90 26 H 125/43 L 95 Nasal Cannula 2 08/20/24 11:35 08/20/24 11:11 08/20/24 11:00 08/20/24 11:00 08/20/24 11:11 08/20/24 11:11 08/20/24 11:11 FiO2 3 08/19/24 07:30 Laboratory Results - last 24 hr 08/19/24 11:11: APTT 35.9 L 08/19/24 12:21: Sodium 115 L, Potassium 3.9, Chloride 87 L, Carbon Dioxide 18 L, Anion Gap 13.9, BUN 61 H, Creatinine 3.00 H, Estimated Creat Clear 24, Estimated GFR 21 L, Est GFR ( Amer) 25 L, Glucose 203 H, Calcium 6.2 L 08/19/24 17:34: Sodium 116 L, Potassium 3.6, Chloride 88 L, Carbon Dioxide 17 L, Anion Gap 14.6, BUN 62 H, Creatinine 2.80 H, Estimated Creat Clear 26, Estimated GFR 23 L, Est GFR ( Amer) 28 L, Glucose 182 H, Calcium 6.0 L 08/19/24 19:06: Stl Aeromonas (PCR) Not detected, Stl C. cayetanensis PCR Not detected, Stool Rotavirus (PCR) Not detected, Stl Adenov F 40/41 PCR Not detected, Stool Astrovirus (PCR) Not detected, Stool Campylobacter PCR Detected A, Stl C.difficile Tox PCR Not detected, Stool Cryptosporidium PCR Not detected, Stl E.coli Shiga Tox PCR Not detected, Stool E coli O157 PCR Not detected, Stl Enterotoxigenic E PCR Not detected, Stool EPEC (PCR) Not detected, Stool EAEC (PCR) Not detected, Stl E. histolytica PCR Not detected, Stool Giardia Lamblia PCR Not detected, Stool Salmonella PCR Not detected, Stool Sapovirus (PCR) Not detected, Stl P. shigelloides PCR Not detected, Stl Shigella/EIEC PCR Not detected, St Y.enterocolitica PCR Not detected, Stool Vibrio (PCR) Not detected, Stl Vibrio cholerae PCR Not detected, Stl Norovirus GI/GII PCR Not detected 08/19/24 21:26: Sodium 116 L, Potassium 3.6, Chloride 89 L, Carbon Dioxide 17 L, Anion Gap 13.6, BUN 60 H, Creatinine 2.90 H, Estimated Creat Clear 25, Estimated GFR 22 L, Est GFR ( Amer) 26 L, Glucose 164 H, Calcium 5.8 L, Vancomycin Trough 10.6 H 08/20/24 04:20: Urine Sodium < 5.0 L 08/20/24 04:22: Urine Color Yellow, Urine Appearance Clear, Urine pH 5.5, Ur Specific [place] 1.020, Urine Protein 1+ A, Urine Glucose (UA) Negative, Urine Ketones Negative, Urine Blood 1+ A, Urine Nitrate Negative, Urine Bilirubin 1+ A , Urine Urobilinogen 0.2, Ur Leukocyte Esterase Negative, Urine RBC 3-5, Urine WBC None, Ur Squamous Epith Cells None, Urine Bacteria Trace 08/20/24 05:25: WBC 6.7 D, RBC 3.14 L, Hgb 10.1 L, Hct 29.7 L, MCV 94.7 H, MCH 32.1 H, MCHC 33.9, RDW 15.4, Plt Count 31 L* D, MPV 11.5 H, Neut % (Auto) 90.2 H , Lymph % (Auto) 4.0 L, [place] % (Auto) 5.6, Eos % (Auto) 0.0 L, Baso % (Auto) 0.3, Neut # (Auto) 6.1, Lymph # (Auto) 0.3 L, [place] # (Auto) 0.4, Eos # (Auto) 0.0, Baso # (Auto) 0.0, Total Counted 50, Neutrophils % (Manual) 88 H, Lymphocytes % (Manual) 10, Monocytes % (Manual) 2, RBC Morphology Normal, Anisocytosis 2+, [place] Cells 1+, Sodium 117 L, Potassium 3.8, Chloride 91 L, Carbon Dioxide 17 L, Anion Gap 12.8, BUN 63 H, Creatinine 2.80 H, Estimated Creat Clear 25, Estimated GFR 23 L, Est GFR ( Amer) 28 L, Glucose 115 H D , Lactate 0.9, Calcium 5.4 L, Magnesium 2.6 H D, Total Bilirubin 1.6 H, AST 26, ALT 18 D, Alkaline Phosphatase 41, Total Protein 4.8 L, Albumin 2.5 L D, Globulin 2.3, Albumin/Globulin Ratio 1.1 I & O for Last 24 hours: Intake & Output 08/17/24 08/18/24 08/19/24 08/20/24 23:59 23:59 23:59 23:59 Intake Total 3089.407 / 3160.407 5480.021 / 5632.021 1976.217 / 217 Output Total 0 / 0 725 / 725 1730 / 1730 Balance 3089.407 / 3160.407 4755.021 / 4907.021 247.217 / 247.217 Weight 154 lb 12.232 oz 154 lb 12.232 oz 151 lb 14.376 oz Microbiology Reports for the Last 24 Hours: Microbiology 08/18/24 11:11 Blood Blood Culture - Preliminary NO GROWTH AFTER 24 HOURS 08/18/24 18:08 Blood Blood Culture - Preliminary NO GROWTH AFTER 24 HOURS Constitutional Constitutional: no acute distress, thin, cachectic, chronically ill appearing and cooperative *Routine HEENT Exam Eye: Present PERRL *Routine Respiratory Exam Respiratory: Present CTA bilaterally; Absent accessory muscle use, wheezes or crackles *Routine Cardiovascular Exam Cardiovascular: Present murmur, tachycardia and irregularly irregular; Absent gallop or rubs *Routine Abdominal Exam Abdominal: Present soft; Absent tenderness *Routine Extremities Exam Extremities: Present pulses intact; Absent cyanosis or edema *Routine Skin Exam Skin: Present intact and dry; Absent erythema or wounds *Routine Neurological Exam Neurological: Present alert and oriented X3 Routine Psychiatric Exam Psychiatric: Present cooperative Progress Note: A&P Assessment and plan (1) Atrial flutter: Status: Acute (2) Acute renal failure: Status: Acute (3) Acute on chronic respiratory failure with hypoxemia: Status: Acute (4) Lung cancer: Status: Acute (5) Multiorgan failure: Status: Acute (6) Hyponatremia: Status: Acute (7) Thrombocytopenia: Status: Acute Assessment and Plan Assessment and Plan for All Diagnoses:: A-fib RVR - new dx in setting of MOF - pt expresses desire for DNR/DNI - Cont Amio for rate control due to hypotension on pressors - DC Heparin due to severe thrombocytopenia - Cont hydration efforts - ECHO - cannot obtain currently due to HR >130 08/20: Pt much improved following hydration. Back in SR. Will transition to PO Amio and retry ECHO. Remain off Heparin with critically low Plt. Hypovolemic Shock - MOF in setting of severely dry mucous memranes and diarrhea - continue hydration and pressors support 08/20: Improving Hypovolemic Hyonatremia - NS in process 08/20: Labs largely unchanged due to repeat diarrhea last night. Hydration efforts continue. Campylobacter Diarrhea - present on arrival and ongoing - on Azithromycin Acute Renal Failure - Baseline Cr 0.9, now 3.5 - Hydrate - Pressor support PRN Critical Thrombocytopenia - plt 154 2 weeks ago 88 on arrival, 56 0n 08/19, now 31 today. - likely secondary to metastatic cancer with bony involvement but pt having rapid decline >50% since admission. Heparin DC'd 08/19. 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 Buckley - on chemo Severe Leukopenia - WBC 1.2 - pt is afebrile but high risk of infection - on broad spectrum antibiotics - Impproving
[2024-08-20] MEDS: AMIODARONE 200MG TABLET 400 MG PO ×2 (13:04→20:48)
--- NOTE | 2024-08-20 13:06 | P.PN_ITS ---
Subjective *Date: 08/20/24 *Time: 13:06 Interval history: Patient states he feels a little bit better today compared to yesterday. Continues to have loose diarrhea. Denies chest pain, shortness of breath. Exam Data for Last 24 hours Vital signs and Labs for Last 24 Hours: Temp Pulse Resp BP Pulse Ox O2 Del Method O2 Flow Rate 97.7 F 94 H 24 111/55 L 97 Nasal Cannula 2 08/20/24 11:35 08/20/24 12:00 08/20/24 12:00 08/20/24 12:00 08/20/24 12:00 08/20/24 12:00 08/20/24 12:00 FiO2 3 08/19/24 07:30 Laboratory Results - last 24 hr 08/19/24 11:11: APTT 35.9 L 08/19/24 17:34: Sodium 116 L, Potassium 3.6, Chloride 88 L, Carbon Dioxide 17 L, Anion Gap 14.6, BUN 62 H, Creatinine 2.80 H, Estimated Creat Clear 26, Estimated GFR 23 L, Est GFR ( Amer) 28 L, Glucose 182 H, Calcium 6.0 L 08/19/24 19:06: Stl Aeromonas (PCR) Not detected, Stl C. cayetanensis PCR Not detected, Stool Rotavirus (PCR) Not detected, Stl Adenov F 40/41 PCR Not detected, Stool Astrovirus (PCR) Not detected, Stool Campylobacter PCR Detected A, Stl C.difficile Tox PCR Not detected, Stool Cryptosporidium PCR Not detected, Stl E.coli Shiga Tox PCR Not detected, Stool E coli O157 PCR Not detected, Stl Enterotoxigenic E PCR Not detected, Stool EPEC (PCR) Not detected, Stool EAEC (PCR) Not detected, Stl E. histolytica PCR Not detected, Stool Giardia Lamblia PCR Not detected, Stool Salmonella PCR Not detected, Stool Sapovirus (PCR) Not detected, Stl P. shigelloides PCR Not detected, Stl Shigella/EIEC PCR Not detected, St Y.enterocolitica PCR Not detected, Stool Vibrio (PCR) Not detected, Stl Vibrio cholerae PCR Not detected, Stl Norovirus GI/GII PCR Not detected 08/19/24 21:26: Sodium 116 L, Potassium 3.6, Chloride 89 L, Carbon Dioxide 17 L, Anion Gap 13.6, BUN 60 H, Creatinine 2.90 H, Estimated Creat Clear 25, Estimated GFR 22 L, Est GFR ( Amer) 26 L, Glucose 164 H, Calcium 5.8 L, Vancomycin Trough 10.6 H 08/20/24 04:20: Urine Sodium < 5.0 L 08/20/24 04:22: Urine Color Yellow, Urine Appearance Clear, Urine pH 5.5, Ur Specific [place] 1.020, Urine Protein 1+ A, Urine Glucose (UA) Negative, Urine Ketones Negative, Urine Blood 1+ A, Urine Nitrate Negative, Urine Bilirubin 1+ A , Urine Urobilinogen 0.2, Ur Leukocyte Esterase Negative, Urine RBC 3-5, Urine WBC None, Ur Squamous Epith Cells None, Urine Bacteria Trace 08/20/24 05:25: WBC 6.7 D, RBC 3.14 L, Hgb 10.1 L, Hct 29.7 L, MCV 94.7 H, MCH 32.1 H, MCHC 33.9, RDW 15.4, Plt Count 31 L* D, MPV 11.5 H, Neut % (Auto) 90.2 H , Lymph % (Auto) 4.0 L, [place] % (Auto) 5.6, Eos % (Auto) 0.0 L, Baso % (Auto) 0.3, Neut # (Auto) 6.1, Lymph # (Auto) 0.3 L, [place] # (Auto) 0.4, Eos # (Auto) 0.0, Baso # (Auto) 0.0, Total Counted 50, Neutrophils % (Manual) 88 H, Lymphocytes % (Manual) 10, Monocytes % (Manual) 2, RBC Morphology Normal, Anisocytosis 2+, [place] Cells 1+, Sodium 117 L, Potassium 3.8, Chloride 91 L, Carbon Dioxide 17 L, Anion Gap 12.8, BUN 63 H, Creatinine 2.80 H, Estimated Creat Clear 25, Estimated GFR 23 L, Est GFR ( Amer) 28 L, Glucose 115 H D , Lactate 0.9, Calcium 5.4 L, Magnesium 2.6 H D, Total Bilirubin 1.6 H, AST 26, ALT 18 D, Alkaline Phosphatase 41, Total Protein 4.8 L, Albumin 2.5 L D, Globulin 2.3, Albumin/Globulin Ratio 1.1 I & O for Last 24 hours: Intake & Output 08/17/24 08/18/24 08/19/24 08/20/24 23:59 23:59 23:59 23:59 Intake Total 3089.407 / 3160.407 5480.021 / 5632.021 59 / 592 Output Total 0 / 0 725 / 725 1730 / 1730 Balance 3089.407 / 3160.407 4755.021 / 4907.021 274.592 / 274.592 Weight 70.2 kg 70.2 kg 68.9 kg Microbiology Reports for the Last 24 Hours: Microbiology 08/18/24 11:11 Blood Blood Culture - Preliminary NO GROWTH AFTER 24 HOURS 08/18/24 18:08 Blood Blood Culture - Preliminary NO GROWTH AFTER 24 HOURS Constitutional Constitutional: no acute distress and cachectic *Routine HEENT Exam Head: Present normocephalic Eye: Present EOMI and PERRL ENT: Present mucous membranes moist *Routine Neck Exam Neck: Present supple; Absent lymphadenopathy *Routine Respiratory Exam Respiratory: Present CTA bilaterally *Routine Cardiovascular Exam Cardiovascular: Present RRR *Routine Abdominal Exam Abdominal: Present soft and normoactive bowel sounds; Absent tenderness Comments: Diffuse mild tenderness to palpation. No peritoneal signs. *Routine Extremities Exam Extremities: Absent cyanosis, clubbing or edema *Routine Skin Exam Skin: Present warm; Absent rash *Routine Neurological Exam Neurological: Present alert and oriented X3 Assessment and Plan *Assessment and plan (1) Multiorgan failure: Status: Acute Category: Medical (2) Acute renal failure: Status: Acute Category: Medical Code(s): N17.9 - Acute kidney failure, unspecified Plan Patient is a 68-year-old male with past medical history of COPD CAD, cancer metastasis with unknown primary but likely lung care who presents to the hospital due to an episode of loss of consciousness. Patient does not remember very well at exactly, reportedly he was down on the ground for about 20 minutes. Patient was noted to be hypotensive in the emergency department and was started on IV pressors, patient also found to have NO, patient was recommended to be transferred to however patient does not want to be transferred. He wishes to be DNR and do not intubated. Patient otherwise denied fevers. On further ev aluation he was found to have new onset atrial flutter/fibrillation. Assessment and plan #Septic versus hypovolemic shock #Campylobacter infection enteritis #UTI #Hyponatremia ? Patient reports significant diarrhea for more than 2 weeks prior to admission, minimal oral intake in the setting of this likely leading to severe hypokalemia. ? Patient states he feels a little bit better than yesterday, continues to have loose diarrhea. ? WBC improved to 6.7 today from 1.3. Lactic acid normal today. ? UA mildly suggestive UTI. CXR unremarkable. ? CT abdomen/pelvis shows of distended stomach and colon with fluid-filled loops without obstruction suggesting enteritis. ? Patient is continues to improve with IV fluids and antibiotics. Continues to require Levophed, weaned off vasopressin. ? Transitioned to IV azithromycin for Campylobacter and ceftriaxone for UTI, discontinued vancomycin and Zosyn. ? Continue IV normal saline, being mindful of hyponatremia not over correcting. Sodium currently 117, improving. Max sodium correction 8 mEq/day. ? IV normal saline 500 mL bolus given. Recheck BMP at 1 PM today. Consider increasing normal saline maintenance fluids right if sodium is uptrending. ? Follow-up blood, urine cultures. Blood cultures NGTD 24 hours. ? Follow-up urine, serum osmolality. Urine sodium less than 20. #New onset A-fib #RVR resolved ? Weaned off IV amiodarone drip, currently rate controlled. Cardiology deciding on p.o. transition. ? [id number] score 2. ? Eliquis 5 mg twice daily, discontinued heparin. ? Cardiology consulted, appreciate recommendations. Discontinued heparin in the setting of thrombocytopenia. ? Follow-up ECHO as heart rate was too high yesterday. 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 Patient recently stopped chemo himself given side effects. Today, patient told us he is think about hospice care for his cancer. ? Case management following, hospice care nurse recommends home with hospice if patient improves. #NO ? Creatinine improving to 2.9 today, improving. ? Continue IV fluids. DVT prophylaxis-Eliquis
[2024-08-20 13:29] LABS: Chloride 92 mmol/L (98-107); Potassium 3.7 mmoL/L (3.5-5.1); Sodium 118 mmol/L (136-145)
[2024-08-20 13:32] LABS: Anion Gap 11.7 mEq/L (5-15); Blood Urea Nitrogen 63 mg/dl (9-20); Carbon Dioxide 18 mmol/L (22.0-30.0); Creatinine Clearance Estimated 24 mL/min (50-200); Estimated Glomerular Filt Rate 21 ml/min (>60); GFR (African American) 25 ML/MIN (>60); Glucose 124 mg/dl (74-100)
--- NOTE | 2024-08-20 16:13 | PC.NURSE ---
pt has appeared to rest in bed this shift. pt appears to be tired and has slept frequently throughout the shift. pt has had numerous liquid bowel movements that have required a bed change. pt stool specimen has tested positive for campylobacter. pt lung sounds contain expiratory wheezes and rhonchi. bowel sounds are hyperactive in all quads. pt is able to turns in bed without assistance. no skin breakdown noted to by hips/coccyx
[2024-08-20] MEDS: MORPHINE 2MG/ML SYRINGE 2 MG IV (17:34)
[2024-08-20] MEDS: NOREPINEPHRINE BITARTRATE/D5W 8 MG/250 ML PLAST..BAG 18.75 MG IV (18:08)
[2024-08-20] MEDS: 0.9 % SODIUM CHLORIDE 1000ML 1,000 ML 125 ML IV (20:47)
[2024-08-20] MEDS: TRAZODONE 50MG TABLET 150 MG PO (20:48)
[2024-08-20] MEDS: PANTOPRAZOLE 40MG TABLET 40 MG PO (20:48)
--- NOTE | 2024-08-20 20:59 | XR_ITS ---
PROCEDURE INFORMATION: Exam: XR Chest Exam date and time: 08/20/2024 9:18 PM Age: 68 years old Clinical indication: Dyspnea; Additional info: SOA TECHNIQUE: Imaging protocol: Radiologic exam of the chest. Views: 1 view. COMPARISON: CR XR CHEST PORTABLE 08/18/2024 8:35 PM FINDINGS: Tubes, catheters and devices: Central venous catheter tip projected over superior vena cava. Lungs: Poorly defined dense consolidation of left mid to upper lung zones. Pleural spaces: Unremarkable. No pleural effusion. No pneumothorax. Heart/Mediastinum: Unremarkable. No cardiomegaly. Bones/joints: Unremarkable. IMPRESSION: Infectious/inflammatory consolidation of left mid to upper lung zone. Recommend follow-up to document resolution on treatment.
[2024-08-20] MEDS: 0.9 % SODIUM CHLORIDE 1000ML 1,000 ML 75 ML IV (22:38)
[2024-08-21] VITALS (26 sets, daily range): BP systolic 80–124; BP diastolic 42–72; PULSE 92–115; RESP 13–27; TEMP 36.4–37.1; O2SAT 92–100; BMI 20.7
[2024-08-21] MEDS: IPRATROPIUM BROMIDE 0.5 MG/2.5ML SOLUTION IH ×4 (06:31→23:25)
[2024-08-21] MEDS: LEVALBUTEROL 1.25MG/3ML NEB 1.25 MG IH ×4 (06:31→23:25)
[2024-08-21] MEDS: BUDESONIDE 0.5MG/2ML NEB 0.5 MG IH ×2 (06:31→18:36)
[2024-08-21 07:08] LABS: Albumin Level 2.5 g/dl (3.5-5.0); Basophils % 0.1 % (0.1-2.0); Chloride 95 mmol/L (98-107); Hematocrit 30.7 % (42.0-52.0); Hemoglobin 9.9 g/dL (14.1-18.0); Lymphocytes # 0.2 K/mm3 (0.7-4.5); Lymphocytes % 2.3 % (10-50); Mean Corpuscular HGB Conc 32.3 g/dL (31.8-35.4); Mean Corpuscular Volume 102.4 fl (80-94); Mean Platelet Volume 11.8 fl (7.4-10.4); Monocytes # 0.3 K/mm3 (0.1-1.0); Monocytes % 2.7 % (1.7-9.3); Neutrophils # 9.9 K/mm3 (1.8-7.8); Potassium 3.6 mmoL/L (3.5-5.1); Red Cell Distribution Width 15.8 % (11.5-17.5); Sodium 121 mmol/L (136-145); White Blood Count 10.4 K/mm3 (4.8-10.8)
[2024-08-21 07:10] LABS: Blood Urea Nitrogen 67 mg/dl (9-20)
[2024-08-21 07:11] LABS: Alanine Aminotransferase 21 U/L (12-78); Alkaline Phosphatase 56 U/L (38-126); Anion Gap 12.6 mEq/L (5-15); Aspartate Amino Transferase 27 U/L (17-59); Bilirubin,Total 1.2 mg/dl (0.2-1.3); Calcium 5.8 mg/dl (8.4-10.2); Carbon Dioxide 17 mmol/L (22.0-30.0); Creatinine Clearance Estimated 28 mL/min (50-200); Estimated Glomerular Filt Rate 24 ml/min (>60); GFR (African American) 29 ML/MIN (>60); Globulin 2.4 g/dL (1.3-3.2); Glucose 121 mg/dl (74-100); Magnesium 2.7 mg/dl (1.6-2.3); Total Protein,Serum 4.9 g/dl (6.3-8.2)
[2024-08-21 07:54] LABS: MANUAL DIFFERENTIAL MANUAL DIFFERENTIAL (MANUAL DIFF); Platelet Count 24 K/mm3 (142-424)
[2024-08-21 08:29] LABS: Procalcitonin 51.7 ng/mL (0.0-2.0)
[2024-08-21 08:32] LABS: Lymphocytes % 8 % (10-50); Macrocytosis 1+; Neutrophils % 92 % (42-76); Platelet Estimate Marked Decrease; Total Cells Counted 100
[2024-08-21] MEDS: 0.9 % SODIUM CHLORIDE 1000ML 1,000 ML 75 ML IV (08:40)
[2024-08-21] MEDS: NOREPINEPHRINE BITARTRATE/D5W 8 MG/250 ML PLAST..BAG 18.75 MG IV (08:40)
[2024-08-21] MEDS: CEFTRIAXONE 1 GM 1 GM in 0.9 % SODIUM CHLORIDE 50 ML IV (08:42)
[2024-08-21] MEDS: AMIODARONE 200MG TABLET 400 MG PO ×2 (08:43→20:46)
[2024-08-21] MEDS: AZITHROMYCIN 250MG TABLET 500 MG PO (08:43)
--- NOTE | 2024-08-21 10:38 | P.PN_ITS ---
Subjective Subjective Date: 08/21/24 Time: 09:00 Interval history: Na improved to 121 Plt down further to 24. No signs of bleeding or clotting. Hit Ab labs pending. Remains in SR Repeat ECHO results pending. Exam Data for Last 24 hours Vital signs and Labs for Last 24 Hours: Temp Pulse Resp BP Pulse Ox O2 Del Method O2 Flow Rate 98.2 F 96 H 18 105/51 L 96 Nasal Cannula 2 08/21/24 08:00 08/21/24 10:00 08/21/24 10:00 08/21/24 10:00 08/21/24 10:00 08/21/24 10:00 08/21/24 10:00 FiO2 2 08/21/24 07:00 Laboratory Results - last 24 hr 08/20/24 13:13: Sodium 118 L, Potassium 3.7, Chloride 92 L, Carbon Dioxide 18 L, Anion Gap 11.7, BUN 63 H, Creatinine 3.00 H, Estimated Creat Clear 24, Estimated GFR 21 L, Est GFR ( Amer) 25 L, Glucose 124 H, Calcium 6.0 L 08/21/24 06:32: WBC 10.4 D, RBC 3.00 L, Hgb 9.9 L, Hct 30.7 L, MCV 102.4 H, MCH 33.0 H, MCHC 32.3, RDW 15.8, Plt Count 24 L*, MPV 11.8 H, Neut % (Auto) 95.0 H, Lymph % (Auto) 2.3 L, [place] % (Auto) 2.7, Eos % (Auto) 0.0 L, Baso % (Auto) 0.1, Neut # (Auto) 9.9 H, Lymph # (Auto) 0.2 L, [place] # (Auto) 0.3, Eos # (Auto) 0.0, Baso # (Auto) 0.0, Total Counted 100, Neutrophils % (Manual) 92 H, Lymphocytes % (Manual) 8 L, Platelet Estimate Marked decrease, Macrocytosis 1+, Sodium 121 L, Potassium 3.6, Chloride 95 L, Carbon Dioxide 17 L, Anion Gap 12.6, BUN 67 H, Creatinine 2.70 H, Estimated Creat Clear 28, Estimated GFR 24 L, Est GFR ( Amer) 29 L, Glucose 121 H, Calcium 5.8 L, Magnesium 2.7 H, Total Bilirubin 1.2, AST 27, ALT 21, Alkaline Phosphatase 56, Total Protein 4.9 L, Albumin 2.5 L, Globulin 2.4, Albumin/Globulin Ratio 1.0 L, Procalcitonin 51.7 H I & O for Last 24 hours: Intake & Output 08/18/24 08/19/24 08/20/24 08/21/24 23:59 23:59 23:59 23:59 Intake Total 3089.407 / 3160.407 5480.021 / 5632.021 4072.492 / 4072.492 1474.376 / 1474.376 Output Total 0 / 0 725 / 725 2805 / 2805 925 / 925 Balance 3089.407 / 3160.407 4755.021 / 4907.021 1267.492 / 1267.492 549.376 / 549.376 Weight 154 lb 12.232 oz 154 lb 12.232 oz 151 lb 14.376 oz 161 lb 8 oz Microbiology Reports for the Last 24 Hours: Microbiology 08/19/24 04:30 Anus CRE Surveillance Culture - Final Negative 08/19/24 01:17 Urine,Clean Catch Urine Culture - Final No growth. 08/18/24 18:08 Blood Blood Culture - Preliminary NO GROWTH AFTER 48 HOURS 08/18/24 11:11 Blood Blood Culture - Preliminary NO GROWTH AFTER 24 HOURS Constitutional Constitutional: no acute distress, thin, cachectic, chronically ill appearing and cooperative *Routine HEENT Exam Eye: Present PERRL *Routine Respiratory Exam Respiratory: Present CTA bilaterally; Absent accessory muscle use, wheezes or crackles *Routine Cardiovascular Exam Cardiovascular: Present murmur, tachycardia and irregularly irregular; Absent gallop or rubs *Routine Abdominal Exam Abdominal: Present soft; Absent tenderness *Routine Extremities Exam Extremities: Present pulses intact; Absent cyanosis or edema *Routine Skin Exam Skin: Present intact and dry; Absent erythema or wounds *Routine Neurological Exam Neurological: Present alert and oriented X3 Routine Psychiatric Exam Psychiatric: Present cooperative Progress Note: A&P Assessment and plan (1) Multiorgan failure: Status: Acute (2) Acute renal failure: Status: Acute (3) Atrial flutter: Status: Acute (4) Acute on chronic respiratory failure with hypoxemia: Status: Acute (5) Lung cancer: Status: Acute (6) Hyponatremia: Status: Acute (7) Thrombocytopenia: Status: Acute Assessment and Plan Assessment and Plan for All Diagnoses:: A-fib RVR - new dx in setting of MOF - pt expresses desire for DNR/DNI - Cont Amio for rate control due to hypotension on pressors - DC Heparin due to severe thrombocytopenia - Cont hydration efforts - ECHO - cannot obtain currently due to HR >130 08/20: Pt much improved following hydration. Back in SR. Will transition to PO Amio and retry ECHO. Remain off Heparin with critically low Plt. 104: Stable on po Amio Hypovolemic Shock - MOF in setting of severely dry mucous memranes and diarrhea - continue hydration and pressors support 08/20: Improving 08/21: stable Hypovolemic Hyonatremia - NS in process 08/20: Labs largely unchanged due to repeat diarrhea last night. Hydration efforts continue. 08/21: improving to 121 Campylobacter Diarrhea - present on arrival and ongoing - on Azithromycin 08/21: ongoing diarrhea Acute Renal Failure - Baseline Cr 0.9, now 3.5 - Hydrate - Pressor support PRN - 08/21: marginally improved, Cr 2.7 Critical Thrombocytopenia - plt 154 2 weeks ago 88 on arrival, 56 0n 08/19, now 31 today. - likely secondary to metastatic cancer with bony involvement but pt having rapid decline >50% since admission. Heparin DC'd 08/19. HIT antibody test ordered (expect results 08/21) will monitor for bleeding/clotting 08/21: Worsening. Cont monitor for bleeding/clotting. Hospitalist managing. HIT- Ab labs pending. 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 Buckley - on chemo Severe Leukopenia - WBC 1.2 - pt is afebrile but high risk of infection - on broad spectrum antibiotics - Improving Complex pt,awaiting Hospice care placement.
--- NOTE | 2024-08-21 11:35 | PC.NURSE ---
per pts request: called [facility] about his wallet, phone, and keys; the nurse stated she will ask someone from management bring his belongings. pt would like to remove christi littlejohn from his contacts. contacted martina galvez to give update on pt. martina stated he will be here to see pt tomorrow afternoon.
--- NOTE | 2024-08-21 17:46 | EXP.PN ---
Subjective *Date: 08/21/24 *Time: 17:46 Interval history: Patient states he feels little better today. States his diarrhea is also improved. Exam Data for Last 24 hours Vital signs and Labs for Last 24 Hours: Temp Pulse Resp BP Pulse Ox O2 Del Method O2 Flow Rate 98.1 F 110 H 22 99/59 L 95 Nasal Cannula 2.5 08/21/24 16:00 08/21/24 17:00 08/21/24 17:00 08/21/24 17:00 08/21/24 17:00 08/21/24 17:00 08/21/24 17:00 FiO2 2 08/21/24 07:00 Laboratory Results - last 24 hr 08/21/24 06:32: WBC 10.4 D, RBC 3.00 L, Hgb 9.9 L, Hct 30.7 L, MCV 102.4 H, MCH 33.0 H, MCHC 32.3, RDW 15.8, Plt Count 24 L*, MPV 11.8 H, Neut % (Auto) 95.0 H, Lymph % (Auto) 2.3 L, [place] % (Auto) 2.7, Eos % (Auto) 0.0 L, Baso % (Auto) 0.1, Neut # (Auto) 9.9 H, Lymph # (Auto) 0.2 L, [place] # (Auto) 0.3, Eos # (Auto) 0.0, Baso # (Auto) 0.0, Total Counted 100, Neutrophils % (Manual) 92 H, Lymphocytes % (Manual) 8 L, Platelet Estimate Marked decrease, Macrocytosis 1+, Sodium 121 L, Potassium 3.6, Chloride 95 L, Carbon Dioxide 17 L, Anion Gap 12.6, BUN 67 H, Creatinine 2.70 H, Estimated Creat Clear 28, Estimated GFR 24 L, Est GFR ( Amer) 29 L, Glucose 121 H, Calcium 5.8 L, Magnesium 2.7 H, Total Bilirubin 1.2, AST 27, ALT 21, Alkaline Phosphatase 56, Total Protein 4.9 L, Albumin 2.5 L, Globulin 2.4, Albumin/Globulin Ratio 1.0 L, Procalcitonin 51.7 H I & O for Last 24 hours: Intake & Output 08/18/24 08/19/24 08/20/24 08/21/24 23:59 23:59 23:59 23:59 Intake Total 3089.407 / 3160.407 5480.021 / 5632.021 4072.492 / 4072.492 2966.501 / 2966.501 Output Total 0 / 0 725 / 725 2805 / 2805 1324 / 1324 Balance 3089.407 / 3160.407 4755.021 / 4907.021 1267.492 / 3997.179 9246.501 / 1642.501 Weight 70.2 kg 70.2 kg 68.9 kg 73.255 kg Microbiology Reports for the Last 24 Hours: Microbiology 08/18/24 11:11 Blood Blood Culture - Preliminary NO GROWTH AFTER 48 HOURS 08/19/24 04:30 Anus CRE Surveillance Culture - Final Negative 08/19/24 01:17 Urine,Clean Catch Urine Culture - Final No growth. 08/18/24 18:08 Blood Blood Culture - Preliminary NO GROWTH AFTER 48 HOURS Constitutional Constitutional: no acute distress and cachectic *Routine HEENT Exam Head: Present normocephalic Eye: Present EOMI and PERRL ENT: Present mucous membranes moist *Routine Neck Exam Neck: Present supple; Absent lymphadenopathy *Routine Respiratory Exam Respiratory: Present CTA bilaterally *Routine Cardiovascular Exam Cardiovascular: Present RRR *Routine Abdominal Exam Abdominal: Present soft and normoactive bowel sounds; Absent tenderness Comments: Diffuse mild tenderness to palpation. No peritoneal signs. *Routine Extremities Exam Extremities: Absent cyanosis, clubbing or edema *Routine Skin Exam Skin: Present warm; Absent rash *Routine Neurological Exam Neurological: Present alert and oriented X3 Assessment and Plan *Assessment and plan (1) Multiorgan failure: Status: Acute Category: Medical (2) Acute renal failure: Status: Acute Category: Medical Code(s): N17.9 - Acute kidney failure, unspecified Plan Patient is a 68-year-old male with past medical history of COPD CAD, cancer metastasis with unknown primary but likely lung care who presents to the hospital due to an episode of loss of consciousness. Patient does not remember very well at exactly, reportedly he was down on the ground for about 20 minutes. Patient was noted to be hypotensive in the emergency department and was started on IV pressors, patient also found to have NO, patient was recommended to be transferred to however patient does not want to be transferred. He wishes to be DNR and do not intubated. Patient otherwise denied fevers. On further evaluation he was found to have new onset atrial flutter/fibrillation. Assessment and plan #Septic versus hypovolemic shock #Campylobacter enteritis #UTI #Suspected pneumonia #Hyponatremia ? Patient reports significant diarrhea for more than 2 weeks prior to admission, minimal oral intake in the setting of this likely leading to severe hypokalemia. ? Patient states his diarrhea has improved today, feels a little better than yesterday. ? WBC improved to 6.7 today from 1.3. Lactic acid normal today. ? UA mildly suggestive UTI. CXR unremarkable. ? CT abdomen/pelvis shows of distended stomach and colon with fluid-filled loops without obstruction suggesting enteritis. ? Patient is continues to improve with IV fluids and antibiotics. Continues to require Levophed, weaned off vasopressin. ? IV azithromycin for Campylobacter and ceftriaxone for UTI, discontinued vancomycin and Zosyn. ? Independent review of CXR reveals worsening left upper lobe opacity. Restarted IV vancomycin. ? Started IV vancomycin, cefepime for pneumonia. ? Increased IV normal saline to 125 mL/h, being mindful of hyponatremia not over correcting. Sodium currently 121, improving from initial 116 with fluid resuscitation. Max sodium correction 8 mEq/day. ? Follow-up blood, urine cultures. Blood cultures NGTD 24 hours. ? Follow-up urine, serum osmolality. Urine sodium less than 20. #New onset A-fib #RVR resolved ? Weaned off IV amiodarone drip, currently rate controlled. Cardiology deciding on p.o. transition. ? [id number] score 2. ? Eliquis 5 mg twice daily, discontinued heparin. ? Cardiology consulted, appreciate recommendations. Discontinued heparin in the setting of thrombocytopenia. ? Follow-up ECHO as heart rate was too high yesterday. 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 Patient recently stopped chemo himself given side effects and feels that his disease is too severe for chemotherapy. ? Had lengthy conversation about goals of care today. Patient does not want hospice for his lung cancer, but wants to continue to treat his current condition at this time. See above. ? Case management following, hospice care nurse recommends home with hospice if patient improves. #NO ? Creatinine improving to 2.7 from 3 today. ? Continue IV fluids. DVT prophylaxis-Eliquis
--- NOTE | 2024-08-21 17:49 | PC.NURSE ---
pt has done well today, alert x4. clear lung sounds with adequate air moment and now on room air with o2 sats 95%. . levo gtt titrated from 8mcg to 4mcg. pt sat in the chair for a couple hrs, tolerated well. nsr and at times sinus tach in the 90s-100. pts wallet and keys locked in rod drawer room. x2 loose bm.cb within reach, no needs at this time. pt currently resting comfortably in bed.
[2024-08-21] MEDS: CEFEPIME HCL 2 GM in 0.9 % SODIUM CHLORIDE 100 ML IV (18:29)
[2024-08-21] MEDS: VANCOMYCIN CONSULT REQUEST 1 EACH NOTAPPLIC (18:52)
[2024-08-21] MEDS: MORPHINE 2MG/ML SYRINGE 2 MG IV ×2 (18:54→23:39)
[2024-08-21 20:10] LABS: Albumin Level 2.3 g/dl (3.5-5.0); Chloride 100 mmol/L (98-107); Potassium 3.5 mmoL/L (3.5-5.1); Sodium 124 mmol/L (136-145)
[2024-08-21 20:13] LABS: Alanine Aminotransferase 19 U/L (12-78); Alkaline Phosphatase 76 U/L (38-126); Anion Gap 10.5 mEq/L (5-15); Aspartate Amino Transferase 27 U/L (17-59); Blood Urea Nitrogen 65 mg/dl (9-20); Carbon Dioxide 17 mmol/L (22.0-30.0); Creatinine Clearance Estimated 26 mL/min (50-200); Estimated Glomerular Filt Rate 22 ml/min (>60); GFR (African American) 26 ML/MIN (>60); Globulin 2.3 g/dL (1.3-3.2); Total Protein,Serum 4.6 g/dl (6.3-8.2)
[2024-08-21 20:14] LABS: Calcium 5.9 mg/dl (8.4-10.2); Glucose 110 mg/dl (74-100)
[2024-08-21] MEDS: 0.9 % SODIUM CHLORIDE 1000ML 1,000 ML 125 ML IV (20:44)
[2024-08-21] MEDS: PANTOPRAZOLE 40MG TABLET 40 MG PO (20:45)
[2024-08-21] MEDS: VANCOMYCIN HCL 1,000 MG in 0.9 % SODIUM CHLORIDE 250 ML 125 MG IV (20:45)
[2024-08-21] MEDS: TRAZODONE 50MG TABLET 150 MG PO (20:47)
[2024-08-21] MEDS: HYDROCODONE/APAP 5/325 MG TABLET 1 TAB PO (20:56)
[2024-08-21] MEDS: CALCIUM GLUC IN NACL, ISO-OSM 2 GM/100 ML BAG IV (21:20)
[2024-08-21] MEDS: BELLADONNA ALKALOIDS 60 ML ML PO (22:15)
--- NOTE | 2024-08-21 23:10 | PC.NURSE ---
TRN called to bedside for patient becoming SOA all at once. Upon assessment patient is sitting on side of bed naked, with all leads, and cords ripped off and thrown to the side. Patient is in tripod position on bedside table, and using all accessory muscles to facilitate breathing. Respiratory called and asked to administer breathing treatment early due to adventitious lung sounds, and increased SOA. 2312 Dr. Finn called and reports of patient SOA. New orders placed. see MAR, and states that he is headed to bedside at this time. 2315 Dr. Finn and respiratory at bedside. Patient is unable to get comfortable. Moving all around bed, unable to capture full breath, unable to find comfortable breathing position. Tachypneic in 40s. Stat chest xray performed. Dr. Finn states that new treatment regimen is necessesary. See new orders for plan of care. 2340 After all medications ordered and administered, see MAR, patient is now resting in high fowlers position with eyes closed, and respirations are even and unlabored. During event, patient has become hypotensive, Levo titrated to maintain map >65.
--- NOTE | 2024-08-21 23:14 | XR_ITS ---
PROCEDURE INFORMATION: Exam: XR Chest Exam date and time: 08/21/2024 11:16 PM Age: 68 years old Clinical indication: Dyspnea TECHNIQUE: Imaging protocol: Radiologic exam of the chest. Views: 1 view. COMPARISON: CR XR CHEST PORTABLE 08/20/2024 9:18 PM FINDINGS: Tubes, catheters and devices: Port tubing tip in the SVC. Lungs: Pulmonary vessels are normal. Patchy opacification left upper lobe slightly improved compared with 08/20/2024 Pleural spaces: Unremarkable. No pleural effusion. No pneumothorax. Heart/Mediastinum: Cardiac silhouette is normal. Bones/joints: Unremarkable. IMPRESSION: Patchy opacification left upper lobe slightly improved compared with 08/20/2024
[2024-08-21] MEDS: FUROSEMIDE 40MG/4ML VIAL 40 MG IV (23:20)
--- NOTE | 2024-08-21 23:36 | P.EN_ITS ---
Patient became very anxious and dyspneic at approximately 11 PM. Found to be more rhonchorous on exam with respiratory distress. Administered neb containing Xopenex and ipratropium. Additionally administered 2 mg morphine for air hunger. Necessitated increase in his supplemental oxygen more for distress rather than hypoxia. Chest imaging obtained, per my personal review, shows inc reased pulmonary vascular congestion. IV fluids discontinued. Administered 40 mg Lasix x 1. Given his volume administered IV today, concern for component of pulmonary edema. Will transition to volume restrictive approach for his hyponatremia. Concern for component of SIADH given his lung cancer. Discussed administering 0.5 of Ativan if anxiety continues after breathing treatment and pain medications.
[2024-08-21] MEDS: LORazepam 2MG/ML VIAL 1 MG IV (23:42)
[2024-08-22] VITALS (30 sets, daily range): BP systolic 69–135; BP diastolic 39–79; PULSE 100–150; RESP 12–40; TEMP 35.8–36.8; O2SAT 86–134
[2024-08-22] MEDS: MORPHINE 2MG/ML SYRINGE 2 MG IV ×4 (01:45→15:33)
--- NOTE | 2024-08-22 01:45 | PC.NURSE ---
TRN heard patient moaning in room and entered room to assess. Patient is sitting on the side of the bed, pulling on tubing and wires, removing gown. Patient is easily to direct back into bed and placed in high fowlers. Patient with increased work of breathing, with audible secretions noted. Dr. Finn notified and informed of patient condition and that TRN is administering morphine at this time for air hunger. New orders placed for one time dose of lorazepam. This is also administered per 020 Patient is resting on right lateral side with eyes closed, RR 13-17, even and unlabored. Patient states that he believes this is the end and voices that he is scared of not being able to breathe. MARY KAY Thao, and TRN at bedside providing comfort, and reassurance to patient care. Previous to this episode, approx 20 min prior, Dr. Finn making rounds and informed that patient is now in AFIB RVR with heart rate ranging from 120's to 150's. MD aware. No new orders at this time.
[2024-08-22] MEDS: LORazepam 2MG/ML VIAL 0.5 MG IV ×2 (01:55→07:28)
[2024-08-22] MEDS: NOREPINEPHRINE BITARTRATE/D5W 8 MG/250 ML PLAST..BAG 33.75 MG IV (02:41)
[2024-08-22] MEDS: CEFEPIME HCL 2 GM in 0.9 % SODIUM CHLORIDE 100 ML IV (02:41)
[2024-08-22] MEDS: IPRATROPIUM BROMIDE 0.5 MG/2.5ML SOLUTION IH ×5 (05:03→21:42)
[2024-08-22] MEDS: LEVALBUTEROL 1.25MG/3ML NEB 1.25 MG IH ×5 (05:03→21:42)
[2024-08-22] MEDS: BUDESONIDE 0.5MG/2ML NEB 0.5 MG IH ×2 (05:03→18:09)
[2024-08-22 05:22] LABS: Basophils # 0.1 K/mm3 (0-0.2); Basophils % 0.4 % (0.1-2.0); Eosinophils % 0.1 % (0.1-12.0); Hematocrit 32.4 % (42.0-52.0); Hemoglobin 10.7 g/dL (14.1-18.0); Lymphocytes # 0.7 K/mm3 (0.7-4.5); Lymphocytes % 4.6 % (10-50); Mean Corpuscular HGB Conc 33.2 g/dL (31.8-35.4); Mean Corpuscular Volume 102.5 fl (80-94); Mean Platelet Volume 11.6 fl (7.4-10.4); Monocytes # 0.6 K/mm3 (0.1-1.0); Monocytes % 3.9 % (1.7-9.3); Neutrophils # 13.6 K/mm3 (1.8-7.8); Red Blood Count 3.16 M/mm3 (4.60-6.20); Red Cell Distribution Width 16.1 % (11.5-17.5); White Blood Count 14.9 K/mm3 (4.8-10.8)
[2024-08-22] MEDS: VASOPRESSIN 40 UNIT in 0.9 % SODIUM CHLORIDE 100 ML IV (05:23)
[2024-08-22 05:28] LABS: MANUAL DIFFERENTIAL MANUAL DIFFERENTIAL (MANUAL DIFF); Platelet Count 33 K/mm3 (142-424)
[2024-08-22] MEDS: CALCIUM GLUC IN NACL, ISO-OSM 2 GM/100 ML BAG IV (05:30)
[2024-08-22 05:33] LABS: Alanine Aminotransferase 25 U/L (12-78); Albumin Level 2.6 g/dl (3.5-5.0); Albumin/Globulin Ratio 1.1 (1.1-1.8); Alkaline Phosphatase 65 U/L (38-126); Anion Gap 10.7 mEq/L (5-15); Aspartate Amino Transferase 28 U/L (17-59); Bilirubin,Total 0.9 mg/dl (0.2-1.3); Blood Urea Nitrogen 64 mg/dl (9-20); Calcium 6.5 mg/dl (8.4-10.2); Carbon Dioxide 17 mmol/L (22.0-30.0); Chloride 101 mmol/L (98-107); Creatinine Clearance Estimated 24 mL/min (50-200); Estimated Glomerular Filt Rate 20 ml/min (>60); GFR (African American) 24 ML/MIN (>60); Globulin 2.4 g/dL (1.3-3.2); Glucose 112 mg/dl (74-100); Phosphorous 3.8 mg/dl (2.5-4.5); Potassium 3.7 mmoL/L (3.5-5.1); Sodium 125 mmol/L (136-145)
[2024-08-22 05:45] LABS: Magnesium 2.5 mg/dl (1.6-2.3)
[2024-08-22] MEDS: ACETYLCYSTEINE 20% 4ML VIAL 2 ML IH ×2 (05:53→05:55)
[2024-08-22] MEDS: LACTATED RINGERS 1000ML 1,000 ML 250 ML IV (06:03)
[2024-08-22 06:17] LABS: Lymphocytes % 4 % (10-50); Monocytes % 5 % (2-9); Neutrophils % 91 % (42-76); Total Cells Counted 100
[2024-08-22 06:19] LABS: Burr Cells 1+
[2024-08-22 06:20] LABS: Macrocytosis 1+
[2024-08-22 06:26] LABS: Platelet Estimate Marked Decrease
[2024-08-22] MEDS: METOPROLOL TARTRATE 5MG/5ML VIAL 5 MG IV (06:31)
--- NOTE | 2024-08-22 06:56 | PC.NURSE ---
Patient placed in mittens at this time due to terminal restlessness, and patient pulling off leads consistently, and trying to rip catheter out.
[2024-08-22] MEDS: AZITHROMYCIN 250MG TABLET 500 MG PO (07:34)
[2024-08-22] MEDS: AMIODARONE 200MG TABLET 400 MG PO ×2 (07:34→20:21)
[2024-08-22] MEDS: FLUOXETINE 20MG CAPSULE 20 MG PO (07:36)
--- NOTE | 2024-08-22 07:41 | P.CONPHA_ITS ---
Pharmacy Consult Date: 08/22/24 Time: 07:42 Referring provider: DR. CUEVAS Reason for Consult:: VANCOMYCIN DOSING Allergies Allergy/AdvReac Type Severity Reaction Status Date / Time No Known Allergies Allergy Verified 08/05/24 09:34 Home Medications ?Medication ?Instructions ?Recorded ?Confirmed ?Type budesonide-formoterol HFA 160 1 inh inhalation DAILY 08/18/24 08/18/24 History mcg-4.5 mcg/actuation aerosol inhaler (Symbicort) fluvoxamine 100 mg tablet 100 mg PO BID 08/18/24 08/18/24 History loperamide 2 mg capsule 2 mg PO DAILYP PRN Diarrhea 08/18/24 08/18/24 History lorazepam 0.5 mg tablet 0.5 mg PO BIDP PRN Anxiety 08/18/24 08/18/24 History omeprazole 20 mg capsule,delayed 20 mg PO DAILY 08/18/24 08/18/24 History release trazodone 150 mg tablet 150 mg PO HS 08/18/24 08/18/24 History valsartan 40 mg tablet 40 mg PO DAILY 08/18/24 08/18/24 History New Prescriptions to Start Prescriptions: Height: 1.88 m Weight: 70.874 kg Laboratory Results:: Laboratory Results - last 24 hr 08/19/24 : Serum Osmolality 267 L 08/21/24 06:32: WBC 10.4 D, RBC 3.00 L, Hgb 9.9 L, Hct 30.7 L, MCV 102.4 H, MCH 33.0 H, MCHC 32.3, RDW 15.8, Plt Count 24 L*, MPV 11.8 H, Neut % (Auto) 95.0 H, Lymph % (Auto) 2.3 L, [place] % (Auto) 2.7, Eos % (Auto) 0.0 L, Baso % (Auto) 0.1, Neut # (Auto) 9.9 H, Lymph # (Auto) 0.2 L, [place] # (Auto) 0.3, Eos # (Auto) 0.0, Baso # (Auto) 0.0, Total Counted 100, Neutrophils % (Manual) 92 H, Lymphocytes % (Manual) 8 L, Platelet Estimate Marked decrease, Macrocytosis 1+, Procalcitonin 51.7 H 08/21/24 19:55: Sodium 124 L, Potassium 3.5, Chloride 100, Carbon Dioxide 17 L, Anion Gap 10.5, BUN 65 H, Creatinine 2.90 H, Estimated Creat Clear 26, Estimated GFR 22 L, Est GFR ( Amer) 26 L, Glucose 110 H, Calcium 5.9 L, Total Bilirubin 1.0, AST 27, ALT 19, Alkaline Phosphatase 76, Total Protein 4.6 L, Albumin 2.3 L, Globulin 2.3, Albumin/Globulin Ratio 1.0 L 08/22/24 05:10: WBC 14.9 H D, RBC 3.16 L, Hgb 10.7 L, Hct 32.4 L, MCV 102.5 H, MCH 34.0 H, MCHC 33.2, RDW 16.1, Plt Count 33 L* D, MPV 11.6 H, Neut % (Auto) 91.0 H, Lymph % (Auto) 4.6 L, [place] % (Auto) 3.9, Eos % (Auto) 0.1, Baso % (Auto) 0.4, Neut # (Auto) 13.6 H, Lymph # (Auto) 0.7, [place] # (Auto) 0.6, Eos # (Auto) 0.0, Baso # (Auto) 0.1, Total Counted 100, Neutrophils % (Manual) 91 H, Lymphocytes % (Manual) 4 L, Monocytes % (Manual) 5, Platelet Estimate Marked decrease, Macrocytosis 1+, Reeder Cells 1+, Sodium 125 L, Potassium 3.7, Chloride 101, Carbon Dioxide 17 L, Anion Gap 10.7, BUN 64 H, Creatinine 3.20 H, Estimated Creat Clear 24, Estimated GFR 20 L, Est GFR ( Amer) 24 L, Glucose 112 H, Calcium 6.5 L, Phosphorus 3.8, Magnesium 2.5 H, Total Bilirubin 0.9, AST 28, ALT 25 D, Alkaline Phosphatase 65, Total Protein 5.0 L, Albumin 2.6 L D, Globulin 2.4, Albumin/Globulin Ratio 1.1, Procalcitonin 33.0 H Medical History: Medical History (Updated 08/20/24 @ 09:39 by ROCKY Robledo) Port-A-Cath in place Lung cancer Procedure indicated History of smoking 30 or more pack years Lung nodule seen on imaging study COPD mixed type Total avulsion of nail plate Onychomycosis Assessment and Plan Assessment and plan all Dx Assessment and Plan for all problems:: Pharmacokinetic dosing service Objective: Patient: Floor: Age: 68 yo Serum creatinine: 3.2 mg/dL Height: 74.0 Inches Weight (kg): 70.87 Assessment: IBW (kg): 82.20 Dosing wt(kg): 70.87 Estimated Creatinine clearance (ml/min): 22.8 CRCL method: Cockcroft and Gault using ibw(default). Drug selected: Vancomycin Loading dose (mg): 0 Vd (liters): 56.7 (factor used: 0.8 L/kg) Christiano (hr-1): 0.023 Half life (hrs): 30.14 Recommended dose: 1000 mg Interval: 36 hrs Infusion time (hrs): 2.0 Predicted peak (mcg/mL): 30.6 Predicted trough (mcg/mL): 14.00 Total body weight is being used for vancomycin dosing. Recommendations: Give Vancomycin 1000 mg q 36 hrs with an expected Cpeak of 30.6 mcg/ml and an expected Ctrough of 14.00 mcg/ml ----Vanco only - ignore for aminoglycosides----- CLvanco= 1.30 L/hr AUC 0-24 /BLAKE Data: BLAKE 0.5 mcg/mL: AUC/BLAKE: 1025.6 BLAKE 1.0 mcg/mL: AUC/BLAKE: 512.8 --------- BLAKE 1.5 mcg/mL: AUC/BLAKE: 341.9 BLAKE 2.0 mcg/mL: AUC/BLAKE: 256.4
[2024-08-22] MEDS: NOREPINEPHRINE BITARTRATE/D5W 8 MG/250 ML PLAST..BAG 52.5 MG IV (08:26)
[2024-08-22] MEDS: HYDROCORTISONE SOD SUCCINATE 100MG VIAL 200 MG IV (12:26)
[2024-08-22] MEDS: 0.9 % SODIUM CHLORIDE 1000ML 1,000 ML 100 ML IV ×2 (12:27→23:47)
[2024-08-22] MEDS: MEROPENEM 0.5 GM in 0.9 % SODIUM CHLORIDE 100 ML IV ×2 (12:28→20:20)
--- NOTE | 2024-08-22 13:24 | XR_ITS ---
PROCEDURE INFORMATION: Exam: XR Chest Exam date and time: 08/22/2024 1:23 PM Age: 68 years old Clinical indication: Wheezing; Additional info: Change in respiratory status TECHNIQUE: Imaging protocol: Radiologic exam of the chest. Views: 1 view. COMPARISON: CR XR CHEST PORTABLE 08/21/2024 11:16 PM FINDINGS: Tubes, catheters and devices: There is a right-sided chest port tip terminates in the cavoatrial junction unchanged. Lungs: There are patchy multifocal alveolar opacities most pronounced within the left upper lobe as well as within the right upper lobe and right lower lobe that have progressed from most recent exam concerning for either multifocal pneumonia or aspiration pneumonitis. Pleural spaces: Unremarkable. No pleural effusion. No pneumothorax. Heart/Mediastinum: Unremarkable. No cardiomegaly. Bones/joints: No acute bony abnormalities detected. IMPRESSION: Patchy alveolar opacities both lung matos mildly progressed from prior study concerning for either multifocal pneumonia or aspiration pneumonitis. Frandy
[2024-08-22] MEDS: EPINEPHrine 1 MG/ML AMPUL 0.3 MG IM ×2 (13:26→13:43)
--- NOTE | 2024-08-22 13:31 | XR_ITS ---
PROCEDURE INFORMATION: Exam: XR Soft Tissue Neck Exam date and time: 08/22/2024 1:26 PM Age: 68 years old Clinical indication: Other: Change in respiratory status; Additional info: Change in respiratory status, stridor TECHNIQUE: Imaging protocol: Radiologic exam of the soft tissues of the neck. COMPARISON: NM BONE SCAN WHOLE BODY 07/31/2024 1:01 PM FINDINGS: Airway: Normal. No abnormal narrowing. Soft tissues: Normal. Normal epiglottis. No prevertebra soft tissue swelling. Bones/joints: Moderate degenerative changes mid-lower cervical spine with mild degenerative spondylolisthesis C3-C4 and C4-C5. IMPRESSION: No acute abnormalities.
[2024-08-22] MEDS: EPINEPHrine 1 MG/ML AMPUL 0.5 MG IM (14:10)
[2024-08-22 14:15] LABS: ABG HCO3 15.1 mmhg (22.0-26.0); ABG Oxygen Saturation 99 % (90-100); ABG PCO2 29.8 mmhg (35.0-45.0); ABG PH 7.32 mmol/L (7.35-7.45)
[2024-08-22 14:16] LABS: Allen's Test Patient Unable; Oxygen 3LPM NC %; Source Right Radial
[2024-08-22] MEDS: FUROSEMIDE 20 MG/2 ML VIAL IV (14:25)
[2024-08-22] MEDS: OLANZapine 10 MG VIAL 5 MG IM (14:47)
--- NOTE | 2024-08-22 15:50 | P.PN_ITS ---
Subjective *Date: 08/22/24 *Time: 15:50 Interval history: This morning, patient began to have somewhat stridor sounding inspiration. Patient stated that he was not having trouble breathing, but did exhibit increased work of breathing with accessory muscle use. He was saturating nearly 100% on 3 L nasal cannula. ABG also did not suggest hypoxia. Exam Data for Last 24 hours Vital signs and Labs for Last 24 Hours: Temp Pulse Resp BP Pulse Ox O2 Del Method O2 Flow Rate 96.5 F L 121 H 26 H 86/55 L 100 BiPAP 3 08/22/24 11:29 08/22/24 15:00 08/22/24 15:00 08/22/24 15:00 08/22/24 15:00 08/22/24 15:00 08/22/24 14:00 FiO2 35 08/22/24 14:00 Laboratory Results - last 24 hr 08/19/24 : Serum Osmolality 267 L 08/21/24 19:55: Sodium 124 L, Potassium 3.5, Chloride 100, Carbon Dioxide 17 L, Anion Gap 10.5, BUN 65 H, Creatinine 2.90 H, Estimated Creat Clear 26, Estimated GFR 22 L, Est GFR ( Amer) 26 L, Glucose 110 H, Calcium 5.9 L, Total Bilirubin 1.0, AST 27, ALT 19, Alkaline Phosphatase 76, Total Protein 4.6 L, Albumin 2.3 L, Globulin 2.3, Albumin/Globulin Ratio 1.0 L 08/22/24 05:10: WBC 14.9 H D, RBC 3.16 L, Hgb 10.7 L, Hct 32.4 L, MCV 102.5 H, MCH 34.0 H, MCHC 33.2, RDW 16.1, Plt Count 33 L* D, MPV 11.6 H, Neut % (Auto) 91.0 H, Lymph % (Auto) 4.6 L, [place] % (Auto) 3.9, Eos % (Auto) 0.1, Baso % (Auto) 0.4, Neut # (Auto) 13.6 H, Lymph # (Auto) 0.7, [place] # (Auto) 0.6, Eos # (Auto) 0.0, Baso # (Auto) 0.1, Total Counted 100, Neutrophils % (Manual) 91 H, Lymphocytes % (Manual) 4 L, Monocytes % (Manual) 5, Platelet Estimate Marked decrease, Macrocytosis 1+, Asher Cells 1+, Sodium 125 L, Potassium 3.7, Chloride 101, Carbon Dioxide 17 L, Anion Gap 10.7, BUN 64 H, Creatinine 3.20 H, Estimated Creat Clear 24, Estimated GFR 20 L, Est GFR ( Amer) 24 L, Glucose 112 H, Calcium 6.5 L, Phosphorus 3.8, Magnesium 2.5 H, Total Bilirubin 0.9, AST 28, ALT 25 D, Alkaline Phosphatase 65, Total Protein 5.0 L, Albumin 2.6 L D, Globulin 2.4, Albumin/Globulin Ratio 1.1, Procalcitonin 33.0 H 08/22/24 14:10: Specimen Source Right radial, O2 % 3lpm nc, ABG pH 7.32 L, ABG pCO2 29.8 L, ABG pO2 179.0 H, ABG HCO3 15.1 L, ABG Total CO2 16.0 L, ABG O2 Saturation 99, ABG Base Excess -11.0 L, Jaylen Test Patient unable I & O for Last 24 hours: Intake & Output 08/19/24 08/20/24 08/21/24 08/22/24 23:59 23:59 23:59 23:59 Intake Total 5480.021 / 5632.021 4072.492 / 4072.492 4607.688 / 4612.688 1893.348 / 1893.348 Output Total 725 / 725 2805 / 2805 1774 / 1974 950 / 950 Balance 4755.021 / 4907.021 1267.492 / 6761.588 7036.688 / 2638.688 943.348 / 943.348 Weight 70.2 kg 68.9 kg 73.255 kg 70.874 kg Constitutional Constitutional: no acute distress and cachectic *Routine HEENT Exam Head: Present normocephalic Eye: Present EOMI and PERRL ENT: Present mucous membranes moist *Routine Neck Exam Neck: Present supple; Absent lymphadenopathy *Routine Respiratory Exam Respiratory: Present rhonchi and wheezes; Absent CTA bilaterally Comments: Stridorous sounding inspiratory noise without evidence of obstruction. *Routine Cardiovascular Exam Cardiovascular: Present tachycardia and irregular rhythm *Routine Abdominal Exam Abdominal: Present soft and normoactive bowel sounds; Absent tenderness Comments: Diffuse mild tenderness to palpation. No peritoneal signs. *Routine Extremities Exam Extremities: Absent cyanosis, clubbing or edema *Routine Skin Exam Skin: Present warm; Absent rash *Routine Neurological Exam Neurological: Present alert and oriented X3 Assessment and Plan *Assessment and plan (1) Multiorgan failure: Status: Acute Category: Medical (2) Acute renal failure: Status: Acute Category: Medical Code(s): N17.9 - Acute kidney failure, unspecified Plan Patient is a 68-year-old male with past medical history of COPD CAD, cancer metastasis with unknown primary but likely lung care who presents to the [facility] due to an episode of loss of consciousness. Patient does not remember very well at exactly, reportedly he was down on the ground for about 20 minutes. Patient was noted to be hypotensive in the emergency department and was started on IV pressors, patient also found to have NO, patient was recommended to be transferred to however patient does not want to be transferred. He wishes to be DNR and do not intubated. Patient otherwise denied fevers. On further evaluation he was found to have new onset atrial flutter/fibrillation. 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 Patient reports significant diarrhea for more than 2 weeks prior to admission, minimal oral intake in the setting of this likely leading to severe hyponatremia. ? Patient's diarrhea has improved. ? UA mildly suggestive UTI. CXR unremarkable. ? CT abdomen/pelvis shows of distended stomach and colon with fluid-filled loops without obstruction suggesting enteritis. ? Patient is continues to improve with IV fluids and antibiotics. Continues to require Levophed, weaned off vasopressin. ? IV azithromycin for Campylobacter. ? Continue IV normal saline to 100 mL/h, being mindful of hyponatremia not over correcting. Sodium currently 125, improving from initial 116 with fluid resuscitation. Max sodium correction 8 mEq/day. ? Started salt tabs 5 mg twice daily given suspected SIADH. ? Blood and urine cultures are unremarkable. ? Follow-up urine, serum osmolality. Urine sodium less than 20. #Community-acquired pneumonia ? Worsening consolidation of the left upper lobe on CXR on 08/20/2024, after which vancomycin and cefepime were restarted. ? Continue vancomycin. ? Started meropenem, discontinued cefepime. 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 This morning, patient began to have somewhat stridor sounding inspiration. Patient stated that he was not having trouble breathing, but did exhibit increased work of breathing with accessory muscle use. ? He was saturating nearly 100% on 3 L nasal cannula. ABG also did not suggest hypoxia. ? Patient was given IM epinephrine 0.3 mg x 2, and 0.5 mg x 1 without improvement in respiratory noise. Lungs had mild rhonchi but appropriate air movement, even after given Mucomyst and albuterol breathing treatment. ? CXR did not suggest volume overload, but did suggest aspiration pne umonia/pneumonitis in addition to multifocal pneumonia. ? IV morphine 2 mg as needed for air hunger. ? Patient recently stopped chemo himself given side effects and feels that his disease is too severe for chemotherapy. ? Had lengthy conversation about goals of care. Patient does want hospice for his lung cancer upon discharge, but wants to continue to treat his current condition at this time. See above. #New onset A-fib #RVR resolved ? Weaned off IV amiodarone drip, currently rate controlled. Cardiology deciding on p.o. transition. ? [id number] score 2. ? Eliquis 5 mg twice daily, discontinued heparin. ? Cardiology consulted, appreciate recommendations. Discontinued heparin in the setting of thrombocytopenia. ? Follow-up ECHO as heart rate was too high yesterday. #NO ? Creatinine 3.2 today, from 2.9 yesterday. IV Lasix was given overnight for presumed pulmonary edema. ? Continue IV fluids. DVT prophylaxis-Eliquis
--- NOTE | 2024-08-22 16:28 | PC.NURSE ---
Patient presented with stridor around 1330 after administration of hydrocortisone and meropenem IV. Dr. Rodney at bedside. EPI given IM twice for possible allergic reaction. No swelling noted by MD. Chest xray and soft tissue neck x ray obtained. Possible aspiration pneumonia on chest x ray. CPAP ordered for work of breathing as well as abg. O2 sats in high 90's on 3LNC during shift, prior to event. Advised to hold on giving any ativan due to possible paradoxal effect, zyprexa given and tolerated well by pt. Patient confused, alert to self only. Patient pulling at telemetry lines, bermudez catheter, and portacath lines, sitter at bedside due to restlessness and pulling at lines. Levo weaned to 8 mcg, vaso weaned off. Lung sounds rhonchi.
[2024-08-22] MEDS: NOREPINEPHRINE BITARTRATE/D5W 8 MG/250 ML PLAST..BAG 18.75 MG IV (17:08)
[2024-08-22 20:07] LABS: Phosphorous 3.6 mg/dl (2.5-4.5)
[2024-08-22] MEDS: SODIUM CHLORIDE 1,000MG TABLET 500 MG PO (20:21)
[2024-08-22] MEDS: TRAZODONE 50MG TABLET 150 MG PO (20:21)
[2024-08-22] MEDS: PANTOPRAZOLE 40MG TABLET 40 MG PO (20:21)
[2024-08-23] VITALS (33 sets, daily range): BP systolic 74–129; BP diastolic 44–82; PULSE 89–127; RESP 12–29; TEMP 36.2–37.3; O2SAT 91–100; BMI 21.2
[2024-08-23] MEDS: SODIUM CHLORIDE 0.9% 10ML VIAL 10 ML IV (01:34)
[2024-08-23] MEDS: OLANZapine 10 MG VIAL 5 MG IM (01:34)
[2024-08-23] MEDS: IPRATROPIUM BROMIDE 0.5 MG/2.5ML SOLUTION IH ×5 (01:48→23:34)
[2024-08-23] MEDS: LEVALBUTEROL 1.25MG/3ML NEB 1.25 MG IH ×5 (01:48→23:34)
[2024-08-23] MEDS: BUDESONIDE 0.5MG/2ML NEB 0.5 MG IH ×2 (06:13→18:22)
[2024-08-23] MEDS: MORPHINE 2MG/ML SYRINGE 2 MG IV ×4 (06:25→23:52)
--- NOTE | 2024-08-23 06:42 | PC.NURSE ---
patient received breathing treatment around 0615, afterward he became agitated, uncomfortable, and short of breath. patient stated he is not in pain but is uncomfortable, morphine was given per jan for air hunger and pain. patient is now resting in bed and reports feeling better .
[2024-08-23] MEDS: NOREPINEPHRINE BITARTRATE/D5W 8 MG/250 ML PLAST..BAG 15 MG IV (07:11)
[2024-08-23 07:43] LABS: Basophils % 0.1 % (0.1-2.0); Eosinophils % 0.1 % (0.1-12.0); Hematocrit 27.4 % (42.0-52.0); Hemoglobin 9.3 g/dL (14.1-18.0); Lymphocytes # 0.4 K/mm3 (0.7-4.5); Lymphocytes % 4.9 % (10-50); Mean Corpuscular HGB Conc 33.9 g/dL (31.8-35.4); Mean Corpuscular Hemoglobin 34.1 pg (27.0-31.2); Mean Corpuscular Volume 100.7 fl (80-94); Mean Platelet Volume 13.1 fl (7.4-10.4); Monocytes # 0.4 K/mm3 (0.1-1.0); Monocytes % 4.4 % (1.7-9.3); Neutrophils # 7.3 K/mm3 (1.8-7.8); Neutrophils % 90.5 % (37.0-80.0); Red Blood Count 2.73 M/mm3 (4.60-6.20); Red Cell Distribution Width 16.1 % (11.5-17.5); White Blood Count 8.1 K/mm3 (4.8-10.8)
[2024-08-23] MEDS: AMIODARONE 200MG TABLET 400 MG PO ×2 (07:44→20:15)
[2024-08-23] MEDS: FLUOXETINE 20MG CAPSULE 20 MG PO (07:44)
[2024-08-23] MEDS: SODIUM CHLORIDE 1,000MG TABLET 500 MG PO ×2 (07:44→20:15)
[2024-08-23] MEDS: HYDROCORTISONE SOD SUCCINATE 100MG VIAL 200 MG IV (07:44)
[2024-08-23] MEDS: VANCOMYCIN HCL 1,000 MG in 0.9 % SODIUM CHLORIDE 250 ML 125 MG IV (07:45)
[2024-08-23 08:01] LABS: Platelet Count 26 K/mm3 (142-424)
[2024-08-23 08:02] LABS: MANUAL DIFFERENTIAL MANUAL DIFFERENTIAL (MANUAL DIFF)
[2024-08-23 08:10] LABS: Albumin Level 2.4 g/dl (3.5-5.0); Chloride 103 mmol/L (98-107); Potassium 3.7 mmoL/L (3.5-5.1); Sodium 128 mmol/L (136-145)
[2024-08-23 08:12] LABS: Alanine Aminotransferase 24 U/L (12-78); Alkaline Phosphatase 70 U/L (38-126); Anion Gap 10.7 mEq/L (5-15); Aspartate Amino Transferase 45 U/L (17-59); Bilirubin,Total 0.9 mg/dl (0.2-1.3); Blood Urea Nitrogen 68 mg/dl (9-20); Carbon Dioxide 18 mmol/L (22.0-30.0); Creatinine Clearance Estimated 28 mL/min (50-200); Estimated Glomerular Filt Rate 23 ml/min (>60); GFR (African American) 28 ML/MIN (>60)
[2024-08-23 08:13] LABS: Calcium 6.8 mg/dl (8.4-10.2); Globulin 2.4 g/dL (1.3-3.2); Glucose 74 mg/dl (74-100); Phosphorous 3.1 mg/dl (2.5-4.5); Total Protein,Serum 4.8 g/dl (6.3-8.2)
[2024-08-23 08:53] LABS: Lymphocytes % 7 % (10-50); Macrocytosis 1+; Neutrophils % 93 % (42-76); Platelet Estimate Marked Decrease; Poikilocytosis 1+; Total Cells Counted 100
[2024-08-23] MEDS: 0.9 % SODIUM CHLORIDE 1000ML 1,000 ML 100 ML IV ×2 (10:04→20:18)
[2024-08-23] MEDS: MEROPENEM 0.5 GM in 0.9 % SODIUM CHLORIDE 100 ML IV ×2 (10:04→20:19)
[2024-08-23] MEDS: AZITHROMYCIN 500 MG in 0.9 % SODIUM CHLORIDE 250 ML 250 MG IV (10:07)
--- NOTE | 2024-08-23 12:55 | XR_ITS ---
PROCEDURE INFORMATION: Exam: XR Chest Exam date and time: 08/23/2024 1:00 PM Age: 68 years old Clinical indication: Shortness of breath; Additional info: SOA TECHNIQUE: Imaging protocol: Radiologic exam of the chest. Views: 1 view. COMPARISON: CR XR CHEST PORTABLE 08/22/2024 1:23 PM FINDINGS: Tubes, catheters and devices: Right chest wall port tip projects over the mid SVC, unchanged. Lungs: Patchy opacities in the left upper lobe are mildly less prominent from the comparison. Patchy opacities in the peripheral right mid lung are mildly more prominent. Previous right lower lung patchy opacity is significantly less prominent on this study. Pleural spaces: No pneumothorax or pleural effusion. Heart/Mediastinum: Cardiomediastinal silhouette is unremarkable. Bones/joints: No acute osseous or soft tissue abnormality. IMPRESSION: Evolving patchy opacities in the bilateral lungs.
--- NOTE | 2024-08-23 13:02 | CT_ITS ---
PROCEDURE INFORMATION: Exam: CT Chest Without Contrast; Diagnostic Exam date and time: 08/23/2024 1:49 PM Age: 68 years old Clinical indication: Dyspnea; Additional info: SOB, lung cancer TECHNIQUE: Imaging protocol: Diagnostic computed tomography of the chest without contrast. Radiation optimization: All CT scans at this facility use at least one of these dose optimization techniques: automated exposure control; mA and/or kV adjustment per patient size (includes targeted exams where dose is matched to clinical indication); or iterative reconstruction. COMPARISON: CT CHEST WO CON 08/23/2024 1:49 PM FINDINGS: Tubes, catheters and devices: Tip of the right chest wall port terminates at the cavoatrial junction. Lungs: Moderate apical predominant centrilobular emphysema. Previously described reticulonodular opacities in the right upper lobe have progressed from the comparison. There are new patchy ground-glass opacities throughout the right lung, most prominently anterior middle lobe.New moderate consolidation in the left upper and mid lungs, most prominently perihilar. Few patchy ground-glass foci in the left lower lobe. These may be infectious/inflammatory. However, malignancy with lymphangitic spread is not excluded. Recommend correlation. Pleural spaces: Trace left pleural effusion. May be parapneumonic if infection is present. No pneumothorax. Heart: Low-density cardiac and aortic blood pool consistent with anemia. Lymph nodes: AP window node measures 10 mm in short axis. Precarinal lymph node with preserved fatty hilum measures 12 mm in short axis. Several mildly prominent mediastinal nodes are present. No distinct hilar adenopathy. Vasculature: See Heart finding. Diaphragm: Small to moderate hiatal hernia. Stomach: The stomach is decompressed. Intestine: Distal transverse and proximal descending colon appear mildly dilated and featureless. Nonspecific finding. Can be seen with colitis. Intraperitoneal space: Mild mesenteric edema. Upper abdomen otherwise unremarkable. Bones/joints: Unremarkable. No acute fracture. Soft tissues: Unremarkable. IMPRESSION: 1. Previously described reticulonodular opacities in the right upper lobe have progressed from the comparison. There are new patchy ground-glass opacities throughout the right lung, most prominently anterior middle lobe.New moderate consolidation in the left upper and mid lungs, most prominently perihilar. Few patchy ground-glass foci in the left lower lobe. These may be infectious/inflammatory. However, malignancy with lymphangitic spread is not excluded. Recommend correlation. 2. Trace left pleural effusion. May be parapneumonic if infection is present. 3. Low-density cardiac and aortic blood pool consistent with anemia. 4. Distal transverse and proximal descending colon appear mildly dilated and featureless. Nonspecific finding. Can be seen with colitis. According to clinical discretion, CT abdomen and pelvis can be considered for complete evaluation.
--- NOTE | 2024-08-23 13:02 | CT_ITS ---
PROCEDURE INFORMATION: Exam: CT Neck Without Contrast Exam date and time: 08/23/2024 1:36 PM Age: 68 years old Clinical indication: Dyspnea / difficulty breathing; Additional info: SOB, mild stridor, lung cancer TECHNIQUE: Imaging protocol: Computed tomography of the neck without contrast. Radiation optimization: All CT scans at this facility use at least one of these dose optimization techniques: automated exposure control; mA and/or kV adjustment per patient size (includes targeted exams where dose is matched to clinical indication); or iterative reconstruction. COMPARISON: CT SOFT TISSUE NECK WO CON 08/23/2024 1:36 PM FINDINGS: Limitations: Motion artifact does moderately limit the sensitivity of this examination. The absence of intravenous contrast limits the assessment of vascular structures, lesions and lymphadenopathy. Salivary glands: Normal. Glands are normal in size. Pharynx: Unremarkable. No significant tonsillar enlargement. Prevertebral and retropharyngeal spaces: Unremarkable. Larynx: Unremarkable. Epiglottis is normal. Thyroid: Normal. No enlarged or calcified nodules. Trachea: Main airways are patent. Lungs: Centrilobular emphysema noted there is a patchy and consolidative in left upper lobe. Lymph nodes: Unremarkable. No lymphadenopathy. Bones/joints: Multilevel degenerative changes of the included spine. Sclerotic appearance of T3 vertebra is suspicious for osseous metastases. Soft tissues: Unremarkable. No significant soft tissue swelling. IMPRESSION: 1. Major airways are patent 2. Sclerotic appearance of T3 vertebra is suspicious for osseous metastases. 3. There is a patchy and consolidative opacities upper lobe.
[2024-08-23] MEDS: ACETYLCYSTEINE 20% 4ML VIAL 2 ML IH (13:06)
[2024-08-23] MEDS: PANTOPRAZOLE 40MG TABLET 40 MG PO (20:15)
[2024-08-23] MEDS: TRAZODONE 50MG TABLET 150 MG PO (20:15)
--- NOTE | 2024-08-23 20:31 | PC.NURSE ---
Documenting RN took over care at shift change. Norepi gtt was still infusing at 4mcg/min (7.5mL/hr) MAR was made up-to-date to reflect what pump was currently infusing.
[2024-08-24] VITALS (27 sets, daily range): BP systolic 87–127; BP diastolic 46–61; PULSE 89–119; RESP 12–28; TEMP 36.8–37.1; O2SAT 89–106; BMI 21.3
[2024-08-24] MEDS: SODIUM CHLORIDE 0.9% 10ML VIAL 10 ML IV ×2 (00:17→20:41)
[2024-08-24] MEDS: OLANZapine 10 MG VIAL 5 MG IM (00:17)
--- NOTE | 2024-08-24 00:41 | PC.NURSE ---
Patient became agitated and restless around midnight. Attempted to medicate per MAR for pain; however, patient still restless and c/o pain. Documenting RN assessed patient and noted patient to have large liquid BM. Patient medicated per MAR for increased agitation and restlessness. Another RN helped to change/bathe patient and his bed sheets. Patient is now resting, VSS, NAD. ICU care continued.
[2024-08-24] MEDS: MORPHINE 2MG/ML SYRINGE 2 MG IV ×3 (03:22→20:35)
--- NOTE | 2024-08-24 03:46 | PC.NURSE ---
Around 0315 patient pulled off cardiac leads. Documenting RN went to bedside and patient appeared to be restless, agitated, and in respiratory distress-- he was diaphoretic, tacycardic, and tachypenic. Patient had soiled the bed with liquid stool, so staff cleaned patient up while this RN assessed breathing status. Patient was taken off of NC and placed on his BiPAP at bedside. Patient medicated per JAN. Patient is now tolerating his BiPAP, resting, and appears to be much more comfortable. Will CODING SPECIALIST notified that patient was placed on his BiPAP. Settings kept at 10/5, RR16. FiO2 30%. ICU care continued
[2024-08-24] MEDS: 0.9 % SODIUM CHLORIDE 1000ML 1,000 ML 100 ML IV ×2 (04:23→14:45)
--- NOTE | 2024-08-24 05:03 | PC.NURSE ---
Patient remained stable with a mostly uneventful night. Patient had two episodes where he appeared to be agitated, restless, and overall distressed. See previous notes-- Medicated per JAN. Norepi has been titrated down to 2mcg and patient seems to be holding well with his BP's. Adequate urinary output via bermudez. At current time, patient is on BiPAP and tolerating well. ICU care continued.
[2024-08-24 05:20] LABS: Miscellaneous Test SEE COMMENTS
[2024-08-24] MEDS: BUDESONIDE 0.5MG/2ML NEB 0.5 MG IH ×2 (06:11→18:22)
[2024-08-24] MEDS: IPRATROPIUM BROMIDE 0.5 MG/2.5ML SOLUTION IH ×4 (06:11→23:07)
[2024-08-24] MEDS: LEVALBUTEROL 1.25MG/3ML NEB 1.25 MG IH ×4 (06:11→23:07)
[2024-08-24] MEDS: NOREPINEPHRINE BITARTRATE/D5W 8 MG/250 ML PLAST..BAG 3.75 MG IV (06:15)
[2024-08-24 06:56] LABS: Basophils % 0.2 % (0.1-2.0); Eosinophils % 0.1 % (0.1-12.0); Hematocrit 22.9 % (42.0-52.0); Lymphocytes # 0.4 K/mm3 (0.7-4.5); Mean Corpuscular Hemoglobin 33.9 pg (27.0-31.2); Mean Corpuscular Volume 99.6 fl (80-94); Mean Platelet Volume 13.7 fl (7.4-10.4); Monocytes # 0.4 K/mm3 (0.1-1.0); Monocytes % 5.6 % (1.7-9.3); Neutrophils # 6.6 K/mm3 (1.8-7.8); Neutrophils % 89.2 % (37.0-80.0); Red Cell Distribution Width 16.1 % (11.5-17.5); White Blood Count 7.4 K/mm3 (4.8-10.8)
[2024-08-24 07:29] LABS: Chloride 108 mmol/L (98-107)
[2024-08-24 07:30] LABS: Potassium 3.4 mmoL/L (3.5-5.1); Sodium 132 mmol/L (136-145)
[2024-08-24 07:32] LABS: Blood Urea Nitrogen 63 mg/dl (9-20); Creatinine Clearance Estimated 30 mL/min (50-200); Estimated Glomerular Filt Rate 25 ml/min (>60); GFR (African American) 30 ML/MIN (>60); Platelet Count 29 K/mm3 (142-424)
[2024-08-24 07:33] LABS: Alanine Aminotransferase 19 U/L (12-78); Albumin/Globulin Ratio 0.9 (1.1-1.8); Alkaline Phosphatase 58 U/L (38-126); Anion Gap 10.4 mEq/L (5-15); Aspartate Amino Transferase 30 U/L (17-59); Bilirubin,Total 0.7 mg/dl (0.2-1.3); Calcium 6.5 mg/dl (8.4-10.2); Carbon Dioxide 17 mmol/L (22.0-30.0); Globulin 2.3 g/dL (1.3-3.2); Glucose 85 mg/dl (74-100); Total Protein,Serum 4.3 g/dl (6.3-8.2)
[2024-08-24 07:34] LABS: MANUAL DIFFERENTIAL MANUAL DIFFERENTIAL (MANUAL DIFF)
[2024-08-24] MEDS: AZITHROMYCIN 500 MG in 0.9 % SODIUM CHLORIDE 250 ML 250 MG IV (07:42)
[2024-08-24] MEDS: MEROPENEM 0.5 GM in 0.9 % SODIUM CHLORIDE 100 ML IV ×2 (07:43→20:42)
[2024-08-24] MEDS: AMIODARONE 200MG TABLET 400 MG PO ×2 (07:46→20:41)
[2024-08-24] MEDS: HYDROCORTISONE SOD SUCCINATE 100MG VIAL 200 MG IV (07:46)
[2024-08-24] MEDS: FLUOXETINE 20MG CAPSULE 20 MG PO (07:47)
[2024-08-24] MEDS: SODIUM CHLORIDE 1,000MG TABLET 500 MG PO ×2 (08:13→20:41)
[2024-08-24 08:14] LABS: Hemoglobin 7.7 g/dL (14.1-18.0)
[2024-08-24 08:50] LABS: Lymphocytes % 9 % (10-50); Monocytes % 1 % (2-9); Neutrophils % 90 % (42-76); Platelet Estimate Marked Decrease; RBC Morphology Normal; Total Cells Counted 100
--- NOTE | 2024-08-24 11:38 | EXP.CARD.PN ---
Subjective Subjective Date: 08/24/24 Time: 11:38 Principal diagnosis: A. fib with RVR Interval history: 68-year-old morning male resting in bed in no acute distress. Relates that he does have some significant shortness of breath with any movement in the room. Telemetry continues to show sinus rhythm with rate around 100 bpm. Currently off of pressor support since earlier this morning with blood pressure around 100 mm Hg Exam Data for Last 24 hours Vital signs and Labs for Last 24 Hours: Temp Pulse Resp BP Pulse Ox O2 Del Method O2 Flow Rate 98.6 F 92 H 21 92/47 L 97 Nasal Cannula 3 08/24/24 08:36 08/24/24 11:28 08/24/24 09:00 08/24/24 09:00 08/24/24 11:28 08/24/24 11:28 08/24/24 11:28 FiO2 30 08/24/24 07:00 Laboratory Results - last 24 hr 08/20/24 05:18: Serum Osmolality 263 L 08/20/24 09:59: Miscellaneous Test See comments 08/24/24 05:25: WBC 7.4, RBC 2.30 L, Hgb 7.7 L D, Hct 22.9 L, MCV 99.6 H, MCH 33.9 H, MCHC 34.0, RDW 16.1, Plt Count 29 L*, MPV 13.7 H, Neut % (Auto) 89.2 H, Lymph % (Auto) 5.0 L, Zavala % (Auto) 5.6, Eos % (Auto) 0.1, Baso % (Auto) 0.2, Neut # (Auto) 6.6, Lymph # (Auto) 0.4 L, Zavala # (Auto) 0.4, Eos # (Auto) 0.0, Baso # (Auto) 0.0, Total Counted 100, Neutrophils % (Manual) 90 H, Lymphocytes % (Manual) 9 L, Monocytes % (Manual) 1 L, Platelet Estimate Marked decrease, RBC Morphology Normal, Sodium 132 L, Potassium 3.4 L, Chloride 108 H, Carbon Dioxide 17 L, Anion Gap 10.4, BUN 63 H, Creatinine 2.60 H, Estimated Creat Clear 30, Estimated GFR 25 L, Est GFR ( Amer) 30 L, Glucose 85, Calcium 6.5 L, Total Bilirubin 0.7, AST 30 D, ALT 19, Alkaline Phosphatase 58, Total Protein 4.3 L, Albumin 2.0 L D, Globulin 2.3, Albumin/Globulin Ratio 0.9 L I & O for Last 24 hours: Intake & Output 08/21/24 08/22/24 08/23/24 08/24/24 11:59 11:59 11:59 11:59 Intake Total 3569.651 / 3569.651 4962.535 / 4962.535 3176.812 / 3176.812 1842.314 / 1842.314 Output Total 2279 / 2309 1570 / 1620 1560 / 1660 1540 / 1540 Balance 1290.651 / 6672.293 2153.535 / 3342.535 1616.812 / 1516.812 302.314 / 302.314 Weight 161 lb 8 oz 156 lb 4 oz 166 lb 165 lb 15.776 oz Microbiology Reports for the Last 24 Hours: Microbiology 08/18/24 11:11 Blood Blood Culture - Final NO GROWTH AFTER 5 DAYS 08/18/24 18:08 Blood Blood Culture - Final NO GROWTH AFTER 5 DAYS Constitutional Constitutional: mild distress and cachectic *Routine Respiratory Exam Respiratory: Present rhonchi *Routine Cardiovascular Exam Cardiovascular: Present tachycardia Progress Note: A&P Assessment and plan (1) Multiorgan failure: Status: Acute (2) Acute renal failure: Status: Acute Assessment and Plan Assessment and Plan for All Diagnoses:: A-fib RVR - new dx in setting of Multi-Organ Failure - pt expresses desire for DNR/DNI - Cont oral Amio for rate control - DC Heparin due to severe thrombocytopenia. HIT ab normal - ECHO - 08/20 shows normal LVEF with small pericardial effusion without tamponade Hypovolemic Shock - Improved with hydration Hypovolemic Hyonatremia - Na up to 132 today Campylobacter Diarrhea - present on arrival and ongoing - on Azithromycin 08/21: ongoing diarrhea Acute Renal Failure - Baseline Cr 0.9, now improved to 2.6 - Hydrate - Pressor support PRN Critical Thrombocytopenia - plt 154 2 weeks ago 88 on arrival, 56 0n 08/19, now 29 today. - likely secondary to metastatic cancer with bony involvement but pt having rapid decline >50% since admission. Heparin DC'd 08/19. 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 Buckley - on chemo Severe Leukopenia - WBC 1.2 now up to 7.4 - pt is afebrile but high risk of infection - on broad spectrum antibiotics - Improving Anemia - Hgb down to 7.7 this AM Continue amiodarone for rhythm control Pt considering Hospice Limited echo today shows only a trivial anterior pericardial effusion with no evidence of chamber collapse. This is improved when compared to images from last week.
--- NOTE | 2024-08-24 11:47 | CA_ITS ---
APPROVED REPORT EXAM: Limited 2D Echocardiogram Room Attendant: Crystal Edmond RVT Ht: 6 ft 2 in Wt: 165lbs BSA: 2.00 BP: 92/47 mmHg Indications: PERICARDIAL EFFUSION CHECK,METASTATIC CANCER,CAD,COPD,SMOKER M-Mode Dimensions TAPSE 2.59 (<1.7) Other Information Study Quality: Technically Difficult Conclusion This is a limited TTE to evaluate for pericardial effusion. Limited windows were obtained. Technically difficult study due to poor acoustic windows. There is a trivial, anterior pericardial effusion present. No evidence of chamber collapse. The IVC is normal in size and collapsibility. No echo indications of tamponade. When directly compared to prior study from 08/20/2024, the pericardial effusion appears to be improved in the available images. Electronically signed by : Sofi Han MD 08/24/2024 12:21:42
--- NOTE | 2024-08-24 11:47 | P.PN_ITS ---
Subjective *Date: 08/24/24 *Time: 08:00 Interval history: FOR 08/24/24 Patient was lying in bed comfortably this morning without acute distress. Exam Data for Last 24 hours Vital signs and Labs for Last 24 Hours: Temp Pulse Resp BP Pulse Ox O2 Del Method O2 Flow Rate 98.6 F 92 H 21 92/47 L 97 Nasal Cannula 3 08/24/24 08:36 08/24/24 11:28 08/24/24 09:00 08/24/24 09:00 08/24/24 11:28 08/24/24 11:28 08/24/24 11:28 FiO2 30 08/24/24 07:00 Laboratory Results - last 24 hr 08/20/24 05:18: Serum Osmolality 263 L 08/20/24 09:59: Miscellaneous Test See comments 08/24/24 05:25: WBC 7.4, RBC 2.30 L, Hgb 7.7 L D, Hct 22.9 L, MCV 99.6 H, MCH 33.9 H, MCHC 34.0, RDW 16.1, Plt Count 29 L*, MPV 13.7 H, Neut % (Auto) 89.2 H, Lymph % (Auto) 5.0 L, Christian % (Auto) 5.6, Eos % (Auto) 0.1, Baso % (Auto) 0.2, Neut # (Auto) 6.6, Lymph # (Auto) 0.4 L, Christian # (Auto) 0.4, Eos # (Auto) 0.0, Baso # (Auto) 0.0, Total Counted 100, Neutrophils % (Manual) 90 H, Lymphocytes % (Manual) 9 L, Monocytes % (Manual) 1 L, Platelet Estimate Marked decrease, RBC Morphology Normal, Sodium 132 L, Potassium 3.4 L, Chloride 108 H, Carbon Dioxide 17 L, Anion Gap 10.4, BUN 63 H, Creatinine 2.60 H, Estimated Creat Clear 30, Estimated GFR 25 L, Est GFR ( Amer) 30 L, Glucose 85, Calcium 6.5 L, Total Bilirubin 0.7, AST 30 D, ALT 19, Alkaline Phosphatase 58, Total Protein 4.3 L, Albumin 2.0 L D, Globulin 2.3, Albumin/Globulin Ratio 0.9 L I & O for Last 24 hours: Intake & Output 08/21/24 08/22/24 08/23/24 08/24/24 23:59 23:59 23:59 23:59 Intake Total 4607.688 / 4612.688 3167.348 / 3287.348 2800.687 / 2900.687 880.314 / 880.314 Output Total 1773 1365 / 1465 750 / 750 Balance 2833.688 / 2638.688 1182.348 / 1508.325 9382.687 / 1435.687 130.314 / 13 0.314 Weight 73.255 kg 70.874 kg 75.296 kg 75.29 kg Microbiology Reports for the Last 24 Hours: Microbiology 08/18/24 11:11 Blood Blood Culture - Final NO GROWTH AFTER 5 DAYS 08/18/24 18:08 Blood Blood Culture - Final NO GROWTH AFTER 5 DAYS Constitutional Constitutional: no acute distress and cachectic *Routine HEENT Exam Head: Present normocephalic Eye: Present EOMI and PERRL ENT: Present mucous membranes moist *Routine Neck Exam Neck: Present supple; Absent lymphadenopathy *Routine Respiratory Exam Respiratory: Present rhonchi and wheezes; Absent CTA bilaterally Comments: Stridorous sounding inspiratory noise without evidence of obstruction. *Routine Cardiovascular Exam Cardiovascular: Present tachycardia and irregular rhythm *Routine Abdominal Exam Abdominal: Present soft and normoactive bowel sounds; Absent tenderness Comments: Diffuse mild tenderness to palpation. No peritoneal signs. *Routine Extremities Exam Extremities: Absent cyanosis, clubbing or edema *Routine Skin Exam Skin: Present warm; Absent rash *Routine Neurological Exam Neurological: Present alert and oriented X3 Assessment and Plan *Assessment and plan (1) Multiorgan failure: Status: Acute Category: Medical (2) Acute renal failure: Status: Acute Category: Medical Code(s): N17.9 - Acute kidney failure, unspecified Plan Patient is a 68-year-old male with past medical history of COPD CAD, cancer metastasis with unknown primary but likely lung care who presents to the hospital due to an episode of loss of consciousness. Patient does not remember very well at exactly, reportedly he was down on the ground for about 20 minutes. Patient was noted to be hypotensive in the emergency department and was started on IV pressors, patient also found to have NO, patient was recommended to be transferred to however patient does not want to be transferred. He wishes to be DNR and do not intubated. Patient otherwise denied fevers. On further evaluation he was found to have new onset atrial flutter/fibrillation. 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 Patient reports significant diarrhea for more than 2 weeks prior to admission, minimal oral intake in the setting of this likely leading to severe hyponatremia. ? Patient's diarrhea has improved. ? UA mildly suggestive UTI. CXR unremarkable. ? CT abdomen/pelvis shows of distended stomach and colon with fluid-filled loops without obstruction suggesting enteritis. ? Patient is continues to improve with IV fluids and antibiotics. Continues to require Levophed, weaned off vasopressin. ? IV azithromycin for Campylobacter. ? Continue IV normal saline to 100 mL/h, being mindful of hyponatremia not over correcting. Sodium currently 132, improving from initial 116 with fluid resuscitation. Max sodium correction 8 mEq/day. ? Started salt tabs 5 mg twice daily given suspected SIADH. ? Blood and urine cultures are unremarkable. #Community-acquired pneumonia ? Worsening consolidation of the left upper lobe on CXR on 08/20/2024, after which vancomycin and cefepime were restarted. ? Continue vancomycin. ? Started meropenem, discontinued cefepime. - WBC resolved since starting vanco, meropenem. #Aspiration - Patient has had multiple episodes of stridor shortly after eating. CT corroborates aspiration events into right lungs with new opacities. - Speech evaluated patient, will proceed with modified barium swallow study tomorrow. 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 This morning, patient began to have somewhat stridor sounding inspiration. Patient stated that he was not having trouble breathing, but did exhibit increased work of breathing with accessory muscle use. ? He was saturating nearly 100% on 3 L nasal cannula. ABG also did not suggest hypoxia. ? Patient was given IM epinephrine 0.3 mg x 2, and 0.5 mg x 1 without improvement in respiratory noise. Lungs had mild rhonchi but appropriate air movement, even after given Mucomyst and albuterol breathing treatment. ? CXR did not suggest volume overload, but did suggest aspiration pneumonia/pneumonitis in addition to multifocal pneumonia. ? IV morphine 2 mg as needed for air hunger. ? Patient recently stopped chemo himself given side effects and feels that his disease is too severe for chemotherapy. ? Had lengthy conversation about goals of care. Patient does want hospice for his lung cancer upon discharge, but wants to continue to treat his current condition at this time. See above. #New onset A-fib #RVR resolved ? Weaned off IV amiodarone drip, currently rate controlled. Cardiology deciding on p.o. transition. ? [id number] score 2. ? Eliquis 5 mg twice daily, discontinued heparin. ? Cardiology consulted, appreciate recommendations. Discontinued heparin in the setting of thrombocytopenia. ? Follow-up ECHO #NO ? Creatinine 2.8, improving. ? Continue IV fluids. DVT prophylaxis-Eliquis
--- NOTE | 2024-08-24 13:47 | DIET.NUTRFU ---
FONDANT COOKER saw patient this AM and scheduled Barium for tomorrow. Currently ordered MSOFT with thin liquids
--- NOTE | 2024-08-24 14:53 | PC.NURSE ---
pt assisted to bedside commode per pt request. pt was allowed privacy and advised to call out when ready to go back to bed. checked on pt 2 minutes later and pt had placed himself back in bed. pt was increasingly aggitated and was pulling at gown, cords, and nc. also was gasping with each breath. placed back on bipap per pt request. vss. bed alarm in place for pt safety.
--- NOTE | 2024-08-24 15:25 | HMH.SLDYSPHA ---
Speech & Language Evaluation Speech/Language Dysphagia Evaluation Start: 08/24/24 15:04 Freq: ONCE Status: Active Protocol: Document 08/24/24 15:04 BILLY (Rec: 08/24/24 15:24 BILLY [id number]) Dysphagia Assess/Goals/Plan Assessment Date of Evaluation: 08/24/24 Evaluation Type Initial Certification Assessment/Problems aspiration concerns Does Patient Qualify for Service Yes Qualify/Failure Comment Based on clinical observations made at the bedside, pt would benefit from further instrumental assessment study to further evaluate the swallow. MBSS scheduled for . Recommendations PHYSICIAN CERTIFICATION: The specified therapy services are required, authorized, and reviewed every 30 days. Diet Recommendations Mechanical Soft Liquid Type Recommendations Normal/Thin SL Swallow Guidelines Alt bite w/sip thru meal,High aspiration risk,Eat at slow rate,Reflux precautions Dysphagia Swallow Precautions/Strategies Sitting Upright (90 deg),No Straw,Small Bites and Sips, Alternate Liquids/Solids Plan Pt/Guardian verbally ack understanding Yes of dx/prognosis/goals G -code Required No Education Instructions provided Discussed CSE results, aspiration risks and precautions, and need for further instrumental assessment (MBSS) to pt, nursing, and care management all of which expressed understanding. Pt/Caregiver able to recall information Able to recall/restate Reinforcement needed No Speech & Language HPI History Present Illness Description of Patient Problem Patient is a 68-year-old male with past medical history of COPD CAD, cancer metastasis with unknown primary who presents to the hospital due to an episode of loss of consciousness. Patient does not remember very well at exactly, reportedly he was down on the ground for about 20 minutes. Patient was noted to be hypotensive in the emergency department and was started on IV pressors, patient also found to have NO , patient was recommended to be transferred to however patient does not want to be transferred. He wishes to be DNR and do not intubated. Patient otherwise denied fevers. On further evaluation he was found to have new onset atrial flutter/ fibrillation. CXR reports show concerns for aspiration pna vs multifocal pna 2' opacities within PRANAV and RLL/RUL of lung. Rehab Services Assessed Speech therapy Language Primary Language Icelandic General Information General Current Food Consistancy NPO Dentition Upper Only,Poor Dentition Oxygen Status Nasal Cannula Patient Orientation Person Ability to Follow Directions Good Dysphagia:Food Presentation Evaluation Food Type Pureed,Mechanical Soft,Liquid, Pudding Dysphagia Evaluation Summary Pt was seen sitting upright in bed for CSE. He was A&Ox4 and was given extensive oral care prior to administering trials . Pt was given the following bolus consistencies: thin liquids (ice chip, spoonful of water, open cup/straw sip, two consecutive sips from straw/open cup), pudding, puree (applesauce), and mechanical soft (nutrigrian bar.) Regular solids not trialed 2' lack of dentition and observed fatigue. No overt s/sxs of aspiration were noted throughout the CSE, however, following ending of trials O2 sats appeared to drop and given results on recent CXR, POWER SHOVEL ENGINEER provided education on silent aspiration , aspiration risks, and aspiration pna. Pt expressed understanding and wished to pursue MBSS to r/o silent aspiration. He also expressed understanding that being placed on diet prior to MBSS placed him at risk for aspiration and he expressed understanding and stated he would wish to pursue PO diet of mechanical soft and thin liquids until MBSS can be completed. POWER SHOVEL ENGINEER f/u tomorrow for MBSS. Stroke Dysphagia Assessment PHYSICIAN CERTIFICATION: I certify the specified therapy services for Michael Pedersen are required, authorized, and reviewed every 30 days.
[2024-08-24] MEDS: POTASSIUM CHLORIDE 20MEQ TAB 40 MEQ PO ×2 (16:48→20:42)
--- NOTE | 2024-08-24 18:58 | PC.NURSE ---
i assumed care of this pt around 1300. pt is currently lying supine in bed with 2LNC applied with sata >95%. pt has had 3 tarry bms this shift. pt is restless at times, but does not wish to receive any medications for this. has been a fib on tele . NS @ 100 through portacath. vss. po potassium given per electrolyte protocol. no vte at this time due to low platelets. pt has been able to answer all questions. call light in reach and bed alarm on for pt safety.
[2024-08-24] MEDS: PANTOPRAZOLE 40MG VIAL 40 MG IV (20:41)
[2024-08-24] MEDS: TRAZODONE 50MG TABLET 150 MG PO (20:41)
[2024-08-24] MEDS: VANCOMYCIN HCL 1,250 MG in 0.9 % SODIUM CHLORIDE 250 ML 125 MG IV (20:42)
--- NOTE | 2024-08-24 23:42 | EXP.PN ---
Subjective *Date: 08/24/24 *Time: 08:00 Interval history: Patient is in good spirits today, no acute concerns. Though he states he does feel scared and is happy he is getting better. Exam Data for Last 24 hours Vital signs and Labs for Last 24 Hours: Temp Pulse Resp BP Pulse Ox O2 Del Method O2 Flow Rate 98.5 F 92 H 17 124/56 L 97 Nasal Cannula 2 08/24/24 20:00 08/24/24 23:08 08/24/24 20:00 08/24/24 20:00 08/24/24 20:00 08/24/24 21:00 08/24/24 21:00 FiO2 30 08/24/24 07:00 Laboratory Results - last 24 hr 08/20/24 05:18: Serum Osmolality 263 L 08/20/24 09:59: Miscellaneous Test See comments 08/24/24 05:25: WBC 7.4, RBC 2.30 L, Hgb 7.7 L D, Hct 22.9 L, MCV 99.6 H, MCH 33.9 H, MCHC 34.0, RDW 16.1, Plt Count 29 L*, MPV 13.7 H, Neut % (Auto) 89.2 H, Lymph % (Auto) 5.0 L, [place] % (Auto) 5.6, Eos % (Auto) 0.1, Baso % (Auto) 0.2, Neut # (Auto) 6.6, Lymph # (Auto) 0.4 L, [place] # (Auto) 0.4, Eos # (Auto) 0.0, Baso # (Auto) 0.0, Total Counted 100, Neutrophils % (Manual) 90 H, Lymphocytes % (Manual) 9 L, Monocytes % (Manual) 1 L, Platelet Estimate Marked decrease, RBC Morphology Normal, Sodium 132 L, Potassium 3.4 L, Chloride 108 H, Carbon Dioxide 17 L, Anion Gap 10.4, BUN 63 H, Creatinine 2.60 H, Estimated Creat Clear 30, Estimated GFR 25 L, Est GFR ( Amer) 30 L, Glucose 85, Calcium 6.5 L, Total Bilirubin 0.7, AST 30 D, ALT 19, Alkaline Phosphatase 58, Total Protein 4.3 L, Albumin 2.0 L D, Globulin 2.3, Albumin/Globulin Ratio 0.9 L I & O for Last 24 hours: Intake & Output 08/21/24 08/22/24 08/23/24 08/24/24 23:59 23:59 23:59 23:59 Intake Total 4607.688 / 4612.688 3167.348 / 3287.348 2800.687 / 2900.687 2588.314 / 2588.314 Output Total 1773 / 1984 1365 / 1465 1530 / 1530 Balance 2833.688 / 2638.688 1182.348 / 0762.620 6266.687 / 1553.811 8351.314 / 1058.314 Weight 73.255 kg 70.874 kg 75.296 kg 75.29 kg Microbiology Reports for the Last 24 Hours: Microbiology 08/18/24 11:11 Blood Blood Culture - Final NO GROWTH AFTER 5 DAYS Constitutional Constitutional: no acute distress and cachectic *Routine HEENT Exam Head: Present normocephalic Eye: Present EOMI and PERRL ENT: Present mucous membranes moist *Routine Neck Exam Neck: Present supple; Absent lymphadenopathy *Routine Respiratory Exam Respiratory: Present rhonchi and wheezes; Absent CTA bilaterally *Routine Cardiovascular Exam Cardiovascular: Present tachycardia and irregular rhythm *Routine Abdominal Exam Abdominal: Present soft and normoactive bowel sounds; Absent tenderness Comments: Diffuse mild tenderness to palpation. No peritoneal signs. *Routine Extremities Exam Extremities: Absent cyanosis, clubbing or edema *Routine Skin Exam Skin: Present warm; Absent rash *Routine Neurological Exam Neurological: Present alert and oriented X3 Assessment and Plan *Assessment and plan (1) Multiorgan failure: Status: Acute Category: Medical (2) Acute renal failure: Status: Acute Category: Medical Code(s): N17.9 - Acute kidney failure, unspecified Plan Patient is a 68-year-old male with past medical history of COPD CAD, cancer metastasis with unknown primary but likely lung care who presents to the hospital due to an episode of loss of consciousness. Patient does not remember very well at exactly, reportedly he was down on the ground for about 20 minutes. Patient was noted to be hypotensive in the emergency department and was started on IV pressors, patient also found to have NO, patient was recommended to be transferred to however patient does not want to be transferred. He wishes to be DNR and do not intubated. Patient otherwise denied fevers. On further evaluation he was found to have new onset atrial flutter/fibrillation. 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 Patient reports significant diarrhea for more than 2 weeks prior to admission, minimal oral intake in the setting of this likely leading to severe hyponatremia. ? Patient's diarrhea has improved. ? UA mildly suggestive UTI. CXR unremarkable. ? CT abdomen/pelvis shows of distended stomach and colon with fluid-filled loops without obstruction suggesting enteritis. ? Patient is continues to improve with IV fluids and antibiotics. ? IV azithromycin for Campylobacter. ? Continue IV normal saline to 100 mL/h, being mindful of hyponatremia not over correcting. Sodium currently 132 from 128 yesterday, improving from initial 116 with IV fluids. ? Continue salt tabs 5 mg twice daily given suspected SIADH. ? Blood and urine cultures are unremarkable. - Downgraded to med/surg status today. Off Levophed. #Community-acquired pneumonia ? Worsening consolidation of the left upper lobe on CXR on 08/20/2024, after which vancomycin and cefepime were restarted. ? Continue vancomycin. ? Started meropenem, discontinued cefepime. - WBC resolved since starting vanco, meropenem. WBC currently 7.4. #Aspiration - Patient has had multiple episodes of stridor shortly after eating. CT corroborates aspiration events into right lungs with new opacities. - Speech evaluated patient, will proceed with modified barium swallow study tomorrow. 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 This morning, patient began to have somewhat stridor sounding inspiration. Patient stated that he was not having trouble breathing, but did exhibit increased work of breathing with accessory muscle use. ? He was saturating nearly 100% on 3 L nasal cannula. ABG also did not suggest hypoxia. ? Patient was given IM epinephrine 0.3 mg x 2, and 0.5 mg x 1 without improvement in respiratory noise. Lungs had mild rhonchi but appropriate air movement, even after given Mucomyst and albuterol breathing treatment. ? CXR did not suggest volume overload, but did suggest aspiration pneumonia/pneumonitis in addition to multifocal pneumonia. ? IV morphine 2 mg as needed for air hunger. ? Patient recently stopped chemo himself given side effects and feels that his disease is too severe for chemotherapy. ? Had lengthy conversation about goals of care. Patient does want hospice for his lung cancer upon discharge, but wants to continue to treat his current condition at this time. See above. #New onset A-fib #RVR resolved ? Weaned off IV amiodarone drip, currently rate controlled. Cardiology deciding on p.o. transition. ? [id number] score 2. ? Eliquis 5 mg twice daily, discontinued heparin. ? Cardiology consulted, appreciate recommendations. Discontinued heparin in the setting of thrombocytopenia. ? Follow-up ECHO #NO ? Creatinine 2.8, improving. ? Continue IV fluids. DVT prophylaxis-Eliquis
[2024-08-25] VITALS (13 sets, daily range): BP systolic 97–152; BP diastolic 59–72; PULSE 89–110; RESP 15–24; TEMP 36.3–37.1; O2SAT 75–100; BMI 21.8
[2024-08-25] MEDS: MORPHINE 2MG/ML SYRINGE 2 MG IV ×4 (03:40→17:14)
[2024-08-25] MEDS: 0.9 % SODIUM CHLORIDE 1000ML 1,000 ML 100 ML IV (03:40)
[2024-08-25] MEDS: ACETYLCYSTEINE 20% 4ML VIAL 2 ML IH (03:58)
[2024-08-25] MEDS: MIDAZOLAM 2MG/2ML VIAL 1 MG IV ×5 (04:13→12:05)
--- NOTE | 2024-08-25 04:13 | PC.NURSE ---
Documenting RN went to bedside with primary RN after patient became severely tachypenic, pursed lip breathing, and appeared restless. Patient was given breathing trx per MAR by Gavi WYATT. No improvement, so GINETTE Jeronimo called to bedside. Verbal orders per MAR
--- NOTE | 2024-08-25 04:24 | P.PN_ITS ---
Subjective *Date: 08/25/24 *Time: 17:48 Interval history: Called by nursing that patient was having difficulty breathing, had received IV morphine with no effect, came and spoke with the patient who was alert respiratory rate greater than 30 and struggling, Also some retraction to chest wall and neck. Also having a look of anxiety upon his face and eyes. Exam Data for Last 24 hours Vital signs and Labs for Last 24 Hours: Temp Pulse Resp BP Pulse Ox O2 Del Method O2 Flow Rate 98.8 F 106 H 16 131/59 L 98 Nasal Cannula 2 08/25/24 00:00 08/25/24 03:59 08/25/24 00:00 08/25/24 00:00 08/25/24 00:00 08/25/24 01:00 08/25/24 01:00 FiO2 30 08/24/24 07:00 Laboratory Results - last 24 hr 08/20/24 05:18: Serum Osmolality 263 L 08/20/24 09:59: Miscellaneous Test See comments 08/24/24 05:25: WBC 7.4, RBC 2.30 L, Hgb 7.7 L D, Hct 22.9 L, MCV 99.6 H, MCH 33.9 H, MCHC 34.0, RDW 16.1, Plt Count 29 L*, MPV 13.7 H, Neut % (Auto) 89.2 H, Lymph % (Auto) 5.0 L, [place] % (Auto) 5.6, Eos % (Auto) 0.1, Baso % (Auto) 0.2, Neut # (Auto) 6.6, Lymph # (Auto) 0.4 L, [place] # (Auto) 0.4, Eos # (Auto) 0.0, Baso # (Auto) 0.0, Total Counted 100, Neutrophils % (Manual) 90 H, Lymphocytes % (Manual) 9 L, Monocytes % (Manual) 1 L, Platelet Estimate Marked decrease, RBC Morphology Normal, Sodium 132 L, Potassium 3.4 L, Chloride 108 H, Carbon Dioxide 17 L, Anion Gap 10.4, BUN 63 H, Creatinine 2.60 H, Estimated Creat Clear 30, Estimated GFR 25 L, Est GFR ( Amer) 30 L, Glucose 85, Calcium 6.5 L, Total Bilirubin 0.7, AST 30 D, ALT 19, Alkaline Phosphatase 58, Total Protein 4.3 L, Albumin 2.0 L D, Globulin 2.3, Albumin/Globulin Ratio 0.9 L I & O for Last 24 hours: Intake & Output 08/22/24 08/23/24 08/24/24 08/25/24 23:59 23:59 23:59 23:59 Intake Total 3167.348 / 3287.348 2800.687 / 2900.687 2588.314 / 2938.314 350 / 350 Output Total 1984 1365 / 1465 1530 / 1530 Balance 1182.348 / 2546.644 5022.687 / 1051.477 2674.314 / 1408.314 350 / 350 Weight 70.874 kg 75.296 kg 75.29 kg Microbiology Reports for the Last 24 Hours: Microbiology 08/18/24 11:11 Blood Blood Culture - Final NO GROWTH AFTER 5 DAYS *Routine Respiratory Exam Respiratory: Present accessory muscle use, diminished air movement and symmetric chest movement Comments: Patient in some respiratory distress is able to speak in a few words., Appears to be severely air hunger and at this time using all muscle to be able to pull in enough air and XL at a respiratory rate of 30 or slightly greater. *Routine Neurological Exam Neurological: Present alert and oriented X3 Comments: Patient was able to talk with me, told me it was not the pain he just needed something to help him breathe better. Patient was able to make very good eye contact, and communicate well his needs Assessment and Plan *Assessment and plan (1) Air hunger: Status: Acute Category: Medical Code(s): R09.89 - Other specified symptoms and signs involving the circulatory and respiratory systems (2) Acute respiratory distress: Status: Acute Category: Medical Code(s): R06.03 - Acute respiratory distress (3) Anxiety: Status: Acute Category: Medical Code(s): F41.9 - Anxiety disorder, unspecified Plan 1. Anxiety with air hunger: Spoke with the patient and nursing staff.. Have given Versed 1 mg IV, improved results of respiratory and anxiety within 10 minutes. Reassurance given to the patient that he would be cared for by me, and that his needs were my priority. Nursing staff also at bedside with respiratory, giving not only physical but mental/psychological comfort 2. Will add Versed 1 mg IV push every 30 minutes as needed for symptoms of respiratory hunger and are anxiety
[2024-08-25] MEDS: IPRATROPIUM BROMIDE 0.5 MG/2.5ML SOLUTION IH ×4 (05:46→23:23)
[2024-08-25] MEDS: LEVALBUTEROL 1.25MG/3ML NEB 1.25 MG IH ×4 (05:46→23:23)
[2024-08-25] MEDS: BUDESONIDE 0.5MG/2ML NEB 0.5 MG IH ×2 (05:46→18:10)
[2024-08-25 06:52] LABS: Basophils % 0.1 % (0.1-2.0); Eosinophils % 0.1 % (0.1-12.0); Hematocrit 24.6 % (42.0-52.0); Lymphocytes # 0.5 K/mm3 (0.7-4.5); Lymphocytes % 5.1 % (10-50); Mean Corpuscular HGB Conc 32.5 g/dL (31.8-35.4); Mean Corpuscular Hemoglobin 33.2 pg (27.0-31.2); Mean Corpuscular Volume 102.1 fl (80-94); Mean Platelet Volume 12.3 fl (7.4-10.4); Monocytes # 0.5 K/mm3 (0.1-1.0); Monocytes % 5.7 % (1.7-9.3); Neutrophils # 8.3 K/mm3 (1.8-7.8); Red Blood Count 2.41 M/mm3 (4.60-6.20); Red Cell Distribution Width 15.8 % (11.5-17.5); White Blood Count 9.3 K/mm3 (4.8-10.8)
[2024-08-25 07:05] LABS: Albumin Level 2.2 g/dl (3.5-5.0); Chloride 110 mmol/L (98-107); Sodium 134 mmol/L (136-145)
[2024-08-25 07:08] LABS: Alanine Aminotransferase 20 U/L (12-78); Albumin/Globulin Ratio 0.9 (1.1-1.8); Alkaline Phosphatase 86 U/L (38-126); Aspartate Amino Transferase 29 U/L (17-59); Bilirubin,Total 0.7 mg/dl (0.2-1.3); Blood Urea Nitrogen 56 mg/dl (9-20); Carbon Dioxide 17 mmol/L (22.0-30.0); Creatinine Clearance Estimated 35 mL/min (50-200); Estimated Glomerular Filt Rate 29 ml/min (>60); GFR (African American) 35 ML/MIN (>60); Globulin 2.5 g/dL (1.3-3.2); Glucose 103 mg/dl (74-100); Total Protein,Serum 4.7 g/dl (6.3-8.2)
[2024-08-25 07:40] LABS: MANUAL DIFFERENTIAL MANUAL DIFFERENTIAL (MANUAL DIFF); Platelet Count 45 K/mm3 (142-424)
[2024-08-25 07:55] LABS: Procalcitonin 3.74 ng/mL (0.0-2.0)
--- NOTE | 2024-08-25 08:18 | PC.NURSE ---
PT HAS REFUSED TO BE PLACED ON BIPAP. O2 SATURATIONS AT THIS TIME 88% ON NON-REBREATHER. PATIENT IS ALERT AND ABLE TO ANSWER QUESTIONS APPROPRIATELY AND FOLLOW COMMANDS.
--- NOTE | 2024-08-25 08:27 | P.PN_ITS ---
Subjective Subjective Date: 08/25/24 Time: 08:28 Principal diagnosis: [place] with RVR, metastatic cancer Interval history: 68-year-old white male in bed appears weak and pale. Nursing relates air hunger overnight that did improve with Versed. Respiratory placing the patient back on BiPAP this morning. Exam Data for Last 24 hours Vital signs and Labs for Last 24 Hours: Temp Pulse Resp BP Pulse Ox O2 Del Method O2 Flow Rate 98.0 F 97 H 24 152/66 H 94 L Nasal Cannula 5 08/25/24 04:00 08/25/24 05:46 08/25/24 04:00 08/25/24 04:00 08/25/24 04:00 08/25/24 06:28 08/25/24 06:28 FiO2 30 08/24/24 07:00 Laboratory Results - last 24 hr 08/24/24 05:25: Total Counted 100, Neutrophils % (Manual) 90 H, Lymphocytes % (Manual) 9 L, Monocytes % (Manual) 1 L, Platelet Estimate Marked decrease, RBC Morphology Normal 08/25/24 05:25: WBC 9.3 D, RBC 2.41 L, Hgb 8.0 L, Hct 24.6 L, MCV 102.1 H, MCH 33.2 H, MCHC 32.5, RDW 15.8, Plt Count 45 L* D, MPV 12.3 H, Neut % (Auto) 89.0 H , Lymph % (Auto) 5.1 L, [place] % (Auto) 5.7, Eos % (Auto) 0.1, Baso % (Auto) 0.1, Neut # (Auto) 8.3 H, Lymph # (Auto) 0.5 L, [place] # (Auto) 0.5, Eos # (Auto) 0.0, Baso # (Auto) 0.0, Sodium 134 L, Potassium 4.0, Chloride 110 H, Carbon Dioxide 17 L, Anion Gap 11.0, BUN 56 H, Creatinine 2.30 H, Estimated Creat Clear 35, Estimated GFR 29 L, Est GFR ( Amer) 35 L, Glucose 103 H D, Calcium 7.0 L, Total Bilirubin 0.7, AST 29, ALT 20, Alkaline Phosphatase 86, Total Protein 4.7 L, Albumin 2.2 L, Globulin 2.5, Albumin/Globulin Ratio 0.9 L, Procalcitonin 3.74 H I & O for Last 24 hours: Intake & Output 08/22/24 08/23/24 08/24/24 08/25/24 11:59 11:59 11:59 11:59 Intake Total 4962.535 / 4962.535 3176.812 / 3176.812 1842.314 / 8275.906 2460 / 2058 Output Total 1570 / 1620 1560 / 1660 1540 / 1790 1730 / 1730 Balance 3392.535 / 3342.535 1616.812 / 1516.812 302.314 / 52.314 328 / 328 Weight 156 lb 4 oz 166 lb 165 lb 15.776 oz 170 lb 4.8 oz Microbiology Reports for the Last 24 Hours: Microbiology 08/18/24 11:11 Blood Blood Culture - Final NO GROWTH AFTER 5 DAYS Constitutional Constitutional: moderate distress *Routine Respiratory Exam Respiratory: Present rhonchi and diminished air movement *Routine Cardiovascular Exam Cardiovascular: Present tachycardia and irregularly irregular Progress Note: A&P Assessment and plan (1) Air hunger: Status: Acute (2) Acute respiratory distress: Status: Acute (3) Anxiety: Status: Acute (4) Lung cancer: Status: Acute (5) Atrial fibrillation with RVR: Status: Acute (6) Multiorgan failure: Status: Acute (7) Acute renal failure: Status: Acute Assessment and Plan Assessment and Plan for All Diagnoses:: A-fib RVR - new dx in setting of Multi-Organ Failure - pt expresses desire for DNR/DNI - Cont oral Amio for rate control - DC Heparin due to severe thrombocytopenia. HIT ab normal - ECHO - 08/24 normal LVEF with small pericardial effusion without tamponade Hypovolemic Shock - Improved with hydration Hypovolemic Hyonatremia - Na up to 132 today Campylobacter Diarrhea - present on arrival and ongoing - on Azithromycin 08/21: ongoing diarrhea Acute Renal Failure - Baseline Cr 0.9, now improved to 2.3 - Net positive 15 liters of fluid this admission - Pressor support PRN Critical Thrombocytopenia - plt 154 2 weeks ago 88 on arrival, 56 0n 08/19, now 45 today. - likely secondary to metastatic cancer with bony involvement but pt having rapid decline >50% since admission. Heparin DC'd 08/19. 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 Buckley - on chemo Severe Leukopenia - WBC 1.2 now up to 9.3 - pt is afebrile but high risk of infection - on broad spectrum antibiotics - Improving Anemia - Hgb 8.0 this AM Nothing further to add. Please call if needed.
[2024-08-25] MEDS: OLANZapine 10 MG VIAL 5 MG IM (08:31)
[2024-08-25] MEDS: FUROSEMIDE 40MG/4ML VIAL 40 MG IV (08:33)
[2024-08-25] MEDS: AZITHROMYCIN 500 MG in 0.9 % SODIUM CHLORIDE 250 ML 250 MG IV (08:47)
[2024-08-25] MEDS: SODIUM CHLORIDE 1,000MG TABLET 500 MG PO ×2 (08:55→21:22)
[2024-08-25] MEDS: FLUOXETINE 20MG CAPSULE 20 MG PO (08:55)
[2024-08-25] MEDS: HYDROCORTISONE SOD SUCCINATE 100MG VIAL 200 MG IV (08:55)
[2024-08-25] MEDS: AMIODARONE 200MG TABLET 400 MG PO ×2 (08:55→20:36)
--- NOTE | 2024-08-25 09:47 | P.PN_ITS ---
Subjective *Date: 08/25/24 *Time: 09:47 Medical Exam Vital signs and Labs for Last 24 Hours: Vital Signs Temp Pulse Pulse Resp BP Pulse Ox O2 Del Method 08/25/24 09:07 91 L Non-Rebreather 08/25/24 09:00 Non-Rebreather 08/25/24 08:00 97.6 F 103 H 22 137/59 L 75 L Nasal Cannula 08/25/24 08:00 Non-Rebreather 08/25/24 06:28 Nasal Cannula 08/25/24 05:46 97 H 08/25/24 05:46 98 H 08/25/24 04:29 Nasal Cannula 08/25/24 04:00 110 H 08/25/24 04:00 98.0 F 103 H 24 152/66 H 94 L Nasal Cannula 08/25/24 03:59 106 H 08/25/24 03:59 105 H 08/25/24 03:00 Nasal Cannula 08/25/24 01:00 Nasal Cannula 08/25/24 00:00 90 08/25/24 00:00 98.8 F 93 H 16 131/59 L 98 Nasal Cannula 08/24/24 23:08 92 H 08/24/24 23:08 89 08/24/24 23:00 Nasal Cannula 08/24/24 21:00 Nasal Cannula 08/24/24 20:00 Nasal Cannula 08/24/24 20:00 100 H 08/24/24 20:00 98.5 F 94 H 17 124/56 L 97 Nasal Cannula 08/24/24 18:52 Nasal Cannula 08/24/24 18:23 102 H 08/24/24 18:23 105 H 08/24/24 18:23 96 Nasal Cannula 08/24/24 17:00 Nasal Cannula 08/24/24 16:00 95 H 08/24/24 16:00 98.3 F 98 H 20 117/58 L 98 Nasal Cannula 08/24/24 15:04 Nasal Cannula 08/24/24 15:00 BiPAP 08/24/24 13:00 Nasal Cannula 08/24/24 12:00 96 H 08/24/24 12:00 105 H 24 115/53 L 93 L Nasal Cannula 08/24/24 12:00 98.7 F 08/24/24 11:28 92 H 08/24/24 11:28 95 H 08/24/24 11:28 97 Nasal Cannula 08/24/24 11:00 Nasal Cannula O2 Flow Rate 08/25/24 09:07 08/25/24 09:00 08/25/24 08:00 5 08/25/24 08:00 15 08/25/24 06:28 5 08/25/24 05:46 08/25/24 05:46 08/25/24 04:29 5 08/25/24 04:00 08/25/24 04:00 08/25/24 03:59 08/25/24 03:59 08/25/24 03:00 2 08/25/24 01:00 2 08/25/24 00:00 08/25/24 00:00 08/24/24 23:08 08/24/24 23:08 08/24/24 23:00 2 08/24/24 21:00 2 08/24/24 20:00 3 08/24/24 20:00 08/24/24 20:00 2 08/24/24 18:52 2 08/24/24 18:23 08/24/24 18:23 08/24/24 18:23 3 08/24/24 17:00 2 08/24/24 16:00 08/24/24 16:00 2 08/24/24 15:04 08/24/24 15:00 08/24/24 13:00 2 08/24/24 12:00 08/24/24 12:00 2 08/24/24 12:00 08/24/24 11:28 08/24/24 11:28 08/24/24 11:28 3 08/24/24 11:00 2 Intake and Output 08/24/24 08/25/24 08/25/24 23:59 07:59 15:59 Intake Total 402 / 2938.314 350 / 350 Output Total 320 / 1530 950 / 950 0 / 950 Balance 82 / 1408.314 -600 / -600 0 / -600 Intake: Intake, Total IV Amount 142 / 1358 350 / 350 0.9 % Sodium Chloride 1000ML 1, 142 / 1008 000 ml @ 100 mls/hr IV .Q10H [facility] Rx#:[id number] Meropenem 0.5 gm In 0.9 % 100 / 100 Sodium Chloride 100 ml @ 100 mls/hr IV Q12 [facility] Rx#:[id number] Vancomycin HCl 1,250 mg In 0.9 250 / 250 % Sodium Chloride 250 ml @ 125 mls/hr IV Q36H [facility] Rx#:[id number] Infusion Intake 260 / 1060 0.9 % Sodium Chloride 1000ML 1, 260 / 1060 000 ml @ 100 mls/hr IV .Q10H [facility] Rx#:[id number] Output: Output, Urine Amount 950 / 950 0 / 950 Output, Urine Amount (Catheter) 320 / 1320 Rosario 320 / 1320 Other: Number of Voids 0 Number of Unmeasured Voids 0 Number of Bowel Movements 1 Weight 77.247 kg Patient Weight 08/25/24 23:59 Weight 77.247 kg Laboratory Results - last 24 hr 08/25/24 05:25: WBC 9.3 D, RBC 2.41 L, Hgb 8.0 L, Hct 24.6 L, MCV 102.1 H, MCH 33.2 H, MCHC 32.5, RDW 15.8, Plt Count 45 L* D, MPV 12.3 H, Neut % (Auto) 89.0 H , Lymph % (Auto) 5.1 L, [place] % (Auto) 5.7, Eos % (Auto) 0.1, Baso % (Auto) 0.1, Neut # (Auto) 8.3 H, Lymph # (Auto) 0.5 L, [place] # (Auto) 0.5, Eos # (Auto) 0.0, Baso # (Auto) 0.0, Sodium 134 L, Potassium 4.0, Chloride 110 H, Carbon Dioxide 17 L, Anion Gap 11.0, BUN 56 H, Creatinine 2.30 H, Estimated Creat Clear 35, Estimated GFR 29 L, Est GFR ( Amer) 35 L, Glucose 103 H D, Calcium 7.0 L, Total Bilirubin 0.7, AST 29, ALT 20, Alkaline Phosphatase 86, Total Protein 4.7 L, Albumin 2.2 L, Globulin 2.5, Albumin/Globulin Ratio 0.9 L, Procalcitonin 3.74 H I & O for Labs for Last 24 Hours: Intake & Output 08/22/24 08/23/24 08/24/24 08/25/24 23:59 23:59 23:59 23:59 Intake Total 3167.348 / 3287.348 2800.687 / 2900.687 2588.314 / 2938.314 350 / 350 Output Total 1984 / 1984 1365 / 1465 1530 / 1530 950 / 950 Balance 1182.348 / 4399.721 8375.687 / 9142.759 2499.314 / 1408.314 -600 / -600 Weight 70.874 kg 75.296 kg 75.29 kg 77.247 kg Microbiology Reports for the Last 24 Hours: Microbiology 08/18/24 11:11 Blood Blood Culture - Final NO GROWTH AFTER 5 DAYS The patient's infection will respond to the chosen ABx?: Yes (URINE AND BLOOD CX NO GROWTH, CONCERN FOR PNEUMONIA, AFEBRILE OVER 24 HR) Is the patient receiving the right drug, dose, and route?: Yes Could a more targeted ABx be ordered?: No
[2024-08-25] MEDS: MEROPENEM 0.5 GM in 0.9 % SODIUM CHLORIDE 100 ML IV ×2 (10:21→20:36)
[2024-08-25 10:41] LABS: Lymphocytes % 10 % (10-50); Macrocytosis 1+; Monocytes % 4 % (2-9); Neutrophils % 86 % (42-76); Platelet Estimate Marked Decrease; Total Cells Counted 100
--- NOTE | 2024-08-25 14:40 | P.PN_ITS ---
Subjective *Date: 08/25/24 *Time: 17:39 Interval history: Patient in significant distress this morning on rounds. Necessitating increased to nonrebreather. Became anxious, tachypneic. Strong concern for progression of his respiratory failure. Showing improvement with his sodium however to 134. Stopped IV fluids and administered Lasix x 1. Continues to be on antibiotics. Discussed hospice, patient would like to transition to hospice today. Medical Exam Vital signs and Labs for Last 24 Hours: Vital Signs Temp Pulse Pulse Resp BP Pulse Ox O2 Del Method 08/25/24 13:00 Non-Rebreather 08/25/24 12:00 97.4 F L 91 H 18 114/62 100 Nasal Cannula 08/25/24 11:00 Non-Rebreather 08/25/24 10:05 94 H 08/25/24 10:05 94 H 08/25/24 09:07 91 L Non-Rebreather 08/25/24 09:00 Non-Rebreather 08/25/24 08:00 100 H 08/25/24 08:00 97.6 F 103 H 22 137/59 L 75 L Nasal Cannula 08/25/24 08:00 Non-Rebreather 08/25/24 06:28 Nasal Cannula 08/25/24 05:46 97 H 08/25/24 05:46 98 H 08/25/24 04:29 Nasal Cannula 08/25/24 04:00 110 H 08/25/24 04:00 98.0 F 103 H 24 152/66 H 94 L Nasal Cannula 08/25/24 03:59 106 H 08/25/24 03:59 105 H 08/25/24 03:00 Nasal Cannula 08/25/24 01:00 Nasal Cannula 08/25/24 00:00 90 08/25/24 00:00 98.8 F 93 H 16 131/59 L 98 Nasal Cannula 08/24/24 23:08 92 H 08/24/24 23:08 89 08/24/24 23:00 Nasal Cannula 08/24/24 21:00 Nasal Cannula 08/24/24 20:00 Nasal Cannula 08/24/24 20:00 100 H 08/24/24 20:00 98.5 F 94 H 17 124/56 L 97 Nasal Cannula 08/24/24 18:52 Nasal Cannula 08/24/24 18:23 102 H 08/24/24 18:23 105 H 08/24/24 18:23 96 Nasal Cannula 08/24/24 17:00 Nasal Cannula 08/24/24 16:00 95 H 08/24/24 16:00 98.3 F 98 H 20 117/58 L 98 Nasal Cannula 08/24/24 15:04 Nasal Cannula 08/24/24 15:00 BiPAP O2 Flow Rate 08/25/24 13:00 08/25/24 12:00 6 08/25/24 11:00 08/25/24 10:05 08/25/24 10:05 08/25/24 09:07 08/25/24 09:00 08/25/24 08:00 08/25/24 08:00 5 08/25/24 08:00 15 08/25/24 06:28 5 08/25/24 05:46 08/25/24 05:46 08/25/24 04:29 5 08/25/24 04:00 08/25/24 04:00 08/25/24 03:59 08/25/24 03:59 08/25/24 03:00 2 08/25/24 01:00 2 08/25/24 00:00 08/25/24 00:00 08/24/24 23:08 08/24/24 23:08 08/24/24 23:00 2 08/24/24 21:00 2 08/24/24 20:00 3 08/24/24 20:00 08/24/24 20:00 2 08/24/24 18:52 2 08/24/24 18:23 08/24/24 18:23 08/24/24 18:23 3 08/24/24 17:00 2 08/24/24 16:00 08/24/24 16:00 2 08/24/24 15:04 08/24/24 15:00 Intake and Output 08/24/24 08/25/24 08/25/24 23:59 07:59 15:59 Intake Total 402 / 2938.314 350 / 410 60 / 410 Output Total 320 / 1530 950 / 950 0 / 950 Balance 82 / 1408.314 -600 / -540 60 / -540 Intake: Intake, Oral Amount 60 / 60 Intake, Total IV Amount 142 / 1358 350 / 350 0.9 % Sodium Chloride 1000ML 1, 142 / 1008 000 ml @ 100 mls/hr IV .Q10H [facility] Rx#:[id number] Meropenem 0.5 gm In 0.9 % 100 / 100 Sodium Chloride 100 ml @ 100 mls/hr IV Q12 [facility] Rx#:[id number] Vancomycin HCl 1,250 mg In 0.9 250 / 250 % Sodium Chloride 250 ml @ 125 mls/hr IV Q36H [facility] Rx#:[id number] Infusion Intake 260 / 1060 0.9 % Sodium Chloride 1000ML 1, 260 / 1060 000 ml @ 100 mls/hr IV .Q10H [facility] Rx#:[id number] Output: Output, Urine Amount 950 / 950 0 / 950 Output, Urine Amount (Catheter) 320 / 1320 Rosario 320 / 1320 Other: Number of Voids 0 Number of Unmeasured Voids 0 Number of Bowel Movements 1 1 Weight 77.247 kg Patient Weight 08/25/24 23:59 Weight 77.247 kg Laboratory Results - last 24 hr 08/25/24 05:25: WBC 9.3 D, RBC 2.41 L, Hgb 8.0 L, Hct 24.6 L, MCV 102.1 H, MCH 33.2 H, MCHC 32.5, RDW 15.8, Plt Count 45 L* D, MPV 12.3 H, Neut % (Auto) 89.0 H , Lymph % (Auto) 5.1 L, [place] % (Auto) 5.7, Eos % (Auto) 0.1, Baso % (Auto) 0.1, Neut # (Auto) 8.3 H, Lymph # (Auto) 0.5 L, [place] # (Auto) 0.5, Eos # (Auto) 0.0, Baso # (Auto) 0.0, Total Counted 100, Neutrophils % (Manual) 86 H, Lymphocytes % (Manual) 10, Monocytes % (Manual) 4, Platelet Estimate Marked decrease, Macrocytosis 1+, Sodium 134 L, Potassium 4.0, Chloride 110 H, Carbon Dioxide 17 L, Anion Gap 11.0, BUN 56 H, Creatinine 2.30 H, Estimated Creat Clear 35, Estimated GFR 29 L, Est GFR ( Amer) 35 L, Glucose 103 H D, Calcium 7.0 L, Total Bilirubin 0.7, AST 29, ALT 20, Alkaline Phosphatase 86, Total Protein 4.7 L, Albumin 2.2 L, Globulin 2.5, Albumin/Globulin Ratio 0.9 L, Procalcitonin 3.74 H I & O for Labs for Last 24 Hours: Intake & Output 08/22/24 08/23/24 08/24/24 08/25/24 23:59 23:59 23:59 23:59 Intake Total 3167.348 / 3287.348 2800.687 / 2900.687 2588.314 / 2938.314 410 / 410 Output Total 1984 1365 / 1465 1530 / 1530 950 / 950 Balance 1182.348 / 8159.309 0275.687 / 5866.962 7938.314 / 1408.314 -540 / -540 Weight 70.874 kg 75.296 kg 75.29 kg 77.247 kg Microbiology Reports for the Last 24 Hours: Microbiology 08/18/24 11:11 Blood Blood Culture - Final NO GROWTH AFTER 5 DAYS Constitutional: Present moderate distress, thin, chronically ill appearing and agitated Head: Present atraumatic and normocephalic ENT: Present normal exam Respiratory: Present accessory muscle use, prolonged expiratory phase, resp iratory distress, rhonchi and wheezes; Absent crackles Cardiac: Present Regular Rhythm and Tachycardia GI: Present soft and normal bowel sounds; Absent distention or tenderness Extremities: Present normal inspection and full ROM Skin: Present intact; Absent erythema Neuro: Present Grossly Intact, alert, awake, oriented x 3 and moves all extremities Comment:: Mentation waxes and wanes but patient knows who he is and where he is. Able to make informed decisions. Assessment and Plan *Assessment and plan (1) Multiorgan failure: Status: Acute Category: Medical (2) Acute renal failure: Status: Acute Category: Medical Code(s): N17.9 - Acute kidney failure, unspecified (3) Atrial fibrillation with RVR: Status: Acute Category: Medical Code(s): I48.91 - Unspecified atrial fibrillation (4) Anxiety: Status: Acute Category: Medical Code(s): F41.9 - Anxiety disorder, unspecified (5) Acute respiratory distress: Status: Acute Category: Medical Code(s): R06.03 - Acute respiratory distress (6) Thrombocytopenia: Status: Acute Category: Medical Code(s): D69.6 - Thrombocytopenia, unspecified (7) Lung cancer: Status: Acute Qualifiers: Laterality: left Lung location: unspecified part of lung Qualified Code(s): C34.92 - Malignant neoplasm of unspecified part of left bronchus or trae ng Category: Medical Code(s): C34.90 - Malignant neoplasm of unspecified part of unspecified bronchus or lung (8) COPD mixed type: Status: Acute Category: Medical Code(s): J44.9 - Chronic obstructive pulmonary disease, unspecified Plan Patient is a 68-year-old male with past medical history of COPD CAD, cancer metastasis with unknown primary but likely lung care who presents to the hospital due to an episode of loss of consciousness. Patient does not remember very well at exactly, reportedly he was down on the ground for about 20 minutes. Patient was noted to be hypotensive in the emergency department and was started on IV pressors, patient also found to have NO, patient was recommended to be transferred to however patient does not want to be transferred. He wishes to be DNR and do not intubated. Patient otherwise denied fevers. On further evaluation he was found to have new onset atrial flutter/fibrillation. Further goals of care discussion today, patient electing to transition to hospice. Hospice consulted. Request patient be made inpatient hospice due to high risk for decompensation and concern that he is actively dying. Problems addressed as follows: #Septic versus hypovolemic shock #Campylobacter enteritis #UTI #Suspected pneumonia #Hyponatremia #Suspected SIADH in the setting of lung cancer ? Diarrhea improving. Hyponatremia showing improvement. Sodium 134 today. Chloride 110. Will discontinue IV fluids due to excessive volume intake while addressing hyponatremia. Diurese with Lasix 40 mg IV x 1 today. -Pro-Jeovany improving, 3.7, down from 50. Significant improvement. -Continue IV azithromycin for Campylobacter. ? Continue salt tabs 5 mg twice daily for hyponatremia. ? Blood and urine cultures are unremarkable. #Community-acquired pneumonia ? Worsening consolidation of the left upper lobe on CXR on 08/20/2024, after which vancomycin and cefepime were restarted. ? Continue vancomycin and meropenem - WBC resolved since starting vanco, meropenem. WBC currently 9.3 #Aspiration -Canceled modified barium. In light of patient's desire to transition to hospice, allow for comfort feeds. #Air hunger #Severe metastatic lung dz with mets to hips, spine, ribs #Pancytopenia -Transition to hospice. #New onset A-fib #RVR resolved ? Weaned off IV amiodarone drip, currently rate controlled. Cardiology deciding on p.o. transition. ? [id number] score 2. ? Eliquis 5 mg twice daily -Cardiology signing off given transition of goals of care to hospice. #NO ? Creatinine 2.3, BUN 56. DNR, transition to hospice per decision today with patient. Aggressive comfort with morphine and Ativan for anxiety and pain and air hunger. eminent. Reevaluate de-escalating medications in the morning pending patient's progress. -Ativan 1 mg every 4 hours as needed for anxiety or agitation -Morphine 4 mg every 2 hours as needed for pain or air hunger -Supplemental oxygen as needed, currently on Vapotherm this morning, weaned to supplemental/nasal cannula oxygen if tolerated by patient. Has been doing well on 5 L when not agitated.
[2024-08-25] MEDS: TRAZODONE 50MG TABLET 150 MG PO (20:36)
[2024-08-25] MEDS: PANTOPRAZOLE 40MG VIAL 40 MG IV (20:37)
[2024-08-25] MEDS: SODIUM CHLORIDE 0.9% 10ML VIAL 10 ML IV (20:37)
[2024-08-25] MEDS: ONDANSETRON 4MG/2ML VIAL 4 MG IV (20:45)
--- NOTE | 2024-08-25 20:55 | EXP.EVENT.NO ---
Problem, increased rattling sound in the upper airway patient unable to clear secretions well. Exam, patient showing no significant increased signs of distress. Does sound wet though when taking a deep breath and exhale. No other problems noted. Condition stable at present Plan Robinul 1 mg 3 times daily p.o. start, if we find it is helpful may increase it especially at night to 2 mg to help him sleep.
[2024-08-25] MEDS: ROBINAL 0.1 EACH IVP (21:23)
--- NOTE | 2024-08-25 23:18 | PC.NURSE ---
decreased from 3L NC to 2L NC.
[2024-08-26 04:00] VITALS: BMI 22.1
[2024-08-26 05:47] VITALS: BP 83/56; PULSE 97; RESP 18; TEMP 37.5; O2SAT 91
[2024-08-26 06:00] VITALS: PULSE 91; PULSE 92; O2SAT 100
[2024-08-26] MEDS: ACETYLCYSTEINE 20% 4ML VIAL 2 ML IH (06:01)
[2024-08-26] MEDS: IPRATROPIUM BROMIDE 0.5 MG/2.5ML SOLUTION IH ×2 (06:01→11:25)
[2024-08-26] MEDS: LEVALBUTEROL 1.25MG/3ML NEB 1.25 MG IH ×2 (06:01→11:25)
[2024-08-26] MEDS: BUDESONIDE 0.5MG/2ML NEB 0.5 MG IH (06:01)
[2024-08-26 06:38] LABS: Chloride 110 mmol/L (98-107); Sodium 133 mmol/L (136-145)
[2024-08-26 06:39] LABS: Potassium 3.9 mmoL/L (3.5-5.1)
[2024-08-26 06:41] LABS: Alanine Aminotransferase 18 U/L (12-78); Anion Gap 8.9 mEq/L (5-15); Aspartate Amino Transferase 22 U/L (17-59); Bilirubin,Direct 0.3 mg/dl (0.0-0.4); Bilirubin,Indirect 0.3 mg/dL (0.0-0.9); Bilirubin,Total 0.6 mg/dl (0.2-1.3); Bilirubin,Unconjugated 0.3 mg/dL (0.0-1.1); Blood Urea Nitrogen 55 mg/dl (9-20); Carbon Dioxide 18 mmol/L (22.0-30.0); Creatinine Clearance Estimated 38 mL/min (50-200); Estimated Glomerular Filt Rate 32 ml/min (>60); GFR (African American) 38 ML/MIN (>60); Total Protein,Serum 4.3 g/dl (6.3-8.2)
[2024-08-26 06:42] LABS: Alkaline Phosphatase 67 U/L (38-126); Calcium 7.3 mg/dl (8.4-10.2); Glucose 84 mg/dl (74-100)
[2024-08-26 06:49] LABS: Basophils % 0.1 % (0.1-2.0); Lymphocytes # 0.8 K/mm3 (0.7-4.5); Lymphocytes % 7.9 % (10-50); Mean Corpuscular Hemoglobin 34.6 pg (27.0-31.2); Mean Corpuscular Volume 101.6 fl (80-94); Monocytes # 0.6 K/mm3 (0.1-1.0); Monocytes % 6.2 % (1.7-9.3); Neutrophils # 8.9 K/mm3 (1.8-7.8); Neutrophils % 85.8 % (37.0-80.0); Red Blood Count 2.05 M/mm3 (4.60-6.20); White Blood Count 10.3 K/mm3 (4.8-10.8)
[2024-08-26 07:15] LABS: Osmolality, Urine 259 mOsmol/kg (.)
[2024-08-26 07:15] LABS: Hematocrit 20.8 % (42.0-52.0)
[2024-08-26 07:16] LABS: Hemoglobin 7.1 g/dL (14.1-18.0); MANUAL DIFFERENTIAL MANUAL DIFFERENTIAL (MANUAL DIFF); Platelet Count 45 K/mm3 (142-424)
[2024-08-26 07:36] LABS: Lymphocytes % 7 % (10-50); Monocytes % 2 % (2-9); Neutrophils % 91 % (42-76); Total Cells Counted 100
[2024-08-26 07:37] LABS: Macrocytosis 1+; Platelet Estimate Marked Decrease; Poikilocytosis 1+
[2024-08-26 08:00] VITALS: BP 101/55; PULSE 105; PULSE 90; RESP 19; O2SAT 100
[2024-08-26] MEDS: LORazepam 2MG/ML VIAL 1 MG IV (08:34)
[2024-08-26] MEDS: AZITHROMYCIN 500 MG in 0.9 % SODIUM CHLORIDE 250 ML 250 MG IV (09:00)
[2024-08-26] MEDS: AMIODARONE 200MG TABLET 400 MG PO (09:01)
[2024-08-26] MEDS: FLUOXETINE 20MG CAPSULE 20 MG PO (09:01)
[2024-08-26] MEDS: GLYCOPYRROLATE 1 MG TABLET PO ×2 (09:01→13:31)
[2024-08-26 09:03] LABS: Vancomycin,Trough 16.3 ug/mL (5.0-10.0)
--- NOTE | 2024-08-26 10:24 | EXP.PHA.PN ---
Subjective *Date: 08/26/24 *Time: 10:24 Medical Exam Vital signs and Labs for Last 24 Hours: Vital Signs Temp Pulse Pulse Resp BP Pulse Ox O2 Del Method 08/26/24 08:00 Nasal Cannula 08/26/24 08:00 90 08/26/24 08:00 105 H 19 101/55 L 100 Nasal Cannula 08/26/24 06:35 Nasal Cannula 08/26/24 06:00 91 H 08/26/24 06:00 92 H 08/26/24 06:00 100 Nasal Cannula 08/26/24 05:47 99.5 F 97 H 18 83/56 L 91 L Nasal Cannula 08/26/24 05:00 Nasal Cannula 08/26/24 03:00 Nasal Cannula 08/26/24 01:00 Nasal Cannula 08/25/24 23:34 91 H 08/25/24 23:34 89 08/25/24 23:20 100 Nasal Cannula 08/25/24 23:00 Nasal Cannula 08/25/24 21:00 Nasal Cannula 08/25/24 20:00 Nasal Cannula 08/25/24 20:00 97.8 F 100 H 16 97/72 L 96 Room Air 08/25/24 19:05 100 H 08/25/24 19:05 102 H 08/25/24 18:24 Nasal Cannula 08/25/24 17:00 Nasal Cannula 08/25/24 16:00 98.4 F 92 H 15 127/68 100 Nasal Cannula 08/25/24 15:00 Nasal Cannula 08/25/24 13:00 Nasal Cannula 08/25/24 12:00 90 08/25/24 12:00 97.4 F L 91 H 18 114/62 100 Nasal Cannula 08/25/24 11:00 Non-Rebreather O2 Flow Rate 08/26/24 08:00 2 08/26/24 08:00 08/26/24 08:00 2 08/26/24 06:35 2 08/26/24 06:00 08/26/24 06:00 08/26/24 06:00 2 08/26/24 05:47 2 08/26/24 05:00 2 08/26/24 03:00 2 08/26/24 01:00 2 08/25/24 23:34 08/25/24 23:34 08/25/24 23:20 2 08/25/24 23:00 2 08/25/24 21:00 3 08/25/24 20:00 3 08/25/24 20:00 08/25/24 19:05 08/25/24 19:05 08/25/24 18:24 3 08/25/24 17:00 4 08/25/24 16:00 3 08/25/24 15:00 4 08/25/24 13:00 5 08/25/24 12:00 08/25/24 12:00 6 08/25/24 11:00 Intake and Output 08/25/24 08/26/24 08/26/24 23:59 07:59 15:59 Intake Total 340 / 750 340 / 340 Output Total 1925 / 2875 1100 / 1100 0 / 1100 Balance -1585 / -2125 -1100 / -760 340 / -760 Intake: Intake, Oral Amount 240 / 300 340 / 340 Intake, Total IV Amount 100 / 450 Meropenem 0.5 gm In 0.9 % 100 / 200 Sodium Chloride 100 ml @ 100 mls/hr IV Q12 [facility] Rx#:[id number] Output: Output, Urine Amount 1100 / 1100 0 / 1100 Output, Urine Amount (Catheter) 1924 / 1924 Rosario 1924 Other: Weight 78.1 kg Patient Weight 08/26/24 23:59 Weight 78.1 kg Laboratory Results - last 24 hr 08/20/24 08:52: Urine Osmolality 259 08/25/24 05:25: Total Counted 100, Neutrophils % (Manual) 86 H, Lymphocytes % (Manual) 10, Monocytes % (Manual) 4, Platelet Estimate Marked decrease, Macrocytosis 1+ 08/26/24 05:17: WBC 10.3, RBC 2.05 L, Hgb 7.1 L D, Hct 20.8 L*, MCV 101.6 H, MCH 34.6 H, MCHC 34.0, RDW 16.0, Plt Count 45 L*, MPV 11.0 H, Neut % (Auto) 85.8 H, Lymph % (Auto) 7.9 L, [place] % (Auto) 6.2, Eos % (Auto) 0.0 L, Baso % (Auto) 0.1, Neut # (Auto) 8.9 H, Lymph # (Auto) 0.8, [place] # (Auto) 0.6, Eos # (Auto) 0.0, Baso # (Auto) 0.0, Total Counted 100, Neutrophils % (Manual) 91 H, Lymphocytes % (Manual) 7 L, Monocytes % (Manual) 2, Platelet Estimate Marked decrease, RBC Morphology Not Reportable, Poikilocytosis 1+, Macrocytosis 1+, Sodium 133 L, Potassium 3.9, Chloride 110 H, Carbon Dioxide 18 L, Anion Gap 8.9, BUN 55 H, Creatinine 2.10 H, Estimated Creat Clear 38, Estimated GFR 32 L, Est GFR ( Amer) 38 L, Glucose 84, Calcium 7.3 L, Total Bilirubin 0.6, Direct Bilirubin 0.3, Conjugated Bilirubin 0.0, Indirect Bilirubin 0.3, Unconjugated Bilirubin 0.3, AST 22, ALT 18, Alkaline Phosphatase 67, Total Protein 4.3 L, Albumin 2.0 L 08/26/24 08:04: Vancomycin Trough 16.3 H I & O for Labs for Last 24 Hours: Intake & Output 08/23/24 08/24/24 08/25/24 08/26/24 23:59 23:59 23:59 23:59 Intake Total 2800.687 / 2900.687 2588.314 / 2938.314 750 / 750 340 / 340 Output Total 1365 / 1465 1530 / 1530 2875 / 2875 1100 / 1100 Balance 1435.687 / 4546.319 5188.314 / 1408.314 -2125 / -2125 -760 / -760 Weight 75.296 kg 75.29 kg 77.247 kg 78.1 kg The patient's infection will respond to the chosen ABx?: Yes Is the patient receiving the right drug, dose, and route?: Yes Could a more targeted ABx be ordered?: No (WBC WNL, AFEBRILE, CONT. CURRENT ABX.)
[2024-08-26 11:20] VITALS: PULSE 95; O2SAT 84
[2024-08-26 11:30] VITALS: PULSE 95; RESP 24; TEMP 38.1; O2SAT 90
[2024-08-26] MEDS: MORPHINE 4MG/ML SYRINGE 4 MG IV ×2 (12:26→16:17)
--- NOTE | 2024-08-26 14:10 | EXP.DC.SUM ---
General Admission date:: 08/18/24 Discharge date: 08/26/24 HPI HPI HPI: Patient is a 68-year-old male with past medical history of COPD CAD, cancer metastasis with unknown primary who presents to the hospital due to an episode of loss of consciousness. Patient does not remember very well at exactly, reportedly he was down on the ground for about 20 minutes. Patient was noted to be hypotensive in the emergency department and was started on IV pressors, patient also found to have NO, patient was recommended to be transferred to however patient does not want to be transferred. He wishes to be DNR and do not intubated. Patient otherwise denied fevers. On further evaluation he was found to have new onset atrial flutter/fibrillation. Hospital Course Hospital Course Hospital Course: Patient is a 68-year-old male with past medical history of COPD CAD, cancer metastasis with unknown primary but likely lung care who presents to the hospital due to an episode of loss of consciousness. Patient does not remember very well at exactly, reportedly he was down on the ground for about 20 minutes. Patient was noted to be hypotensive in the emergency department and was started on IV pressors, patient also found to have NO, patient was recommended to be transferred to however patient does not want to be transferred. He wishes to be DNR and do not intubated. Patient otherwise denied fevers. On further evaluation he was found to have new onset atrial flutter/fibrillation. Further goals of care discussion today, patient electing to transition to hospice. Hospice consulted. Patient initially made inpatient. Given his improvement clinically, will transition to [facility] for continued care. Condition deteriorating. Problems addressed as follows: #Septic versus hypovolemic shock #Campylobacter enteritis #UTI #Suspected pneumonia #Hyponatremia #Suspected SIADH in the setting of lung cancer ? Presented with diarrhea. Workup found to be positive for Campylobacter enteritis. Treated for empiric course. Also found to be hyponatremic. Sodium gradually improved with treatment. On day of discharge, sodium 133. Tolerating p.o. intake. Saw improvement in inflammatory markers and markers of infection. Blood and urine cultures remain negative. Off of vasopressors for over 48 hours. Sepsis stabilized. #Community-acquired pneumonia ? Worsening consolidation of the left upper lobe on CXR on 08/20/2024, was started on vancomycin and cefepime. Treated for 5 days with antibiotics. De-escalated antibiotics due to goals of care. Having intermittent increase in oxygen requirement, appears to be associated with his anxiety. Occasionally will need nonrebreather due to anxiety and shortness of breath. Improves with treatment with morphine and Ativan. Has been stable on 2 to 3 L for 24 hours. #Aspiration -Canceled modified barium. In light of patient's desire to transition to hospice, allow for comfort feeds. #Air hunger #Severe metastatic lung dz with mets to hips, spine, ribs #Pancytopenia -Transition to hospice. #New onset A-fib #RVR resolved ? Weaned off IV amiodarone drip, currently rate controlled. Cardiology deciding on p.o. transition. [id number] score 2. Discontinued anticoagulation due to his thrombocytopenia. Continue amiodarone 200mg bid. #NO: Kidney function stable with elevated BUN and creatinine. Appears to have kidney injury on top of CKD. No further monitoring. DNR, transition to hospice per decision today with patient. Aggressive comfort with morphine and Ativan for anxiety and pain and air hunger. eminent. Reevaluate de-escalating medications in the morning pending patient's progress. -Ativan 1 mg every 4 hours as needed for anxiety or agitation -Morphine 4 mg every 2 hours as needed for pain or air hunger -Supplemental oxygen as needed, currently on 3 L nasal cannula oxygen. Medical surrogate is Angel Almonte. Exam Data for Last 24 hours Vital signs and Labs for Last 24 Hours: Temp Pulse Resp BP Pulse Ox O2 Del Method O2 Flow Rate 100.5 F H 95 H 24 101/55 L 90 L Nasal Cannula 2 08/26/24 11:30 08/26/24 11:30 08/26/24 11:30 08/26/24 08:00 08/26/24 11:30 08/26/24 11:30 08/26/24 11:30 FiO2 30 08/24/24 07:00 Laboratory Results - last 24 hr 08/20/24 08:52: Urine Osmolality 259 08/26/24 05:17: WBC 10.3, RBC 2.05 L, Hgb 7.1 L D, Hct 20.8 L*, MCV 101.6 H, MCH 34.6 H, MCHC 34.0, RDW 16.0, Plt Count 45 L*, MPV 11.0 H, Neut % (Auto) 85.8 H, Lymph % (Auto) 7.9 L, [place] % (Auto) 6.2, Eos % (Auto) 0.0 L, Baso % (Auto) 0.1, Neut # (Auto) 8.9 H, Lymph # (Auto) 0.8, [place] # (Auto) 0.6, Eos # (Auto) 0.0, Baso # (Auto) 0.0, Total Counted 100, Neutrophils % (Manual) 91 H, Lymphocytes % (Manual) 7 L, Monocytes % (Manual) 2, Platelet Estimate Marked decrease, RBC Morphology Not Reportable, Poikilocytosis 1+, Macrocytosis 1+, Sodium 133 L, Potassium 3.9, Chloride 110 H, Carbon Dioxide 18 L, Anion Gap 8.9, BUN 55 H, Creatinine 2.10 H, Estimated Creat Clear 38, Estimated GFR 32 L, Est GFR ( Amer) 38 L, Glucose 84, Calcium 7.3 L, Total Bilirubin 0.6, Direct Bilirubin 0.3, Conjugated Bilirubin 0.0, Indirect Bilirubin 0.3, Unconjugated Bilirubin 0.3, AST 22, ALT 18, Alkaline Phosphatase 67, Total Protein 4.3 L, Albumin 2.0 L 08/26/24 08:04: Vancomycin Trough 16.3 H I & O for Last 24 hours: Intake & Output 08/23/24 08/24/24 08/25/24 08/26/24 23:59 23:59 23:59 23:59 Intake Total 2800.687 / 2900.687 2588.314 / 2938.314 750 / 750 340 / 340 Output Total 1365 / 1465 1530 / 1530 2875 / 2875 1100 / 1100 Balance 1435.687 / 2596.683 8436.314 / 1408.314 -2125 / -2125 -760 / -760 Weight 75.296 kg 75.29 kg 77.247 kg 78.1 kg Constitutional Constitutional: mild distress, cachectic, chronically ill appearing and cooperative *Routine HEENT Exam Head: Present normocephalic Eye: Present EOMI and PERRL ENT: Present mucous membranes moist *Routine Neck Exam Neck: Present supple; Absent lymphadenopathy *Routine Respiratory Exam Respiratory: Present accessory muscle use, prolonged expiratory phase, rhonchi and wheezes; Absent CTA bilaterally or crackles *Routine Cardiovascular Exam Cardiovascular: Present tachycardia and irregular rhythm *Routine Abdominal Exam Abdominal: Present soft and normoactive bowel sounds; Absent tenderness Comments: Diffuse mild tenderness to palpation. No peritoneal signs. *Routine Rectal Exam Patient deferred: visual exam *Routine Exam Patient deferred: penile exam *Routine Extremities Exam Extremities: Absent cyanosis, clubbing or edema *Routine Skin Exam Skin: Present intact and warm; Absent rash Comments: Scabbed lesions on arms secondary to radiation/chemo *Routine Neurological Exam Neurological: Present alert, oriented X3 and moving all extremities; Absent altered mental status Results Data Completed and Pending Labs on day of discharge: Labs from last 24 hours 08/26/24 08/26/24 08/20/24 08:04 05:17 08:52 WBC 10.3 RBC 2.05 L Hgb 7.1 L D Hct 20.8 L* MCV 101.6 H MCH 34.6 H MCHC 34.0 RDW 16.0 Plt Count 45 L* MPV 11.0 H Neut % (Auto) 85.8 H Lymph % (Auto) 7.9 L Wood[place] % (Auto) 6.2 Eos % (Auto) 0.0 L Baso % (Auto) 0.1 Neut # (Auto) 8.9 H Lymph # (Auto) 0.8 [place] # (Auto) 0.6 Eos # (Auto) 0.0 Baso # (Auto) 0.0 Total Counted 100 Neutrophils % (Manual) 91 H Lymphocytes % (Manual) 7 L Monocytes % (Manual) 2 Platelet Estimate Marked decrease RBC Morphology Not Reportable Poikilocytosis 1+ Macrocytosis 1+ Sodium 133 L Potassium 3.9 Chloride 110 H Carbon Dioxide 18 L Anion Gap 8.9 BUN 55 H Creatinine 2.10 H Estimated Creat Clear 38 Estimated GFR 32 L Est GFR ( Amer) 38 L Glucose 84 Calcium 7.3 L Total Bilirubin 0.6 Direct Bilirubin 0.3 Conjugated Bilirubin 0.0 Indirect Bilirubin 0.3 Unconjugated Bilirubin 0.3 AST 22 ALT 18 Alkaline Phosphatase 67 Total Protein 4.3 L Albumin 2.0 L Urine Osmolality 259 Vancomycin Trough 16.3 H DS: Diagnosis Discharge Diagnosis (1) Acute respiratory distress: Status: Acute Code(s): R06.03 - Acute respiratory distress (2) Lung cancer: Status: Acute Code(s): C34.90 - Malignant neoplasm of unspecified part of unspecified bronchus or lung Qualifiers: Laterality: left Lung location: unspecified part of lung Qualified Code(s): C34.92 - Malignant neoplasm of unspecified part of left bronchus or lung (3) Air hunger: Status: Acute Code(s): R09.89 - Other specified symptoms and signs involving the circulatory and respiratory systems (4) Anxiety: Status: Acute Code(s): F41.9 - Anxiety disorder, unspecified (5) Atrial fibrillation with RVR: Status: Acute Code(s): I48.91 - Unspecified atrial fibrillation (6) Thrombocytopenia: Status: Acute Code(s): D69.6 - Thrombocytopenia, unspecified (7) Hyponatremia: Status: Acute Code(s): E87.1 - Hypo-osmolality and hyponatremia (8) Multiorgan failure: Status: Acute (9) COPD mixed type: Status: Acute Code(s): J44.9 - Chronic obstructive pulmonary disease, unspecified Meds Home Medications and Allergies Home Medications ?Medication ?Instructions ?Recorded ?Confirmed ?Type loperamide 2 mg capsule 2 mg PO DAILYP PRN Diarrhea 08/18/24 08/18/24 History omeprazole 20 mg capsule,delayed 20 mg PO DAILY 08/18/24 08/18/24 History release amiodarone 200 mg tablet 200 mg PO BID 30 days #60 tabs 08/26/24 Rx budesonide-formoterol HFA 160 1 inh inhalation DAILY #10.2 grams 08/26/24 Rx mcg-4.5 mcg/actuation aerosol inhaler (Symbicort) fluoxetine 20 mg capsule 20 mg PO DAILY 30 days #30 caps 08/26/24 Rx glycopyrrolate 1 mg tablet 1 mg PO TID 10 days #30 tabs 08/26/24 Rx hydrocodone 5 mg-acetaminophen 325 1 tab PO Q4HP PRN Mild To Moderate 08/26/24 Rx mg tablet Pain (1-6) 5 days #30 tabs ipratropium 0.5 mg-albuterol 3 mg 3 ml inhalation Q6H PRN wheezing 08/26/24 Rx (2.5 mg base)/3 mL nebulization #180 mL soln lorazepam 1 mg tablet 1 mg PO Q4HP PRN Agitation 5 days 10/09/24 Rx #30 tabs trazodone 150 mg tablet 150 mg PO HS 30 days #30 tabs 08/26/24 Rx New Prescriptions to Start Prescriptions: amiodarone Huma,Vish budesonide-formoterol [Symbicort] Huma,Vish fluoxetine Huma,Vish glycopyrrolate Huma,Vish hydrocodone-acetaminophen Huma,Vish ipratropium-albuterol Huma,Vish lorazepam Huma,Vish trazodone Huma,Vish Allergies Allergy/AdvReac Type Severity Reaction Status Date / Time No Known Allergies Allergy Verified 08/05/24 09:34 Discharge Plan Disposition Patient Disposition: Hospice - Medical Facility Condition: Serious Discharge Order Discharge Orders: Discharge Order (Routine); Ordered 08/26/24 Ordered By: Vish Finn Follow up Plan Prescriptions/Medication Reconciliation: New amiodarone 200 mg Tablet 200 mg PO BID 30 Days Qty: 60 0RF glycopyrrolate 1 mg Tablet 1 mg PO TID 10 Days Qty: 30 0RF hydrocodone-acetaminophen 5-325 mg Tablet 1 tab PO Q4HP PRN (Reason: Mild To Moderate Pain (1-6)) 5 Days Qty: 30 0RF fluoxetine 20 mg Capsule 20 mg PO DAILY 30 Days Qty: 30 0RF lorazepam 1 mg tablet 1 mg PO Q4HP PRN (Reason: Agitation) 5 Days Qty: 30 0RF ipratropium-albuterol 0.5 mg-3 mg(2.5 mg base)/3 mL solution for nebulization 3 ml inhalation Q6H PRN (Reason: wheezing) Qty: 180 0RF Continued loperamide 2 mg capsule 2 mg PO DAILYP PRN (Reason: Diarrhea) omeprazole 20 mg capsule,delayed release(DR/EC) 20 mg PO DAILY trazodone 150 mg tablet 150 mg PO HS 30 Days Qty: 30 0RF budesonide-formoterol [Symbicort] 160-4.5 mcg/actuation HFA aerosol inhaler 1 inh INHALATION DAILY Qty: 10.2 0RF Discontinued lorazepam 0.5 mg tablet 0.5 mg PO BIDP PRN (Reason: Anxiety) Patient Comments: TAKE 1 TABLET BY MOUTH TWICE DAILY NEEDED FOR SEVERE ANXIETY fluvoxamine 100 mg tablet 100 mg PO BID valsartan 40 mg tablet 40 mg PO DAILY Problem Reconciliation Problems Reviewed?: Yes Patient Discharge Instructions ACTIVITY: Continue current activity DIET: continue same diet Patient Instructions: Shock, DI for Acute Kidney Injury Print Language: Romanian Providers Primary Care Provider: Provider,Referral Admit Provider: Theo Rodney Attending Provider: Theo Rodney
[2024-08-26 14:54] VITALS: BP 75/44; PULSE 96; RESP 24; TEMP 38.1; O2SAT 94
--- NOTE | 2024-08-26 15:12 | PC.NURSE ---
Report called to Joana GREEN at [facility].
--- OUTSIDE RECORDS SUMMARY | 2024-09-01 11:10 | XMS_ITS ---
Author Organization [facility] Address [address] [place] [address] Care Team Providers [employer] Sales Representative Name Role Phone Giorgio Canas Primary Care Provider [phone] Giorgio Canas Unavailable Unavailable Allergies No Known Allergies REASON FOR VISIT [facility] MD visit Medications Medication SIG (Take, Route, Frequency, Duration) Notes Start Date End Date Status albuterol-ipratropium 2.5 mg-0.5 mg/3 mL 3 mL by nebulizer 4 times a day Active budesonide-formoterol 160 mcg-4.5 mcg/inh 1 puff inhaled 2 times a day Active acetaminophen-hydrocodone 325 mg-5 mg 1 tab(s) orally every 4 hours as needed for pain Active glycopyrrolate 1 mg 1 tab(s) orally befo re meals Active omeprazole 20 mg 1 cap(s) orally once a day for 90 days Active LORazepam 0.5 mg 1 tab(s) orally ever y 6 hours as needed for anxiety for 30 days 08/10/2024 Active traZODone 150MG 1 tab(s) orally twic e a day for 90 days Active Social History Tobacco Use: Social History Observation Description Date Details (start date - stop date) Former Smoker NA - NA Smoking: Question Answer Notes Are you a: former smoker How long has it been since y ou last smoked? 1-3 months Additional Findings: Tobacco User Heavy cigarett e smoker (20-39 cigs/day) Vital Signs Temperature 98 degrees Fahrenheit 08/28/2024 Blood pressure systolic 100 mm Hg 10/11/20 24 Blood pressure diastolic 80 mm Hg 024 Heart Rate 90 /min 08/28/2024 Height 73.25 in 08/28/2024 Weight 177 lbs 08/28/2024 BMI 23.19 kg/m2 08/28/2024 Encounters Encounter Location Date Provider Diagnosis [place], [place] [address] 08/28/2024 Giorgio Canas COPD with chronic bronchitis and emphysema J44.9 ; Malignant neoplasm of lung, unspecified laterality, unspecified part of lung C34.90 ; Metastasis to bone C79.51 ; PTSD (post-traumatic stress disorder) F43.10 ; Acute on chronic respiratory failure with hypoxia J96.21 ; Hospital discharge follow-up Z09 ; NO (acute kidney injury) N17.9 ; Dyspepsia R10.13 and Palliative care encounter Z51.5 Assessments Encounter Date Diagnosis (ICD Code) Assessment Notes Treatment Notes Treatment Clinical Notes 08/28/2024 COPD with chronic bronchitis and emphysema (ICD-10 - J44.9) Duoneb as needed and still using symbicort 08/28/2024 Malignant neoplasm of lung, unspecified laterality, unspecified part of lung (ICD-10 - C34.90) has elected for palliative care. friend is his healthcare surrogate. He hasn't spoke to his brother in [place] and doesn't want anyone to contact him at this point. Will continue to work with Hospice to maximize psychosocial support and comfort 08/28/2024 Metastasis to bone (ICD-10 - C79.51) [place] is managing his pain at present 08/28/2024 PTSD (post-traumatic stress disorder) (ICD-10 - F43.10) his routine medications have been discontinued but remains on trazodone for sleep and has lorazepam available 08/28/2024 Acute on chronic respiratory failure with hypoxia (ICD-10 - J96.21) continue supplemental O2 as needed for comfort 08/28/2024 Hospital discharge follow-up (ICD-10 - Z09) records reviewed 08/28/2024 NO (acute kidney injury) (ICD-10 - N17.9) resuscitated with fluids during hospital stay, good UOP in catheter today. no FU labs recommended due to palliative care goals 08/28/2024 Dyspepsia (ICD-10 - R10.13) continue PPI 08/28/2024 Palliative care encounter (ICD-10 - Z51.5) Agree with documentation as above from this Wanda. Patient states he is acting more comfortable over the past couple of days. Discussed case with nursing staff, they state that has been comfortable and pleasant. No changes in plan, will continue to follow with hospice Plan Of Treatment Treatment Notes Assessment Notes Palliative care encounter Agree with documentation as above from this Wanda. Patient states he is acting more comfortable over the past couple of days. Discussed case with nursing staff, they state that has been comfortable and pleasant. No changes in plan, will continue to follow with hospice Next Appt Details Follow Up: prn, Reason: Progress Notes * Michael GRANTDOB:1955 (68 yo M)Acc No.[id number]:08/28/2024 Patient:?Michael GRANT Provider:?Giorgio Canas MD :1955???Age:68 Y???Sex:Male Arslan e:08/28/2024 Address:[address] [place], [place] [address], [id number] Subjective: * Chief Complaints: * ???1. [place] MD visit. * HPI: ???gen:? I visited with Mr. Grant on 08/28/2024 at the [facility]. Reviewed Ms. Muñoz's HandP. Discussed case with nurses who report no needs this morning. Patient himself has no complaints. States that he is doing okay. Has significant weight loss, significant comorbidities given his metastatic malignancy and other medical problems. 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 * Social History:?Smoking?Are you a:?former smoker,?How long has it been since you last smoked??1-3 months,?Additional Findings: Tobacco User?Heavy cigarette smoker (20-39 cigs/day).?Recreational drug use: no. Caffeine: no. Living Will: Yes, brother. Alcohol: no. Travel outside [place]: no. Occupation: Disability. * Medications:?Taking budesoni de-formoterol 160 mcg-4.5 mcg/inh aerosol 1 puff inhaled 2 times a day , Taking albuterol-ipratropium 2.5 mg-0.5 mg/3 mL solution 3 mL by nebulizer 4 times a day , Taking glycopyrrolate 1 mg tablet 1 tab(s) orally before meals , Taking acetaminophen-hydrocodone 325 mg-5 mg tablet 1 tab(s) orally every 4 hours as needed for pain , Taking omeprazole 20 mg delayed release capsule 1 cap(s) orally once a day , Taking LORazepam 0.5 mg tablet 1 tab(s) orally every 6 hours as needed for anxiety , Taking traZODone 150MG tablet 1 tab(s) orally twice a day , Medication List reviewed and reconciled with the patient * Allergies:?N.K.D.A. Objective: * Vitals:?Pain: 3, Temp: 98, R R: 18, HR: 90, BP: 100/80, Ht: 73.25, Wt: 177, BMI:23.19. * Examination: ???General Examination: ?General?Pleasant but ill-appearing.?Oral cavity:?Moist membranes.?Heart:?Regular Rate and Rhythm, no murmur, rubs or gallops.?HEENT:?unremarkable.?Lungs:?wet with rhonchi bilaterally.?Abdomen:?soft, NT/ND, BS present but hyperactive.?Neurologic Exam:? no focal signs,, Alert and oriented x 3.?Skin:?diffusely dry skin on lower extremities, scarring from prior removals and excoriation from scratching.?Peripheral pulses:? pedal pulses palpable but diminished, soft edema bilateral lower extremities.?Extremities:?grossly moves all extremities.?neck? supple,, no thyromegaly,, no lymphadenopathy,.?Psych?pleasant but anxious.? Assessment: * Assessment: 1.?Malignant neoplasm of justine g, unspecified laterality, unspecified part of lung - C34.90 (Primary)???2.?COPD with chronic bronchitis and emphysema - J44.9???3.?Metastasis to bone - C79.51???4.?PTSD (post-traumatic stress disorder) - F43.10???5.?Acute on chronic respiratory failure with hypoxia - J96.21???6.?Hospital discharge follow-up - Z09???7.?NO (acute kidney injury) - N17.9???8.?Dyspepsia - R10.13???9.?Palliative care encounter - Z51.5??? Plan: * Treatment: 2.?COPD with chronic bronchi tis and emphysema? Clinical Notes: Duoneb as needed and still using symbicort?? 3.?Metastasis to bone? Clinical Notes: [place] is managing his pain at present?? 4.?PTSD (post-traumatic stre ss disorder)? Clinical Notes: his routine medications have been discontinued but remains on trazodone for sleep and has lorazepam available?? 5.?Acute on chronic respirat ory failure with hypoxia? Clinical Notes: continue supplemental O2 as needed for comfort?? 6.?Hospital discharge follow -up? Clinical Notes: records reviewed?? 7.?NO (acute kidney injury) ? Clinical Notes: resuscitated with fluids during hospital stay, good UOP in catheter today. no FU labs recommended due to palliative care goals?? 8.?Dyspepsia? Clinical Notes: continue PPI?? 9.?Palliative care encounter ? Notes: Agree with documentation as above from this Wanda. Patient states he is acting more comfortable over the past couple of days. Discussed case with nursing staff, they state that has been comfortable and pleasant. No changes in plan, will continue to follow with hospice?? * Follow Up:?prn * * Sign off status: Completed true * Provider:?Giorgio Canas MD Date :?08/28/2024 Generated for [employer]/eTransmitting on:?09/01/2024 11:10 AM EDT History and Physical Notes * Examination Category Sub-Category Detail Notes General Examination HEENT: unremarkable Heart: Regular Rate and Rhy thm, no murmur, rubs or gallops Lungs: wet with rhonchi berkley aterally Abdomen: soft, NT/ND, BS pres ent but hyperactive Extremities: grossly moves all ex tremities Skin: diffusely dry skin o n lower extremities, scarring from prior removals and excoriation from scratching Neurologic Exam: no focal signs,, Arielle rt and oriented x 3 Oral cavity: Moist membranes Peripheral pulses: pedal pulses palpabl e but diminished, soft edema bilateral lower extremities neck supple,, no thyromeg maged,, no lymphadenopathy, General Pleasant but ill-summer earing Psych pleasant but anxious
--- OUTSIDE RECORDS SUMMARY | 2024-09-01 11:11 | XMS_ITS | Patient Health Record ---
Author Organization [facility] Address [address] [place] [address] Care Team Providers Care Panel Installer Name Role Phone Giorgio Canas Primary Care Provider Giorgio Canas Unavailable Unavailable Linda Muñoz Unavailable [phone] Allergies No Known Allergies Results Component Value Reference Range Notes CT Scan : Chest, Lung Cancer Screening Reviewed date:01/27/2024 05:55:19 PM Interpretation: Performing Lab: Notes/Report: PET/CT Scan Reviewed date:03/06/2024 11:24:50 AM Interpretation: Performing Lab: Notes/Report: LIPID PANEL, STANDARD (7600) Reviewed date:12/31/2023 04:07:50 PM Interpretation: Performing Lab:TOP[facility], [facility] [address] [facility], Dre [id number] Theron Ball Notes/Report: FASTING:NO FASTING: NO CHOLESTEROL, TOTAL 153 <200 mg/dL HDL CHOLESTEROL 54 > OR = 40 mg/dL TRIGLYCERIDES 63 <150 mg/dL LDL-CHOLESTEROL 85 Reference range: <100 Desirable range <100 mg/dL for primary prevention; <70 mg/dL for patients with CHD or diabetic patients with > or = 2 CHD risk factors. LDL-C is now calculated using the Tl calculation, which is a validated novel method providing better accuracy than the Friedewald equation in the estimation of LDL-C. Turner ESTEBAN et al. KEVIN. 2013;310(19): 1914-5981 (http://education.[employer]faq/LPU463) CHOL/HDLC RATIO 2.8 <5.0 (calc) NON HDL CHOLESTEROL 99 <130 mg/dL (calc) option. For patients with diabetes plus 1 major ASCVD risk factor, treating to a non-HDL-C goal of <100 mg/dL (LDL-C of <70 mg/dL) is considered a therapeutic COMPREHENSIVE METABOLIC PANE L (58272) Reviewed date:12/31/2023 04:07:44 PM Interpretation: Performing Lab:[facility] [address], [id number] Theron Ball Notes/Report: FASTING:NO FASTING: NO GLUCOSE 115 65-139 mg/dL Non-fasting reference interval UREA NITROGEN (BUN) 14 7-25 mg/dL CREATININE 1.00 0.70-1.35 mg/dL EGFR 83 > OR = 60 mL/min/1.73m2 BUN/CREATININE RATIO SEE NOTE: 6-22 (calc) Not Reported: BUN and Creatinine are within reference range. SODIUM 136 135-146 mmol/L POTASSIUM 4.6 3.5-5.3 mmol/L CHLORIDE 95 98-110 mmol/L CARBON DIOXIDE 31 20-32 mmol/L CALCIUM 9.6 8.6-10.3 mg/dL PROTEIN, TOTAL 6.6 6.1-8.1 g/dL ALBUMIN 4.1 3.6-5.1 g/dL GLOBULIN 2.5 1.9-3.7 g/dL (calc) ALBUMIN/GLOBULIN RATIO 1.6 1.0-2.5 (calc) BILIRUBIN, TOTAL 0.6 0.2-1.2 mg/dL ALKALINE PHOSPHATASE 90 35-144 U/L AST 14 10-35 U/L ALT 10 9-46 U/L CBC (INCLUDES DIFF/PLT) (639 9) Reviewed date:12/31/2023 04:07:56 PM Interpretation: Performing Lab:[facility] [address], [id number] Theron Ball Notes/Report: FASTING:NO FASTING: NO WHITE BLOOD CELL COUNT 10.3 3.8-10.8 Thousand/ uL RED BLOOD CELL COUNT 4.95 4.20-5.80 Million/uL HEMOGLOBIN 16.4 13.2-17.1 g/dL HEMATOCRIT 46.6 38.5-50.0 % MCV 94.1 80.0-100.0 fL MCH 33.1 27.0-33.0 pg MCHC 35.2 32.0-36.0 g/dL RDW 11.7 11.0-15.0 % PLATELET COUNT 179 140-400 Thousand/uL MPV 9.1 7.5-12.5 fL ABSOLUTE NEUTROPHILS [phone] cells/uL ABSOLUTE LYMPHOCYTES 7872 084-1559 cells/uL ABSOLUTE MONOCYTES 824 200-950 cells/uL ABSOLUTE EOSINOPHILS 41 15-500 cells/uL ABSOLUTE BASOPHILS 41 0-200 cells/uL NEUTROPHILS 74.8 LYMPHOCYTES 16.4 MONOCYTES 8.0 EOSINOPHILS 0.4 BASOPHILS 0.4 PSA, TOTAL (5363) Reviewed date:12/31/2023 04:07:31 PM Interpretation: Performing Lab:[facility] [address] [address], [facility] Center[facility]myoOV[address] Theron Ball Notes/Report: FASTING:NO FASTING: NO PSA, TOTAL 5.64 < OR = 4.00 ng/mL result will be approximately 20% lower when compared to the equimolar-standardized total PSA (Wu Daphnie). Comparison of serial PSA results should be interpreted with this fact in mind. The total PSA value from this assay system is standardized against the WHO standard. The test This test was performed using the Siemens chemiluminescent method. Values obtained from different assay methods cannot be used interchangeably. PSA levels, regardless of value, should not be interpreted as absolute evidence of the presence or absence of disease. Reason For Referral Reason Urology Diagnosis 1 Elevated PSA (R97.20 ) Referral Organization [facility] Referring Provider First Name Giorgio Referring Provider Last Name Carriechucho Referring Provider Speciality Internal M edicine General Notes Yumiko Chaudhry 2023 04:13:58 PM >Referral sent to Dr. Finch Referral Priority Routine Reason Screening CT chest - No precert required 01/24/24 at 2:30 Screening Colonoscopy at [facility] April 14 at 7:30 NO blood thinners- [facility] [place] Diagnosis 1 Personal history of tobacco use (Z87.891) Referral Organization [facility] Referring Provider First Name Linda Referring Provider Last Name Wanda Referring Provider Speciality Family [facility] ctice General Notes Yumiko Chaudhry 2023 04:41:27 PM >No precert required, Order faxedIsidoro Nickie 01/10/2024 02:33:26 PM >unable to leave vmIsidoro Nickie 01/10/2024 02:36:41 PM >mailed a letter to patient Referral Priority Routine Referral Appointment Date 01/24/[address] at [facility] - 4-1- 24 at 2pm Pulm at [facility] Diagnosis 1 COPD with chronic br onchitis and emphysema (J44.9) Diagnosis 2 Lung nodule < 6cm on CT (R91.1) Diagnosis 3 Lung nodule, multipl e (R91.8) Referral Organization [facility] Referring Provider First Name Linda Referring Provider Last Name Wanda Referring Provider Speciality Family Netta rosa Referred Provider Specialty Radiology General Notes Yumiko Chaudhry 2023 11:50:38 AM >Referral sent to [facility] Pulmonology - They will call patient with appt.Isidoro Nickie 01/28/2024 11:51:38 AM >PET scan sent with notes and referral, order to [facility] Clinical Notes Yumiko Chaudhry 2023 11:51:35 AM > Referral Priority Routine Referral Appointment Date 03/04/2024 Medications Medication SIG (Take, Route, Frequency, Duration) [...] 1 tab(s) orally befo re meals Active LORazepam 0.5 mg 1 tab(s) orally ever y 6 hours as needed for anxiety for 30 days 08/10/2024 Active omeprazole 20 mg 1 cap(s) orally once a day for 90 days Active traZODone 150MG 1 tab(s) orally twic e a day for 90 days Active Immunizations Vaccine Route Administration Date Status Comme nts Pneumovax 23 IM Intramuscular 06/22/2021 Administered FLUZONE 6MO - OLDER IM Intramuscular 07/30/2019 Administer ed Flublok IM Intramuscular 09/30/2020 Administered Flublok IM Intramuscular 09/06/2022 Administered Covid Kelin Unknown 01/25/2021 Administered Social History Tobacco Use: Social History Observation Description Date Details (start date - stop date) Former Smoker NA - NA Smoking: Question Answer Notes Are you a: former smoker How long has it been since y ou last smoked? 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) Active confirmed Problem 49048411 Urinary urgency (R39.15) Active confirmed Problem 94189131 PTSD (post-traumati c stress disorder) (F43.10) Active confirmed Problem Chronic obstructive pulmonary disease (00867235) Chronic obstructive pulmonary disease (J44.9) Active confirmed Problem 267417121 BPH without urinary obstruction (N40.0) Active confirmed Problem 119412578 History of peptic ulcer disease (Z87.11) Active confirmed Problem 599410108 Nocturnal hypoxemia (G47.34) Active confirmed Problem 930098256 History of skin cancer (Z85.828) Active confirmed Problem 30231461701358211 Paresthesia of left upper extremity (R20.2) Active confirmed Problem Solitary nodule of lung (028925621) Lung nodule < 6cm on CT (R91.1) Active confirmed Problem 057579564 Personal history of tobacco use (Z87.891) Active confirmed Problem 846117881 History of alcohol abuse (Z87.898) Active confirmed Problem 573716239 Pulmonary nodule, left (R91.1) Active confirmed Problem 674010027 BMI 21.0-21.9, adult (Z68.21) Active confirmed Problem 90131100 Glaucoma, unspecified glaucoma type, unspecified laterality (H40.9) Active confirmed Problem 552319180 Malignant neoplasm of lung, unspecified laterality, unspecified part of lung (C34.90) Active confirmed Problem 53793777 Nonhealing skin ulcer, unspecified ulcer stage (L98.499) Active confirmed Problem 98253971055208330 Abnormal chest CT (R93.89) Active confirmed Problem 79563138 Acute on chronic respiratory failure with hypoxia (J96.21) Active confirmed Problem 95665831971953 History of spinal fusion (Z98.1) Active confirmed Vital Signs Heart Rate 90 /min 08/28/2024 Temperature 98 degrees Fahrenheit 08/28/2024 Blood pressure diastolic 80 mm Hg 08/28/2024 Height 73.25 in 08/28/2024 Blood pressure systolic 100 mm Hg 08/28/2024 Weight 177 lbs 08/28/2024 BMI 23.19 kg/m2 08/28/2024 Encounters Encounter Location Date Provider Diagnosis [facility] [address] [facility] [address] [address] 12/30/2023 Linda Muñoz COPD with chronic bronchitis and emphysema J44.9 ; HTN (hypertension), benign I10 ; PTSD (post-traumatic stress disorder) F43.10 ; Nocturnal hypoxemia G47.34 ; DDD (degenerative disc disease), cervical M50.30 ; BPH without urinary obstruction N40.0 ; Tobacco use Z72.0 and Personal history of tobacco use Z87.891 [facility] [address] [place] [facility] [address] [address] 01/27/2024 Linda Muñoz COPD with chronic bronchitis and emphysema J44.9 ; Abnormal chest CT R93.89 ; Personal history of tobacco use Z87.891 ; Pleural effusion, left J90 and Pulmonary nodule, left R91.1 [facility] [address] [place] [address] [place] [address] 08/17/2024 Linda Muñoz COPD with chronic bronchitis and emphysema J44.9 ; Medicare annual wellness visit, subsequent Z00.00 ; Nausea R11.0 ; Malignant neoplasm of lung, unspecified laterality, unspecified part of lung C34.90 ; Metastasis to bone C79.51 ; Toxic gastroenteritis and colitis K52.1 ; Adverse effect of antineoplastic and immunosuppressive drugs, initial encounter T45.1X5A ; BMI less than 19,adult Z68.1 ; HTN (hypertension), benign I10 ; PTSD (post-traumatic stress disorder) F43.10 ; Nocturnal hypoxemia G47.34 and DDD (degenerative disc disease), cervical M50.30 [facility] [address] [facility] [place] [address] 08/26/2024 Linda Muñoz COPD with chronic bronchitis and emphysema J44.9 ; Malignant neoplasm of lung, unspecified laterality, unspecified part of lung C34.90 ; Metastasis to bone C79.51 ; PTSD (post-traumatic stress disorder) F43.10 ; Acute on chronic respiratory failure with hypoxia J96.21 ; Hospital discharge follow-up Z09 ; NO (acute kidney injury) N17.9 ; Dyspepsia R10.13 and Palliative care encounter Z51.5 [facility] [address] [facility] [place] [address] 08/28/2024 Giorgio Canas COPD with chronic bronchitis and emphysema J44.9 ; Malignant neoplasm of lung, unspecified laterality, unspecified part of lung C34.90 ; Metastasis to bone C79.51 ; PTSD (post-traumatic stress disorder) F43.10 ; Acute on chronic respiratory failure with hypoxia J96.21 ; Hospital discharge follow-up Z09 ; NO (acute kidney injury) N17.9 ; Dyspepsia R10.13 and Palliative care encounter Z51.5 [facility] [address] [place] [address] 11/16/2023 Giorgio Canas [facility] [address] [place] [address] 01/06/2024 Linda Muñoz History of nicotine dependence Z87.891 [facility] [address] [facility] [address] [place] [address] 01/28/2024 Linda Muñoz Lung nodule < 6cm on CT R91.1 ; Chronic obstructive pulmonary disease J44.[address] scan of lung R91.8 [facility] [address] [facility] [address] [place] [address] 02/04/2024 Giorgio Canas Lung nodule < 6cm on CT R91.[address] R93.89 [facility] [address] [place] [address] 07/08/2024 Giorgio Canas [facility] [address] [place] [address] 07/29/2024 Linda Muñoz Assessments Encounter Date Diagnosis (ICD Code) Assessment Notes Treatment Notes Treatment Clinical Notes 12/30/2023 HTN (hypertension), benign (ICD-10 - I10) well controlled on current regimen, normal lipids 12/30/2023 COPD with chronic bronchitis and emphysema (ICD-10 - J44.9) stable, needs to stop smoking 01/06/2024 History of nicotine dependence (ICD-10 - Z87.891) 01/27/2024 COPD with chronic bronchitis and emphysema (ICD-10 - J44.9) stable symptoms 01/27/[address] (ICD-10 - R93.89) We discussed his most recent screening CT of the chest. Shows a new 10 mm nodule in the left lower lobe, new 5 mm nodule just superior to that and a small left pleural effusion. These are all concerning for a possible malignant process. Radiologist recommends PET CT which we will arrange, as well as pulmonology referral. 01/28/2024 Lung nodule < 6cm on CT (ICD-10 - R91.1) 02/04/2024 Lung nodule < 6cm on CT (ICD-10 - R91.1) 08/17/2024 COPD with chronic bronchitis and emphysema (ICD-10 - J44.9) Pulmonology following 08/17/2024 Medicare annual wellness visit, subsequent (ICD-10 - Z00.00) Struggling with chemotherapy effects, cancer is advancing. He has poor support, most family lives out of state. Using public medical transportation to get to [facility]. Has close FU arranged with oncology here at [facility] and we reviewed additional resources. 08/26/2024 COPD with chronic bronchitis and emphysema (ICD-10 - J44.9) Duoneb as needed and still using symbicort 08/26/2024 Malignant neoplasm o f lung, unspecified laterality, unspecified part of lung (ICD-10 - C34.90) has elected for palliative care. friend is his healthcare surrogate. He hasn't spoke to his brother in [place] and doesn't want anyone to contact him at this point. Will continue to work with Hospice to maximize psychosocial support and comfort 08/28/2024 COPD with chronic bronchitis and emphysema (ICD-10 - J44.9) Duoneb as needed and still using symbicort 08/28/2024 Malignant neoplasm o f lung, unspecified laterality, unspecified part of lung (ICD-10 - C34.90) has elected for palliative care. friend is his healthcare surrogate. He hasn't spoke to his brother in [place] and doesn't want anyone to contact him at this point. Will continue to work with Hospice to maximize psychosocial support and comfort 08/26/2024 Metastasis to bone (ICD-10 - C79.51) [facility] is managing his pain at present 08/28/2024 Metastasis to bone (ICD-10 - C79.51) [place] is managing his pain at present 01/28/2024 Chronic obstructive pulmonary disease (ICD-10 - J44.9) 08/17/2024 Nausea (ICD-10 - R11.0) 02/04/[address] (ICD-10 - R93.89) 01/27/2024 Personal history of tobacco use (ICD-10 - Z87.891) 12/30/2023 PTSD (post-traumatic stress disorder) (ICD-10 - F43.10) debbie, GWENDOLYN and CSA updated. 01/27/2024 Pleural effusion, le ft (ICD-10 - J90) 12/30/2023 Nocturnal hypoxemia (ICD-10 - G47.34) continue supplemental O2 at HS 01/28/[address] scan of lung (ICD-10 - R91.8) 08/28/2024 PTSD (post-traumatic stress disorder) (ICD-10 - F43.10) his routine medications have been discontinued but remains on trazodone for sleep and has lorazepam available 08/26/2024 PTSD (post-traumatic stress disorder) (ICD-10 - F43.10) his routine medications have been discontinued but remains on trazodone for sleep and has lorazepam available 08/17/2024 Malignant neoplasm o f lung, unspecified laterality, unspecified part of lung (ICD-10 - C34.90) 08/17/2024 Metastasis to bone (ICD-10 - C79.51) prognosis is quite guarded due to extent of metastasis 08/26/2024 Acute on chronic respiratory failure with hypoxia (ICD-10 - J96.21) continue supplemental O2 as needed for comfort 08/28/2024 Acute on chronic respiratory failure with hypoxia (ICD-10 - J96.21) continue supplemental O2 as needed for comfort 01/27/2024 Pulmonary nodule, le ft (ICD-10 - R91.1) 12/30/2023 DDD (degenerative di sc disease), cervical (ICD-10 - M50.30) imaging done previously, symptoms stable, continue tylenol and topicals as needed 12/30/2023 BPH without urinary obstruction (ICD-10 - N40.0) milldy elevated PSA, will refer to urology to follow 08/17/2024 Toxic gastroenteriti s and colitis (ICD-10 - K52.1) I spoke with oncology clinic and they are managing this. Offerred IV fluids today but he declines. Return precautions reviewed 08/28/2024 Hospital discharge follow-up (ICD-10 - Z09) records reviewed 08/26/2024 Hospital discharge follow-up (ICD-10 - Z09) records reviewed 08/26/2024 NO (acute kidney injury) (ICD-10 - N17.9) resuscitated with fluids during hospital stay, good UOP in catheter today. no FU labs recommended due to palliative care goals 08/28/2024 NO (acute kidney injury) (ICD-10 - N17.9) resuscitated with fluids during hospital stay, good UOP in catheter today. no FU labs recommended due to palliative care goals 08/17/2024 Adverse effect of antineoplastic and immunosuppressive drugs, initial encounter (ICD-10 - T45.1X5A) 12/30/2023 Tobacco use (ICD-10 - Z72.0) risks/benefits and reasons for FU reviewed. quit plan reviewed 12/30/2023 Personal history of tobacco use (ICD-10 - Z87.891) 08/17/2024 BMI less than 19,moise lt (ICD-10 - Z68.1) Weight is down 20 pounds since prior visit, due to malignancy and chemotherapy effects 08/28/2024 Dyspepsia (ICD-10 - R10.13) continue PPI 08/26/2024 Dyspepsia (ICD-10 - R10.13) continue PPI 08/26/2024 Palliative care encounter (ICD-10 - Z51.5) 08/28/2024 Palliative care encounter (ICD-10 - Z51.5) Agree with documentation as above from this Wanda. Patient states he is acting more comfortable over the past couple of days. Discussed case with nursing staff, they state that has been comfortable and pleasant. No changes in plan, will continue to follow with hospice 08/17/2024 HTN (hypertension), benign (ICD-10 - I10) on low dose antihypertensive, may need to hold if weight loss and hydration continue to be poor 08/17/2024 PTSD (post-traumatic stress disorder) (ICD-10 - F43.10) stable, GWENDOLYN and CSA updated. 08/17/2024 Nocturnal hypoxemia (ICD-10 - G47.34) continue supplemental O2 at HS 08/17/2024 DDD (degenerative di sc disease), cervical (ICD-10 - M50.30) imaging done previously, symptoms stable, continue tylenol and topicals as needed 01/27/2024 Other colonoscopy Mid-08/17/2024 Other Plan Of Treatment Pending Test Test Name Order Date X ray : Spines, Cervical 08/01/2020 Physical Therapy 02/08/2022 Doppler: Venous, L Lower Extremity 09/25 NVC/EMG STUDY OF UPPER EXTREMITIES 09/28 M-Complete Blood Count Auto Diff 020 M-Complete Blood Count Auto Diff 021 M-Complete Blood Count Auto Diff 020 M-Comprehensive Metabolic Panel 04/18/20 20 M-Comprehensive Metabolic Panel 10/21/20 20 M-Comprehensive Metabolic Panel 06/22/20 21 M-BUN & Creatinine 02/08/2022 M-Lipid Panel 06/22/2021 M-Lipid Panel 10/21/2020 M-Lipid Panel 04/18/2020 M-Thyroid Stimulating Hormone 10/21/2020 M-Diarrhea Panel, PCR 04/18/2020 PET/CT Scan Skull Base to Mid Thigh 01/16 Future Test Test Name Order Date M-Basic Metabolic Panel 01/09/2021 M-Hemoglobin A1C 01/09/2021 Insurance Providers Payer Name Payer Address Payer Phone Subscriber Number Group Number Insured Name Patient Relationship to Insured Coverage Start Date Coverage End Date [place] [address] [place] [address] [phone] [id number] SlavaMichael Self - patient is the insured Medical (General) History Medical History History ICD Code Emphysema Hepatitis B OCD, Depression, PTSD Glaucoma History of Alcohol Abuse HTN GERD with h/o bleeding ulcers Colonoscopy 02/2019, tubular adenomas, Dr Abebe Squamous cell cancer of the lung with li ny metastasis Surgical History Surgery Date(Month/Year) cancer removal from back/below lt knee 0 03/2019 Bone Biopsy Port Placement for chemo Hospitalization History Reason Date(Month/Year) Lung Cancer, dehydration 08/2024 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
--- OUTSIDE RECORDS SUMMARY | 2024-09-01 11:11 | XMS_ITS ---
Author Organization [facility] D [facility] Address [address] [place] [address] Care Team Providers Care Java Programming Professor Name Role Phone Giorgio Canas Primary Care Provider Giorgio Canas Unavailable Unavailable Linda Muñoz Unavailable [phone] Allergies No Known Allergies REASON FOR VISIT [place] History and Physical Medications Medication SIG (Take, Route, Frequency, Duration) Notes Start Date End Date Status budesonide-formoterol 160 mcg-4.5 mcg/inh 1 puff inhaled 2 times a day Active albuterol-ipratropium 2.5 mg-0.5 mg/3 mL 3 mL by nebulizer 4 times a day Active acetaminophen-hydrocodone 325 mg-5 mg 1 tab(s) orally every 4 hours as needed for pain Active glycopyrrolate 1 mg 1 tab(s) orally befo re meals Active LORazepam 0.5 mg 1 tab(s) orally ever y 6 hours as needed for anxiety for 30 days 08/10/2024 Active traZODone 150MG 1 tab(s) orally twic e a day for 90 days Active omeprazole 20 mg 1 cap(s) orally once a day for 90 days Active Social [...] Problem Status W/U Status Risk Notes Problem [id number] Acute on chronic respiratory failure with hypoxia (J96.21) Active confirmed Vital Signs Temperature 98.6 degrees Fahrenheit 08/26/20 24 Blood pressure systolic 104 mm Hg 08/26/20 24 Blood pressure diastolic 60 mm Hg 024 Heart Rate 106 /min 08/26/2024 Height 73.25 in 08/26/2024 Weight 175 lbs 08/26/2024 BMI 22.93 kg/m2 08/26/2024 Encounters Encounter Location Date Provider Diagnosis [facility] [place], [place] [address] 08/26/2024 Linda Muñoz COPD with chronic bronchitis [...] Assessment Notes Treatment Notes Treatment Clinical Notes 08/26/2024 COPD with chronic bronchitis and emphysema (ICD-10 - J44.9) Duoneb as needed and still using symbicort 08/26/2024 Malignant neoplasm of lung, unspecified laterality, unspecified part of lung (ICD-10 - C34.90) has elected for palliative care. friend is his healthcare surrogate. He hasn't spoke to his brother in [place] and doesn't want anyone to contact him at this point. Will continue to work with Hospice to maximize psychosocial support and comfort 08/26/2024 Metastasis to bone (ICD-10 - C79.51) [place] is managing his pain at present 08/26/2024 PTSD (post-traumatic stress disorder) (ICD-10 - F43.10) his routine medications have been discontinued but remains on trazodone for sleep and has lorazepam available 08/26/2024 Acute on chronic respiratory failure with hypoxia (ICD-10 - J96.21) continue supplemental O2 as needed for comfort 08/26/2024 Hospital discharge follow-up (ICD-10 - Z09) records reviewed 08/26/2024 NO (acute kidney injury) (ICD-10 - N17.9) resuscitated with fluids during hospital stay, good UOP in catheter today. no FU labs recommended due to palliative care goals 08/26/2024 Dyspepsia (ICD-10 - R10.13) continue PPI 08/26/2024 Palliative care encounter (ICD-10 - Z51.5) Plan Of Treatment Next Appt Details Follow Up: 1 Week, Reason: Progress Notes * Michael GRANTDOB:1955 (68 yo M)Acc No.[id number]:08/26/2024 Patient:?Michael GRANT Provider:?BYRON Ramos :1955???Age:68 Y???Sex:Male Arslan e:08/26/2024 Address:[address] [place], [place] [address] [id number] Pcp:Giorgio Canas Subjective: * Chief Complaints: * ???1. [facility] History and Physical. * HPI: ???gen:? Mr. Grnat was seen today at [facility] for admission to facility. He was admitted from home yesterday. Spent several days at [facility] from August 18 through with essentially end-stage sequela of metastatic cancer. I had seen him on August 17 during which time he declined IV fluids for suspected dehydration, was having profuse diarrhea presumably as a consequence of his chemotherapy regimen. The following day he was admitted through the emergency department after an episode of losing consciousness at his home. He was diagnosed with sepsis versus hypovolemic shock, Campylobacter enteritis, UTI, pneumonia, hyponatremia and SIADH in the setting of lung cancer, afib with RVR, NO. He was treated for his Campylobacter enteritis, resuscitated with IV fluids and pressors initially. He declined transfer to higher level of care and elected for palliative care.? He readmitted home briefly with hospice but was admitted here as noted. He has no family support, remaining family lives in [place]. A friend is his medical surrogate. His aunt with whom he had been living within the past year and shortly after he was diagnosed with this metastatic cancer. He reports to me today that his pain is reasonably well-controlled. He feels exhausted but more comfortable. Rosario catheter is in place to help control incontinence. He endorses shortness of breath but also manageable on his current regimen. Hospice plans to follow-up with him again in the next 24 to 48 hours. His appetite is poor but he has eaten a little bit of a sandwich and taking in some fluids by mouth today. Currently on a mechanical soft diet with thin liquids. * ROS:?RESPIRATORY:?Shortness of breath?yes.?Chest congestion?yes.?Cough?yes.?CARDIOLOGY:?no?Chest pain.?Leg edema?yes.?Shortness of breath?yes.?CONSTITUTIONAL:?Loss of appetite?yes.?no?Fever.?Weakness?yes.?DERMATOLOGY:?no?Rash.?Dry or sensitive skin?yes.?GASTROENTEROLOGY:?Nausea?yes.?no?Vomiting.?no?Abdominal pain.?Diarrhea?yes.?MUSCULOSKELETAL:?back pain?yes.?NEUROLOGY:?Tingling numbness?yes.?no?Seizures.?Insomnia? yes.?PSYCHOLOGY:?High stress level? yes.?Anxiety?yes.?UROLOGY:?no?Blood in urine.? 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 * Surgical History:?cancer rem oval from back/below lt knee 03/2019, Bone Biopsy , Port Placement for chemo . * Hospitalization/Major Diagno stic Procedure:?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, Lung Cancer, dehydration 08/2024. * Family History:?Father: dece ased.?Mother: .?Non-Contributory.? Adopted. * Social History:?Smoking?Are you a:?former smoker,?How long [...] 1 tab(s) orally twice a day , Discontinued latanoprost ophthalmic 0.005% solution 1 gtt in each eye once a day (in the evening) , Discontinued Albuterol Sulfate 2.5 mg/3 mL (0.083%) solution 3 mL by nebulizer every 4 hours as needed for COPD symptoms , Discontinued Abilify 5MG tablet 1 tab(s) orally once a day , Discontinued sucralfate 1 g tablet 1 tab(s) orally 4 times a day (before meals and at bedtime) , Discontinued fluvoxaMINE 100 mg tablet TAKE 1 TABLET TWICE DAILY , Discontinued valsartan 40 mg tablet 1 tab(s) orally 2 times a day , Discontinued Symbicort 160 mcg-4.5 mcg/inh aerosol INHALE 2 PUFFS TWICE DAILY , Discontinued Ondansetron Hydrochloride 4 mg tablet 1 tab(s) orally every 8 hours as needed for nausea , Medication List reviewed and reconciled with the patient * Allergies:?N.K.D.A. Objective: * Vitals:?Pain: 3, Temp: 98.6, RR: 24, HR: 106, BP: 104/60, Ht: 73.25, Wt: 175, BMI:22.93. * Examination: ???General Examination: ?General?Pleasant but ill-appearing.?Oral [...] using symbicort?? 3.?Metastasis to bone? Clinical Notes: [place] is managing his pain at present?? 4.?PTSD [...] care goals?? 8.?Dyspepsia? Clinical Notes: continue PPI?? * Follow Up:?1 Week * * Sign off status: Completed true * Provider:?BYRON Ramos Date:? 08/26/2024 Generated for Randolph peck/Yanelis/Robyn on:?09/01/2024 11:10 AM EDT History and Physical [...]
--- OUTSIDE RECORDS SUMMARY | 2024-09-01 11:11 | XMS_ITS ---
Author Organization [facility] Address [address] [place] [address] Care Team Providers Care Credit Reporting Clerk Name Role Phone Giorgio Canas Primary Care Provider Giorgio Canas Unavailable Unavailable Linda Muñoz Unavailable [phone] Allergies No Known Allergies REASON FOR VISIT Patient here today for a Medication Check and his annual wellness visit., Patient reports the last chemo treatment has caused him to have diarrhea and lack of appetite. He has contacted Dr. Buckley's office and infusion. Medications Medication SIG (Take, Route, Frequency, Duration) Notes Start Date End Date Status Ondansetron Hydrochloride 4 mg 1 tab(s) orally every 8 hours as needed for nausea for 4 days 08/17/2024 Active latanoprost ophthalmic 0.005% 1 gtt in each eye once a day (in the evening) for 30 day(s) Active traZODone 150MG 1 tab(s) orally twic e a day for 90 days Active LORazepam 0.5 mg 1 tab(s) orally twic e a day PRN Severe Anxiety for 30 days 08/10/2024 Active Albuterol Sulfate 2.5 mg/3 mL (0.083%) 3 mL by nebulizer every 4 hours as needed for COPD symptoms for 30 day(s) 11/28/2020 Active valsartan 40 mg 1 tab(s) orally 2 ti mes a day for 90 days Active omeprazole 20 mg 1 cap(s) orally once a day for 90 days Active fluvoxaMINE 100 mg TAKE 1 TABLET TWICE DAILY Active Symbicort 160 mcg-4.5 mcg/inh INHALE 2 PUFFS TWICE DAILY for 90 days Active sucralfate 1 g 1 tab(s) orally 4 ti mes a day (before meals and at bedtime) for 30 days 01/31/2023 Active Abilify 5MG 1 tab(s) orally once a day for 90 Active Social History Tobacco Use: Social History [...] Problem Status W/U Status Risk Notes Problem [id number] Malignant neoplasm of lung, unspecified laterality, unspecified part of lung (C34.90) Active confirmed Vital Signs Temperature 97.9 degrees Fahrenheit 08/17/20 24 Blood pressure systolic 100 mm Hg 08/17/20 24 Blood pressure diastolic 48 mm Hg 024 Heart Rate 108 /min 08/17/2024 Height 73.25 in 08/17/2024 Weight 146.6 lbs 08/17/2024 BMI 19.21 kg/m2 08/17/2024 Encounters Encounter Location Date Provider Diagnosis [facility] [address] [facility] [address] [place] [address] 08/17/2024 Linda Muñoz COPD with chronic bronchitis [...] and DDD (degenerative disc disease), cervical M50.30 Assessments Encounter Date Diagnosis (ICD Code) Assessment Notes Treatment Notes Treatment Clinical Notes 08/17/2024 COPD with chronic bronchitis and emphysema (ICD-10 - J44.9) Pulmonology following 08/17/2024 Medicare annual wellness visit, subsequent (ICD-10 - Z00.00) Struggling with chemotherapy effects, cancer is advancing. He has poor support, most family lives out of state. Using public medical transportation to get to appts. Has close FU arranged with oncology here at [facility] and we reviewed additional resources. 08/17/2024 Nausea (ICD-10 - R11.0) 08/17/2024 Malignant neoplasm o f lung, unspecified laterality, unspecified part of lung (ICD-10 - C34.90) 08/17/2024 Metastasis to bone (ICD-10 - C79.51) prognosis is quite guarded due to extent of metastasis 08/17/2024 Toxic gastroenteriti s and colitis (ICD-10 - K52.1) I spoke with oncology clinic and they are managing this. Offerred IV fluids today but he declines. Return precautions reviewed 08/17/2024 Adverse effect of antineoplastic and immunosuppressive drugs, initial encounter (ICD-10 - T45.1X5A) 08/17/2024 BMI less than 19,moise lt (ICD-10 - Z68.1) Weight is down 20 pounds since prior visit, due to malignancy and chemotherapy effects 08/17/2024 HTN (hypertension), benign (ICD-10 - I10) [...] stable, continue tylenol and topicals as needed 08/17/2024 Other Plan Of Treatment Medication Medication Name Sig Start Date Stop Date Notes Ondansetron Hydrochloride 4 mg 1 tab(s) orally every 8 hours as needed for nausea for 4 days 08/17/2024 Treatment Notes Assessment Notes PTSD (post-traumatic stress disorder) st able, GWENDOLYN and CSA updated. Nocturnal hypoxemia continue supplementa l O2 at HS DDD (degenerative disc disease), cervica l imaging done previously, symptoms stable, continue tylenol and topicals as needed Next Appt Details Follow Up: 3 Months, Reason: Progress Notes * Michael GRANTDOB:1955 (68 yo M)Acc No.[id number]:08/17/2024 Progress Notes Patient:?Michael GRANT Provider:?BYRON Ramos :1955???Age:68 Y???Sex:Male Arslan e:08/17/2024 Address[place], [id number] Pcp:Giorgio Canas Subjective: * Chief Complaints: * ???1. Patient here today for a Medication Check and his annual wellness visit.. 2. Patient reports the last chemo treatment has caused him to have diarrhea and lack of appetite. He has contacted Dr. Buckley's office and infusion.. * HPI: ???gen:? 68 yr male presents today for routine FU of chronic disease. AWV.? 1. COPD and Metastatic lung cancer (mets to multiple bones)?- Following with [facility] Oncology and unfortunately has had progression of disease despite chemotherapy. Today he reports 2 days of watery diarrhea, nausea, some incontinence due to urgency. Has spoken with his Oncology clinic and they are sending anti-diarrheal agent.? 3. GERD and h/o PUD. On PPI and carafate as noted 4. PTSD/Chronic anxiety. On trazodone, fluvoxamine, abilify and daily lorazepam as noted. Symptoms well controlled prior to cancer/chemo 5. HTN - no CP or new SOA. No edema. On amlodipine and valsartan as noted. * ROS:?FUNCTIONAL STATUS:?ADLS?Independent for all ADL/IADL.?RESPIRATORY:?Shortness of breath?yes.?Cough?yes.?CARDIOLOGY:?no?Chest pain.?Shortness of breath?yes,?at baseline.?CONSTITUTIONAL:?Loss of appetite?yes.?no?Fever.?Weakness?yes.?Weight loss? yes.?DERMATOLOGY:?no?Rash.?Dry or sensitive skin?yes.?GASTROENTEROLOGY:?Nausea?yes.?no?Vomiting.?Diarrhea?yes.?no?Constipation.?MUSCULOSKELETAL:?back pain?yes.?Joint pain?yes.?NEUROLOGY:?no?Seizures.?Dizziness? yes.?PSYCHOLOGY:?See HPI?Yes.?UROLOGY:?no?Difficulty urinating.? 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 * Surgical History:?cancer rem oval from back/below lt knee 03/2019. * Hospitalization/Major Diagno stic Procedure:?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. * Family History:? Adopted. * Social History:?Smoking?Are you a:?former smoker,?How long has it been since you last smoked??1-3 months,?Additional Findings: Tobacco User?Heavy cigarette smoker (20-39 cigs/day).?Recreational drug use: no. Exercise: yes. Home smoke detector use: yes. Caffeine: no. Living Will: Yes, brother. Alcohol: no. Travel outside [place]: no. Occupation: Disability. * Medications:?Taking latanopr ost ophthalmic 0.005% solution 1 gtt in each eye once a day (in the evening) , Taking Albuterol Sulfate 2.5 mg/3 mL (0.083%) solution 3 mL by nebulizer every 4 hours as needed for COPD symptoms , Taking Abilify 5MG tablet 1 tab(s) orally once a day , Taking sucralfate 1 g tablet 1 tab(s) orally 4 times a day (before meals and at bedtime) , Taking fluvoxaMINE 100 mg tablet TAKE 1 TABLET TWICE DAILY , Taking omeprazole 20 mg delayed release capsule 1 cap(s) orally once a day , Taking valsartan 40 mg tablet 1 tab(s) orally 2 times a day , Taking Symbicort 160 mcg-4.5 mcg/inh aerosol INHALE 2 PUFFS TWICE DAILY , Taking LORazepam 0.5 mg tablet 1 tab(s) orally twice a day PRN Severe Anxiety , Taking traZODone 150MG tablet 1 tab(s) orally twice a day , Discontinued varenicline 1 mg tablet 1 tab(s) orally 2 times a day , Medication List reviewed and reconciled with the patient * Allergies:?N.K.D.A. Objective: * Vitals:?Nurse: john, Pain: 0, Temp: 97.9, RR: 20, HR: 108, BP: 100/48, Ht: 73.25, Wt: 146.6, BMI:19.21. * Examination: ???General Examination: ?General?Pleasant but ill-appearing.?Oral cavity:?Moist membranes.?Heart:?Regular Rate and Rhythm, no murmur, rubs or gallops.?Lungs:?clear to auscultation,.?Abdomen:?soft, NT/ND, BS present but hyperactive.?Neurologic Exam:? no focal signs,, Alert and oriented x 3.?Skin:?diffusely dry skin on lower extremities, scarring from prior removals and excoriation from scratching. no open lesions or drainage today.?Peripheral pulses:? pedal pulses palpable but diminished, no pitting edema.?neck? supple,, no thyromegaly,, no lymphadenopathy,.?Psych?Anxious, Depressed Affect.? Assessment: * Assessment: 1.?Medicare annual wellness visit, subsequent - Z00.00 (Primary)???2.?COPD with chronic bronchitis and emphysema - J44.9???3.?Nausea - R11.0???4.?Malignant neoplasm of lung, unspecified laterality, unspecified part of lung - C34.90 ??5.?Metastasis to bone - C79.51???6.?Toxic gastroenteritis and colitis - K52.1???7.?Adverse effect of antineoplastic and immunosuppressive drugs, initial encounter - T45.1X5A???8.?BMI less than 19,adult - Z68.1???9.?HTN (hypertension), benign - I10???10.?PTSD (post-traumatic stress disorder) - F43.10???11.?Nocturnal hypoxemia - G47.34???12.?DDD (degenerative disc disease), cervical - M50.30??? Plan: * Treatment: 2.?COPD with chronic bronchi tis and emphysema? Clinical Notes: Pulmonology following?? 3.?Nausea? Start Ondansetron Hydrochloride tablet, 4 mg, 1 tab(s), orally, every 8 hours as needed for nausea, 4 days, 12, Refills 0.?? 4.?Metastasis to bone? Clinical Notes: prognosis is quite guarded due to extent of metastasis?? 5.?Toxic gastroenteritis and colitis? Clinical Notes: I spoke with oncology clinic and they are managing this. Offerred IV fluids today but he declines. Return precautions reviewed?? 6.?BMI less than 19,adult? Clinical Notes: Weight is down 20 pounds since prior visit, due to malignancy and chemotherapy effects?? 7.?HTN (hypertension), benig n? Clinical Notes: on low dose antihypertensive, may need to hold if weight loss and hydration continue to be poor?? 8.?PTSD (post-traumatic stre ss disorder)? Notes: stable, GWENDOLYN and CSA updated. ?? 9.?Nocturnal hypoxemia? Notes: continue supplemental O2 at HS?? 10.?DDD (degenerative disc d isease), cervical? Notes: imaging done previously, symptoms stable, continue tylenol and topicals as needed?? * Procedure Codes:?G0439 ANNUA L WELLNESS VST; PPS SUBSQT VST, 88532 HEALTH RISK [id number], 1123F ADVANCED DIRECTIVE - HAS A LIVING WILL, 3017F COLORECTAL CA SCREEN DOC REV, G8418 BMI < 22 CALCUATE W/FOLLOWUP, G9107 DOC PT HAS ACTIV DX DEPR/BIPOLR D/O, G9953 Pt scrn tbco id as non user, G8752 Most recent systolic blood pressure < 140mmhg, G8754 Most recent diastolic blood pressure < 90mmhg, G9744 PATIENT NOT ELIG D/T ACTIVE DX HTN * Preventive Medicine:? ??Counseling:?Living will?Has living will.? ??SOFIA Screening:?Falls: Future screening for fall risks?Have you had two or more falls in the past year??No,?Have you had any falls with injury in the past year??No.? ??Depression Screening:?PHQ 2?Feeling down depressed or hopeless?Yes improved on medications.? ??Immunizations:?influenza?Have you had a flu shot since the most recent July 19 ??Yes.?Pneumonia vaccine: Status for Older Adults?Are you up-to-date on your pneumonia vaccine? yes or no?yes.? ??Screening / Special Tests:?Colonoscopy?2019, repeat 5 years recommended, Dr Abebe.?PSA?Recommend screening.?Lung Cancer Screening?Agrees to schedule.?AAA screen?neg CT abd/pelvis 2020.?Due for additional vaccinations but declines today due to acute illness. * Follow Up:?3 Months * * Sign off status: Completed true * Provider:?BYRON Rmaos Date:? 08/17/2024 Generated for Randolph peck/Yanelis/Ashleeitting on:?09/01/2024 11:11 AM EDT History and Physical Notes * Examination Category Sub-Category Detail Notes General Examination Heart: Regular Rate and Rhythm, no murmur, rubs or gallops Lungs: clear to auscultatio n, Abdomen: soft, NT/ND, BS pres ent but hyperactive Skin: diffusely dry skin o n lower extremities, scarring from prior removals and excoriation from scratching. no open lesions or drainage today Neurologic Exam: no focal signs,, Arielle rt and oriented x 3 Oral cavity: Moist membranes Peripheral pulses: pedal pulses palpabl e but diminished, no pitting edema neck supple,, no thyromeg maged,, no lymphadenopathy, General Pleasant but ill-sofia earing Psych Anxious, Depressed A ffect
== END 2024-08-26 16:31 | disposition hospice, inpatient (51) | DRG 871 ==
LOC: ER 18:41 → 2ND 21:02
PROVIDERS: Internal Medicine; Internal Medicine Adolescent Medicine; Physician Assistant; Admitting Provider Student in an Organized Health Care Education/Training Program; Emergency Provider Emergency Medicine; Visit Provider Student in an Organized Health Care Education/Training Program
DX: D61.810 Antineoplastic chemotherapy induced pancytopenia (principal); J18.9 Pneumonia, unspecified organism; J96.21 Acute and chronic respiratory failure with hypoxia; R57.1 Hypovolemic shock; N17.9 Acute kidney failure, unspecified; C34.92 Malignant neoplasm of unspecified part of left bronchus or lung; N39.0 Urinary tract infection, site not specified; E22.2 Syndrome of inappropriate secretion of antidiuretic hormone; A04.5 Campylobacter enteritis; C79.51 Secondary malignant neoplasm of bone; R64 Cachexia; I48.92 Unspecified atrial flutter; I48.91 Unspecified atrial fibrillation; R55 Syncope and collapse; Z79.899 Other long term (current) drug therapy; Z68.22 Body mass index [BMI] 22.0-22.9, adult; J44.9 Chronic obstructive pulmonary disease, unspecified; I25.10 Atherosclerotic heart disease of native coronary artery without angina pectoris; Z66 Do not resuscitate; T45.1X5A Adverse effect of antineoplastic and immunosuppressive drugs, initial encounter
CPT/HCPCS: 36415; 70360; 70490; 71045; 71250; 74176; 80048; 80053; 80076; 80202; 80307; 81001; 82803; 83036; 83605; 83690; 83735; 83880; 83930; 83935; 84100; 84145; 84436; 84443; 84484; 84540; 85007; 85025; 85027; 85610; 85730; 86850; 87040; 87081; 87086; 87507; 92610; 93005; 93306; 93308; 94640; 94660; 94761; 99291; 99292; J0131; J0282; J0456; J0696; J1642; J1644; J1940; J2060; J2185; J2250; J2270; J2405; J2543; J2919; J3370; J3475; J7030; J7050; J7060; J7120; J7614; J7620; J7644